=== PATIENT | female | born 1995 | race Caucasian/White ===

== ENCOUNTER 2023-02-17 10:21 | Outpatient (RCR) | payer BC, SELFPAY ==
[2023-02-17 11:01] LABS: HCG Quantitative <1 mIU/mL
[2023-02-19 10:08] LABS: HCG Quantitative <1 mIU/mL
== END 2023-02-22 17:52 | disposition home or self-care (01) ==
LOC: LAB 10:21
PROVIDERS: Visit Provider Obstetrics & Gynecology
DX: N92.6 Irregular menstruation, unspecified (principal)
CPT/HCPCS: 36415; 84702

== ENCOUNTER 2023-05-06 08:29 | Outpatient (OUT) | payer BC, SELFPAY ==
--- NOTE | 2023-05-06 08:31 | US_ITS ---
[address] [address] Patient Name: MAURICIO MENDES MRN: [id number] date: 1995 Sex: F Assigned Patient Location: [place] Current Patient Location: [place] Accession/Order Number: [id number] Exam Date: 05/06/2023 08:32 Report Date: 05/06/2023 09:55 At the request of: JANIE CARABALLO Procedure: US OB transvaginal EXAMINATION: US OB transvaginal HISTORY: Missed menses COMPARISON: No relevant comparison available. FINDINGS: Nino intrauterine gestation Gestational sac: 4.67 cm, 10 weeks 2 days CRL: 3 cm, 9 weeks 6 days Yolk sac: 2 mm Heart rate: 175 BPM Cervix: Closed, 4.7 cm The uterus is normal, anteverted The ovaries are normal. Right corpus luteal cyst Clinical age: 9 weeks 4 days Clinical CARIDAD: 12/05/2023 Ultrasound age: 9 weeks 6 days Ultrasound CARIDAD: 12/03/2023 US/US OB transvaginal IMPRESSION: Viable nino intrauterine gestation measuring 9 weeks 6 days Electronically authenticated by: COREY SAMUEL Date: 05/06/2023 09:55
--- OUTSIDE RECORDS SUMMARY | 2023-05-06 08:32 | XMS_ITS | CCD ---
Author Name Unknown Address [address] [place] [address] Organization [facility] Care Team Providers Care Arterial Embalmer Name Role Phone No, Physician Unavailable Unavailable WILFREDO CALLAHAN Unavailable Unavailab le NO, PHYSICIAN Unavailable Unavailable Ebonie Lovelace Unavailable [phone] EBONIE LOVELACE Unavailable Unavail able EBONIE LOVELACEINE Unavailable Unavail able EBONIE LOVELACEINE Unavailable Unavail able NO, PHYSICIAN Unavailable Unavailable LOVELACEEBONIEINE Unavailable Unavail able NO, PHYSICIAN Unavailable Unavailable LOVELACE, EBONIE HERNANDEZINE Unavailable Unavail able NO, PHYSICIAN Unavailable Unavailable LOVELACE, EBONIE HERNANDEZINE Unavailable Unavail able NO, PHYSICIAN Unavailable Unavailable COREY MARTIN Unavailable Unavailable LOVELACE, EBONIE ISLAS Unavailable Unavail able NO, PHYSICIAN Unavailable Unavailable ORVILLE GÓMZE Unavailable Unavailable NO, PHYSICIAN Unavailable Unavailable DENZEL HOANG Unavailable Unavaila ble EBONIE LOVELACEINE Unavailable Unavail able NO, PHYSICIAN Unavailable Unavailable LOVELACE, EBONIE HERNANDEZINE Unavailable Unavail able NO, PHYSICIAN Unavailable Unavailable NATALIE EMANUEL Unavailable Unavailable [facility] navailable Unavailable RASHMI Hollins, DR LIMA Admitting Unavailable RASHMI Hollins, DR LIMA Attending Unavailable REQUEST, NONE LISTED Primary Care Unavaila DR JANIE Gross Consulting Unavailable TAWANNA CHESTER Admitting Unavailable TAWANNA CHESTER Attending Unavailable REQUEST, NONE LISTED Primary Care Unavaila TAWANNA Stratton Consulting Unavailable Medications Current Medications Medication Drug Class(es) Dates Sig (Normalized) Sig (Original) Norgestimate-Ethi nyl Estradiol 0.18 Mg/0.215mg/0.25mg -35 McG(28)Tablet (4 sources) Progestin, Estrogen Start: 04-29-2017 take 1 tablet by mouth once daily norgestimate-ethinyl estradiol (ORTHO TRI-CYCLEN,TRINESSA) 0.18/0.215/0.25 mg-35 mcg (28) per tablet Take 1 tablet by mouth daily. 4 04/29/2017 Active ofloxacin 3 mg/ml ophthalmic solution (1 source) Quinolone Antimicrobial Start: 05-13-2017 End: 05-20-2017 take 1 drop(s) into the eye(s) four times daily ofloxacin (OCUFLOX) 0.3 % ophthalmic solution Indications: Acute bacterial conjunctivitis of both eyes Administer 1 (one) drop to both eyes 4 (four) times a day for 7 days. 10 mL 0 05/13/2017 05/20/2017 Active Completed/Discontinued Medications Medication Drug Class(es) Dates Sig (Normalized) Sig (Original) 0.5 ml bordetella pertussis filamentous hemagglutinin vaccine, inactivated 0.01 mg/ml / bordetella pertussis fimbriae 2/3 vaccine, inactivated 0.01 mg/ml / bordetella pertussis pertactin vaccine, inactivated 0.006 mg/ml / bordetella pertussis toxoid vaccine, inactivated 0.005 mg/ml / diphtheria toxoid vaccine, inactivated 4 unt/ml / tetanus toxoid vaccine, inactivated 10 unt/ml injection (1 source) Inactivated Corynebacterium Diphtheriae Vaccine, Inactivated Clostridium Tetani Vaccine Start: 01-11-2018 End: 01-13-2018 take 0.5 mL by intramuscular injection every twenty-four hours as needed acetaminophen 325 mg oral tablet (2 sources) Start: 01-10-2018 End: 01-13-2018 take 2 tablets by mouth every four hours as needed aluminum hydroxide 40 mg/ml / magnesium hydroxide 40 mg/ml / simethicone 4 mg/ml oral suspension (1 source) Start: 01-11-2018 End: 01-13-2018 take 30 mL by mouth every four hours as needed benzocaine 200 mg/ml topical spray (1 source) Standardized Chemical Allergen Start: 01-11-2018 End: 01-13-2018 calcium chloride 0.0014 meq/ml / potassium chloride 0.004 meq/ml / sodium chloride 0.103 meq/ml / sodium lactate 0.028 meq/ml injectable solution (2 sources) Start: 01-11-2018 End: 01-11-2018 lactated ringers bolus 1,000 mL Start: 01-11-2018 End: 01-11-2018 lactated Ringers infusion diphenhydrAMINE (BENADRYL) oral solid 25 mg (1 source) Start: 01-11-2018 End: 01-13-2018 take 25 mg by mouth every six hours as needed diphenhydrAMINE (BENADRYL) oral solid 25 mg docusate sodium 100 mg oral capsule (1 source) Start: 01-11-2018 End: 01-13-2018 Flu Vaccine Qs 2017-(6 Mos Up)(Pf)60 McG(15 McGx4)/0.5 Ml Im Syringe (1 source) Start: 01-12-2018 End: 01-12-2018 take 0.5 mL by intramuscular injection every twenty-four hours as needed flu vaccine qv 2017 (6mos up)(PF) (FLULAVAL QUAD/FLUARIX QUAD) syringe 0.5 mL ibuprofen 600 mg oral tablet (2 sources) Nonsteroidal Anti-inflammator y Drug Start: 01-12-2018 End: 01-13-2018 Start: 01-11-2018 End: 01-11-2018 ibuprofen (ADVIL,MOTRIN) tab let 800 mg Vitamin With Calciu m No.72-Iron 27 Mg-Folic Acid 1 Mg Tablet (3 sources) Start: 01-12-2018 End: 01-13-2018 take 1 tablet by mouth once mitchel y vitamin with Ca-Iron-FA 27-1 mg Tab Take 1 tablet by mouth daily. Active 0.5 ml measles virus vaccine live, serafin attenuated [place] strain 2000 unt/ml / mumps virus vaccine live, yogi evans strain 85665 unt/ml / rubella virus vaccine live (wistar 27-3 strain) 2000 unt/ml injection (1 source) Live Attenuated Measles Virus Vaccine, Live Attenuated Rubella Virus Vaccine, Live Attenuated Mumps Virus Vaccine Start: 01-11-2018 End: 01-12-2018 take 0.5 mL by subcutaneous injection every twenty-four hours as needed Nalbuphine 10 Mg/Ml Injection Solution (1 source) Opioid Agonist/Antagon ist Start: 01-10-2018 End: 01-11-2018 take 10 mg intravenous route every hour as needed nalbuphine (NUBAIN) injection 10 mg Naloxone 0.4 Mg/Ml Injection Solution (2 sources) Opioid Antagonist Start: 01-11-2018 End: 01-13-2018 2 ml ondansetron 2 mg/ml injection (1 source) Serotonin-3 Receptor Antagonist Start: 01-10-2018 End: 01-11-2018 take 4 mg intravenous route every six hours as needed ondansetron (ZOFRAN) injection 4 mg ondansetron (ZOFRAN-ODT) disintegrating tablet 4 mg (1 source) Start: 01-11-2018 End: 01-13-2018 take 1 tablet by mouth every six hours as needed ondansetron (ZOFRAN-ODT) disintegrating tablet 4 mg oxyCODONE hydrochloride 5 mg oral tablet (1 source) Opioid Agonist Start: 01-11-2018 End: 01-13-2018 take 5-10 mg by mouth every four hours as needed oxytocin (4 sources) Oxytocic Start: 01-11-2018 End: 01-12-2018 Start: 01-11-2018 End: 01-11-2018 oxytocin in lactated ringers (PITOCIN) 20 unit/1,000 mL infusion Start: 01-11-2018 End: 01-11-2018 oxytocin (PITOCIN) bolus fro m bag 10,000 abdulkadir-units Start: 01-11-2018 End: 01-11-2018 oxytocin in lactated ringers (PITOCIN) 20 unit/1,000 mL infusion rho(d) immune globulin (RHOPHYLAC) injection 300 mcg (1 source) Start: 01-11-2018 End: 01-13-2018 take 300 ug by intramuscular injection every twenty-four hours as needed rho(d) immune globulin (RHOPHYLAC) injection 300 mcg 200 ml ropivacaine hydrochloride 2 mg/ml injection (1 source) Amide Local Anesthetic Start: 01-11-2018 End: 01-13-2018 simethicone 80 mg chewable tablet (1 source) Start: 01-11-2018 End: 01-13-2018 sodium chloride (1 source) Start: 01-11-2018 End: 01-13-2018 sodium chloride (PF) (NS) flush 5 mL 0.5 ml varicella-zoster virus vaccine live (oka-merck) strain 2700 unt/ml injection (1 source) Start: 01-11-2018 End: 01-13-2018 take 0.5 mL by subcutaneous injection every twenty-four hours as needed Problems Active Problems Problem Classification Problem Date Documented Da te Episodic/Chronic Hemorrhage during ; abruptio placenta; placenta previa (1 source) Placental abruption; Translations: [Placental abruption] Onset: 01-10-2018 01-10-2018 Episodic Other female genital disorders (1 source) Vaginal bleeding Onset: 01-11-2018 Episodic Unclassified (6 sources) Encounter for screening for malignant neoplasm of cervix; Translations: [Encounter for screening for malignant neoplasm of cervix] Onset: 04-14-2017 Episodic Unclassified (2 sources) Low lying placenta NOS or without hemorrhage, second trimester; Translations: [Low lying placenta nos or without hemorrhage, second trimester] Onset: 09-23-2017 Unclassified (1 source) Unknown / UNK(Unknown) Onset: 01-11-2018 Unclassified (1 source) CONTACT W/AND (SUSP) EXPOS COVID-19; Translations: [CONTACT W/AND (SUSP) EXPOS COVID-19] Onset: 10-22-2021 Past or Other Problems Problem Classification Problem Date Documented Date Episodic/Chronic Immunizations and screening for infectious disease (2 sources) Encounter for screening for infections with a predominantly sexual mode of transmission; Translations: [Encounter for screening for infections with a predominantly sexual mode of transmission] Onset: 04-14-2017 Episodic Inflammation, infection of eye (2 sources) Unspecified acute conjunctivitis, bilateral; Translations: [Unspecified acute conjunctivitis, bilateral] Onset: 05-13-2017 Episodic Normal and/or delivery (6 sources) Encounter for supervision of normal first , second trimester; Translations: [Encounter for supervision of normal first , unspecified trimester] Onset: 06-30-2017 Episodic Other complications of ; puerperium affecting management of mother (2 sources) Maternal care for (suspected) abnormality and damage, unspecified, not applicable or unspecified; Translations: [Maternal care for (suspected) abnormality and damage, unspecified, not applicable or unspecified] Onset: 09-23-2017 Episodic Other complications of ; puerperium affecting management of mother (2 sources) Maternal care for (suspected) abnormality and damage, unspecified, fetus 1; Translations: [Maternal care for (suspected) abnormality and damage, unspecified, fetus 1] Onset: 11-11-2017 Episodic Unclassified (1 source) Suspected abnormality affecting management of mother, fetus 1 of multiple gestation Results Test Name Value Interpretation Reference Range Facility Covid-19 PCR ([facility])on 09-24 SARS-CoV-2 (COVID-19) RNA SANDRA+probe Ql (Unsp spec) Not detected Normal NOT DETECTED [facility] Comment on above: Result Comment: When diagnostic testing is negative, the possibility of a false negative should be considered in the context of a patient's recent exposures and the presence of clinical signs and symptoms consistent with SARS-CoV-2. This test is not yet approved or cleared by the [place] FDA. When there are no FDA-approved or cleared tests available, and other criteria are met, FDA can make tests available under an emergency access mechanism called an Emergency Use Authorization (EUA). The EUA for this test is supported by the [employer] of Health and Human Service's declaration that circumstances exist to justify the emergency use of in vitro diagnostics for the detection and/or diagnosis of the virus that causes COVID-19. This EUA will remain in effect for the duration of the COVID-19 declaration justifying emergency of IVDs, unless it is terminated or revoked by the FDA (after which the test may no longer be used). Performed By: #### [facility] #### [facility] [address] [place] [address] Dr. Kaveh Wilks Tissue Aerobic Cultureon Bacteria identified Aer cx Nom (Tiss) Few Growth (4-10 colonies per plate) Coagulase Negative Staphylococcus Abnormal [facility] Interpretation and review of laboratory results Abnormal Invalid Interpretation Code [facility] Microscopic observation Gram stain Nom (Tiss) Many WBC Invalid Interpretation Code [facility] Microscopic observation Gram stain Nom (Tiss) Many RBC Invalid Interpretation Code [facility] Microscopic observation Gram stain Nom (Tiss) No Organisms Seen Invalid Interpretation Code [facility] Antibody Identificationon Blood group antibodies identified Nom Anti-Rhogam Invalid Interpretation Code [facility] The anti-D detected in this patient is presumably caused by a recent Rh Immune Globulin injection.It is unlikely that this represents a clinically significant antibody. Invalid Interpretation Code [facility] RhIG Evaluationon 01-11-2018 Rh immune globulin candidate (yes/no) Ql RhIG Candidacy Invalid Interpretation Code [facility] Baby is Rho(D) negative. Patient is NOT a candidate for Rh Immune Globulin. Invalid Interpretation Code [facility] Syphilis Antibodyon 01-12-20 Interpretation and review of laboratory results Normal Invalid Interpretation Code [facility] T. pallidum Ab Ql (S) Negative Invalid Interpretation Code Negative [facility] Type and Screenon 01-11-2018 ABO and Rh group Nom (Bld) Negative Invalid Interpretation Code [facility] Blood group antibody screen Ql Positive Invalid Interpretation Code [facility] Specimen Expires 01/13/2018 23:59 EST Invalid Interpretation Code [facility] APTTon 01-10-2018 aPTT Coag time (Bld) Therapeutic range for APTT's is 68 - 104 seconds Invalid Interpretation Code [facility] aPTT Coag time (Bld) 25 s Invalid Interpretation Code [facility] CBCon 01-10-2018 Erythrocyte distribution width Auto Entitic volume (RBC) 14.0 % Invalid Interpretation Code 11.6 - 14.8 % [facility] Hematocrit Auto Volume Fraction (Bld) 33.9 % Low 36 - 46 % [facility] Hemoglobin mass conc (Bld) 11.8 g/dL Low 12 - 16 g/dL [facility] Interpretation and review of laboratory results Abnormal Invalid Interpretation Code [facility] MCH Auto Entitic mass (RBC) 31.7 pg Invalid Interpretation Code 26 - [address] [facility] MCHC Auto mass conc (RBC) 34.8 g/dL Invalid Interpretation Code 31 - 37 g/dL [facility] MCV Auto Entitic volume (RBC) 91.1 fL Invalid Interpretation Code 80 - [address] [facility] Nucleated RBC #/vol (Bld) 0.00 10*3/uL Invalid Interpretation Code [facility] Nucleated RBC/100 WBC Ratio (Bld) 0.0 % Invalid Interpretation Code [facility] Platelet mean volume Auto Entitic volume (Bld) 12.1 fL Invalid Interpretation Code 9 - 15.[address] [facility] Platelets Auto #/vol (Bld) 159 10*3/uL Invalid Interpretation Code [facility] RBC Auto #/vol (Bld) 3.72 10*6/uL Low RI [facility] WBC Auto #/vol (Bld) 16.00 10*3/uL High R [facility] Fibrinogenon 01-10-2018 Fibrinogen Coag mass conc (PPP) 547 mg/dL High 224 - 483 mg/dL [facility] Interpretation and review of laboratory results Abnormal Invalid Interpretation Code [facility] Otheron 01-10-2018 Interpretation and review of laboratory results Normal Invalid Interpretation Code [facility] PT/INRon 01-10-2018 INR Coag RelTime (Bld) During the induction phase of oral anticoagulation, the INR may not reflect the anticoagulation status of the patient. Therapeutic ranges for INR's are: Most clinical situations: INR 2.0-3.0 Mechanical Prosthetic Valve: INR 2.5-3.5 Critical: INR >5.0 Invalid Interpretation Code [facility] INR Coag RelTime (PPP) 0.9 {INR} Invalid Interpretation Code [facility] Prothrombin time (PT) Coag time (PPP) 12.2 s Invalid Interpretation Code [facility] US OB FOLLOW UP TRANSABDOMIN AL SINGLE FETUSon 11-11-2017 US OB FOLLOW UP TRANSABDOMINAL SINGLE FETUS OBSTETRICS REPORT (Signed Final 11/11/2017 04:43 pm) Patient Info ID #: [id number] : [birth year] (22 yrs) Name: MAURICIO CAMARILLO Visit Date: 11/11/2017 10:50 am Performed By Performed By: Bianca Reynoso Referred By: Ebonie Lovelace RDMS, MD Attending: Uziel Hanson, Location: Demi Knapp MD, [facility] Service(s) [place] [id number] [place] [address] Indications Zika virus exposure affecting O99.89 28 weeks gestation of Z3A.28 Evaluation Num Of Fetuses: 1 Heart 138 Rate(bpm): Cardiac Activity: Observed Presentation: Vertex Placenta: Posterior P. Cord Insertion: Limited views Amniotic Fluid SHON FV: Within normal limits SHON Sum(cm) %Tile Largest Pocket(cm) 15.87 57 4.91 RUQ(cm) RLQ(cm) LUQ(cm) LLQ(cm) 4.91 3.9 2.88 4.18 -------- Biometry -------- BPD: 70 mm G. Age: 28w 1d 29 % CI: 66.97 % 70 - 86 FL/HC: 18.6 % 18.8 - 20.6 HC: 274 mm G. Age: 29w 6d 64 % HC/AC: 1.11 1.05 - 1.21 AC: 246.9 mm G. Age: 28w 6d 58 % FL/BPD: 72.9 % 71 - 87 FL: 51 mm G. Age: 27w 2d 10 % FL/AC: 20.7 % 20 - 24 LV: 5.5 mm Est. FW: 1226 gm 2 lb 11 oz 51 % Gestational Age Clinical CARIDAD: 28w 3d CARIDAD: 01/31/18 U/S Today: 28w 4d CARIDAD: 01/30/18 Best: 28w 3d Det. By: Clinical CARIDAD CARIDAD: 01/31/18 ------- Anatomy ------- Cranium: Normal appearance Ductal Arch: Normal appearance Cavum: CSP Visualized Diaphragm: Normal appearance Ventricles: Normal appearance Stomach: Normal appearance Choroid Plexus: Normal appearance Abdomen: Normal appearance Cerebellum: Normal appearance Abdominal Wall: Visualized Posterior Fossa: Visualized Cord Vessels: 3 vessels Face: Bony face appears Kidneys: Normal appearance normal Lips: Normal appearance Bladder: Visualized Heart: 4-Chamber view Spine: Normal appearance appears normal RVOT: Normal appearance Upper Extremities: Limited views of hands LVOT: Normal appearance Lower Extremities: Normal appearance Aortic Arch: Normal appearance Other: A full anatomical scan was already performed. Known male. - Cervix Uterus Adnexa - Cervix Length: 3.9 cm. -------- Comments -------- Ultrasound procedure was explained to the patient. Patient was receptive to teaching and verbalizes understanding. Impression Estimated weight and amniotic fluid volume are appropriate for this gestational age. No gross anatomic abnormalities were detected on today's scan. Specifically, the intracranial anatomy and head size appear within normal limits. Limited anatomic survey due to position and gestational age. A transvaginal ultrasound was performed to evaluate placental location. The low-lying placenta has resolved, measuring 2.2 cm from the internal os. The cervical length measured 3.9 cm. No dynamic changes were observed with fundal pressure. Recommendations Thank you for sharing the care of your patient with us. We are very proud of the fact that our ultrasound office is accredited by The [employer] ([employer]). If you would like to discuss the results of your patient's tests or would like a Maternal- Medicine Consultation to assist you with her management, please do not hesitate to contact us at [phone]. Uziel Hanson MD, RDMS Electronically Signed Final Report 11/11/2017 04:43 pm Invalid Interpretation Code [facility] US OB FOLLOW UP TRANSABDOMINAL SINGLE FETUS Interface, Rad In Stan Speechq - 11/11/2017 4:44 PM EDT OBSTETRICS REPORT (Signed Final 11/11/2017 04:43 pm) Patient Info ID #: [id number] : [birth year] (22 yrs) Name: CHELAROMAINEEmanuel Perales Sandy CAMARILLO Visit Date: 11/11/2017 10:50 am Performed By Performed By: Bianca Reynoso Referred By: Ebonie Lovelace RDID Attending: Uziel Hanson, Location: [place] [facility], [facility] Service(s) [place] [address] [place] [address] Indications Zika virus exposure affecting O99.89 28 weeks gestation of Z3A.28 Evaluation Num Of Fetuses: 1 Heart 138 Rate(bpm): Cardiac Activity: Observed Presentation: Vertex Placenta: Posterior P. Cord Insertion: Limited views Amniotic Fluid SHON FV: Within normal limits SHON Sum(cm) %Tile Largest Pocket(cm) 15.87 57 4.91 RUQ(cm) RLQ(cm) LUQ(cm) LLQ(cm) 4.91 3.9 2.88 4.18 -------- Biometry -------- BPD: 70 mm G. Age: 28w 1d 29 % CI: 66.97 % 70 - 86 FL/HC: 18.6 % 18.8 - 20.6 HC: 274 mm G. Age: 29w 6d 64 % HC/AC: 1.11 1.05 - 1.21 AC: 246.9 mm G. Age: 28w 6d 58 % FL/BPD: 72.9 % 71 - 87 FL: 51 mm G. Age: 27w 2d 10 % FL/AC: 20.7 % 20 - 24 LV: 5.5 mm Est. FW: 1226 gm 2 lb 11 oz 51 % Gestational Age Clinical CARIDAD: 28w 3d CARIDAD: 01/31/18 U/S Today: 28w 4d CARIDAD: 01/30/18 Best: 28w 3d Det. By: Clinical CARIDAD CARIDAD: 01/31/18 ------- Anatomy ------- Cranium: Normal appearance Ductal Arch: Normal appearance Cavum: CSP Visualized Diaphragm: Normal appearance Ventricles: Normal appearance Stomach: Normal appearance Choroid Plexus: Normal appearance Abdomen: Normal appearance Cerebellum: Normal appearance Abdominal Wall: Visualized Posterior Fossa: Visualized Cord Vessels: 3 vessels Face: Bony face appears Kidneys: Normal appearance normal Lips: Normal appearance Bladder: Visualized Heart: 4-Chamber view Spine: Normal appearance appears normal RVOT: Normal appearance Upper Extremities: Limited views of hands LVOT: Normal appearance Lower Extremities: Normal appearance Aortic Arch: Normal appearance Other: A full anatomical scan was already performed. Known male. - Cervix Uterus Adnexa - Cervix Length: 3.9 cm. -------- Comments -------- Ultrasound procedure was explained to the patient. Patient was receptive to teaching and verbalizes understanding. Impression Estimated weight and amniotic fluid volume are appropriate for this gestational age. No gross anatomic abnormalities were detected on today's scan. Specifically, the intracranial anatomy and head size appear within normal limits. Limited anatomic survey due to position and gestational age. A transvaginal ultrasound was performed to evaluate placental location. The low-lying placenta has resolved, measuring 2.2 cm from the internal os. The cervical length measured 3.9 cm. No dynamic changes were observed with fundal pressure. Recommendations Thank you for sharing the care of your patient with us. We are very proud of the fact that our ultrasound office is accredited by [employer] [place] [employer] ([employer]UM). If you would like to discuss the results of your patient's tests or would like a Maternal- Medicine Consultation to assist you with her management, please do not hesitate to contact us at [phone]. Uziel Hanson MD, RDMS Electronically Signed Final Report 11/11/2017 04:43 pm Invalid Interpretation Code [facility] US Obstetric Detail An atomy Transabdominal Single Fetuson 09-23-2017 US Obstetric Detail Anatomy Transabdominal Single Fetus OBSTETRICS REPORT (Signed Final 09/23/2017 03:50 pm) Patient Info ID #: [id number] : [birth year] (22 yrs) Name: MAURICIO CAMARILLO Visit Date: 09/23/2017 01:47 pm Performed By Performed By: Geovani Mart Referred By: Ebonie Lovelace RDMS, MD Attending: Debbie Recio MD Location: [facility] Service(s) Provided Targeted OB + Transvaginal [id number] Indications 21 weeks gestation of Z3A.21 Zika virus exposure affecting O99.89 Suspected abnormality affecting O35.9XX0 management of mother, Low lying placenta nos or without O44.42 hemorrhage, second trimest Evaluation Num Of Fetuses: 1 Heart 146 Rate(bpm): Cardiac Activity: Observed Presentation: Breech Placenta: Posterior low-lying 1.5 cm from os Amniotic Fluid SHON FV: Within normal limits -------- Biometry -------- BPD: 49.7 mm G. Age: 21w 0d 33 % CI: 66.25 % 70 - 86 FL/HC: 17.8 % 15.9 - 20.3 HC: 195.8 mm G. Age: 21w 5d 55 % HC/AC: 1.15 1.06 - 1.25 AC: 170.5 mm G. Age: 22w 0d 62 % FL/BPD: 70.0 % FL: 34.8 mm G. Age: 21w 0d 25 % FL/AC: 20.4 % 20 - 24 CER: 22.2 mm G. Age: 21w 1d 38 % NB: 7.33 mm 51 % > 1 MoM LV: 6.6 mm CM: 4 mm IOD: 12.9 mm G. Age: 19w 2d 49 % OOD: 32.9 mm G. Age: 19w 6d 32 % ULN: 31.8 mm G. Age: 22w 0d 49 % TIB: 31.7 mm G. Age: 21w 5d 59 % RAD: 27.9 mm G. Age: 20w 3d 33 % FIB: 29.9 mm G. Age: 20w 4d 50 % Est. FW: 433 gm 0 lb 15 oz 48 % Gestational Age Clinical CARIDAD: 21w 3d CARIDAD: 01/31/18 U/S Today: 21w 3d CARIDAD: 01/31/18 Best: 21w 3d Det. By: Clinical CARIDAD CARIDAD: 01/31/18 Targeted Anatomy Central Nervous System Calvarium/Cranial V.: Normal appearance Choroid Plexus: Normal appearance Intracranial Gisel: Normal CSP Cereb./Vermis: Normal appearance Cavum: Normal appearance Cisterna Magna: Normal appearance Lateral Ventricles: Normal appearance Spine Cervical: Normal appearance Lumbar: Normal appearance Thoracic: Normal appearance Sacral: Normal appearance Head/Neck Face: Bony face appears Palate: Visualized normal Lips: Normal appearance Profile: Normal appearance Neck: Normal appearance Orbits/Eyes: Bony sockets appear normal Nuchal Fold: Normal appearance Mandible: Visualized Nasal Bone: Present Maxilla: Visualized Thorax Thoracic Contour: Normal appearance Ductal Arch: Normal appearance Lungs: Normal appearance SVC: Visualized 4 Chamber View: Normal appearance Cardiac Frazer: Normal Cardiac Motion: Visualized Diaphragm: Normal appearance Cardiac Rhythm: Normal sinus rhythm 3 Vessel View: Visualized Rt Outflow Tract: Normal appearance IVC: Visualized Lt Outflow Tract: Normal appearance Crossing: Visualized Aortic Arch: Normal appearance Abdomen Ventral Wall: Normal appearance Rt Kidney: Normal appearance Cord Insertion: Normal appearance Bladder: Normal appearance Stomach: Normal appearance Bowel: Normal appearance Liver: Normal appearance Spleen: Normal appearance Lt Kidney: Normal appearance Extremities Lt Humerus: Normal appearance Lt Femur: Normal appearance Rt Humerus: Limited views Rt Femur: Normal appearance Lt Forearm: Normal appearance Lt Lower Leg: Normal appearance Rt Forearm: Limited view Rt Lower Leg: Normal appearance Lt Hand: Limited fingers Lt Foot: Limited toes Rt Hand: Limited fingers Rt Foot: Limited toes Other Umbilical Cord: 3-vessel Genitalia: Known male -------- Comments -------- Ultrasound procedure was explained to the patient. Patient was receptive to teaching and verbalizes understanding. Impression Thank you for referring Mauricio Camarillo for anatomic survey in the setting of travel to a Zika endemic area in early . As you know she denies a history of mosquito bites or symptoms of infection. Biometric measurements corresponded to established dates. head measurements were in the normal range. No anatomic abnormalities were seen at this time. Limited survey due to position. The placenta was posterior and appeared low-lying on transabdominal imaging. Therefore transvaginal ultrasound was performed and confirmed the low-lying placenta. The above findings were discussed with the patient, and I reviewed the limitations of ultrasound. I counseled the patient regarding the CDC recommendation to abstain from intercourse or use condoms for the duration of the when a partner has traveled to a Zika endemic location. A follow-up ultrasound was scheduled at 28 weeks for reassessment of placental location, as well as evaluation of growth and neuroanatomy. Recommendations Thank you for sharing the care of your patient with us. We are very proud of the fact that our ultrasound office is accredited by The [place] [employer] ([employer]). If you would like to discuss the results of your patient's tests or would like a Maternal- Medicine Consultation to assist you with her management, please do not hesitate to contact us at [phone]. Debbie Recio MD Electronically Signed Final Report 09/23/2017 03:50 pm Invalid Interpretation Code GEOVANI MART RDMS US Obstetric Detail Anatomy Transabdominal Single Fetus Interface, Rad In Fuji Speechq - 09/23/2017 3:51 PM EDT OBSTETRICS REPORT (Signed Final 09/23/2017 03:50 pm) Patient Info ID #: [id number] : [birth year] (22 yrs) Name: MAURICIO CAMARILLO Visit Date: 09/23/2017 01:47 pm Performed By Performed By: Geovani Mart Referred By: Ebonie Lovelace RDMS, MD Attending: Debbie Recio MD Location: [facility]) Provided Targeted OB + Transvaginal [id number] Indications 21 weeks gestation of Z3A.21 Zika virus exposure affecting O99.89 Suspected abnormality affecting O35.9XX0 management of mother, Low lying placenta nos or without O44.42 hemorrhage, second trimest Evaluation Num Of Fetuses: 1 Heart 146 Rate(bpm): Cardiac Activity: Observed Presentation: Breech Placenta: Posterior low-lying 1.5 cm from os Amniotic Fluid SHON FV: Within normal limits -------- Biometry -------- BPD: 49.7 mm G. Age: 21w 0d 33 % CI: 66.25 % 70 - 86 FL/HC: 17.8 % 15.9 - 20.3 HC: 195.8 mm G. Age: 21w 5d 55 % HC/AC: 1.15 1.06 - 1.25 AC: 170.5 mm G. Age: 22w 0d 62 % FL/BPD: 70.0 % FL: 34.8 mm G. Age: 21w 0d 25 % FL/AC: 20.4 % 20 - 24 CER: 22.2 mm G. Age: 21w 1d 38 % NB: 7.33 mm 51 % > 1 MoM LV: 6.6 mm CM: 4 mm IOD: 12.9 mm G. Age: 19w 2d 49 % OOD: 32.9 mm G. Age: 19w 6d 32 % ULN: 31.8 mm G. Age: 22w 0d 49 % TIB: 31.7 mm G. Age: 21w 5d 59 % RAD: 27.9 mm G. Age: 20w 3d 33 % FIB: 29.9 mm G. Age: 20w 4d 50 % Est. FW: 433 gm 0 lb 15 oz 48 % Gestational Age Clinical CARIDAD: 21w 3d CARIDAD: 01/31/18 U/S Today: 21w 3d CARIDAD: 01/31/18 Best: 21w 3d Det. By: Clinical CARIDAD CARIDAD: 01/31/18 Targeted Anatomy Central Nervous System Calvarium/Cranial V.: Normal appearance Choroid Plexus: Normal appearance Intracranial Gisel: Normal CSP Cereb./Vermis: Normal appearance Cavum: Normal appearance Cisterna Magna: Normal appearance Lateral Ventricles: Normal appearance Spine Cervical: Normal appearance Lumbar: Normal appearance Thoracic: Normal appearance Sacral: Normal appearance Head/Neck Face: Bony face appears Palate: Visualized normal Lips: Normal appearance Profile: Normal appearance Neck: Normal appearance Orbits/Eyes: Bony sockets appear normal Nuchal Fold: Normal appearance Mandible: Visualized Nasal Bone: Present Maxilla: Visualized Thorax Thoracic Contour: Normal appearance Ductal Arch: Normal appearance Lungs: Normal appearance SVC: Visualized 4 Chamber View: Normal appearance Cardiac Frazer: Normal Cardiac Motion: Visualized Diaphragm: Normal appearance Cardiac Rhythm: Normal sinus rhythm 3 Vessel View: Visualized Rt Outflow Tract: Normal appearance IVC: Visualized Lt Outflow Tract: Normal appearance Crossing: Visualized Aortic Arch: Normal appearance Abdomen Ventral Wall: Normal appearance Rt Kidney: Normal appearance Cord Insertion: Normal appearance Bladder: Normal appearance Stomach: Normal appearance Bowel: Normal appearance Liver: Normal appearance Spleen: Normal appearance Lt Kidney: Normal appearance Extremities Lt Humerus: Normal appearance Lt Femur: Normal appearance Rt Humerus: Limited views Rt Femur: Normal appearance Lt Forearm: Normal appearance Lt Lower Leg: Normal appearance Rt Forearm: Limited view Rt Lower Leg: Normal appearance Lt Hand: Limited fingers Lt Foot: Limited toes Rt Hand: Limited fingers Rt Foot: Limited toes Other Umbilical Cord: 3-vessel Genitalia: Known male -------- Comments -------- Ultrasound procedure was explained to the patient. Patient was receptive to teaching and verbalizes understanding. Impression Thank you for referring Mauricio Camarillo for anatomic survey in the setting of travel to a Zika endemic area in early . As you know she denies a history of mosquito bites or symptoms of infection. Biometric measurements corresponded to established dates. head measurements were in the normal range. No anatomic abnormalities were seen at this time. Limited survey due to position. The placenta was posterior and appeared low-lying on transabdominal imaging. Therefore transvaginal ultrasound was performed and confirmed the low-lying placenta. The above findings were discussed with the patient, and I reviewed the limitations of ultrasound. I counseled the patient regarding the CDC recommendation to abstain from intercourse or use condoms for the duration of the when a partner has traveled to a Zika endemic location. A follow-up ultrasound was scheduled at 28 weeks for reassessment of placental location, as well as evaluation of growth and neuroanatomy. Recommendations Thank you for sharing the care of your patient with us. We are very proud of the fact that our ultrasound office is accredited by The [place] [employer] (AIUM). If you would like to discuss the results of your patient's tests or would like a Maternal- Medicine Consultation to assist you with her management, please do not hesitate to contact us at [phone]. Debbie Recio MD Electronically Signed Final Report 09/23/2017 03:50 pm Invalid Interpretation Code GEOVANI MART RDMS CBC Auto Differentialon 03-0 Basophils 0.03 K/mcL Invalid Interpretation Code 0.00 - 0.[address] [facility] Basophils/100 leukocytes 0.3 % Invalid Interpretation Code [facility] Eosinophils 0.07 K/mcL Invalid Interpretation Code 0.00 - 0.[address] [facility] Eosinophils/100 leukocytes 0.6 % Invalid Interpretation Code [facility] Erythrocytes (RBC) 4.12 M/mcL Invalid Interpretation Code 4.00 - 5.[address] [facility] Erythrocytes (RBC) 0.00 K/mcL Invalid Interpretation Code 0.00 - 0.[address] [facility] Hematocrit (HCT) 36.8 % Invalid Interpretation Code 36 - 46 % [facility] Hemoglobin (HGB) 12.5 g/dL Invalid Interpretation Code 12 - 16 g/dL [facility] IG Absolute 0.02 K/mcL Invalid Interpretation Code 0.00 - 0.[address] [facility] IG Percent 0.20 % Invalid Interpretation Code [facility] Interpretation and review of laboratory results Abnormal Invalid Interpretation Code [facility] Lymphocytes 2.42 K/mcL Invalid Interpretation Code 0.90 - 4.[address] [facility] Lymphocytes/100 leukocytes 22.2 % Invalid Interpretation Code [facility] MCH 30.3 pg Invalid Interpretation Code 26 - [address] [facility] MCHC 34.0 g/dL Invalid Interpretation Code 31 - 37 g/dL [facility] MCV 89.3 fL Invalid Interpretation Code 80 - [address] [facility] Monocytes 0.67 K/mcL Invalid Interpretation Code 0.30 - 0.[address] [facility] Monocytes/100 leukocytes 6.1 % Invalid Interpretation Code [facility] Neutrophils 7.69 K/mcL High 1.70 - 7.[address] [facility] Neutrophils/100 leukocytes 70.6 % Invalid Interpretation Code [facility] Nucleated erythrocytes/100 erythrocytes 0.0 % Invalid Interpretation Code [facility] Platelet mean volume (PMV) 11.2 fL Invalid Interpretation Code 9 - 15.[address] [facility] Platelets 285 K/mcL Invalid Interpretation Code 150 - [address] [facility] RDW-CA 12.8 % Invalid Interpretation Code 11.6 - 14.8 % [facility] WBC (Leukocytes) 10.90 K/mcL Invalid Interpretation Code 4.50 - 11.[address] [facility] CBC and Differentialon 06-30 Creatinine The following orders were created for panel order CBC and Differential. Procedure Abnormality Status --------- ------ CBC Auto Differential[[id number]] Abnormal Final result Please view results for these tests on the individual orders. Invalid Interpretation Code [facility] HIV 1/2 Screen (4th Generati on)on 06-30-2017 HIV 1+2 antibody presence Negative Invalid Interpretation Code Negative [facility] Interpretation and review of laboratory results Normal Invalid Interpretation Code [facility] HIV 1/2 Screen (4th Generation) This assay tests for the presence of HIV-1, HIV-2 antibodies and for the presence of HIV-1 antigen. Test performed using [employer] TR immunoassay system Invalid Interpretation Code [facility] Hepatitis B Surface Antigeno n 06-30-2017 Hepatitis B Surface Ag Negative Invalid Interpretation Code Negative [facility] Hepatitis B Surface Antigen Test performed using Ivana TR immunoassay system Invalid Interpretation Code [facility] RPRon 06-30-2017 Reagin antibody presence Non-Reactive Invalid Interpretation Code Non-Reactive [facility] Rubella Antibody, IgGon Rubella IgG Non-Immune Invalid Interpretation Code [facility] Rubella IgG Value 5.87 IU/mL Invalid Interpretation Code [facility] Type and Screenon 06-30-2017 ABO+Rh group Negative Invalid Interpretation Code [facility] Blood group antibody presence Negative Invalid Interpretation Code [facility] Specimen Expires 07/03/2017 23:59 EST Invalid Interpretation Code [facility] Urine Aerobic Cultureon Bacteria aerobode culture Three or more colony types; >10,000 CFU/mL mixture of normal urogenital microbiota. None predominant. Possible contamination. Suggest repeat if clinically indicated. Invalid Interpretation Code [facility] Vital Signs Date Time Vital Sign Value Performing Clinician Facility 01-13-2018 09:42-0400 Pulse (Heart Rate) 90 /min Ebonie [facility] 01-13-2018 09:42-0400 Pulse Oximetry 98 % Ebonie [facility] 01-13-2018 09:31-0400 Body Temperature 98.2 [degF] Ebonie [facility] 01-13-2018 09:31-0400 BP Diastolic 75 mm[Hg] Ebonie [facility] 01-13-2018 09:31-0400 BP Systolic 109 mm[Hg] Ebonie [facility] 01-13-2018 09:31-0400 Respiratory Rate 16 /min Ebonie Lovelace [facility] 05-13-2017 11:47-0500 BMI (Body Mass Index) 22.6 kg/m2 Wilfredo Callahan [facility] Work Phone: 05-13-2017 11:47-0500 Body Temperature 98.4 [degF] Wilfredo Callahan [facility] Work Phone: 05-13-2017 11:47-0500 BP Diastolic 78 mm[Hg] Wilfredo Callahan [facility] Work Phone: 05-13-2017 11:47-0500 BP Systolic 112 mm[Hg] Wilfredo Callahan [facility] Work Phone: 05-13-2017 11:47-0500 Height 167.6 cm iWlfredo Callahan [facility] Work Phone: 05-13-2017 11:47-0500 Pulse (Heart Rate) 81 /min Wilfredo Callahan [facility] Work Phone: 05-13-2017 11:47-0500 Pulse Oximetry 98 % Wilfredo Callahan [facility] Work Phone: 05-13-2017 11:47-0500 Weight 63.5 kg Wilfredo Callahan [facility] Work Phone: Encounters Encounter Date Encounter Type Care Provider Facility Start: 09-02-2022 End: 09-02-[address] JANIE CARABALLO . Facility:[facility] Start: 10-22-2021 Encounter for preprocedural laboratory examination TAWANNA CHESTER [facility] Start: 10-19-2021 End: 10-20-2021 ambulatory TAWANNA CHESTER Facility:[facility] Start: 10-19-2021 End: 10-20-2021 Encounter for preprocedural laboratory examination TAWANNA CHESTER Facility:[facility] Start: 01-11-2018 End: 01-13-2018 Evaluation and management of inpatient EBONIE LEVINEFORD [facility] Start: 01-10-2018 End: 01-13-2018 Evaluation and management of inpatient Ebonie Lovelace Work Phone: [facility] Start: 11-11-2017 End: 11-12-2017 Patient encounter Denzel Hoang Work Phone: [facility] Start: 11-10-2017 End: 11-10-2017 Patient encounter ORVILLE GÓMEZ [facility] Start: 09-23-2017 End: 09-24-2017 Patient encounter COREY MARTIN [facility] Start: 09-23-2017 End: 09-23-2017 Ambulatory Ebonie Faboi Lovelace Work Phone: [facility] Start: 09-01-2017 End: 09-01-2017 Patient encounter EBONIE ISLAS [facility] Start: 08-01-2017 End: 08-01-2017 Ambulatory Ebonie Lovelace Work Phone: [facility] Start: 07-04-2017 End: 07-04-2017 Patient encounter EBONIE ISLAS [facility] Start: 06-30-2017 End: 06-30-2017 Ambulatory Ebonie Lovelace Work Phone: [facility] Start: 05-13-2017 End: 05-13-2017 Ambulatory WILFREDO CALLAHAN [facility] Start: 05-13-2017 Office/outpatient jarrell garcia, level 2 Wilfredo Callahan Work Phone: [facility] [place] Start: 04-14-2017 End: 04-19-2017 Patient encounter EBONIE [facility] Procedures Date Procedure Procedure Detail Performing Clinician Start: 01-11-2018 End: 01-11-2018 Cul bact xcpt urine blood/stool aerobic isol Anahy Sarah Work Phone: Start: 01-11-2018 End: 01-11-2018 Culture bacterial any source anaerobic iso&id Anahy Sarah Work Phone: Start: 01-10-2018 End: 01-10-2018 Antibody id rbc antibodies ea panel ea serum tq Natalie Emanuel Work Phone: Start: 01-10-2018 End: 01-10-2018 Blood type and Indirect antibody screen panel - Blood Natalie Emanuel Work Phone: Start: 01-10-2018 End: 01-10-2018 RhoGam candidate (yes/no) Natalie vazquez Work Phone: Start: 01-10-2018 End: 01-10-2018 Treponema pallidum IgG Ab [Presence] in Serum Natalie Emanuel Work Phone: Start: 01-10-2018 End: 01-10-2018 aPTT in Blood by Coagulation assay Dinora Meyer Work Phone: Start: 01-10-2018 End: 01-10-2018 Complete blood count (hemogram) panel - Blood by Automated count Dinora Meyer Work Phone: Start: 01-10-2018 End: 01-10-2018 Fibrinogen [Mass/volume] in Platelet poor plasma by Coagulation assay Dinora Meyer Work Phone: Start: 01-10-2018 End: 01-10-2018 INR in Platelet poor plasma by Coagulation assay Dinora Meyer Work Phone: Start: 01-10-2018 End: 01-10-2018 Prothrombin time Dinora Meyer Work Phone: Plan of Treatment Date Care Activity Detail Author Start: 11-11-2027 Tetanus vaccination TETANUS EVERY 10 YR [facility] Start: 04-14-2020 Screening for malign ant neoplasm of cervix PAP SMEAR [facility] Start: 12-24-2017 Influenza vaccination [facility] Start: 11-24-2017 End: 11-24-2017 Ambulatory 11/24/2017 Routine Obstetrics and Gynecology Ebonie Lovelace MD [address] [place] [address] [phone] [facility] Start: 11-11-2017 End: 11-11-2017 Ambulatory 11/11/2017 Appointment Maternal and Medicine [facility] Start: 09-28-2017 End: 09-28-2017 Ambulatory 09/28/2017 Routine Obstetrics and Gynecology Ebonie Lovelace MD [address] [place] [address] [phone] [facility] Start: 12-24-2016 Influenza vaccination SEQUENTI AL INFLUENZA VACCINE (#1) [facility] Work Phone: Start: 2004 Vaccination for shira n papillomavirus [facility] Work Phone: Start: 1993 Screening for malign ant neoplasm of cervix PAP SMEAR [facility] Work Phone: Start: 1993 Tetanus vaccination TETANUS EVERY 10 YR [facility] Work Phone: Tissue Aerobic Culture Tissue Ae robic Culture Routine 01/11/2018 11:49 PM EDT [facility] Tissue Anaerobic Culture Tissue Anaerobic Culture Routine 01/11/2018 11:49 PM EDT [facility] End: 01-11-2018 Tissue Exam Tissue Exam Routine Once for 1 Occurrences starting 01/11/2018 until 01/11/2018, 1 completed [facility] Comment on above: Once for 1 Occurrenc es starting 01/11/2018 until 01/11/2018, 1 completed Tissue Exam Tissue Exam Rout ine 01/11/2018 9:39 PM EDT [facility] Immunizations Immunization Date Immunization Notes Care Provider Fa cility 01-12-2018 influenza, injectabl e, quadrivalent, preservative free; Translations: [INFLUENZA IIV4 3YO OR > FLUARIX/FLUZONE/AFLURIA 52678] Ebonie Lovelace [facility] 01-12-2018 measles, mumps and r ubella virus vaccine; Translations: [MMR] Ebonie Lovelace [facility] 11-10-2017 tetanus toxoid, redu luz diphtheria toxoid, and acellular pertussis vaccine, adsorbed; Translations: [TDAP] Denzel Hoang [facility] Payers Date Payer Category Payer Unknown [id number] 2013 Unknown [id number] [id number] 1993 Unknown [id number] 1993 Unknown [id number] 1959 Unknown [id number] Social History Date Type Detail Facility Start: 05-13-2017 End: 01-11-2018 Tobacco smoking status NHIS Never smoker [facility] Work Phone: Sex Assigned At Not on file [facility] Work Phone: Start: 05-10-2017 [facility] Assessments Diagnosis Suspected abnormality affecting management of mother, single or unspecified fetus Low lying placenta nos or wi thout hemorrhage, second trimester Diagnosis Supervision of normal first - Primary Diagnosis Acute bacterial conjunctivit is of both eyes - Primary Diagnosis Suspected abnormality affecting management of mother, fetus 1 of multiple gestation Diagnosis Placental abruption Premature separation of placenta, unspecified as to episode of care Instructions * Patient Instructions - Wilfredo Callahan PA-C - 05/13/2017 12:30 PM EST Use eye drops as directed. Change your contacts. Follow up with eye doctor in 3-4 days if symptoms do not improve. Try OTC antihistamine. Pinkeye: Care Instructions Your Care Instructions Pinkeye is redness and swelling of the eye surface and the conjunctiva (the lining of the eyelid and the covering of the white part of the eye). Pinkeye is also called conjunctivitis. Pinkeye is often caused by infection with bacteria or a virus. Dry air, allergies, smoke, and chemicals are other common causes. Pinkeye often clears on its own in 7 to 10 days. Antibiotics only help if the pinkeye is caused by bacteria. Pinkeye caused by infection spreads easily. If an allergy or chemical is causing pinkeye, it will not go away unless you can avoid whatever is causing it. Follow-up care is a ruiz part of your treatment and safety. Be sure to make and go to all appointments, and call your doctor if you are having problems. It s also a good idea to know your test resultsand keep a list of the medicines you take. How can you care for yourself at home? Wash your hands often. Always wash them before and after you treat pinkeye or touch your eyes or face. Use moist cotton or a clean, wet cloth to remove crust. Wipe from the inside corner of the eye to the outside. Use a clean part of the cloth for each wipe. Put cold or warm wet cloths on your eye a few times a day if the eye hurts. Do not wear contact lenses or eye makeup until the pinkeye is gone. Throw away any eye makeup you were using when you got pinkeye. Clean your contacts and storage case. If you wear disposable contacts, use a new pair when your eye has cleared and it is safe to wear contacts again. If the doctor gave you antibiotic ointment or eyedrops, use them as directed. Use the medicine for as long as instructed, even if your eye starts looking better soon. Keep the bottle tip clean, and do not let it touch the eye area. To put in eyedrops or ointment: Tilt your head back, and pull your lower eyelid down with one finger. Drop or squirt the medicine inside the lower lid. Close your eye for 30 to 60 seconds to let the drops or ointment move around. Do not touch the ointment or dropper tip to your eyelashes or any other surface. Do not share towels, pillows, or washcloths while you have pinkeye. When should you call for help? Call your doctor now or seek immediate medical care if: You have pain in your eye, not just irritation on the surface. You have a change in vision or loss of vision. You have an increase in discharge from the eye. Your eye has not started to improve or begins to get worse within 48 hours after you start using antibiotics. Pinkeye lasts longer than 7 days. Watch closely for changes in your health, and be sure to contact your doctor if you have any problems. Where can you learn more? Log into your personal health record on [email or web address]://[email or web address] and enter Y392 in the Education box to learn more about [facility]: Care Instructions. Current as of: September 19, 2015 Content Version: 11.2 0259-6918 [employer]. Care instructions adapted under license by your healthcare professional. If you have questions about a medical condition or this instruction, always ask your healthcare professional. [employer] disclaims any warranty or liability for your use of this information. in this encounter Summary Purpose Family History No Family History Records FoundNo Family History Records FoundNo Family History Records Found Advance Directives No Advanced Directives Records FoundNo Advanced Directives Records FoundNo Advanced Directives Records Found Additional Source Comments INFORMATION SOURCE (unrecogn ized section and content) DATE CREATED AUTHOR 10/18/2017 [facility] DATE CREATED AUTHOR AUTHOR'S ORGANIZ ATION 02/12/2018 [facility] DATE CREATED AUTHOR AUTHOR'S ORGANIZ ATION 09/06/2022 [facility] Natalie Hoover MD - 01/10/2018 11:12 PM EDT H&P Notes (unrecognized sect ion and content) Formatting of this note may be different from the original. HISTORY AND PHYSICAL Assessment/Plan: Active Problems: * No active hospital problems. * Risks, benefits, alternatives and possible complications have been discussed in detail with the patient. Pre-admission, admission, and post admission procedures and expectations were discussed in detail. All questions answered, all appropriate consents will be signed at the Hospital. Admission is for IOL for placental abruption. FHTS are stable. NEG hsv NEG gbbs She has come in with significant bleeding one clot 6cm diameter and continued BRB per vagina. . Subjective: Chief Complaint Patient presents with Vaginal Bleeding presents with c/o episode of passing tennis ball-sized blood clot about 30 mins ago. pt states it was dark brown. pt denies any ctx or lof. pt states +fm. monitors placed. Mauricio Donovan is a 22 y.o. female with Estimated Date of Delivery: 01/31/18 at 37w0d gestation who is being admitted for induction of labor. Her current obstetrical history is significant for placental abruption. Patient reports bleeding. Movement: normal. History: History reviewed. No pertinent past medical history. Past Surgical History: Procedure Laterality Date WISDOM TOOTH EXTRACTION Family History Problem Relation Age of Onset No Known Problems Father No Known Problems Mother Social History Social History Marital status: Single Spouse name: N/A Number of children: N/A Years of education: N/A Occupational History Not on file. Social History Main Topics Smoking status: Never Smoker Smokeless tobacco: Never Used Alcohol use No Comment: rarely Drug use: No Sexual activity: Yes Partners: Male Other Topics Concern Not on file Social History Narrative No narrative on file Allergy Information: I have reviewed the patient's allergies. Patient has no known allergies. Home Medications: Outpatient Prescriptions as of 01/10/2018 Medication Sig vitamin with Ca-Iron-FA 27-1 mg Tab Take 1 tablet by mouth daily. Objective: Vital signs in last 24 hours: Temp: [98.8 ?F (37.1 ?C)] 98.8 ?F (37.1 ?C) Heart Rate: [93] 93 Resp: [14] 14 BP: (134)/(85) 134/85 General: Alert, cooperative, no distress, appears stated age Head: Normocephalic, without obvious abnormality, atraumatic Neurologic: CNII-XII intact; normal strength, sensation and reflexes throughout Psych: Mood and affect appropriate Pelvis: Exam deferred. FHT: 160 BPM Uterine Size: size equals dates Consistency: soft Laboratory and Additional Data Reviewed: Laboratory 01/10/18 11:15 PMin this encounter Dionna Jacome RN - 01/12/2018 9:38 AM EDT Consult Notes (unrecognized section and content) Associated Order(s): IP CONSULT TO ASSEMBLY LINE INSPECTOR Request for consult received, will contact mother to schedule an appointment.in this encounter Utilization Review - Ramonita Herrera RN - 01/13/2018 2:16 PM EDTLactation Note - Dinora Montes RN - 01/13/2018 11:55 AM EDTLactation Note - Dinora Montes RN - 01/12/2018 9:27 PM EDT Miscellaneous Notes (unrecog nized section and content) Formatting of this note may be different from the original. [facility] Utilization Review Notes L and D Template Admit Date:01/10/2018 Delivery Type: Gender: male weight:6 lb 14.9 oz Gestational age:37w1d Delivery date/time: 01/11/18 2114 Apgars: 6 7 Discharge Date: 01/13/2018 This note was copied from a baby's chart. Baby recently circumcised, very sleepy. Assisted with positioning and attachment techniques. Baby asleep, no interest, not opening widely. Gave mom the plan of low ruiz attempts at the breast when baby cues. If baby does not latch, or active sucking with swallowing, resulting in infant satiety, does not occur, mom is to pump/hand express and feed EBM with formula as needed, at least 8-12x/24hrs. Encouraged skin to skin, diaper diary, and discussed tummy size and appropriate volume for feeds based on baby's age. Reviewed section in A Guide To Caring For Yourself and Your Baby and the Temporary Breastpumping handout. Encouraged pump rental at discharge, and reminded mom to remove all disposable pump parts from pump to use at home and/or with a rental pump. If baby is not making progress and more help is needed, encouraged [facility] her milk is abundant or PRN. Mother is aware of the helpline and outpatient resources. This note was copied from a baby's chart. Baby in nursery for physician exam and somewhat gaggy, spot check 100%. Brought baby back to mom. Assisted with positioning and attachment techniques. Baby attempting but unable to latch. Gave mom the plan of low ruiz attempts at the breast when baby cues. If baby does not latch, or active sucking with swallowing, resulting in satiety, does not occur, mom is to pump/hand express and feed EBM with formula as needed, at least 8-12x/24hrs. Encouraged skin to skin, diaper diary, and discussed tummy size and appropriate volume for feeds based on baby's age. Reviewed the Temporary Breastpumping handout. Will follow up tomorrow before discharge for further assistance. GIORGI rounded on mom. Mom states that baby is currently being transferred to [facility] from NICU, requests consult, informed her that she will be contacted later to schedule an appointment. Courtesy card given with list of outpatient resources and helpline number. Attempted to round on mother, mother not in her room at this time.. NICU MD at bedside at request of Franchesca. evaluated and would like to transfer baby to NICU for observation. Chuy LOZADA arrived shortly after to transport pt to NICU. Education and emotional support provided to family Formatting of this note may be different from the original. Vaginal Delivery Note of viable male infant. Tight nuchal cord x 1, nonreducible, clamped and cut on the perineum. Shoulders and body delivered without delay. Cord gases sent. Baby cried and had respiratory efforts immediately after delivery, but at 7 minutes post-delivery lacked good tone, NICU called to evaluate. CPAP administered. Baby will go to NICU for evaluation and support. Placenta delivered spontaneously and was intact with a 3 vessel cord. There was no gross evidence of abruption, but the cord insertion onto the placenta was eccentric and velamentous. The placenta was sent for pathologic evaluation and cultures. Cervix intact. Right labial abrasion was hemostatic without suture. EBL 300cc. Jesse Diagnosis: Active Problems: Placental abruption SNOMED CT(R): PLACENTAL ABRUPTION Leena Donovan [[id number]] Delivery Anesthesia Method: Epidural Operative Delivery Forceps attempted?: No Vacuum extractor attempted?: No Shoulder Dystocia Shoulder dystocia present: No [place] Presentation Presentation: Vertex Position: Middle _: Occiput _: Anterior [place] Information date/time: 01/11/182113 Gender: Male Delivery type: Vaginal, Spontaneous Delivery Delivery location: OB Unit ?: No Details: Delivery Providers Delivering clinician: Anahy Sarah MD Other personnel: Provider Role Covering Attending Resident Ornament Maker Hand Leyla Alves, computational theory scientist Nurse Stephanie Curran, RN Registered Nurse Karlie Shah, computational theory scientist Assist Nurse Practitioner Cord Vessels: 3 vessels Complications: Nuchal Nuchal intervention: clamped and cut Nuchal cord description: tight nuchal cord Number of loops: 1 Delayed cord clamping?: No Cord clamped date/time: 01/11/20182113 Cord blood obtained?: Lab Cord segment obtained?: Yes Gases sent?: Yes Stem cell collection (by Provider)?: No Placenta Date/time: 01/11/20182122 Removal: Spontaneous Appearance: Intact Disposition: Discarded [place] Apgars Living status: Living Scoring Ruiz: 0 1 2 Skin color Blue or pale Acrocyanotic Completely pink Heart rate Absent <100 bpm >100 bpm Reflex irritability No response Grimace Cry or active withdrawal Muscle tone Limp Some flexion Active motion Respiratory effort Absent Weak cry; hypoventilation Good, crying Skin color: Heart rate: Reflex irritability: Muscle tone: Respiratory effort: Total: 1 Minute: 5 Minute: 10 Minute: 15 Minute: 20 Minute: Measurements Weight: Lacerations Episiotomy: None Perineal lacerations: None Vaginal laceration: No Cervical laceration: No Vaginal delivery est. blood loss (mL): 300 Repair suture: None Sponge Initial Count: 10 Needle Initial Count: 1 Counted By: Raffi CURRAN RN Verified By: Caroline ALVES RN Sponge Final Count: 10 Needle Final Count: 1 Counted By: JUNO Other Procedures Procedures: None in this encounter FOR RECORDS PERTAINING TO PATIENTS WHO ARE OR HAVE BEEN ENROLLED IN A CHEMICAL DEPENDENCY/SUBSTANCEABUSE PROGRAM, SOME INFORMATION MAY BE OMITTED. This clinical summary was aggregated from multiple sources. Caution should be exercised in using it in the provision of clinical care. This summary normalizes information from multiple sources, and as a consequence, information in this document may materially change the coding, format and clinical context of patient data. In addition, data may be omitted in some cases. CLINICAL DECISIONS SHOULD BE BASED ON THE PRIMARY CLINICAL RECORDS. [facility] [employer] [facility]. provides no warranty or guarantee of the accuracy or completeness of information in this document.
== END 2023-05-06 08:30 | disposition home or self-care (01) ==
LOC: US 08:29
PROVIDERS: Visit Provider Obstetrics & Gynecology
DX: Z34.91 Encounter for supervision of normal pregnancy, unspecified, first trimester (principal); N92.6 Irregular menstruation, unspecified
CPT/HCPCS: 76817

== ENCOUNTER 2023-05-12 09:43 | Outpatient (OUT) | payer BC, SELFPAY ==
--- OUTSIDE RECORDS SUMMARY | 2023-05-12 09:50 | XMS_ITS | CCD ---
Author Name Unknown Address [address] [place] [address] Organization [facility] Care Team Providers Care Linux Support Engineer Name Role Phone No, Physician Unavailable Unavailable WILFREDO CALLAHAN Unavailable Unavailab le NO, PHYSICIAN Unavailable Unavailable Ebonie Lovelace Unavailable EBONIE LOVELACE Unavailable Unavail able EBONIE LOVELACEINE Unavailable Unavail able EBONIE LOVELACEINE Unavailable Unavail able NO, PHYSICIAN Unavailable Unavailable LOVELACEEBONIE ISLAS Unavailable Unavail able NO, PHYSICIAN Unavailable Unavailable LOVELACEEBONIEINE Unavailable Unavail able NO, PHYSICIAN Unavailable Unavailable LOVELACE, EBONIE ISLAS Unavailable Unavail able NO, PHYSICIAN Unavailable Unavailable COREY MARTIN Unavailable Unavailable LOVELACEEBONIEINE Unavailable Unavail able NO, PHYSICIAN Unavailable Unavailable ORVILLE GÓMEZ Unavailable Unavailable NO, PHYSICIAN Unavailable Unavailable DENZEL HOANG Unavailable Unavaila ble EBONIE LOVELACEINE Unavailable Unavail able NO, PHYSICIAN Unavailable Unavailable LOVELACEEBONIE DUMONT ISLAS Unavailable Unavail able NO, PHYSICIAN Unavailable Unavailable NATALIE EMANUEL Unavailable Unavailable [facility] navailable Unavailable DR JANIE BARBOUR Admitting Unavailable RASHMI Hollins, DR LIMA Attending [...] ml measles virus vaccine live, serafin attenuated [place] strain 2000 unt/ml / mumps virus vaccine live, yogi evans strain 60144 unt/ml / rubella virus vaccine live (wistar ra 27-3 strain) 2000 unt/ml injection (1 source) [...] Value Interpretation Reference Range Facility [facility]on 09-24 SARS-CoV-2 (COVID-19) RNA SANDRA+probe Ql (Unsp spec) Not detected Normal NOT DETECTED [facility] Comment on above: Result Comment: When diagnostic [...] for this test is supported by the Cabin Supervisor of Health and Human Service's declaration that [...] longer be used). Performed By: #### [facility] #### [facility] [address] [place] [address] Dr. Kaveh Wilks Tissue Aerobic Cultureon Bacteria identified Aer cx Nom (Tiss) Few Growth (4-10 colonies per plate) Coagulase Negative Staphylococcus Abnormal [facility] Interpretation and review of laboratory results Abnormal Invalid Interpretation Code [facility] Microscopic observation Gram stain Nom (Tiss) Many WBC Invalid Interpretation Code [facility] Microscopic observation Gram stain Nom (Tiss) Many RBC Invalid Interpretation Code [facility] Microscopic observation Gram stain Nom (Tiss) No Organisms Seen Invalid Interpretation Code [facility] Antibody Identificationon Blood group antibodies identified Nom Anti-Rhogam Invalid Interpretation Code [facility] The anti-D detected in this patient is presumably caused by a recent Rh Immune Globulin injection.It is unlikely that this represents a clinically significant antibody. Invalid Interpretation Code [facility] RhIG Evaluationon 01-11-2018 Rh immune globulin candidate (yes/no) Ql RhIG Candidacy Invalid Interpretation Code [facility] Baby is Rho(D) negative. Patient is NOT a candidate for Rh Immune Globulin. Invalid Interpretation Code [facility] Syphilis Antibodyon 01-12-20 Interpretation and review of laboratory results Normal Invalid Interpretation Code [facility] T. pallidum Ab Ql (S) Negative Invalid Interpretation Code Negative [facility] Type and Screenon 01-11-2018 ABO and Rh group Nom (Bld) Negative Invalid Interpretation Code [facility] Blood group antibody screen Ql Positive Invalid Interpretation Code [facility] Specimen Expires 01/13/2018 23:59 EST Invalid Interpretation Code [facility] APTTon 01-10-2018 aPTT Coag time (Bld) Therapeutic range for APTT's is 68 - 104 seconds Invalid Interpretation Code [facility] aPTT Coag time (Bld) 25 s Invalid Interpretation Code [facility] CBCon 01-10-2018 Erythrocyte distribution width Auto Entitic volume (RBC) 14.0 % Invalid Interpretation Code 11.6 - 14.8 % [facility] Hematocrit Auto Volume Fraction (Bld) 33.9 % Low 36 - 46 % [facility] Hemoglobin mass conc (Bld) 11.8 g/dL Low 12 - 16 g/dL [facility] Interpretation and review of laboratory results Abnormal Invalid Interpretation Code [facility] MCH Auto Entitic mass (RBC) 31.7 pg Invalid Interpretation Code 26 - 34 pg [facility] MCHC Auto mass conc (RBC) 34.8 g/dL Invalid Interpretation Code 31 - 37 g/dL [facility] MCV Auto Entitic volume (RBC) 91.1 fL Invalid Interpretation Code 80 - 100 fL [facility] Nucleated RBC #/vol (Bld) 0.00 10*3/uL Invalid Interpretation Code [facility] Nucleated RBC/100 WBC Ratio (Bld) 0.0 % Invalid Interpretation Code [facility] Platelet mean volume Auto Entitic volume (Bld) 12.1 fL Invalid Interpretation Code 9 - 15.5 fL [facility] Platelets Auto #/vol (Bld) 159 10*3/uL Invalid Interpretation Code [facility] RBC Auto #/vol (Bld) 3.72 10*6/uL Low RI [facility] WBC Auto #/vol (Bld) 16.00 10*3/uL High [facility] Fibrinogenon 01-10-2018 Fibrinogen Coag mass conc (PPP) 547 mg/dL High 224 - 483 mg/dL [facility] Interpretation and review of laboratory results Abnormal Invalid Interpretation Code [facility] Otheron 01-10-2018 Interpretation and review of laboratory results Normal Invalid Interpretation Code [facility] PT/INRon 01-10-2018 INR Coag RelTime (Bld) During the induction phase of oral anticoagulation, the INR may not reflect the anticoagulation status of the patient. Therapeutic ranges for INR's are: Most clinical situations: INR 2.0-3.0 Mechanical Prosthetic Valve: INR 2.5-3.5 Critical: INR >5.0 Invalid Interpretation Code [facility] INR Coag RelTime (PPP) 0.9 {INR} Invalid Interpretation Code [facility] Prothrombin time (PT) Coag time (PPP) 12.2 s Invalid Interpretation Code [facility] US OB FOLLOW UP TRANSABDOMIN AL SINGLE FETUSon 11-11-2017 US OB FOLLOW UP TRANSABDOMINAL SINGLE FETUS OBSTETRICS REPORT (Signed Final 11/11/2017 04:43 pm) Patient Info ID #: [id number] : [birth year] (22 yrs) Name: MAURICIO Delgado CAMARILLO Visit Date: 11/11/2017 10:50 am Performed By Performed By: Bianca Reynoso Referred By: Ebonie Lovelace RDNY Attending: Uziel Hanson, Location: Demi Knapp MD, [facility] Service(s) [place] [address] [place] [address] Indications Zika virus exposure affecting O99.89 28 [...] ultrasound office is accredited by [employer] [place] [employer] in [employer] (AIUM). If you would like to discuss the results of your patient's tests or would like a Maternal- Medicine Consultation to assist you with her management, please do not hesitate to contact us at [phone]. Uziel Hanson MD, RDMS Electronically Signed Final Report 11/11/2017 04:43 pm Invalid Interpretation Code [facility] US OB FOLLOW UP TRANSABDOMINAL SINGLE FETUS Interface, Rad In Stan Speechq - 11/11/2017 4:44 PM EDT OBSTETRICS REPORT (Signed Final 11/11/2017 04:43 pm) Patient Info ID #: [id number] : [birth year] (22 yrs) Name: MAURICIO CAMARILLO Visit Date: 11/11/2017 10:50 am Performed By Performed By: Bianca Reynoso Referred By: Ebonie Lovelace RDNY Attending: Uziel Hanson, Location: [place] [facility] [place], [facility] Service(s) [place] [address] [place] [address] Indications Zika virus exposure affecting O99.89 28 [...] ultrasound office is accredited by [employer] [place] [employer] in [employer] (AIUM). If you would like to discuss the results of your patient's tests or would like a Maternal- Medicine Consultation to assist you with her management, please do not hesitate to contact us at [phone]. Uziel Hanson MD, [facility] Electronically Signed Final Report 11/11/2017 04:43 pm Invalid Interpretation Code [facility] US Obstetric Detail An atomy Transabdominal Single Fetuson 09-23-2017 US Obstetric Detail Anatomy Transabdominal Single Fetus OBSTETRICS REPORT (Signed Final 09/23/2017 03:50 pm) Patient Info ID #: [id number] : [birth year] (22 yrs) Name: MAURICIO CAMARILLO Visit Date: 09/23/2017 01:47 pm Performed By Performed By: Geovani Mart Referred By: Ebonie Lovelace RDMS, MD Attending: Debbie Recio MD Location: [facility] Service(s) Provided Targeted OB + Transvaginal [id number] Indications 21 weeks gestation of Z3A.21 Zika [...] Visualized 4 Chamber View: Normal appearance Cardiac De Young: Normal Cardiac Motion: Visualized Diaphragm: Normal appearance [...] ultrasound office is accredited by [employer] [place] [employer] in [employer] (AIUM). If you would like to discuss the results of your patient's tests or would like a Maternal- Medicine Consultation to assist you with her management, please do not hesitate to contact us at [phone]. Debbie Recio MD Electronically Signed Final Report 09/23/2017 03:50 pm Invalid Interpretation Code [facility] M[facility] US Obstetric Detail Anatomy Transabdominal Single Fetus Interface, Rad In Fuji Speechq - 09/23/2017 3:51 PM EDT OBSTETRICS REPORT (Signed Final 09/23/2017 03:50 pm) Patient Info ID #: [id number] : [birth year] (22 yrs) Name: MAURICIO CAMARILLO Visit Date: 09/23/2017 01:47 pm Performed By Performed By: Geovani Mart Referred By: Ebonie Lovelace RDMS, MD Attending: Debbie Recio MD Location: [facility] Service(s) Provided Targeted OB + Transvaginal [id number] Indications 21 weeks gestation of Z3A.21 Zika [...] Best: 21w 3d Det. By: Clinical CARIDAD CAIRDAD: 01/31/18 Targeted Anatomy Central Nervous System Calvarium/Cranial [...] Visualized 4 Chamber View: Normal appearance Cardiac De Young: Normal Cardiac Motion: Visualized Diaphragm: Normal appearance [...] ultrasound office is accredited by [employer] [place] [employer] in Medicine (AIUM). If you would like to discuss the results of your patient's tests or would like a Maternal- Medicine Consultation to assist you with her management, please do not hesitate to contact us at [phone]. Debbie Recio MD Electronically Signed Final Report 09/23/2017 03:50 pm Invalid Interpretation Code GEOVANI MART RDMS CBC Auto Differentialon - Basophils 0.03 K/mcL Invalid Interpretation Code 0.00 - 0.30 [facility] Basophils/100 leukocytes 0.3 % Invalid Interpretation Code [facility] Eosinophils 0.07 K/mcL Invalid Interpretation Code 0.00 - 0.50 [facility] Eosinophils/100 leukocytes 0.6 % Invalid Interpretation Code [facility] Erythrocytes (RBC) 4.12 M/mcL Invalid Interpretation Code 4.00 - 5.20 [facility] Erythrocytes (RBC) 0.00 K/mcL Invalid Interpretation Code 0.00 - 0.00 [facility] Hematocrit (HCT) 36.8 % Invalid Interpretation Code 36 - 46 % [facility] Hemoglobin (HGB) 12.5 g/dL Invalid Interpretation Code 12 - 16 g/dL [facility] IG Absolute 0.02 K/mcL Invalid Interpretation Code 0.00 - 0.30 [facility] IG Percent 0.20 % Invalid Interpretation Code [facility] Interpretation and review of laboratory results Abnormal Invalid Interpretation Code [facility] Lymphocytes 2.42 K/mcL Invalid Interpretation Code 0.90 - 4.00 [facility] Lymphocytes/100 leukocytes 22.2 % Invalid Interpretation Code [facility] MCH 30.3 pg Invalid Interpretation Code 26 - 34 pg [facility] MCHC 34.0 g/dL Invalid Interpretation Code 31 - 37 g/dL [facility] MCV 89.3 fL Invalid Interpretation Code 80 - 100 fL [facility] Monocytes 0.67 K/mcL Invalid Interpretation Code 0.30 - 0.90 [facility] Monocytes/100 leukocytes 6.1 % Invalid Interpretation Code [facility] Neutrophils 7.69 K/mcL High 1.70 - 7.00 [facility] Neutrophils/100 leukocytes 70.6 % Invalid Interpretation Code [facility] Nucleated erythrocytes/100 erythrocytes 0.0 % Invalid Interpretation Code [facility] Platelet mean volume (PMV) 11.2 fL Invalid Interpretation Code 9 - 15.5 fL [facility] Platelets 285 K/mcL Invalid Interpretation Code 150 - 400 [facility] RDW-CA 12.8 % Invalid Interpretation Code 11.6 - 14.8 % [facility] WBC (Leukocytes) 10.90 K/mcL Invalid Interpretation Code 4.50 - 11.00 [facility] CBC and Differentialon 06-30 Creatinine The following orders were created for panel order CBC and Differential. Procedure Abnormality Status --------- ------ CBC Auto Differential[[id number]] Abnormal Final result Please view results for these tests on the individual orders. Invalid Interpretation Code [facility] HIV 1/2 Screen (4th Generati on)on 06-30-2017 HIV 1+2 antibody presence Negative Invalid Interpretation Code Negative [facility] Interpretation and review of laboratory results Normal Invalid Interpretation Code [facility] HIV 1/2 Screen (4th Generation) This assay tests for the presence of HIV-1, HIV-2 antibodies and for the presence of HIV-1 antigen. Test performed using [employer] Delicious TR immunoassay system Invalid Interpretation Code [facility] Hepatitis B Surface Antigeno n 06-30-2017 Hepatitis B Surface Ag Negative Invalid Interpretation Code Negative [facility] Hepatitis B Surface Antigen Test performed using [employer] Delicious TR immunoassay system Invalid Interpretation Code [facility] RPRon 06-30-2017 Reagin antibody presence Non-Reactive Invalid Interpretation Code Non-Reactive [facility] Rubella Antibody, IgGon Rubella IgG Non-Immune Invalid Interpretation Code [facility] Rubella IgG Value 5.87 IU/mL Invalid Interpretation Code [facility] Type and Screenon 06-30-2017 ABO+Rh group Negative Invalid Interpretation Code [facility] Blood group antibody presence Negative Invalid Interpretation Code [facility] Specimen Expires 07/03/2017 23:59 EST Invalid Interpretation Code [facility] Urine Aerobic Cultureon Bacteria aerobode culture Three or more colony types; >10,000 CFU/mL mixture of normal urogenital microbiota. None predominant. Possible contamination. Suggest repeat if clinically indicated. Invalid Interpretation Code [facility] Vital Signs Date Time Vital Sign Value Performing Clinician Facility 01-13-2018 09:42-0400 Pulse (Heart Rate) 90 /min Ebonie [facility] 01-13-2018 09:42-0400 Pulse Oximetry 98 % Ebonie [facility] 01-13-2018 09:31-0400 Body Temperature 98.2 [degF] Ebonie [facility] 01-13-2018 09:31-0400 BP Diastolic 75 mm[Hg] Ebonie [facility] 01-13-2018 09:31-0400 BP Systolic 109 mm[Hg] Ebonie Lovelace [facility] 01-13-2018 09:31-0400 Respiratory Rate 16 /min Ebonie Lovelace [facility] 05-13-2017 11:47-0500 BMI (Body Mass Index) 22.6 kg/m2 [facility] Work [facility]: 05-13-2017 11:47-0500 Body Temperature 98.4 [degF] [facility] Work [facility]: 05-13-2017 11:47-0500 BP Diastolic 78 mm[Hg] Wilfredo Callahan [facility] Work Phone: 05-13-2017 11:47-0500 BP Systolic 112 mm[Hg] Wilfredo Callahan [facility] Work Phone: 05-13-2017 11:47-0500 Height 167.6 cm Wilfredo Callahan [facility] Work Phone: 05-13-2017 11:47-0500 Pulse (Heart Rate) 81 /min [facility] Work Phone: 05-13-2017 11:47-0500 Pulse Oximetry 98 % [facility] Work Phone: 05-13-2017 11:47-0500 Weight 63.5 kg [facility] Work [facility]: Encounters Encounter Date Encounter Type Care Provider Facility Start: 05-06-2023 End: 05-06-2023 ambulatory Not Available Start: 09-02-2022 End: 09-02-[address] JANIE CARABALLO . Facility:[facility] Start: 10-22-2021 Encounter for preprocedural laboratory examination TAWANNA CHESTER [facility] Start: 10-19-2021 End: 10-20-2021 ambulatory TAWANNA CHESTER Facility:[facility] Start: 10-19-2021 End: 10-20-2021 Encounter for preprocedural laboratory examination TAWANNA CHESTER Facility:[facility] Start: 01-11-2018 End: 01-13-2018 Evaluation and management of inpatient EBONIE ISLAS [facility] Start: 01-10-2018 End: 01-13-2018 Evaluation and management of inpatient Ebonie Lovelace Work Phone: [facility]Infant Unit 5 Start: 11-11-2017 End: 11-12-2017 Patient encounter Denzel Hoang Work Phone: [facility]aternal [facility] Start: 11-10-2017 End: 11-10-2017 Patient encounter ORVILLE GÓMEZ [facility] Start: 09-23-2017 End: 09-24-2017 Patient encounter COREY MARTIN [facility] Start: 09-23-2017 End: 09-23-2017 Ambulatory Ebonie Lovelace Work Phone: [facility] Start: 09-01-2017 End: 09-01-2017 Patient encounter EBONIE ISLAS [facility] Start: 08-01-2017 End: 08-01-2017 Ambulatory Ebonie Lovelace Work Phone: [facility] [facility] [facility] Start: 07-04-2017 End: 07-04-2017 Patient encounter EBONIE ISLAS [facility] Start: 06-30-2017 End: 06-30-2017 Ambulatory Ebonie Lovelace Work Phone: [facility] Start: 05-13-2017 End: 05-13-2017 Ambulatory WILFREDO CALLAHAN [facility] Start: 05-13-2017 Office/outpatient [facility] 2 Wilfredo Callahan Work Phone: [facility] [place]t Start: 04-14-2017 End: 04-19-2017 Patient encounter EBONIE [facility] Procedures Date Procedure Procedure Detail Performing Clinician [...] 11-11-2027 Tetanus vaccination TETANUS EVERY 10 YR [facility] Start: 04-14-2020 Screening for malign ant neoplasm of cervix PAP SMEAR [facility] Start: 12-24-2017 Influenza vaccination [facility] Start: 11-24-2017 End: 11-24-2017 Ambulatory 11/24/2017 Routine Obstetrics and Gynecology Ebonie Lovelace MD [address] [place] [address] [phone] [facility] Start: 11-11-2017 End: 11-11-2017 Ambulatory 11/11/2017 Appointment Maternal and Medicine [facility] Start: 09-28-2017 End: 09-28-2017 Ambulatory 09/28/2017 Routine Obstetrics and Gynecology Ebonie Lovelace MD [address] [place] [address] [phone] [facility] Start: 12-24-2016 Influenza vaccination SEQUENTI AL INFLUENZA VACCINE (#1) [facility] Work Phone: Start: 2004 Vaccination for shira n papillomavirus [facility] Work Phone: Start: 1993 Screening for malign ant neoplasm of cervix PAP SMEAR [facility] Work Phone: Start: 1993 Tetanus vaccination TETANUS EVERY 10 YR [facility] Work Phone: Tissue Aerobic Culture Tissue Ae robic Culture Routine 01/11/2018 11:49 PM EDT [facility] Tissue Anaerobic Culture Tissue Anaerobic Culture Routine 01/11/2018 11:49 PM EDT [facility] End: 01-11-2018 Tissue Exam Tissue Exam Routine Once for 1 Occurrences starting 01/11/2018 until 01/11/2018, 1 completed [facility] Comment on above: Once for 1 Occurrenc es starting 01/11/2018 until 01/11/2018, 1 completed Tissue Exam Tissue Exam Rout ine 01/11/2018 9:39 PM EDT [facility] Immunizations Immunization Date Immunization Notes Care Provider Fa wendi 01-12-2018 influenza, injectabl e, quadrivalent, preservative free; Translations: [INFLUENZA IIV4 3YO OR > FLUARIX/FLUZONE/AFLURIA 27658] Ebonie Lovelace [facility] 01-12-2018 measles, mumps and r ubella virus vaccine; Translations: [MMR] Ebonie Lovelace [facility] 11-10-2017 tetanus toxoid, redu luz diphtheria toxoid, and acellular pertussis vaccine, adsorbed; Translations: [TDAP] Denzel Hoang [facility] Payers Date Payer Category Payer Unknown [id number] 2013 Unknown [id number] 1993 Unknown [id number] 1993 Unknown [id number] 1993 Unknown [id number] 1959 Unknown [id number] Social History Date Type Detail Facility Start: 05-13-2017 End: 01-11-2018 Tobacco smoking status RIIS Never smoker [facility] Work Phone: Sex Assigned At Not on file [facility] Work Phone: Start: 05-10-2017 [facility] Assessments Diagnosis Suspected abnormality affecting management of [...] Log into your personal health record on [email or web address] and enter Y392 in the Education box to learn more about [employer]: Care Instructions. Current as of: September 19, 2015 Content Version: 11.2 [id number] [employer]. Care instructions adapted under license by your healthcare professional. If you have questions about a medical condition or this instruction, always ask your healthcare professional. [employer] disclaims any warranty or liability for your [...] section and content) DATE CREATED AUTHOR 10/18/2017 [facility] DATE CREATED AUTHOR AUTHOR'S ORGANIZ ATION 02/12/2018 [facility] DATE CREATED AUTHOR AUTHOR'S ORGANIZ ATION 09/06/2022 [facility] DATE CREATED AUTHOR AUTHOR'S ORGANIZ ATION 05/07/2023 [facility] Natalie Rose MD - 01/10/2018 11:12 PM EDT H&P [...] and content) Associated Order(s): IP CONSULT TO J2EE ENGINEER Request for consult received, will contact mother [...] up tomorrow before discharge for further assistance. LC rounded on mom. Mom states that baby is currently being transferred to [facility] from NICU, requests consult, informed her that [...] abruption SNOMED CT(R): PLACENTAL ABRUPTION Leena Donovan Boy Mauricio [[id number]] Delivery Anesthesia Method: Epidural Operative Delivery Forceps attempted?: No Vacuum extractor attempted?: No Shoulder Dystocia Shoulder dystocia present: No Presentation Presentation: Vertex Position: Middle _: [place] _: Anterior [place] Information date/time: 01/11/182113 Gender: Male Delivery type: Vaginal, Spontaneous Delivery Delivery location: OB Unit ?: No Details: Delivery Providers Delivering clinician: Anahy Sarah MD Other personnel: Provider Role Covering Attending Resident Clay Washer Leyla Alves, webbing weaver Nurse Stephanie Curran RN Registered Nurse Karlie Shah RN Delivery Assist Nurse Practitioner Cord Vessels: 3 vessels Complications: Nuchal Nuchal intervention: clamped and cut Nuchal cord description: tight nuchal cord Number of loops: 1 Delayed cord clamping?: No Cord clamped date/time: 01/11/20182113 Cord blood obtained?: Lab Cord segment obtained?: Yes Gases sent?: Yes Stem cell collection (by Provider)?: No Placenta Date/time: 01/11/20182122 Removal: Spontaneous Appearance: Intact Disposition: Discarded [place] Apgars Living status: Living Scoring Ruiz: 0 [...] BE BASED ON THE PRIMARY CLINICAL RECORDS. [employer] [facility]. provides no warranty or guarantee of the accuracy or completeness of information in this document.
[2023-05-12 10:19] LABS: Basophils Percent Auto 0.2 % (0.2-2.0); Eosinophils Absolute Auto 0.1 10^3/uL (0.0-0.7); Eosinophils Percent Auto 0.6 % (0.9-7.0); Hematocrit 37.2 % (36.0-48.0); Hemoglobin 12.7 g/dL (12.0-16.0); Immature Granulocytes Abs Auto 0.02 10^3/uL (0.00-0.03); Immature Granulocytes Pct Auto 0.2 % (0.0-0.5); Lymphocytes Absolute Auto 1.5 10^3/uL (1.2-3.8); Lymphocytes Percent Auto 17.8 % (20.5-60.0); Mean Corpuscular HGB Conc 34.1 g/dL (29.9-35.2); Mean Corpuscular Hemoglobin 31.1 pg (26.7-34.0); Mean Corpuscular Volume 91.2 fL (81.0-99.0); Mean Platelet Volume 10.3 fL (9.5-13.5); Monocytes Absolute Auto 0.4 10^3/uL (0.3-0.8); Monocytes Percent Auto 4.8 % (1.7-12.0); Neutrophils Absolute Auto 6.3 10^3/uL (1.4-6.5); Neutrophils Percent Auto 76.4 % (43.0-75.0); Platelet Count 256 10^3/uL (150-450); Red Blood Count 4.08 10^6/uL (4.20-5.40); Red Cell Distribution Width 12.7 % (11.0-15.0); White Blood Count 8.3 10^3/uL (4.0-11.0)
[2023-05-12 10:40] LABS: BOX Test Sent Out Y
[2023-05-12 10:54] LABS: Thyroid Stimulating Hormone 1.462 uIU/mL (0.358-3.740)
[2023-05-12 10:56] LABS: Estimated Average Glucose 100 mg/dL; Glycohemoglobin A1C 5.1 % (4.5-6.2)
[2023-05-13 06:08] LABS: Rubella Antibodies, IgG 2.94 index (Immune >0.99)
[2023-05-13 07:09] LABS: HBsAg Screen Negative (Negative); HCV Ab Non Reactive (Non Reactive); HIV Ab/p24 Ag Screen Non Reactive (Non Reactive)
[2023-05-13 11:08] LABS: Rapid Plasma Reagin, Quant Non Reactive titer (NonRea<1:1)
== END 2023-05-12 09:44 | disposition home or self-care (01) ==
LOC: LAB 09:43
PROVIDERS: Visit Provider Obstetrics & Gynecology
DX: N92.6 Irregular menstruation, unspecified (principal); Z36.0 Encounter for antenatal screening for chromosomal anomalies
CPT/HCPCS: 36415; 83036; 84443; 85025; 86592; 86762; 86803; 86850; 86900; 86901; 87086; 87340; 87389

== ENCOUNTER 2023-07-08 10:26 | Outpatient (OUT) | payer BC, SELFPAY ==
--- OUTSIDE RECORDS SUMMARY | 2023-07-08 10:38 | XMS_ITS | CCD ---
Author Name Unknown Address [address] [place] [address] Organization [facility] Care Team Providers Care Learning Support Aide Name Role Phone No, Physician Unavailable Unavailable WILFREDO CALLAHAN Unavailable Unavailab le NO, PHYSICIAN Unavailable Unavailable Ebonie Lovelaceine Unavailable [phone] EBONIE LOVELACE Unavailable Unavail able EBONIE LOVELACEINE Unavailable Unavail able LOVELACEEBONIE DUMONT ISLAS Unavailable Unavail able NO, PHYSICIAN Unavailable Unavailable LOVELACELISAEBONIE ISLAS Unavailable Unavail able NO, PHYSICIAN Unavailable [...] PHYSICIAN Unavailable Unavailable NATALIE EMANUEL Unavailable Unavailable [facility] navailable Unavailable DR JANIE BARBOUR Admitting Unavailable LIVIER ., DR LIMA Attending Unavailable REQUEST, NONE LISTED Primary Care Unavaila DR JANIE Gross Consulting Unavailable TAWANNA CHESTER Admitting Unavailable TAWANNA CHESTER Unavailable REQUEST, NONE LISTED Primary Care Unavaila TAWANNA Stratton Consulting Unavailable Unavailable Primary Care Provider Unavailabl e JANIE MAIER Attending Unavailable JANIE MAIER Attending Unavailable Medications Current Medications Medication Drug Class(es) Dates Sig (Normalized) Sig (Original) Norgestimate-Ethinyl Estradiol 0.18 Mg/0.215mg/0.25mg-35 McG(28)Tablet (4 sources) Progestin, Estrogen Start: 04-29-2017 take 1 tablet by mouth once daily norgestimate-ethiny l estradiol (ORTHO TRI-CYCLEN,TRINESSA ) 0.18/0.215/0.25 mg-35 mcg (28) per tablet Take [...] days. 10 mL 0 05/13/2017 05/20/2017 Active ondansetron 4 mg disintegrating oral tablet (3 sources) Serotonin-3 Receptor Antagonist Start: 05-11-2023 End: 06-10-2023 take 1 tablet by mouth every six hours as needed for nausea and vomiting and nausea and nausea ondansetron ODT (Zofran-ODT) 4 MG disintegrating tablet Indications: Nausea Take 1 tablet (4 mg) by mouth every 6 (six) hours if needed for nausea or vomiting 30 tablet 3 05/11/2023 06/10/2023 Active Start: 01-10-2018 End: 01-11-2018 take 4 mg intravenous route every six hours as needed ondansetron (ZOFRAN) injection 4 mg Ioilikqx-Eae-Gv-FA ( 1 + IRON PO) (2 sources) Multivi t-Min-Fe-FA ( 1 + IRON PO) Take by mouth 0 Active Completed/Discontinued Medications Medication Drug Class(es) Dates [...] twenty-four hours as needed flu vaccine qv 2018 (6mos up)(PF) (FLULAVAL QUAD/FLUARIX QUAD) syringe 0.5 [...] ml measles virus vaccine live, serafin attenuated hardik strain 2000 unt/ml / mumps virus vaccine live, yogi evans strain 47764 unt/ml / rubella virus vaccine live (wistar [...] sources) Opioid Antagonist Start: 01-11-2018 End: 01-13-2018 ondansetron (ZOFRAN-ODT) disintegrating tablet 4 mg (1 [...] mL 0.5 ml varicella-zoster virus vaccine live (RiseSmart) strain 2700 unt/ml injection (1 source) Start: 01-11-2018 End: 01-13-2018 take 0.5 mL by subcutaneous injection every twenty-four hours as needed Problems Active Problems Problem Classification Problem Date Documented Date Episodic/Chronic Hemorrhage during ; abruptio placenta; placenta previa (1 source) Placental abruption; Translations: [Placental abruption] Onset: 01-10-2018 01-10-2018 Episodic Normal and/or delivery (8 sources) Encounter for supervision of normal first , second trimester; Translations: [Encounter for supervision of normal first , unspecified trimester] Onset: 06-30-2017 05-31-2023 Episodic Other female genital disorders (1 source) Vaginal bleeding Onset: 01-11-2018 Episodic Residual codes; unclassified (2 sources) History of placental abruption; Translations: [Personal history of other complications of , childbirth and the puerperium] 06-08-2023 Episodic Unclassified (6 sources) Encounter for screening [...] [Unspecified acute conjunctivitis, bilateral] Onset: 05-13-2017 Episodic Other complications of ; puerperium affecting [...] of mother, fetus 1 of multiple gestation NEGATED: Highlighted row has been ruled out!Unclassified (2 sources) No known active problems 10-29-2022 Results Test Name Value Interpretation Reference Range Facility Urinalysis macro (dipstick) panel (U)Ordered By: Olga Navarro on 06-08-2023 Bilirubin, UA Negative Negative - 4(70) +++ mg/dL [facility] Blood, UA Negative Negative - 50 Willam/mcL [facility] Clarity, UA Clear [facility] re Color, UA Yellow [facility] Glucose, UA Negative Negative - 1999(110) ++++ mg/dL [facility] Interpretation and review of laboratory results Abnormal [facility] Ketones, UA Negative Negative - 160(16) ++++ mg/dL [facility] Leukocytes, UA Negative Negative - 500+++ Sandy/mcL [facility] Nitrite, UA Negative Negative - Positive [facility] pH, UA 7.5 5 - 9 [facility] e Protein, UA Positive Negative - 1999(20) ++++ mg/dL [facility] Spec Grav, UA 1.025 1 - 1.03 [facility] Urobilinogen, UA 0.2 0.2 - 12 mg/dL [facility] SARS-CoV-2 (COVID-19) RNA SANDRA+probe Ql (Unsp spec) Not detected Normal NOT DETECTED [facility] Comment on above: Result Comment: When diagnostic [...] for this test is supported by the [place] of Health and Human Service's declaration that [...] longer be used). Performed By: #### [facility] #### [facility] Laboratory [address] [place] [address] Dr. Kaveh Wilks Tissue Aerobic Cultureon Bacteria identified Aer cx Nom (Tiss) Few Growth (4-10 colonies per plate) Coagulase Negative Staphylococcus Abnormal [facility] Interpretation and review of laboratory results Abnormal Invalid Interpretation Code [facility] Microscopic observation Gram stain Nom (Tiss) Many WBC Invalid Interpretation Code [facility] Microscopic observation Gram stain Nom (Tiss) Many RBC Invalid Interpretation Code [facility] Microscopic observation Gram stain Nom (Tiss) No Organisms Seen Invalid Interpretation Code [facility] Antibody Identificationon Blood group antibodies identified Nom Anti-Rhogam Invalid Interpretation Code [facility] The anti-D detected in this patient is presumably caused by a recent Rh Immune Globulin injection.It is unlikely that this represents a clinically significant antibody. Invalid Interpretation Code [facility] RhIG Evaluationon 01-11-2018 Rh immune globulin candidate (yes/no) Ql RhIG Candidacy Invalid Interpretation Code [facility] Baby is Rho(D) negative. Patient is NOT a candidate for Rh Immune Globulin. Invalid Interpretation Code [facility] Syphilis Antibodyon 01-12-20 Interpretation and review of laboratory results Normal Invalid Interpretation Code [facility] T. pallidum Ab Ql (S) Negative Invalid Interpretation Code Negative [facility] Type and Screenon 01-11-2018 ABO and Rh group Nom (Bld) Negative Invalid Interpretation Code [facility] Blood group antibody screen Ql Positive Invalid Interpretation Code [facility] Specimen Expires 01/13/2018 23:59 EST Invalid Interpretation Code [facility] APTTon 01-10-2018 aPTT Coag time (Bld) Therapeutic range for APTT's is 68 - 104 seconds Invalid Interpretation Code [facility] aPTT Coag time (Bld) 25 s Invalid Interpretation Code [facility] CBCon 01-10-2018 Erythrocyte distribution width Auto Entitic volume (RBC) 14.0 % Invalid Interpretation Code 11.6 - 14.8 % [facility] Hematocrit Auto Volume Fraction (Bld) 33.9 % Low 36 - 46 % [facility] Hemoglobin mass conc (Bld) 11.8 g/dL Low 12 - 16 g/dL [facility] Interpretation and review of laboratory results Abnormal Invalid Interpretation Code [facility] MCH Auto Entitic mass (RBC) 31.7 pg Invalid Interpretation Code 26 - 34 pg [facility] MCHC Auto mass conc (RBC) 34.8 g/dL Invalid Interpretation Code 31 - 37 g/dL [facility] MCV Auto Entitic volume (RBC) 91.1 fL Invalid Interpretation Code 80 - 100 fL [facility] Nucleated RBC #/vol (Bld) 0.00 10*3/uL Invalid Interpretation Code [facility] Nucleated RBC/100 WBC Ratio (Bld) 0.0 % Invalid Interpretation Code [facility] Platelet mean volume Auto Entitic volume (Bld) 12.1 fL Invalid Interpretation Code 9 - 15.5 fL [facility] Platelets Auto #/vol (Bld) 159 10*3/uL Invalid Interpretation Code [facility] RBC Auto #/vol (Bld) 3.72 10*6/uL Low RI [facility] WBC Auto #/vol (Bld) 16.00 10*3/uL [facility] Fibrinogenon 01-10-2018 Fibrinogen Coag mass conc (PPP) 547 mg/dL High 224 - 483 mg/dL [facility] Interpretation and review of laboratory results Abnormal Invalid Interpretation Code [facility] Otheron 01-10-2018 Interpretation and review of laboratory results Normal Invalid Interpretation Code [facility] PT/INRon 01-10-2018 INR Coag RelTime (Bld) During the induction phase of oral anticoagulation, the INR may not reflect the anticoagulation status of the patient. Therapeutic ranges for INR's are: Most clinical situations: INR 2.0-3.0 Mechanical Prosthetic Valve: INR 2.5-3.5 Critical: INR >5.0 Invalid Interpretation Code [facility] INR Coag RelTime (PPP) 0.9 {INR} Invalid Interpretation Code [facility] Prothrombin time (PT) Coag time (PPP) 12.2 s Invalid Interpretation Code [facility] US OB FOLLOW UP TRANSABDOMIN AL SINGLE FETUSon 11-11-2017 US OB FOLLOW UP TRANSABDOMINAL SINGLE FETUS OBSTETRICS REPORT (Signed Final 11/11/2017 04:43 pm) Patient Info ID #: [id number] : [birth year] (22 yrs) Name: MAURICIO CAMARILLO Visit Date: 11/11/2017 10:50 am Performed By Performed By: Bianca Reynoso Referred By: Ebonie Lovelace RDMS, MD Attending: Uziel Hanson, Location: Demi Knapp MD, [facility] Service(s) [place] [address] [place] [address] Indications Zika virus exposure affecting O99.89 28 [...] our ultrasound office is accredited by The [place] [employer] (AIUM). If you would like to discuss the results of your patient's tests or would like a Maternal- Medicine Consultation to assist you with her management, please do not hesitate to contact us at [phone]. Uziel Hanson MD, RDMS Electronically Signed Final Report 11/11/2017 04:43 pm Invalid Interpretation Code [facility] US OB FOLLOW UP TRANSABDOMINAL SINGLE FETUS Interface, Rad In [place] Speechq - 11/11/2017 4:44 PM EDT OBSTETRICS REPORT (Signed Final 11/11/2017 04:43 pm) Patient Info ID #: [id number] : [birth year] (22 yrs) Name: MAURICIO Delgado SERG Visit Date: 11/11/2017 10:50 am Performed By Performed By: Bianca Reynoso Referred By: Ebonie Lovelace RDSC Attending: Uziel Hanson, Location: [place] [facility] BRENNAN, [facility] Service(s) [place] [address] [place] [address] Indications Zika virus exposure affecting O99.89 28 [...] our ultrasound office is accredited by The [place] [employer] in [employer] (AIUM). If you would like to discuss the results of your patient's tests or would like a Maternal- Medicine Consultation to assist you with her management, please do not hesitate to contact us at [phone]. Uziel Hanson MD, RDMS Electronically Signed Final Report 11/11/2017 04:43 pm Invalid Interpretation Code [facility] US Obstetric Detail An atomy Transabdominal Single Fetuson 09-23-2017 US Obstetric Detail Anatomy Transabdominal Single Fetus OBSTETRICS REPORT (Signed Final 09/23/2017 03:50 pm) Patient Info ID #: [id number] : [birth year] (22 yrs) Name: MAURICIO CAMARILLO Visit Date: 09/23/2017 01:47 pm Performed By Performed By: Geovani Mart Referred By: Ebonie Lovelace RDMS, MD Attending: Debbie Recio MD Location: [facility] Service(s) Provided Targeted OB + Transvaginal [id number] Indications 21 weeks gestation of Z3A.21 Zika [...] Visualized 4 Chamber View: Normal appearance Cardiac [place]: Normal Cardiac Motion: Visualized Diaphragm: Normal appearance [...] our ultrasound office is accredited by The [place] [employer] (AIUM). If you would like to discuss the results of your patient's tests or would like a Maternal- Medicine Consultation to assist you with her management, please do not hesitate to contact us at [phone]. Debbie Recio MD Electronically Signed Final Report 09/23/2017 03:50 pm Invalid Interpretation Code GEOVANI MART RDMS US Obstetric Detail Anatomy Transabdominal Single Fetus Interface, Rad In Fuji Speechq - 09/23/2017 3:51 PM EDT OBSTETRICS REPORT (Signed Final 09/23/2017 03:50 pm) Patient Info ID #: [id number] : [birth year] (22 yrs) Name: MAURICIO CAMARILLO Visit Date: 09/23/2017 01:47 pm Performed By Performed By: Geovani Mart Referred By: Ebonie Lovelace RDMS, MD Attending: Debbie Recio MD Location: [facility] Service(s) Provided Targeted OB + Transvaginal [id number] Indications 21 weeks gestation of Z3A.21 Zika [...] Visualized 4 Chamber View: Normal appearance Cardiac [place]: Normal Cardiac Motion: Visualized Diaphragm: Normal appearance [...] our ultrasound office is accredited by [employer] [place] [employer] in [employer] (AIUM). If you would like to discuss the results of your patient's tests or would like a Maternal- Medicine Consultation to assist you with her management, please do not hesitate to contact us at [phone]. Debbie Recio MD Electronically Signed Final Report 09/23/2017 03:50 pm Invalid Interpretation Code GEOVANI MART RDMS CBC Auto Differentialon 03-0 Basophils 0.03 K/mcL Invalid Interpretation Code 0.00 - 0.30 [facility] Basophils/100 leukocytes 0.3 % Invalid Interpretation Code [facility] Eosinophils 0.07 K/mcL Invalid Interpretation Code 0.00 - 0.50 [facility] Eosinophils/100 leukocytes 0.6 % Invalid Interpretation Code [facility] Erythrocytes (RBC) 4.12 M/mcL Invalid Interpretation Code 4.00 - 5.20 [facility] Erythrocytes (RBC) 0.00 K/mcL Invalid Interpretation Code 0.00 - 0.00 [facility] Hematocrit (HCT) 36.8 % Invalid Interpretation Code 36 - 46 % [facility] Hemoglobin (HGB) 12.5 g/dL Invalid Interpretation Code 12 - 16 g/dL [facility] IG Absolute 0.02 K/mcL Invalid Interpretation Code 0.00 - 0.30 [facility] IG Percent 0.20 % Invalid Interpretation Code [facility] Interpretation and review of laboratory results Abnormal Invalid Interpretation Code [facility] Lymphocytes 2.42 K/mcL Invalid Interpretation Code 0.90 - 4.00 [facility] Lymphocytes/100 leukocytes 22.2 % Invalid Interpretation Code [facility] MCH 30.3 pg Invalid Interpretation Code 26 - 34 pg [facility] MCHC 34.0 g/dL Invalid Interpretation Code 31 - 37 g/dL [facility] MCV 89.3 fL Invalid Interpretation Code 80 - 100 fL [facility] Monocytes 0.67 K/mcL Invalid Interpretation Code 0.30 - 0.90 [facility] Monocytes/100 leukocytes 6.1 % Invalid Interpretation Code [facility] Neutrophils 7.69 K/mcL High 1.70 - 7.00 [facility] Neutrophils/100 leukocytes 70.6 % Invalid Interpretation Code [facility] Nucleated erythrocytes/100 erythrocytes 0.0 % Invalid Interpretation Code [facility] Platelet mean volume (PMV) 11.2 fL Invalid Interpretation Code 9 - 15.5 fL [facility] Platelets 285 K/mcL Invalid Interpretation Code 150 - 400 [facility] RDW-CA 12.8 % Invalid Interpretation Code 11.6 - 14.8 % [facility] WBC (Leukocytes) 10.90 K/mcL Invalid Interpretation Code 4.50 - 11.00 [facility] CBC and Differentialon 06-30 Creatinine The following orders were created for panel order CBC and Differential. Procedure Abnormality Status --------- ------ CBC Auto Differential[[id number]] Abnormal Final result Please view results for these tests on the individual orders. Invalid Interpretation Code [facility] HIV 1/2 Screen (4th Generati on)on 06-30-2017 HIV 1+2 antibody presence Negative Invalid Interpretation Code Negative [facility] Interpretation and review of laboratory results Normal Invalid Interpretation Code [facility] HIV 1/2 Screen (4th Generation) This assay tests for the presence of HIV-1, HIV-2 antibodies and for the presence of HIV-1 antigen. Test performed using [employer] TR immunoassay system Invalid Interpretation Code [facility] Hepatitis B Surface Antigeno n 06-30-2017 Hepatitis B Surface Ag Negative Invalid Interpretation Code Negative [facility] Hepatitis B Surface Antigen Test performed using [employer] TR immunoassay system Invalid Interpretation Code [facility] RPRon 06-30-2017 Reagin antibody presence Non-Reactive Invalid Interpretation Code Non-Reactive [facility] Rubella Antibody, IgGon Rubella IgG Non-Immune Invalid Interpretation Code [facility] Rubella IgG Value 5.87 IU/mL Invalid Interpretation Code [facility] Type and Screenon 06-30-2017 ABO+Rh group Negative Invalid Interpretation Code [facility] Blood group antibody presence Negative Invalid Interpretation Code [facility] Specimen Expires 07/03/2017 23:59 EST Invalid Interpretation Code [facility] Urine Aerobic Cultureon Bacteria aerobode culture Three or more colony types; >10,000 CFU/mL mixture of normal urogenital microbiota. None predominant. Possible contamination. Suggest repeat if clinically indicated. Invalid Interpretation Code [facility] Vital Signs Date Time Vital Sign Value Performing Clinician Facility 06-08-2023 13:47-0500 Body mass index (BMI) [Ratio] 20.24 kg/m2 [employer] Work Phone: [facility] 06-08-2023 13:47-0500 Body weight 56.88 kg [employer] Work Phone: [facility] 06-08-2023 13:47-0500 Diastolic blood pressure 60 mm[Hg] [employer] Work Phone: [facility] 06-08-2023 13:47-0500 Systolic blood pressure 104 mm[Hg] Janie Maier DO Work Phone: [facility] 01-13-2018 09:42-0400 Pulse (Heart Rate) 90 /min Ebon[facility] 01-13-2018 09:42-0400 Pulse Oximetry 98 % Ebonie [facility] 01-13-2018 09:31-0400 Body Temperature 98.2 [degF] [facility] 01-13-2018 09:31-0400 BP Diastolic 75 mm[Hg] [facility] 01-13-2018 09:31-0400 BP Systolic 109 mm[Hg] [facility] 01-13-2018 09:31-0400 Respiratory Rate 16 /min Ebonie [facility] 05-13-2017 11:47-0500 BMI (Body Mass Index) 22.6 kg/m2 Wilfredo Callahan [facility] Work Phone: 05-13-2017 11:47-0500 Body Temperature 98.4 [degF] Wilfredo Callahan [facility] Work Phone: 05-13-2017 11:47-0500 BP Diastolic 78 mm[Hg] Wilfredo Callahan [facility] Work Phone: 05-13-2017 11:47-0500 BP Systolic 112 mm[Hg] Wilfredo Callahan [facility] Work Phone: 05-13-2017 11:47-0500 Height 167.6 cm Wilfredo Callahan [facility] Work Phone: 05-13-2017 11:47-0500 Pulse (Heart Rate) 81 /min Wilfredo Callahan [facility] Work Phone: 05-13-2017 11:47-0500 Pulse Oximetry 98 % Wilfredo Callahan [facility] Work Phone: 05-13-2017 11:47-0500 Weight 63.5 kg Wilfredo Callahan [facility] Work Phone: Encounters Encounter Date Encounter Type Care Provider Facility Start: 07-06-2023 End: 07-06-2023 ambulatory JANIE MAIER Not Available Start: 06-08-2023 End: 06-08-2023 ambulatory JANIE MOROCHOO Not Available Start: 06-08-2023 End: 06-08-2023 flow sheet Janie Maier DO Work Phone: [facility] Comment on above: Second trimester pre gnancy; History of placental abruption Start: 05-06-2023 End: 05-06-2023 ambulatory JANIE LIVIER Not Available Start: 09-02-2022 End: 09-02-[address] JANIE MAIER . Facility:[facility] Start: 10-22-2021 Encounter for preprocedural laboratory examination TAWANNA CHESTER [facility] Start: 10-19-2021 End: 10-20-2021 ambulatory TAWANNA CHETSER Facility:[facility] Start: 10-19-2021 End: 10-20-2021 Encounter for preprocedural laboratory examination TAWANNA CHESTER Facility:[facility] Start: 01-11-2018 End: 01-13-2018 Evaluation and management of inpatient EBONIELOGAN ISLAS RADU [facility] Start: 01-10-2018 End: 01-13-2018 Evaluation and management of inpatient Ebonielogan Islas Radu Work Phone: [facility] Mother/ Unit 5 Start: 11-11-2017 End: 11-12-2017 Patient encounter Denzel Chace Hoang Work Phone: [facility] Maternal Medicine Start: 11-10-2017 End: 11-10-2017 Patient encounter ORVILLE GÓMEZ [facility] Start: 09-23-2017 End: 09-24-2017 Patient encounter COREY MARTIN [facility] Start: 09-23-2017 End: 09-23-2017 Ambulatory Ebonie Loevlace Work Phone: [facility] Start: 09-01-2017 End: 09-01-2017 Patient encounter EBONIE LOVELACE [facility] Start: 08-01-2017 End: 08-01-2017 Ambulatory Ebonie Lovelace Work Phone: [facility] [employer] [facility] Start: 07-04-2017 End: 07-04-2017 Patient encounter EBONIE ISLAS [facility] Start: 06-30-2017 End: 06-30-2017 Ambulatory Ebonie Lovelace Work Phone: [facility] [employer] [facility] Start: 05-13-2017 End: 05-13-2017 Ambulatory WILFREDO CALLAHAN [facility] Start: 05-13-2017 Office/outpatient [facility] level 2 Wilfredo Bianca Callahan Work Phone: [facility] [place] Start: 04-14-2017 End: 04-19-2017 Patient encounter [facility] Procedures Date Procedure Procedure Detail Performing Clinician Start: 06-08-2023 Urnls dip stick/tabl et rgnt non-auto w/o micrscp Janie Livier DO Work Phone: Start: 01-11-2018 End: 01-11-2018 Cul bact xcpt urine blood/stool aerobic isol Anahy Sarah Work Phone: Start: 01-11-2018 End: 01-11-2018 Culture bacterial any source anaerobic iso&id Anahy Sarah Work Phone: Start: 01-10-2018 End: 01-10-2018 Antibody id rbc antibodies ea panel ea serum tq Natalie Suzannenanda Emanuel Work Phone: Start: 01-10-2018 End: 01-10-2018 [...] 11-11-2027 Tetanus vaccination TETANUS EVERY 10 YR [facility] Start: 09-08-2023 End: 09-08-2023 Patient encounter procedure 09/08/2023 10:45 AM EDT Office Visit [facility] [address] [place] [phone] Sandra Conti MD [address] [place] [address] [facility] Start: 07-06-2023 End: 07-06-2023 Patient encounter procedure 07/06/2023 1:40 PM EDT Routine [facility] [address] [facility] [place] [phone] Janie Maier, [address] [place], [place] [phone] [facility] Start: 12-24-2022 Influenza vaccination Influenza Vacc ine (#1) [facility] Start: 04-14-2020 Screening for malign ant neoplasm of cervix PAP SMEAR [facility] Start: 12-24-2017 Influenza vaccination [facility] Start: 11-24-2017 End: 11-24-2017 Ambulatory 11/24/2017 Routine Obstetrics and Gynecology Ebonie Lovelace MD [address] [facility] [address] [place] [address] [phone] [facility] [place] Start: 11-11-2017 End: 11-11-2017 Ambulatory 11/11/2017 Appointment Maternal and Medicine [facility]aternal [facility] Start: 09-28-2017 End: 09-28-2017 Ambulatory 09/28/2017 Routine Obstetrics and Gynecology Ebonie Lovelace MD [address] [facility] [address] [place] [address] [phone] [facility] [place] Start: 12-24-2016 Influenza vaccination SEQUENTI AL INFLUENZA VACCINE (#1) [facility] Work Phone: Start: 2004 Vaccination for shira n papillomavirus [facility] Work Phone: Start: 1993 Screening for malign ant neoplasm of cervix PAP SMEAR [facility] Work Phone: Start: 1993 Tetanus vaccination TETANUS EVERY 10 YR [facility] Work Phone: Tissue Aerobic Culture Tissue Ae robic Culture Routine 01/11/2018 11:49 PM EDT [facility] Tissue Anaerobic Culture Tissue Anaerobic Culture Routine 01/11/2018 11:49 PM EDT [facility] End: 01-11-2018 Tissue Exam Tissue Exam Routine Once for 1 Occurrences starting 01/11/2018 until 01/11/2018, 1 completed [facility] Comment on above: Once for 1 Occurrenc es starting 01/11/2018 until 01/11/2018, 1 completed Tissue Exam Tissue Exam Rout ine 01/11/2018 9:39 PM EDT [facility] Immunizations Immunization Date Immunization Notes Care Provider Brittani adame 01-12-2018 influenza, injectabl e, quadrivalent, preservative free; Translations: [INFLUENZA IIV4 3YO OR > FLUARIX/FLUZONE/AFLURIA 19730] Ebonie Lovelace [facility] 01-12-2018 measles, mumps and rubella virus vaccine; Translations: [MMR] Ebonie Lovelace [facility] 01-12-2018 influenza virus vacc ine, unspecified formulation Janie Livier DO Work Phone: [facility] 11-10-2017 tetanus toxoid, redu luz diphtheria toxoid, and acellular pertussis vaccine, adsorbed; Translations: [TDAP] Denzel Hoang [facility] Payers Date Payer Category Payer Unknown BCBS BCBS [id number] [id number] 2022-Present [phone] [address] [place] [address] [id number] 2017 Unknown [id number] 2013 Unknown [id number] 1993 Unknown [id number] 1993 Unknown [id number] 1993 Unknown [id number] 1993 Unknown [id number] 1993 Unknown [id number] 1959 Unknown [id number] Social History Date Type Detail Facility Start: 05-13-2017 End: 10-26-2022 Tobacco smoking status [facility] Never smoker [facility] Start: 1993 Sex Assigned At Not on file [facility] Work Phone: Start: 05-10-2017 [facility] Start: 10-26-2022 Tobacco use and exposure Smokeless tobacco non-user [facility] Start: 06-08-2023 Alcohol intake Lifetime non-d kenia (finding) [facility] Start: 10-29-2022 History of Social function [facility] Start: 10-29-2022 Tobacco use panel [facility] Start: 10-26-2022 Alcohol Comment caffeine: 2-3 cups per day, soda/pop [facility] History of Present illness Narrative 06-08-2023 Monika Oh LPN - 06/08/2023 1:40 PM EST Note Date & Type Note Facility 06-08-2023 History of Presen t illness Narrative Reason for Appointment: Patient ID: Mauricio Donovan is a 27 y.o. female who presents for Routine Visit Patient presents today for Return OB appointment. Current Medications: has a current medication list which includes the following prescription(s): ondansetron odt and [id number]-fa. Medical History: Active Ambulatory Problems Diagnosis Date Noted No Active Ambulatory Problems Resolved Ambulatory Problems Diagnosis Date Noted No Resolved Ambulatory Problems Past Medical History: Diagnosis Date Herpes simplex Family History Problem Relation Name Age of Onset Uterine cancer Maternal Grandmother Social History Tobacco Use Smoking status: Never Smokeless tobacco: Never Vaping Use Vaping Use: Never used Substance Use Topics Alcohol use: Never Comment: caffeine: 2-3 cups per day, soda/pop Drug use: Never History reviewed. No pertinent surgical history. No Known Allergies Review of Systems: Review of Systems Constitutional: Negative. HENT: Negative. Eyes: Negative. Respiratory: Negative. Cardiovascular: Negative. Gastrointestinal: Negative. Genitourinary: Negative. Musculoskeletal: Negative. Skin: Negative. Neurological: Negative. All other systems reviewed and are negative. Hematological: Negative. Endocrine: Negative. Allergic/Immunologic: Negative. Objective Physical Exam Constitutional: Appearance: Normal appearance. She is well-developed. Cardiovascular: Rate and Rhythm: Normal rate and regular rhythm. Pulmonary: Effort: Pulmonary effort is normal. Breath sounds: Normal breath sounds. Abdominal: General: Bowel sounds are normal. There is no distension. Palpations: Abdomen is soft. Tenderness: There is no abdominal tenderness. There is no guarding or rebound. Musculoskeletal: General: No swelling. Normal range of motion. Right lower leg: No edema. Left lower leg: No edema. Neurological: Mental Status: She is alert and oriented to person, place, and time. Skin: General: Skin is warm and dry. Psychiatric: Mood and Affect: Mood normal. Behavior: Behavior normal. Vitals and nursing note reviewed. Exam conducted with a butcher scullion present. Vitals: Estimated body mass index is 20.24 kg/m as calculated from the following: Height as of 09/02/22: 5' 6 . Weight as of this encounter: 125 lb 6.4 oz. BP: 104/60 Patient's last menstrual period was 02/28/2023. Assessment/Plan Encounter Diagnoses Name Primary? Second trimester History of placental abruption Patient presents today for 1st time obstetrics appointment with provider. Patient is currently 14w2d . Patients history has been reviewed in great detail including any potential risks. Patient stated she currently has no complaints. Expectations throughout regarding labs, ultrasounds, and appointments have been discussed with the patient in detail. It was reiterated that the patient is to drink 6-8 glasses of water a day, eat 6 small meals a day, do not consume raw or undercooked meat, and stay away from [facility]. Patient has been consulted regarding any further do's and don'ts of . Patient voiced understanding and all questions and concerns were answered. Pt to be referred to [facility] for level II ultrasound. Discussed NST/BPP and growth ultrasound d/t h/o placenta abruption and IUGR. Pt to have repeat section. Follow Up: Patient is to return in 4 weeks for routine OB appointment. Documented by Monika Oh LPN on behalf of: Janie Maier DO documented in this encounter [facility] Evaluation note Note Date & Type Note Facility Evaluation note Diagnosis Second trimester state, incidental History of placental abruption documented in this encounter [facility] Assessments Diagnosis Suspected abnormality affecting management of [...] Log into your personal health record on [email or web address] and enter Y392 in the Education box to learn more about [facility]: Care Instructions. Current as of: September 19, 2015 Content Version: 11.2 2179-4845 [employer]. Care instructions adapted under license by your healthcare professional. If you have questions about a medical condition or this instruction, always ask your healthcare professional. [employer] disclaims any warranty or liability for your [...] section and content) DATE CREATED AUTHOR 10/18/2017 [facility] DATE CREATED AUTHOR AUTHOR'S ORGANIZ ATION 02/12/2018 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 Request for consult received, will contact mother [...] that baby is currently being transferred to [facility] from NICU, requests consult, informed her that [...] Problems: Placental abruption SNOMED CT(R): PLACENTAL ABRUPTION Venus, Baby Boy Mauricio [[id number]] Delivery Anesthesia Method: Epidural Operative Delivery Forceps attempted?: No Vacuum extractor attempted?: No Shoulder Dystocia Shoulder dystocia present: No Presentation Presentation: Vertex Position: Middle _: Occiput _: Anterior Information date/time: 01/11/182113 Gender: Male Delivery type: Vaginal, Spontaneous Delivery Delivery location: OB Unit ?: No Details: Delivery Providers Delivering clinician: Anahy Sarah MD Other personnel: Provider Role Covering Attending Resident Ink Blender Leyla Alves RN Delivery Nurse Stephanie Curran, RN Registered Nurse Karlie Shah, records management clerk Assist Nurse Practitioner Cord Vessels: 3 vessels Complications: Nuchal Nuchal intervention: clamped and cut Nuchal cord description: tight nuchal cord Number of loops: 1 Delayed cord clamping?: No Cord clamped date/time: 01/11/20182113 Cord blood obtained?: Lab Cord segment obtained?: Yes Gases sent?: Yes Stem cell collection (by Provider)?: No Placenta Date/time: 01/11/20182122 Removal: Spontaneous Appearance: Intact Disposition: Discarded Apgars Living status: Living Scoring Ruiz: 0 [...] Other Procedures Procedures: None in this encounter Reason for Visit (unrecogniz ed section and content) Reason Comments Routine Visit FOR RECORDS PERTAINING TO PATIENTS WHO ARE [...] BE BASED ON THE PRIMARY CLINICAL RECORDS. [employer] provides no warranty or guarantee of the accuracy or completeness of information in this document.
[2023-07-10 00:07] LABS: Gest. Age on Collection Date 18.6 weeks (.); Insulin Dep Diabetes No (.); Maternal Age At EDD 30.2 yr (.); OSBR Risk 1 IN 4399 (.); Results Report (.)
== END 2023-07-08 10:27 | disposition home or self-care (01) ==
LOC: LAB 10:26
PROVIDERS: Visit Provider Obstetrics & Gynecology
DX: Z34.92 Encounter for supervision of normal pregnancy, unspecified, second trimester (principal)
CPT/HCPCS: 36415; 82105

== ENCOUNTER 2023-08-17 07:46 | Outpatient (OUT) | payer BC, SELFPAY ==
--- OUTSIDE RECORDS SUMMARY | 2023-08-17 07:48 | XMS_ITS | CCD ---
Author Organization [facility] Care Team Providers Care Polysomnographic Technologist Name Role Phone No, Physician Unavailable Unavailable ANNA CALLAHAN Unavailable Unavailab le NO, PHYSICIAN Unavailable Unavailable Delphine Lovelace Unavailable [phone] DELPHINE LOVELACE Unavailable Unavail able DELPHINE LOVELACEINE Unavailable Unavail able DELPHINE LOVELACE ISLAS Unavailable Unavail able NO, PHYSICIAN Unavailable Unavailable LOVELACELISADELPHINE ISLAS Unavailable Unavail able NO, PHYSICIAN Unavailable Unavailable LOVELACEDELPHINE ISLAS Unavailable Unavail able NO, PHYSICIAN Unavailable Unavailable LOVELACE, DELPHINE ISLAS Unavailable Unavail able NO, PHYSICIAN Unavailable Unavailable COREY MARTIN Unavailable Unavailable LOVELACEDELPHINE ISLAS Unavailable Unavail able NO, PHYSICIAN Unavailable Unavailable ORVILLE GÓMEZ Unavailable Unavailable NO, PHYSICIAN Unavailable Unavailable DENZEL HOANG Unavailable Unavaila ble DELPHINE LOVELACEINE Unavailable Unavail able NO, PHYSICIAN Unavailable Unavailable LOVELACEDELPHINE DUMONT ISLAS Unavailable Unavail able NO, PHYSICIAN Unavailable Unavailable NATALIE EMANUEL Unavailable Unavailable [facility] navailable Unavailable DR LAMIN BARBOUR Admitting Unavailable LIVIER ., DR LIMA Attending Unavailable REQUEST, NONE LISTED Primary Care Unavaila sunita Hollins, DR LIMA Consulting Unavailable TAWANNA CHESTER Admitting Unavailable TAWANNA CHESTER Attending Unavailable REQUEST, NONE LISTED Primary Care Unavaila TAWANNA [place] Consulting Unavailable Unavailable Primary Care Provider Unavailabl e Unavailable Primary Care Provider Unavailabl e LAMIN MAIER Attending Unavailable LAMIN MAIER Attending Unavailable SHERRI TRAVIS Attending Unavailable Medications Current Medications Medication Drug [...] Active ondansetron 4 mg disintegrating oral tablet (4 sources) Serotonin-3 Receptor Antagonist Start: 05-11-2023 End: [...] as needed ondansetron (ZOFRAN) injection 4 mg take 1 tablet by sree th every eight hours as needed for nausea and vomiting ondansetron ODT (ZOFRAN ODT) 4 mg disintegrating tablet Dissolve 1 tablet (4 mg total) on tongue every 8 (eight) hours as needed for nausea or vomiting. 0 Active Ovusalap-Evr-Ms-FA ( 1 + IRON PO) (2 sources) Multivi t-Min-Fe-FA ( 1 + IRON PO) Take by mouth 0 Active vit 14-iron fum-fol ic 29 mg iron- 1 mg tablet,chewable (1 source) vit 14- iron fum-folic 29 mg iron- 1 mg tablet,chewable Chew 1 tablet and swallow in the morning. 0 Active Completed/Discontinued Medications Medication Drug Class(es) [...] Start: 01-11-2018 End: 01-13-2018 Flu Vaccine Qs (6 Mos Up)(Pf)60 McG(15 McGx4)/0.5 Ml Im Syringe [...] ml measles virus vaccine live, serafin attenuated [place] strain 2000 unt/ml / mumps virus vaccine live, yogi evans strain 90375 unt/ml / rubella virus vaccine live (wistar [...] bleeding Onset: 01-11-2018 Episodic Residual codes; unclassified (4 sources) History of placental abruption; Translations: [Personal history of other complications of , childbirth and the puerperium] Onset: 07-11-2023 06-08-2023 Episodic Residual codes; unclassified (1 source) Gestation period, 20 weeks; Translations: [20 weeks gestation of ] 07-22-2023 Episodic Residual codes; unclassified (2 sources) History of previous intrauterine growth restricted ; Translations: [Personal history of other complications of , childbirth and the puerperium] Onset: 07-11-2023 07-22-2023 Episodic Residual codes; unclassified (1 source) Family history of hereditary disease; Translations: [Family history of other specified conditions] 07-22-2023 Episodic Unclassified (6 sources) Encounter for screening [...] UA Negative Negative - 4(70) +++ mg/dL [facility] Blood, UA Negative Negative - 50 Willam/mcL [facility] Clarity, UA Clear [facility], UA Yellow [facility] Glucose, UA Negative Negative - 1999(110) ++++ mg/dL [facility] Interpretation and review of laboratory results Abnormal [facility] Ketones, UA Negative Negative - 160(16) ++++ mg/dL [facility] Leukocytes, UA Negative Negative - 500+++ Sandy/mcL [facility] Nitrite, UA Negative Negative - Positive [facility] pH, UA 7.5 5 - 9 [facility] e Protein, UA Positive Negative - 2000(20) ++++ mg/dL [facility] Spec Grav, UA 1.025 1 - 1.03 [facility] care Urobilinogen, UA 0.2 0.2 - 12 mg/dL [facility] e Covid-19 PCR ([facility])on 09-24 SARS-CoV-2 (COVID-19) RNA SANDRA+probe Ql (Unsp spec) Not detected Normal NOT DETECTED [facility] Comment on above: Result Comment: When diagnostic [...] for this test is supported by the [place] of Health and Human Service's declaration that [...] longer be used). Performed By: #### [facility] #### [facility] [address] [address] [address] Kaveh Wilks Tissue Aerobic Cultureon Bacteria identified Aer cx Nom (Tiss) Few Growth (4-10 colonies per plate) Coagulase Negative Staphylococcus Abnormal [facility] Interpretation and review of laboratory results Abnormal Invalid Interpretation Code [facility] Microscopic observation Gram stain Nom (Tiss) Many WBC Invalid Interpretation Code [facility] Microscopic observation Gram stain Nom (Tiss) Many RBC Invalid Interpretation Code [facility] Microscopic observation Gram stain Nom (Tiss) No Organisms Seen Invalid Interpretation Code [facility] Antibody Identificationon Blood group antibodies identified Nom Anti-Rhogam Invalid Interpretation Code [facility] The anti-D detected in this patient is presumably caused by a recent Rh Immune Globulin injection.It is unlikely that this represents a clinically significant antibody. Invalid Interpretation Code [facility] RhIG Evaluationon 01-11-2018 Rh immune globulin candidate (yes/no) Ql RhIG Candidacy Invalid Interpretation Code [facility] Baby is Rho(D) negative. Patient is NOT a candidate for Rh Immune Globulin. Invalid Interpretation Code [facility] Syphilis Antibodyon 01-12-20 18 Interpretation and review of laboratory results Normal Invalid Interpretation Code [facility] T. pallidum Ab Ql (S) Negative Invalid Interpretation Code Negative [facility] Type and Screenon 01-11-2018 ABO and Rh group Nom (Bld) Negative Invalid Interpretation Code [facility] Blood group antibody screen Ql Positive Invalid Interpretation Code [facility] Specimen Expires 01/13/2018 23:59 EST Invalid Interpretation Code [facility] APTTon 01-10-2018 aPTT Coag time (Bld) Therapeutic range for APTT's is 68 - 104 seconds Invalid Interpretation Code [facility] aPTT Coag time (Bld) 25 s Invalid Interpretation Code [facility] CBCon 01-10-2018 Erythrocyte distribution width Auto Entitic volume (RBC) 14.0 % Invalid Interpretation Code 11.6 - 14.8 % [facility] Hematocrit Auto Volume Fraction (Bld) 33.9 % Low 36 - 46 % [facility] Hemoglobin mass conc (Bld) 11.8 g/dL Low 12 - 16 g/dL [facility] Interpretation and review of laboratory results Abnormal Invalid Interpretation Code [facility] MCH Auto Entitic mass (RBC) 31.7 pg Invalid Interpretation Code 26 - 34 pg [facility] MCHC Auto mass conc (RBC) 34.8 g/dL Invalid Interpretation Code 31 - 37 g/dL [facility] MCV Auto Entitic volume (RBC) 91.1 fL Invalid Interpretation Code 80 - 100 fL [facility] Nucleated RBC #/vol (Bld) 0.00 10*3/uL Invalid Interpretation Code [facility] Nucleated RBC/100 WBC Ratio (Bld) 0.0 % Invalid Interpretation Code [facility] Platelet mean volume Auto Entitic volume (Bld) 12.1 fL Invalid Interpretation Code 9 - 15.5 fL [facility] Platelets Auto #/vol (Bld) 159 10*3/uL Invalid Interpretation Code [facility] RBC Auto #/vol (Bld) 3.72 10*6/uL Low [facility] WBC Auto #/vol (Bld) 16.00 10*3/uL High [facility] Fibrinogenon 01-10-2018 Fibrinogen Coag mass conc (PPP) 547 mg/dL High 224 - 483 mg/dL [facility] Interpretation and review of laboratory results Abnormal Invalid Interpretation Code [facility] Otheron 01-10-2018 Interpretation and review of laboratory results Normal Invalid Interpretation Code [facility] PT/INRon 01-10-2018 INR Coag RelTime (Bld) During the induction phase of oral anticoagulation, the INR may not reflect the anticoagulation status of the patient. Therapeutic ranges for INR's are: Most clinical situations: INR 2.0-3.0 Mechanical Prosthetic Valve: INR 2.5-3.5 Critical: INR >5.0 Invalid Interpretation Code [facility] INR Coag RelTime (PPP) 0.9 {INR} Invalid Interpretation Code [facility] Prothrombin time (PT) Coag time (PPP) 12.2 s Invalid Interpretation Code [facility] US OB FOLLOW UP TRANSABDOMIN AL SINGLE FETUSon 11-11-2017 US OB FOLLOW UP TRANSABDOMINAL SINGLE FETUS OBSTETRICS REPORT (Signed Final 11/11/2017 04:43 pm) Patient Info ID #: [id number] : [birth year] (22 yrs) Name: YOVANNY CAMARILLO Visit Date: 11/11/2017 10:50 am Performed By Performed By: Bianca Reynoso Referred By: Delphine Lovelace RDVA Attending: Uziel Hanson, Location: [place], [facility] Service(s) [place] [address] [place] [address] Indications Zika virus exposure affecting O99.89 28 [...] our ultrasound office is accredited by The [place] [employer] (AIUM). If you would like to discuss the results of your patient's tests or would like a Maternal- Medicine Consultation to assist you with her management, please do not hesitate to contact us at [phone]. Uziel Hanson MD, [facility] Electronically Signed Final Report 11/11/2017 04:43 pm Invalid Interpretation Code [facility] US OB FOLLOW UP TRANSABDOMINAL SINGLE FETUS Interface, Rad In Stan Speechq - 11/11/2017 4:44 PM EDT OBSTETRICS REPORT (Signed Final 11/11/2017 04:43 pm) Patient Info ID #: [id number] : [birth year] (22 yrs) Name: YOVANNY CAMARILLO Visit Date: 11/11/2017 10:50 am Performed By Performed By: Bianac Reynoso Referred By: Delphine Lovelace RDMS, MD Attending: Uziel Hanson, Location: [place], [facility] Service(s) [place] [address] [place] [address] Indications Zika virus exposure affecting O99.89 28 [...] our ultrasound office is accredited by The [place] [employer] (AIUM). If you would like to discuss the results of your patient's tests or would like a Maternal- Medicine Consultation to assist you with her management, please do not hesitate to contact us at [phone]. Uziel Hanson MD, RDMS Electronically Signed Final Report 11/11/2017 04:43 pm Invalid Interpretation Code [facility] US Obstetric Detail An atomy Transabdominal Single Fetuson 09-23-2017 US Obstetric Detail Anatomy Transabdominal Single Fetus OBSTETRICS REPORT (Signed Final 09/23/2017 03:50 pm) Patient Info ID #: [id number] : [birth year] (22 yrs) Name: YOVANNY CAMARILLO Visit Date: 09/23/2017 01:47 pm Performed By Performed By: Charan Mart Referred By: Delphine Lovelace RDMS, MD Attending: Debbie Recio MD Location: [facility] Service(s) Provided Targeted OB + Transvaginal [id number] Indications 21 weeks gestation of Z3A.21 Zika [...] Visualized 4 Chamber View: Normal appearance Cardiac [place]: Normal Cardiac Motion: Visualized Diaphragm: Normal appearance [...] verbalizes understanding. Impression Thank you for referring Yovanny Camarillo for anatomic survey in the setting [...] our ultrasound office is accredited by [employer] [place] [employer] (AIUM). If you would like to discuss the results of your patient's tests or would like a Maternal- Medicine Consultation to assist you with her management, please do not hesitate to contact us at [phone]. Debbie Recio MD Electronically Signed Final Report 09/23/2017 03:50 pm Invalid Interpretation Code CHARAN MART RDMS US Obstetric Detail Anatomy Transabdominal Single Fetus Interface, Rad In [place] Speechq - 09/23/2017 3:51 PM EDT OBSTETRICS REPORT (Signed Final 09/23/2017 03:50 pm) Patient Info ID #: [id number] : [birth year] (22 yrs) Name: YOVANNY CAMARILLO Visit Date: 09/23/2017 01:47 pm Performed By Performed By: Charan Mart Referred By: Delphine Lovelace RDMS, MD Attending: Debbie Recio MD Location: [facility] Service(s) Provided Targeted OB + Transvaginal [id number] Indications 21 weeks gestation of Z3A.21 Zika [...] Visualized 4 Chamber View: Normal appearance Cardiac [place]: Normal Cardiac Motion: Visualized Diaphragm: Normal appearance [...] verbalizes understanding. Impression Thank you for referring Yovanny Camarillo for anatomic survey in the setting [...] our ultrasound office is accredited by [employer] [place] [employer] (AIUM). If you would like to discuss the results of your patient's tests or would like a Maternal- Medicine Consultation to assist you with her management, please do not hesitate to contact us at [phone]. Debbie Recio MD Electronically Signed Final Report 09/23/2017 03:50 pm Invalid Interpretation Code CHARAN DINORA BARRON [facility] CBC Auto Differentialon 03-0 Basophils 0.03 K/mcL Invalid Interpretation Code 0.00 - 0.30 [facility] Basophils/100 leukocytes 0.3 % Invalid Interpretation Code [facility] Eosinophils 0.07 K/mcL Invalid Interpretation Code 0.00 - 0.50 [facility] Eosinophils/100 leukocytes 0.6 % Invalid Interpretation Code [facility] Erythrocytes (RBC) 4.12 M/mcL Invalid Interpretation Code 4.00 - 5.20 [facility] Erythrocytes (RBC) 0.00 K/mcL Invalid Interpretation Code 0.00 - 0.00 [facility] Hematocrit (HCT) 36.8 % Invalid Interpretation Code 36 - 46 % [facility] Hemoglobin (HGB) 12.5 g/dL Invalid Interpretation Code 12 - 16 g/dL [facility] IG Absolute 0.02 K/mcL Invalid Interpretation Code 0.00 - 0.30 [facility] IG Percent 0.20 % Invalid Interpretation Code [facility] Interpretation and review of laboratory results Abnormal Invalid Interpretation Code [facility] Lymphocytes 2.42 K/mcL Invalid Interpretation Code 0.90 - 4.00 [facility] Lymphocytes/100 leukocytes 22.2 % Invalid Interpretation Code [facility] MCH 30.3 pg Invalid Interpretation Code 26 - 34 pg [facility] MCHC 34.0 g/dL Invalid Interpretation Code 31 - 37 g/dL [facility] MCV 89.3 fL Invalid Interpretation Code 80 - 100 fL [facility] Monocytes 0.67 K/mcL Invalid Interpretation Code 0.30 - 0.90 [facility] Monocytes/100 leukocytes 6.1 % Invalid Interpretation Code [facility] Neutrophils 7.69 K/mcL High 1.70 - 7.00 [facility] Neutrophils/100 leukocytes 70.6 % Invalid Interpretation Code [facility] Nucleated erythrocytes/100 erythrocytes 0.0 % Invalid Interpretation Code [facility] Platelet mean volume (PMV) 11.2 fL Invalid Interpretation Code 9 - 15.5 fL [facility] Platelets 285 K/mcL Invalid Interpretation Code 150 - 400 [facility] RDW-CA 12.8 % Invalid Interpretation Code 11.6 - 14.8 % [facility] WBC (Leukocytes) 10.90 K/mcL Invalid Interpretation Code 4.50 - 11.00 [facility] CBC and Differentialon 06-30 Creatinine The following orders were created for panel order CBC and Differential. Procedure Abnormality Status --------- ------ CBC Auto Differential[[id number]] Abnormal Final result Please view results for these tests on the individual orders. Invalid Interpretation Code [facility] HIV 1/2 Screen (4th Generati on)on 06-30-2017 HIV 1+2 antibody presence Negative Invalid Interpretation Code Negative [facility] Interpretation and review of laboratory results Normal Invalid Interpretation Code [facility] HIV 1/2 Screen (4th Generation) This assay tests for the presence of HIV-1, HIV-2 antibodies and for the presence of HIV-1 antigen. Test performed using Ivana TR immunoassay system Invalid Interpretation Code [facility] Hepatitis B Surface Antigeno n 06-30-2017 Hepatitis B Surface Ag Negative Invalid Interpretation Code Negative [facility] Hepatitis B Surface Antigen Test performed using Ivana TR immunoassay system Invalid Interpretation Code [facility] RPRon 06-30-2017 Reagin antibody presence Non-Reactive Invalid Interpretation Code Non-Reactive [facility] Rubella Antibody, IgGon Rubella IgG Non-Immune Invalid Interpretation Code [facility] Rubella IgG Value 5.87 IU/mL Invalid Interpretation Code [facility] Type and Screenon 06-30-2017 ABO+Rh group Negative Invalid Interpretation Code [facility] Blood group antibody presence Negative Invalid Interpretation Code [facility] Specimen Expires 07/03/2017 23:59 EST Invalid Interpretation Code [facility] Urine Aerobic Cultureon Bacteria aerobode culture Three or more colony types; >10,000 CFU/mL mixture of normal urogenital microbiota. None predominant. Possible contamination. Suggest repeat if clinically indicated. Invalid Interpretation Code [facility] Vital Signs Date Time Vital Sign Value Performing Clinician Facility 07-22-2023 12:33-0400 Body height 167.6 cm Rene Wright MD Work Phone: [facility] 07-22-2023 12:33-0400 Body mass index (BMI) [Ratio] 21.08 kg/m2 Rene Wright MD Work Phone: [facility] 07-22-2023 12:33-0400 Body weight 59.24 kg Rene Wright MD Work Phone: [facility] 07-22-2023 12:33-0400 Diastolic blood pressure 61 mm[Hg] Rene Wright MD Work Phone: [facility] 07-22-2023 12:33-0400 Heart rate 78 /min Rene Wright MD Work Phone: [facility] 07-22-2023 12:33-0400 Systolic blood pressure 104 mm[Hg] Rene Wright MD Work Phone: [facility] 06-08-2023 13:47-0500 Body mass index (BMI) [Ratio] 20.24 kg/m2 Lamin Livier DO Work Phone: [facility] 06-08-2023 13:47-0500 Body weight 56.88 kg Lamin Livier DO Work Phone: [facility] 06-08-2023 13:47-0500 Diastolic blood pressure 60 mm[Hg] Lamin Livier DO Work Phone: [facility] 06-08-2023 13:47-0500 Systolic blood pressure 104 mm[Hg] Lamin Maier DO Work Phone: [facility] 01-13-2018 09:42-0400 Pulse (Heart Rate) 90 /min Delphine [facility] 01-13-2018 09:42-0400 Pulse Oximetry 98 % Delphine [facility] 01-13-2018 09:31-0400 Body Temperature 98.2 [degF] Delphine [facility] 01-13-2018 09:31-0400 BP Diastolic 75 mm[Hg] Delphine [facility] 01-13-2018 09:31-0400 BP Systolic 109 mm[Hg] Delphine [facility] 01-13-2018 09:31-0400 Respiratory Rate 16 /min Delphine [facility] 05-13-2017 11:47-0500 BMI (Body Mass Index) 22.6 kg/m2 Anna Callahan [facility] Work Phone: 05-13-2017 11:47-0500 Body Temperature 98.4 [degF] Anna Callahan [facility] Work Phone: 05-13-2017 11:47-0500 BP Diastolic 78 mm[Hg] Anna Callahan [facility] Work Phone: 05-13-2017 11:47-0500 BP Systolic 112 mm[Hg] Anna Callahan [facility] Work Phone: 05-13-2017 11:47-0500 Height 167.6 cm Anna Callahan [facility] Work Phone: 05-13-2017 11:47-0500 Pulse (Heart Rate) 81 /min Anna Callahan [facility] Work Phone: 05-13-2017 11:47-0500 Pulse Oximetry 98 % Anna Callahan [facility] Work Phone: 05-13-2017 11:47-0500 Weight 63.5 kg Anna Callahan [facility] Work Phone: Encounters Encounter Date Encounter Type Care Provider Facility Start: 08-03-2023 End: 08-03-2023 ambulatory SHERRI TRAVIS Not Available Start: 07-22-2023 End: 07-22-2023 Office consultation new/estab patient 60 min Rene Wright MD Work Phone: [facility] Comment on above: 20 weeks gestation o f (Primary Dx); History of placental abruption; History of prior with IUGR ; Hx of section; Family history of genetic disease Start: 07-06-2023 End: 07-06-2023 ambulatory LAMIN MAIER Not Available Start: 06-08-2023 End: 06-08-2023 ambulatory LAMIN MAIER Not Available Start: 06-08-2023 End: 06-08-2023 flow sheet Lamin Maier DO Work Phone: [facility] Comment on above: Second trimester pre gnancy; History of placental abruption Start: 05-06-2023 End: 05-06-2023 ambulatory LAMIN MAIER Not Available Start: 09-02-2022 End: 09-02-[address] LAMIN MAIER . Facility:[facility] Start: 10-22-2021 Encounter for preprocedural laboratory examination TAWANNA [facility] Start: 10-19-2021 End: 10-20-2021 ambulatory TAWANNA CHESTER Facility:[facility] Start: 10-19-2021 End: 10-20-2021 Encounter for preprocedural laboratory examination TAWANNA CHESTER Facility: Start: 01-11-2018 End: 01-13-2018 Evaluation and management of inpatient DELPHINE ISLAS BIRDIE [facility] Start: 01-10-2018 End: 01-13-2018 Evaluation and management of inpatient Delphine Islas Lovelace Work Phone: [facility] Mother/Infant Unit 5 Start: 11-11-2017 End: 11-12-2017 Patient encounter Denzel Hoang Work Phone: [facility] Maternal Medicine Start: 11-10-2017 End: 11-10-2017 Patient encounter ORVILLE GÓMEZ [facility] Start: 09-23-2017 End: 09-24-2017 Patient encounter COREY MARTIN [facility] Start: 09-23-2017 End: 09-23-2017 Ambulatory Delphine Lovelace Work Phone: [facility] Maternal Medicine Start: 09-01-2017 End: 09-01-2017 Patient encounter DELPHINE ISLAS LOVELACE [facility] Start: 08-01-2017 End: 08-01-2017 Ambulatory Delphine Lovelace Work Phone: [facility] [employer] [facility] Start: 07-04-2017 End: 07-04-2017 Patient encounter DELPHINELOGAN ISLAS [facility] Start: 06-30-2017 End: 06-30-2017 Ambulatory Delphine Lovelace Work Phone: [facility] [employer] [facility] Start: 05-13-2017 End: 05-13-2017 Ambulatory ANNA CALLAHAN [facility] Start: 05-13-2017 Office/outpatient [facility] level 2 Anna Callahan Work Phone: [facility] Start: 04-14-2017 End: 04-19-2017 Patient encounter [facility]PH[facility] Procedures Date Procedure Procedure Detail Performing Clinician Start: 07-11-2023 H/O: section Hx of section Rene Wright MD Work Phone: Start: 06-08-2023 Urnls dip stick/tabl et rgnt non-auto w/o micrscp Lamin Livier DO Work Phone: Start: 01-11-2018 End: [...] 01-10-2018 End: 01-10-2018 RhoGam candidate (yes/no) Natalie Emanuel Work Phone: Start: 01-10-2018 End: 01-10-2018 Treponema [...] 01-10-2018 Prothrombin time Dinora Meyer Work Phone: H/O: section Hx of sect ion Rene Wright MD Work Phone: Plan of Treatment Date Care Activity Detail Author Start: 11-11-2027 DTaP,Tdap and Td Vac cines (8 - Td or Tdap) DTaP,Tdap and Td Vaccines (8 - Td or Tdap) [facility] Start: 11-11-2027 Tetanus vaccination TETANUS EVERY 10 YR [facility] Start: 07-21-2024 Adult BMI Screening Adult BMI Screen ing [facility] Start: 07-21-2024 Tobacco Screening Tobacco Screening [facility] Start: 07-21-2024 End: 07-21-2024 US MFM with or without consult US MFM with or without consult Imaging Routine History of placental abruption History of prior with IUGR Expected: 07/21/2024 (Approximate), Expires: 07/21/2024 [facility] Work Phone: Comment on above: Expected: 07/21/2024 (Approximate), Expires: 07/21/2024 Start: 09-08-2023 End: 09-08-2023 Patient encounter procedure 09/08/2023 10:45 AM EDT Office Visit [facility] [address] [place] [id number] Sandra Conti MD [address] [place] [address] [facility] Start: 08-26-2023 End: 08-26-2023 Patient encounter procedure [facility] Start: 07-06-2023 End: 07-06-2023 Patient encounter procedure 07/06/2023 1:40 PM EDT Routine [facility] [address] [place] [id number] Lamin Maier DO [address] [place] [address] [facility] Start: 12-24-2022 COVID-19 Vaccine ( season) COVID-19 Vaccine ( season) [facility] Start: 12-24-2022 Influenza vaccination N [facility] Start: 04-14-2020 Screening for malign ant neoplasm of cervix PAP SMEAR [facility] Start: 12-24-2017 [facility] Start: 11-24-2017 End: 11-24-2017 Ambulatory 11/24/2017 Routine Obstetrics and Gynecology Delphine Lovelace MD [address] [place], [place] [id number] [facility] [place] Start: 11-11-2017 End: 11-11-2017 Ambulatory 11/11/2017 Appointment Maternal and Medicine [facility] Start: 09-28-2017 End: 09-28-2017 Ambulatory 09/28/2017 Routine Obstetrics and Gynecology Delphine Lovelace MD [address] [facility] [address] [place] [address] [phone] [facility] [place] Start: 12-24-2016 Influenza vaccination SEQUENTI AL INFLUENZA VACCINE (#1) [facility] Work Phone: Start: 2014 Screening for malign ant neoplasm of cervix Pap Smear [facility] Start: 2005 Depression Screening Depression Scre ening [facility] Start: 2004 Vaccination for shira n papillomavirus [facility] Work Phone: Start: 1993 Screening for malign ant neoplasm of cervix PAP SMEAR [facility] Work Phone: Start: 1993 Tetanus vaccination TETANUS EVERY 10 YR [facility] Work Phone: Tissue Aerobic Culture Tissue Ae robic Culture Routine 01/11/2018 11:49 PM EDT [facility] Tissue Anaerobic Culture Tissue Anaerobic Culture Routine 01/11/2018 11:49 PM EDT [facility] End: 01-11-2018 Tissue Exam Tissue Exam Routine Once for 1 Occurrences starting 01/11/2018 until 01/11/2018, 1 completed [facility] Comment on above: Once for 1 Occurrenc es starting 01/11/2018 until 01/11/2018, 1 completed Tissue Exam Tissue Exam Rout ine 01/11/2018 9:39 PM EDT [facility] Immunizations Immunization Date Immunization Notes Care Provider Fa cility 01-12-2018 influenza, injectabl e, quadrivalent, preservative free; Translations: [INFLUENZA IIV4 3YO OR > FLUARIX/FLUZONE/AFLURIA 80641] Delphine Lovelace [facility] 01-12-2018 measles, mumps and rubella virus vaccine; Translations: [MMR] Delphine Lovelace [facility] 01-12-2018 influenza virus vacc ine, unspecified formulation Lamin Maier DO Work Phone: [facility] 11-10-2017 tetanus toxoid, redu luz diphtheria toxoid, and acellular pertussis vaccine, adsorbed; Translations: [TDAP] Denzel Hoang [facility] Payers Date Payer Category Payer Unknown [id number] 2017 Unknown [id number] 2013 Unknown [id number]. [id number] 1993 Unknown [id number] 2.16.84 [id number] 1993 Unknown [id number] 2.16.84 [id number] 1993 Unknown [id number] 2.16.84 [id number] 1993 Unknown [id number] 2.16.84 [id number] 1993 Unknown [id number] 2.16.84 [id number] 1993 Unknown [id number] 2.16.84 [id number] 1959 Unknown [id number] Social History Date Type Detail Facility Start: 05-13-2017 End: 07-11-2023 Tobacco smoking status [facility] Never smoker [facility] Start: 1993 Sex Assigned At Not on file [facility] Work Phone: Start: 05-10-2017 [facility] Start: 10-26-2022 End: 07-11-2023 Tobacco use and exposure Smokeless tobacco non-user [facility] Start: 06-08-2023 Alcohol intake Lifetime non-d kenia (finding) [facility] Start: 10-29-2022 End: 07-22-2023 History of Social function [facility] Start: 10-29-2022 End: 07-22-2023 Tobacco use panel [facility] Start: 10-26-2022 Alcohol Comment caffeine: 2-3 cups per day, soda/pop [facility] Start: 07-22-2023 Alcohol intake Ex-drinker (finding) [facility] Within the past 12 months we worried whether our food would run out before we got money to buy more. Never True [facility] History of Present illness Narrative 07-22-2023 Peggy Weldon RN - 07/22/2023 1:00 PM EDTRene Wright MD - 07/22/2023 1:00 PM EDT Note Date & Type Note Facility 07-22-2023 History of Present illness Narrative Headache/epigastric pain/blurry vision/swelling? no Cramping/contractions? no Abnormal vaginal discharge? no Spotting/vaginal bleeding? no Loss of fluid like your water may have broken? no Cats in the home? no Do you change the litter box? no Flu vaccine? no Genetic testing done this here or other office? no Have you been seen here at [facility] in a previous ? yes Recent ER visits or hospitalizations? no Bring blood sugar log or meter with you today? (Please bring them with you for every visit at [facility]) n/a Traveled outside the country in the past 6 month no Any concerns that you would like me to mention to the provider today? no [facility] Maternal- Medicine Consult Note Reason For Consult: History of placental abruption, history of IUGR and history of a prior section HPI: Yovanny Donovan is a 27 y.o. at 20w4d with Estimated Date of Delivery: 12/05/23 who presented for consultation from Lamin Hamilton DO regarding Chief Complaint Patient presents with hx placental abruption hx IUGR hx c/s I have reviewed the pertinent available patient records including but not limited to notes, labs and images She presents today with her partner. She reports that she is doing well. She reports normal movements and she denies leakage of fluid, contractions or vaginal bleeding. She denies fever, chills, nausea, vomiting, shortness of breath, chest pain, headache, blurry vision, right upper quadrant pain or edema. Complications: History of placental abruption - passed blood clots at 37 wks, was admitted and induced. No abdominal trauma. She is on low dose aspirin History of a prior - the patient is scheduled for repeat potentially interested in History of FGR - in her 2nd there was a concern for growth restriction however the weight is 3062gm of that baby Child with Rasopathy ? 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 There has been a concern that her daughter may have a rasopathy. She has been followed by a manager fraud at [facility] in [facility]. However they has not been seen since 2020. I do not have the formal genetic diagnosis or which gene is being involved. I do not have the available testing of the child or the mother. Her daughter has increased thickness of the nails in 1st and 2nd toe bilaterally and index finger and thumb bilaterally; also dental problem is at increased dental crowding and bone overgrowth. She tells me echo was normal. There firstborn has not been screened Low risk cell free DNA, male fetus Denies family history of: Learning difficulties, congenital anomalies, DVT/VTE, early-onset cancer, early-onset cardiac disease or other inherited conditions Denies smoking, alcohol or other substance use in Recent hospitalization: no Review of systems: Review of systems was noncontributory OB Hx: OB History Para Term AB Living 3 2 2 2 SAB IAB Ectopic Multiple Live Births 2 # Outcome Date GA Lbr Jl/2nd Weight Sex Delivery Anes PTL Lv 3 Current 2 Term 02/21/20 3.062 kg F TOYA Complications: Breech presentation 1 Term 01/11/18 37w1d 3.118 kg M N TOYA PMH: Past Medical History: Diagnosis Date Herpes simplex PSHIST: History reviewed. No pertinent surgical history. Allergies: No Known Allergies Meds: Prior to Admission medications Medication Sig Start Date End Date Taking? Authorizing Provider ondansetron ODT (ZOFRAN ODT) 4 mg disintegrating tablet Dissolve 1 tablet (4 mg total) on tongue every 8 (eight) hours as needed for nausea or vomiting. Yes Not In System Ref Prov vit 14-iron fum-folic 29 mg iron- 1 mg tablet,chewable Chew 1 tablet and swallow in the morning. Yes Not In System Ref Prov SH: Social History Socioeconomic History Marital status: Spouse name: Not on file Number of children: Not on file Years of education: Not on file Highest education level: Not on file Occupational History Not on file Tobacco Use Smoking status: Never Smokeless tobacco: Never Substance and Sexual Activity Alcohol use: Not Currently Drug use: Never Sexual activity: Yes Partners: Male Other Topics Concern Not on file Social History Narrative Not on file Social Determinants of Health Financial Resource Strain: Not on file Food Insecurity: No Food Insecurity (07/22/2023) Hunger Screening Food Insecurity - Worry: Never True Food Insecurity - Inability: Never True Transportation Needs: Not on file Physical Activity: Not on file Stress: Not on file Social Connections: Not on file Interpersonal Safety: Not on file Housing Instability: Not on file Physical Exam: Vital Signs Vitals: 07/22/23 1233 BP: 104/61 BP Site: Left Arm BP Postition: Lying BP CUFF SIZE: Other Pulse: 78 Weight: 59.2 kg (130 lb 9.6 oz) Height: 167.6 cm (5' 6 ) Physical Exam: Gen: Not in acute distress, alert and oriented. Eyes: Pupils equal and reactive Chest: Nonlabored breathing Cardiac: Pulse was regular on vital signs assessment Abdomen: Gravid Skin/extremities: Appears intact. No visible lesions MS:no visible edema Neuro: No focal deficits Notes/Imaging/Labs reviewed Abstract on 07/11/2023 Component Date Value Ref Range Status Syphilis 05/12/2023 non reactive Final Rubella immune IgG 05/12/2023 2.94 Final HIV 1&2 AB/AG 05/12/2023 non reactive Final Hemoglobin 05/12/2023 12.7 Final Hematocrit 05/12/2023 37.2 Final Platelets 05/12/2023 256 Final Hepatitis C Antibody 05/12/2023 non reactive Final Hepatitis B Surface Antigen 05/12/2023 negative Final Ultrasound findings Pertinent Ultrasound findings are see report. Assessment/Plan 27 y.o. @ at 20w4d with Estimated Date of Delivery: 12/05/23 here for consultation regardin. 20 weeks gestation of 2. History of placental abruption - US MFM with or without consult; Future Discussed with the patient that she is at increased risk of having placental abruption again. Risk factors for placenta abruption reviewed. Educated her on the signs and symptoms of abruption. Candidate for growth ultrasounds and surveillance. She is on low-dose aspirin for preeclampsia prevention. 3. History of prior with IUGR - US MFM with or without consult; Future The weight wad 3062gm of that baby. She tells me that her OB was concerned about growth restriction during the . I reviewed with the patient that I would recommend serial growth ultrasounds. Causes for growth restriction reviewed 4. Hx of section I do not have the operative note. The patient is interested in TOLAC. Reviewed with the patient that if she had low transverse section she will be a candidate for TOLAC. We discussed risks of a versus repeat section. Risks of include risk of a uterine rupture 1 in 200, in case there is a uterine rupture there is risk for morbidity such as transient or permanent neurological injury and mortality. Also uterine rupture is associated with increased risk for maternal morbidity and mortality. Repeat section is associated with an increased risk for abnormal placentation such as accreta, scar tissue, injury to organs, infection, bleeding, risks of anesthesia, etc. she is potentially interested in the future . I reviewed with the patient that she should further address route of delivery with her OB. On ultrasound today no sonographic evidence of a placenta accreta. 5. 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 Her daughter her 2nd daughter is a carrier for the same gene. She has been followed by a manager fraud at [facility] in [facility]. However they has not been seen since 2020. I do not have the formal genetic diagnosis or which gene is being involved. I do not have the available testing of the child or the mother. Her daughter has increased thickness of the nails in 1st and 2nd toe bilaterally and index finger and thumb bilaterally; also dental problem is at increased dental crowding and bone overgrowth. She tells me echo was normal. I strongly recommended that she reaches out to her ballpoint pen cartridge tester and follows at [facility] for her daughter and have her other son screened. I also recommended that she sees our genetic counselor and bring her genetic information so appropriate recommendations can be made. The RASopathies are a group of medical genetics syndromes that are caused by germline pathogenic variants in genes that encode components of the DONAVON/MAPK signal transduction pathway. Collectively, the RASopathies represent one of the largest groups of multiple congenital anomaly syndromes known. Some of the conditions can be associated with congenital heart anomalies and therefore would recommend echocardiogram to be completed at a follow-up MFM visit. Reviewed aneuploidy testing that could be performed during . I explained that definitive testing can be obtained by an amniocentesis, which has a 1/800 risk of loss. The patient tells me she has not interested into an amniocentesis. On ultrasound today there is also macrosomic growth pattern of the fetus. Reviewed with the patient recommendation for early Glucola screen however she prefers to wait until 25-28 weeks. Recommendations: Genetic consultation Incomplete anatomy to return for a follow-up anatomy and echocardiogram and MFM visit Cont low dose aspirin 81 mg q.day Serial growth assessments every 4 weeks after the anatomy scan - the patient is not sure if she wants the growth ultrasound through OB office or through MFM testing to be initiated at 32 weeks with weekly NST and DVP through OB office Delivery recommended at or after 39 weeks, earlier as clinically indicated Route of delivery continue to address with the patient Further recommendations regarding the or maternal care to be made following her genetic evaluation. Plan reviewed with patient. She vocalized understanding all questions answered. The patient is to continue with routine care in your office Thank you for allowing me to participate in her care. Please contact me if you have any concerns. Rene Wright MD, FACOG (she/hers) Maternal- Medicine [facility] [address] [facility] [address] [place] [address] [facility], the CDC, and other organizations representing maternal and public health professionals recommend that , , and lactating people and those considering receive the COVID-19 vaccination. Vaccination is the best method to reduce maternal and complications of SARS-CoV-2 infection. This document was created with [employer] technology. Though I make every effort to review the dictation as it is transcribed, on occasion the spoken word can be misinterpreted by the technology leading to inappropriate words, phrases, or sentences. This note is addressed to the requesting provider as a consultation for clinical guidance. Specific medical abbreviations are occasionally used and those are generally approved by the [place]?Board of?Obstetrics and?Gynecology?as well as?Jenn william abbreviations. The above plan of care was based solely on the diagnoses for which a consultation was requested. ?More frequent testing may be indicated based on her other medical/obstetrical conditions. The management of other or medical conditions is beyond the scope of requested consultation and will continue to be followed by the primary nurse infection control or primary care provider. Note to patient: The Cures Act makes medical notes like these available to patients in the interest of transparency. However, be advised this is a medical document. It is intended as peer to peer communication. It is written in medical language and may contain abbreviations or verbiage that are unfamiliar. It may appear blunt or direct. Medical documents are intended to carry relevant information, facts as evident, and the clinical opinion of the practitioner. documented in this encounter [facility] History of Present illness Narrative 06-08-2023 Monika OhTOBIAS - 06/08/2023 1:40 PM EST Note Date & Type Note Facility 06-08-2023 History of Presen t illness Narrative Reason for Appointment: Patient ID: Yovanny Donovan is a 27 y.o. female who presents for Routine Visit Patient presents today for Return OB appointment. Current Medications: has a current medication list which includes the following prescription(s): ondansetron odt and [id number]-rs-fa. Medical History: Active Ambulatory Problems Diagnosis Date [...] nursing note reviewed. Exam conducted with a chief of vital statistics present. Vitals: Estimated body mass index is [...] or undercooked meat, and stay away from [facility]. Patient has been consulted regarding any further do's and don'ts of . Patient voiced understanding and all questions and concerns were answered. Pt to be referred to [facility] for level II ultrasound. Discussed NST/BPP and growth ultrasound d/t h/o placenta abruption and IUGR. Pt to have repeat section. Follow Up: Patient is to return in 4 weeks for routine OB appointment. Documented by Monika Oh LPN on behalf of: Lamin Maier DO documented in this encounter [facility] Evaluation note Note Date & Type Note Facility Evaluation note Diagnosis Second trimester state, incidental History of placental abruption documented in this encounter [facility] Evaluation note Note Date & Type Note Facility Evaluation note Diagnosis 20 weeks gestation of - Primary History of placental abruption History of prior with IUGR Hx of section Family history of genetic disease Family history of other condition documented in this encounter [facility] Instructions Attachments Note Date & Type Note Facility Instructions The following attachments cannot be sent through Care Everywhere.Preeclampsia ([place]ux[place]ish)documented in this encounter [facility] Assessments Diagnosis Suspected abnormality affecting management of [...] of care Instructions * Patient Instructions - Anna Callahan PA-C - 05/13/2017 12:30 PM EST [...] Log into your personal health record on [email or web address] and enter Y392 in the Education box to learn more about [place]: Care Instructions. Current as of: September 19, 2015 Content Version: 11.2 [id number] [employer]. Care instructions adapted under license by your healthcare professional. If you have questions about a medical condition or this instruction, always ask your healthcare professional. [employer] disclaims any warranty or liability for your use of this information. in this encounter Summary Purpose Family History No Family History Records FoundNo Family History Records FoundNo Family History Records FoundNo Family History Records Found Advance Directives No Advanced Directives Records FoundNo Advanced Directives Records FoundNo Advanced Directives Records FoundNo Advanced Directives Records Found Reason for Referral Specialty Diagnoses / Procedures Referred By Contac t Referred To Contact Maternal and Medicine Diagnoses History of placental abruption History of prior with IUGR Procedures US MFM with or without consult Rene Wright MD [address] [place] [address] [facility] [address] [place] [address] Referral ID Status Reason Start Date Expiration Date V isits Requested Visits Authorized [id number] Pending Review 07/22/2023 07/21/2024 1 1 Additional Source Comments INFORMATION SOURCE (unrecogn ized section and content) DATE CREATED AUTHOR 10/18/2017 [facility] DATE CREATED AUTHOR AUTHOR'S ORGANIZ ATION 02/12/2018 [facility] DATE CREATED AUTHOR AUTHOR'S ORGANIZ ATION 09/06/2022 [facility] DATE CREATED AUTHOR AUTHOR'S ORGANIZ ATION 08/04/2023 [facility] dical Specialists Natalie Rose MD - [...] or lof. pt states +fm. monitors placed. Yovanny Donovan is a 22 y.o. female with [...] and content) Associated Order(s): IP CONSULT TO FLAT EXAMINER Request for consult received, will contact mother [...] that baby is currently being transferred to [facility] from NICU, requests consult, informed [...] original. Vaginal Delivery Note of viable male . Tight nuchal cord x 1, nonreducible, clamped [...] abruption SNOMED CT(R): PLACENTAL ABRUPTION Leena Donovan [[id number]] Delivery Anesthesia Method: Epidural Operative Delivery Forceps attempted?: No Vacuum extractor attempted?: No Shoulder Dystocia Shoulder dystocia present: No [place] Presentation Presentation: Vertex Position: Middle _: Occiput _: Anterior Information date/time: 01/11/182113 Gender: Male Delivery type: Vaginal, Spontaneous Delivery Delivery location: OB Unit ?: No Details: Delivery Providers Delivering clinician: Anahy Sarah MD Other personnel: Provider Role Covering Attending Resident Certified Orthotist Practice Manager Leyla Alves, die repair Nurse Stephanie Curran RN Registered Nurse Karlie Shah, die repair Assist Nurse Practitioner Cord Vessels: 3 vessels [...] Minute: 10 Minute: 15 Minute: 20 Minute: [place] Measurements Weight: Lacerations Episiotomy: None Perineal lacerations: [...] section and content) Reason Comments Routine Visit Reason Comments hx placental abruption hx IUGR hx c/s FOR RECORDS PERTAINING TO PATIENTS WHO ARE [...] BE BASED ON THE PRIMARY CLINICAL RECORDS. [employer] [facility]. provides no warranty or guarantee of the accuracy or completeness of information in this document.
[2023-08-17 09:25] LABS: Basophils Percent Auto 0.2 % (0.2-2.0); Eosinophils Absolute Auto 0.1 10^3/uL (0.0-0.7); Eosinophils Percent Auto 0.9 % (0.9-7.0); Hemoglobin 11.2 g/dL (12.0-16.0); Immature Granulocytes Abs Auto 0.03 10^3/uL (0.00-0.03); Immature Granulocytes Pct Auto 0.3 % (0.0-0.5); Lymphocytes Absolute Auto 1.6 10^3/uL (1.2-3.8); Lymphocytes Percent Auto 16.4 % (20.5-60.0); Mean Corpuscular HGB Conc 32.9 g/dL (29.9-35.2); Mean Corpuscular Hemoglobin 31.4 pg (26.7-34.0); Mean Corpuscular Volume 95.2 fL (81.0-99.0); Mean Platelet Volume 11.4 fL (9.5-13.5); Monocytes Absolute Auto 0.4 10^3/uL (0.3-0.8); Monocytes Percent Auto 3.7 % (1.7-12.0); Neutrophils Absolute Auto 7.8 10^3/uL (1.4-6.5); Neutrophils Percent Auto 78.5 % (43.0-75.0); Platelet Count 182 10^3/uL (150-450); Red Blood Count 3.57 10^6/uL (4.20-5.40); Red Cell Distribution Width 13.2 % (11.0-15.0); White Blood Count 9.9 10^3/uL (4.0-11.0)
[2023-08-17 09:37] LABS: Glucose 1 Hour 100 mg/dL (<130)
== END 2023-08-17 07:47 | disposition home or self-care (01) ==
LOC: LAB 07:46
PROVIDERS: Visit Provider Physician Assistant
DX: Z13.1 Encounter for screening for diabetes mellitus (principal)
CPT/HCPCS: 36415; 82950; 85025

== ENCOUNTER 2023-09-16 07:35 | Outpatient (RCR) | payer BC, SELFPAY ==
[2023-09-16] MEDS: RHO(D) IMMUNE GLOBULIN 1,500 UNIT SYRINGE 1500 UNIT IM (14:19)
--- NOTE | 2023-09-16 14:19 | PC.NURSE ---
Jono spoke with Dr.Fazio korey torres to give Rhogam.
--- NOTE | 2023-09-16 14:41 | PC.NURSE ---
Pt in for Rhogam shot, RH negative verified, spoke with ETTA Duarte and gave verbal to give rhogam. Pt tolerated this well and denies any complaints. Vitals obtained and stable.
[2023-09-16 14:47] VITALS: BP 95/66; PULSE 81; TEMP 36.2; O2SAT 99
== END 2023-09-23 08:46 | disposition home or self-care (01) ==
LOC: LAB 07:35
PROVIDERS: Visit Provider Obstetrics & Gynecology
DX: O26.893 Other specified pregnancy related conditions, third trimester (principal); Z67.91 Unspecified blood type, Rh negative; Z3A.00 Weeks of gestation of pregnancy not specified
CPT/HCPCS: 86850; 86900; 86901; 96372; J2790

== ENCOUNTER 2023-09-28 13:30 | Outpatient (OUT) | payer BC, SELFPAY ==
--- NOTE | 2023-09-28 13:32 | US_ITS ---
[address] [address] Patient Name: MAURICIO MENDES MRN: [id number] date: 1995 Sex: F Assigned Patient Location: [facility] Current Patient Location: [facility] Accession/Order Number: [id number] Exam Date: 09/28/2023 13:32 Report Date: 09/28/2023 14:15 At the request of: SHERRI TRAVIS Procedure: US OB growth EXAMINATION: US OB growth HISTORY: LARGE FOR GESTATIONAL AGE COMPARISON: Ultrasound OB growth 02/14/2020 FINDINGS: Heart Rate: 142.0 bpm Number: 1.0 Position: CEPHALIC Amniotic Fluid Volume: 18.4 cm Maximum Vertical Pocket: 5.5 cm BIOMETRY: BPD: 7.9 cm cm; 31 weeks 6 days; 82% HC: 30.3 cmcm; 33 weeks 5 days; 95% AC: 26.6 cm cm; 30 weeks 5 days; 59% FL: 5.8 cm cm; 30 weeks 2 days; 34% EFW: 1669.4 grams; 61% FL/AC: 21.7 FL/BPD: 73.0 HC/AC: 1.1 GESTATIONAL AGE: Age by EDC: 30 weeks 2 days CARIDAD by EDC: 12/05/2023 Age by US: 31 weeks 5 days CARIDAD by US: 11/25/2023 US/US OB growth IMPRESSION: 1. Single live intrauterine with growth detailed above. Electronically authenticated by: CHIP ANDERSON Date: 09/28/2023 14:15
== END 2023-09-28 13:31 | disposition home or self-care (01) ==
LOC: NOMS 13:30
PROVIDERS: Visit Provider Physician Assistant
DX: O36.63X0 Maternal care for excessive fetal growth, third trimester, not applicable or unspecified (principal); Z3A.31 31 weeks gestation of pregnancy
CPT/HCPCS: 76816

== ENCOUNTER 2023-10-13 13:52 | Outpatient (OUT) | payer BC, SELFPAY ==
--- NOTE | 2023-10-13 | ECG_ITS ---
[facility] Test Date: 2023-10-13 Pat Name: MAURICIO MENDES Department: Room: - Gender: Female Supervisor Calibration: : 1995 Requested By: JANIE CARABALLO Order Number: [id number] Reading MD: JESUS BOATENG Measurements Intervals [place] Rate: 83 P: 67 WI: 123 QRS: 84 QRSD: 82 T: 77 QT: 340 QTc: 400 Interpretive Statements SINUS RHYTHM No previous ECG available for comparison Electronically Signed On 10-13-2023 22:24:39 EDT by JESUS BOATENG
== END 2023-10-13 13:53 | disposition home or self-care (01) ==
LOC: CARD 13:53
PROVIDERS: PCP Nurse Practitioner Family; Visit Provider Obstetrics & Gynecology
DX: R06.02 Shortness of breath (principal); R00.0 Tachycardia, unspecified; R55 Syncope and collapse
CPT/HCPCS: 93005

== ENCOUNTER 2023-10-28 07:13 | Outpatient (OUT) | payer BC, SELFPAY ==
--- OUTSIDE RECORDS SUMMARY | 2023-10-28 07:16 | XMS_ITS ---
Patient Summarization (C-CDA 2.1 CCD) Created on: October 28, 2023 VAUGHN YOVANNY Diaz : 1995 Sex: Female Author Organization Sample organization Care Team Providers Care Tile Edger Name Role Phone No, Physician Unavailable Unavailable ANNA CALLAHAN Unavailable Unavailab le NO, PHYSICIAN Unavailable Unavailable Delphine Lovelace Unavailable [phone] DELPHINE LOVELACE Unavailable Unavail able DELPHINE LOVELACEINE Unavailable Unavail able DELPHINE LOVELACE ISLAS Unavailable Unavail able NO, PHYSICIAN Unavailable Unavailable LOVELACEDELPHINE ISLAS Unavailable Unavail able NO, PHYSICIAN Unavailable Unavailable LOVELACE, DELPHINE ISLAS Unavailable Unavail able NO, PHYSICIAN Unavailable Unavailable LOVELACE, DELPHINE ISLAS Unavailable Unavail able NO, PHYSICIAN Unavailable Unavailable COREY MARTIN Unavailable Unavailable LOVELACEDELPHINEINE Unavailable Unavail able NO, PHYSICIAN Unavailable Unavailable ORVILLE GÓMEZ Unavailable Unavailable NO, PHYSICIAN Unavailable Unavailable DENZEL HOANG Unavailable Unavaila ble LOVELACEDELPHINE DUOMNT ISLAS Unavailable Unavail able NO, PHYSICIAN Unavailable Unavailable LOVELACE, DELPHINE ISLAS Unavailable Unavail able NO, PHYSICIAN Unavailable Unavailable NATALIE EMANUEL Unavailable Unavailable [facility] navailable Unavailable LIVIER ., DR LIMA Admitting Unavailable LIVIER ., DR LIMA Attending Unavailable REQUEST, NONE LISTED Primary Care Unavaila ble LIVIER ., DR LIMA Consulting Unavailable TAWANNA CHESTER Admitting Unavailable TAWANNA CHESTER Attending Unavailable REQUEST, NONE LISTED Primary Care Unavaila TAWANNA [place] Consult[facility] Unavailable Unavailable Primary Care Provider Unavailabl e Unavailable Primary Care Provider Unavailabl e LAMIN MAIER Attending Unavailable LAMIN MAIER Attending Unavailable SHERRI TRAVIS Attending Unavailable LAMIN MAIER Attending Unavailable SHERRI TRAVIS Attending Unavailable LAMIN MAIER Attending Unavailable RADHA MAIERY Attending Unavailable LIVIER, LAMIN Attending Unavailable Encounters Encounter Date Encounter Type Care Provider Facility Start: 10-25-2023 End: 10-25-2023 ambulatory LAMIN LIVIER Not Available Start: 10-12-2023 End: 10-12-2023 ambulatory LAMIN LIVIER Not Available Start: 09-28-2023 End: 09-28-2023 ambulatory LAMIN LIVIER Not Available Start: 09-14-2023 End: 09-14-2023 ambulatory SHERRI ANGY Not Available Start: 08-31-2023 End: 08-31-2023 ambulatory LAMIN LIVIER Not Available Start: 08-03-2023 End: 08-03-2023 ambulatory SHERRI TRAVIS Not Available Start: 07-22-2023 End: 07-22-2023 Office consultation new/estab patient 60 min Rene Wright MD Work Phone: [facility]- [facility] at [facility] Comment on above: 20 weeks gestation o f (Primary Dx); History of placental abruption; History of prior with IUGR ; Hx of section; Family history of genetic disease Start: 07-06-2023 End: 07-06-2023 ambulatory LAMIN LIVIER Not Available Start: 06-08-2023 End: 06-08-2023 ambulatory LAMIN LIVIER Not Available Start: 06-08-2023 End: 06-08-2023 flow sheet Lamin Livier DO Work Phone: [facility] Comment on above: Second trimester pre gnancy; History of placental abruption Start: 05-06-2023 End: 05-06-2023 ambulatory LAMIN LIVIER Not Available Start: 09-02-2022 End: 09-02-[address] LAMIN MAIER . Facility:[facility] Start: 10-22-2021 Encounter for preprocedural laboratory examination TAWANNA CHESTER [facility] Start: 10-19-2021 End: 10-20-2021 ambulatory TAWANNA CHESTER Facility:[facility] Start: 10-19-2021 End: 10-20-2021 Encounter for preprocedural laboratory examination TAWNANA CHESTER Facility:[facility] Start: 01-11-2018 End: 01-13-2018 Evaluation and management of inpatient DELPHINE LOVELACE [facility] Start: 01-10-2018 End: 01-13-2018 Evaluation and management of inpatient Delphine Lovelace Work Phone: [facility] Mother/ Unit 5 Start: 11-11-2017 End: 11-12-2017 Patient encounter Denzel Hoang Work Phone: [facility] Maternal Medicine Start: 11-10-2017 End: 11-10-2017 Patient encounter ORVILLE GÓMEZ [facility] Start: 09-23-2017 End: 09-24-2017 Patient encounter COREY MARTIN [facility] Start: 09-23-2017 End: 09-23-2017 Ambulatory Delphine Lovelace Work Phone: [facility] Maternal Medicine Start: 09-01-2017 End: 09-01-2017 Patient encounter DELPHINE ISLAS [facility] Start: 08-01-2017 End: 08-01-2017 Ambulatory Delphine Lovelace Work Phone: [facility] [employer] [employer] Start: 07-04-2017 End: 07-04-2017 Patient encounter DELPHINE ISLAS [facility] Start: 06-30-2017 End: 06-30-2017 Ambulatory Delphine Lovelace Work Phone: [facility] Start: 05-13-2017 End: 05-13-2017 Ambulatory ANNA CALLAHAN [facility] Start: 05-13-2017 Office/outpatient jose, jarrell, level 2 Anna Callahan Work Phone: [facility] Nila/Jarrell Butt Start: 04-14-2017 End: 04-19-2017 Patient encounter DELPHINE [facility] Immunizations Immunization Date Immunization Notes Care Provider Brittani adame 01-12-2018 influenza, injectabl e, quadrivalent, preservative free; Translations: [INFLUENZA IIV4 3YO OR > FLUARIX/FLUZONE/AFLURIA 93316] Delphine [facility] 01-12-2018 measles, mumps and rubella virus vaccine; Translations: [MMR] [facility] 01-12-2018 influenza virus vacc ine, unspecified formulation Laminjustino Maier DO Work Phone: [facility] 11-10-2017 tetanus toxoid, redu luz diphtheria toxoid, and acellular pertussis vaccine, adsorbed; Translations: [TDAP] Denzel Hoang [facility] Medications Current Medications Medication Drug Class(es) Dates [...] needed for nausea or vomiting. 0 Active Vwnpghls-Flb-Zp-FA ( 1 + IRON PO) (2 sources) [...] mumps virus vaccine live, yogi evans strain 93780 unt/ml / rubella virus vaccine live (wistar [...] subcutaneous injection every twenty-four hours as needed Payers Date Payer Category Payer Unknown [id number] 2017 Unknown [id number] 2013 Unknown [id number] 2. [id number] 1993 Unknown [id number] 2.16.84 [id number] 1993 Unknown [id number] 2.16.84 [id number] 1993 Unknown [id number] 2.16.84 [id number] 1993 Unknown [id number] 2.16.84 [id number] 1993 Unknown [id number] 2.16.84 [id number] 1993 Unknown [id number] 2.16.84 [id number] 1993 Unknown [id number] 2.16.84 [id number] 1993 Unknown [id number] 2.16.84 0.1.878595.3.579.2.9 1993 Unknown [id number] 2.16.84 0.1.881189.3.579.2.1258 1993 Unknown [id number] 2.16.84 [id number] 1993 Unknown [id number] 2.16.84 [id number] 1959 Unknown [id number] Plan of Treatment Date Care Activity Detail Author Start: 11-11-2027 DTaP,Tdap and Td Vac cines (8 - Td or Tdap) DTaP,Tdap and Td Vaccines (8 - Td or Tdap) [facility] Start: 11-11-2027 Tetanus vaccination TETANUS EVERY 10 YR [facility] Start: 07-21-2024 Adult BMI Screening Adult BMI Screen ing [facility] Start: 07-21-2024 Tobacco Screening Tobacco Screening [facility] Start: 07-21-2024 End: 07-21-2024 US MFM with [...] DERM [address] [place] [address] Sandra Conti MD [address] [place] [address] [facility] Start: 08-26-2023 End: 08-26-2023 Patient encounter procedure [facility] [place] Start: 07-06-2023 End: 07-06-2023 Patient encounter procedure 07/06/2023 1:40 PM EDT Routine [facility] [address] [place] [address] Lamin Maier, [address] [place] [address] [facility] Start: 12-24-2022 COVID-19 Vaccine ( season) COVID-19 Vaccine ( season) [facility] Start: 12-24-2022 Influenza vaccination N [facility] Start: 04-14-2020 Screening for malign ant neoplasm of cervix PAP SMEAR [facility] Start: 12-24-2017 Influenza vaccination [facility] Start: 11-24-2017 End: 11-24-2017 Ambulatory 11/24/2017 Routine Obstetrics and Gynecology Delphine Lovelace MD [address] [place] [address] [facility] Start: 11-11-2017 End: 11-11-2017 Ambulatory 11/11/2017 Appointment Maternal and Medicine [facility] Maternal Medicine Start: 09-28-2017 End: 09-28-2017 Ambulatory 09/28/2017 Routine Obstetrics and Gynecology Delphine Lovelace MD [address] [place] [address] [phone] [facility] Start: 12-24-2016 Influenza vaccination SEQUENTI AL INFLUENZA VACCINE (#1) [facility] Work Phone: Start: 2014 Screening for malign ant neoplasm of cervix Pap Smear [facility] Start: 2005 Depression Screening Depression Scre ening [facility] Start: 2004 Vaccination for shira n papillomavirus [facility] Work Phone: Start: 1993 Screening for malign ant neoplasm of cervix PAP SMEAR [facility] Work Phone: Start: 1993 Tetanus vaccination TETANUS EVERY 10 YR [facility] Work Phone: Tissue Aerobic Culture Tissue Ae robic Culture Routine 01/11/2018 11:49 PM EDT [facility] Tissue Anaerobic Culture Tissue Anaerobic Culture Routine 01/11/2018 11:49 PM EDT [facility] End: 01-11-2018 Tissue Exam Tissue Exam Routine Once for 1 Occurrences starting 01/11/2018 until 01/11/2018, 1 completed [facility] Comment on above: Once for 1 Occurrenc es starting 01/11/2018 until 01/11/2018, 1 completed Tissue Exam Tissue Exam Rout ine 01/11/2018 9:39 PM EDT [facility] Problems Active Problems Problem Classification Problem Date [...] (2 sources) No known active problems 10-29-2022 Procedures Date Procedure Procedure Detail Performing Clinician [...] Platelet poor plasma by Coagulation assay Dinora T Mitch Work Phone: Start: 01-10-2018 End: 01-10-2018 INR in Platelet poor plasma by Coagulation assay Dinora Trevino Mitch Work Phone: Start: 01-10-2018 End: 01-10-2018 Prothrombin time Dinora Trevino Mitch Work Phone: H/O: section Hx of sect ion Rene Wright MD Work Phone: Results Test Name Value Interpretation Reference Range Facility Urinalysis macro (dipstick) panel (U)Ordered By: Olga Navarro on 06-08-2023 Bilirubin, UA Negative Negative - 4(70) +++ mg/dL [facility] Blood, UA Negative Negative - 50 Willam/mcL [facility] Clarity, UA Clear [facility] Health[facility] re Color, UA Yellow [facility] Health[facility] e Glucose, UA Negative Negative - 2000(110) ++++ mg/dL [facility] Interpretation and review of laboratory results Abnormal [facility] Ketones, UA Negative Negative - 160(16) ++++ mg/dL [facility] Leukocytes, UA Negative Negative - 500+++ Sandy/mcL [facility] Nitrite, UA Negative Negative - Positive [facility] pH, UA 7.5 5 - 9 [facility], [facility]A Positive Negative - 2000(20) ++++ mg/dL [facility] Spec Grav, UA 1.025 1 - 1.03 [facility] Urobilinogen, UA 0.2 0.2 - 12 mg/dL [facility] Covid-19 PCR (CVDTB)on 09-24 SARS-CoV-2 (COVID-19) RNA SANDRA+probe Ql (Unsp spec) Not detected Normal NOT DETECTED [facility] Comment on above: Result Comment: When [...] for this test is supported by the [place] of Health and Human Service's declaration that [...] longer be used). Performed By: #### C [facility] #### [facility] [address] [place] [address] Dr. Kaveh Wilks Tissue Aerobic Cultureon Bacteria identified Aer cx Nom (Tiss) Few Growth (4-10 colonies per plate) Coagulase Negative Staphylococcus Abnormal [facility] Interpretation and review of laboratory results Abnormal Invalid Interpretation Code [facility] Microscopic observation Gram stain Nom (Tiss) Many WBC Invalid Interpretation Code [facility] Microscopic observation Gram stain Nom (Tiss) Many RBC Invalid Interpretation Code [facility] Microscopic observation Gram stain Nom (Tiss) No Organisms Seen Invalid Interpretation Code [facility] Antibody Identificationon Blood group antibodies identified Nom Anti-Rhogam Invalid Interpretation Code [facility] The anti-D detected in this patient is presumably caused by a recent Rh Immune Globulin injection.It is unlikely that this represents a clinically significant antibody. Invalid Interpretation Code [facility] RhIG Evaluationon 01-11-2018 Rh immune globulin candidate (yes/no) Ql RhIG Candidacy Invalid Interpretation Code [facility] Baby is Rho(D) negative. Patient is NOT a candidate for Rh Immune Globulin. Invalid Interpretation Code [facility] Syphilis Antibodyon 01-12-20 18 Interpretation and review of laboratory results Normal Invalid Interpretation Code [facility] T. pallidum Ab Ql (S) Negative Invalid Interpretation Code Negative [facility] Type and Screenon 01-11-2018 ABO and Rh group Nom (Bld) Negative Invalid Interpretation Code [facility] Blood group antibody screen Ql Positive Invalid Interpretation Code [facility] Specimen Expires 01/13/2018 23:59 EST Invalid Interpretation Code [facility] APTTon 01-10-2018 aPTT Coag time (Bld) Therapeutic range for APTT's is 68 - 104 seconds Invalid Interpretation Code [facility] aPTT Coag time (Bld) 25 s Invalid Interpretation Code [facility] CBCon 01-10-2018 Erythrocyte distribution width Auto Entitic volume (RBC) 14.0 % Invalid Interpretation Code 11.6 - 14.8 % [facility] Hematocrit Auto Volume Fraction (Bld) 33.9 % Low 36 - 46 % [facility] Hemoglobin mass conc (Bld) 11.8 g/dL Low 12 - 16 g/dL [facility] MCH Auto Entitic mass (RBC) 31.7 pg Invalid Interpretation Code 26 - 34 pg [facility] MCHC Auto mass conc (RBC) 34.8 g/dL Invalid Interpretation Code 31 - 37 g/dL [facility] MCV Auto Entitic volume (RBC) 91.1 fL Invalid Interpretation Code 80 - 100 fL [facility] Nucleated RBC #/vol (Bld) 0.00 10*3/uL Invalid Interpretation Code [facility] Nucleated RBC/100 WBC Ratio (Bld) 0.0 % Invalid Interpretation Code [facility] Platelet mean volume Auto Entitic volume (Bld) 12.1 fL Invalid Interpretation Code 9 - 15.5 fL [facility] Platelets Auto #/vol (Bld) 159 10*3/uL Invalid Interpretation Code [facility] RBC Auto #/vol (Bld) 3.72 10*6/uL Low RI [facility] WBC Auto #/vol (Bld) 16.00 10*3/uL High R [facility] Fibrinogenon 01-10-2018 Fibrinogen Coag mass conc (PPP) 547 mg/dL High 224 - 483 mg/dL [facility] Otheron 01-10-2018 Interpretation and review of laboratory results Normal Invalid Interpretation Code [facility] Interpretation and review of laboratory results Abnormal Invalid Interpretation Code [facility] PT/INRon 01-10-2018 INR Coag RelTime (Bld) During the induction phase of oral anticoagulation, the INR may not reflect the anticoagulation status of the patient. Therapeutic ranges for INR's are: Most clinical situations: INR 2.0-3.0 Mechanical Prosthetic Valve: INR 2.5-3.5 Critical: INR >5.0 Invalid Interpretation Code [facility] INR Coag RelTime (PPP) 0.9 {INR} Invalid Interpretation Code [facility] Prothrombin time (PT) Coag time (PPP) 12.2 s Invalid Interpretation Code [facility] US OB FOLLOW UP TRANSABDOMIN AL SINGLE FETUSon 11-11-2017 US OB FOLLOW UP TRANSABDOMINAL SINGLE FETUS OBSTETRICS REPORT (Signed Final 11/11/2017 04:43 pm) Patient Info ID #: [id number] : [birth year] (22 yrs) Name: YOVANNY CAMARILLO Visit Date: 11/11/2017 10:50 am Performed By Performed By: Bianca Reynoso Referred By: Delphine Lovelace RDPR Attending: Uziel Hansno, Location: Demi Knapp MD, [facility] Service(s) [place] [address] [place] [address] Indications Zika virus exposure affecting O99.89 28 [...] our ultrasound office is accredited by The [employer] [place] of [employer]trasound in Medicine (AIUM). If you would like to discuss the results of your patient's tests or would like a Maternal- Medicine Consultation to assist you with her management, please do not hesitate to contact us at [phone]. Uziel Hanson MD, [facility] Electronically Signed Final Report 11/11/2017 04:43 pm Invalid Interpretation Code [facility] US OB FOLLOW UP TRANSABDOMINAL SINGLE FETUS Interface, Rad In Stan Speechq - 11/11/2017 4:44 PM EDT OBSTETRICS REPORT (Signed Final 11/11/2017 04:43 pm) Patient Info ID #: [id number] : [birth year] (22 yrs) Name: YOVANNY CAMARILLO Visit Date: 11/11/2017 10:50 am Performed By Performed By: Bianca Reynoso Referred By: Delphine Lovelace RDMS, MD Attending: Uziel Hanson, Location: Demi Knapp MD, [facility] Service(s) [place] [address] [place] [address] Indications Zika virus exposure affecting O99.89 28 [...] our ultrasound office is accredited by The [place] [employer] [place] [employer]tras[employer] in Medicine (AIUM). If you would like to discuss the results of your patient's tests or would like a Maternal- Medicine Consultation to assist you with her management, please do not hesitate to contact us at [phone]. Uziel Hanson MD, RDMS Electronically Signed Final Report 11/11/2017 04:43 pm Invalid Interpretation Code [facility] US Obstetric Detail An atomy Transabdominal Single Fetuson 09-23-2017 US Obstetric Detail Anatomy Transabdominal Single Fetus OBSTETRICS REPORT (Signed Final 09/23/2017 03:50 pm) Patient Info ID #: [id number] : [birth year] (22 yrs) Name: YOVANNY CAMARILLO Visit Date: 09/23/2017 01:47 pm Performed By Performed By: hCaran Mart Referred By: Delphine Lovelace RDMS, MD Attending: Debbie Recio MD Location: [facility] Service(s) Provided Targeted OB + Transvaginal [id number] Indications 21 weeks gestation of Z3A.21 Zika [...] Visualized 4 Chamber View: Normal appearance Cardiac [place]: Normal Cardiac Motion: Visualized Diaphragm: Normal appearance [...] our ultrasound office is accredited by The [employer] [place] [employer]trasound in Medicine (AIUM). If you would like to discuss the results of your patient's tests or would like a Maternal- Medicine Consultation to assist you with her management, please do not hesitate to contact us at [phone]. Debbie Recio MD Electronically Signed Final Report 09/23/2017 03:50 pm Invalid Interpretation Code CHARAN MART RDMS US Obstetric Detail Anatomy Transabdominal Single Fetus Interface, Rad In Fuji Speechq - 09/23/2017 3:51 PM EDT OBSTETRICS REPORT (Signed Final 09/23/2017 03:50 pm) Patient Info ID #: [id number] : [birth year] (22 yrs) Name: YOVANNY CAMARILLO Visit Date: 09/23/2017 01:47 pm Performed By Performed By: Charan Mart Referred By: Delphine Lovelace RDMS, MD Attending: Debbie Recio MD Location: [facility] Service(s) Provided Targeted OB + Transvaginal [id number] Indications 21 weeks gestation of Z3A.21 Zika [...] Visualized 4 Chamber View: Normal appearance Cardiac [place]: Normal Cardiac Motion: Visualized Diaphragm: Normal appearance [...] our ultrasound office is accredited by The [employer] [place] of [employer]trasound in Medicine (AIUM). If you would like to discuss the results of your patient's tests or would like a Maternal- Medicine Consultation to assist you with her management, please do not hesitate to contact us at [phone]. Debbie Recio MD Electronically Signed Final Report 09/23/2017 03:50 pm Invalid Interpretation Code CHARAN MART [facility] CBC Auto Differentialon 03- Basophils 0.03 K/mcL Invalid Interpretation Code 0.00 - 0.30 [facility] Basophils/100 leukocytes 0.3 % Invalid Interpretation Code [facility] Eosinophils 0.07 K/mcL Invalid Interpretation Code 0.00 - 0.50 [facility] Eosinophils/100 leukocytes 0.6 % Invalid Interpretation Code [facility] Erythrocytes (RBC) 4.12 M/mcL Invalid Interpretation Code 4.00 - 5.20 [facility] Erythrocytes (RBC) 0.00 K/mcL Invalid Interpretation Code 0.00 - 0.00 [facility] Hematocrit (HCT) 36.8 % Invalid Interpretation Code 36 - 46 % [facility] Hemoglobin (HGB) 12.5 g/dL Invalid Interpretation Code 12 - 16 g/dL [facility] IG Absolute 0.02 K/mcL Invalid Interpretation Code 0.00 - 0.30 [facility] IG Percent 0.20 % Invalid Interpretation Code [facility] Interpretation and review of laboratory results Abnormal Invalid Interpretation Code [facility] Lymphocytes 2.42 K/mcL Invalid Interpretation Code 0.90 - 4.00 [facility] Lymphocytes/100 leukocytes 22.2 % Invalid Interpretation Code [facility] MCH 30.3 pg Invalid Interpretation Code 26 - 34 pg [facility] MCHC 34.0 g/dL Invalid Interpretation Code 31 - 37 g/dL [facility] MCV 89.3 fL Invalid Interpretation Code 80 - 100 fL [facility] Monocytes 0.67 K/mcL Invalid Interpretation Code 0.30 - 0.90 [facility] Monocytes/100 leukocytes 6.1 % Invalid Interpretation Code [facility] Neutrophils 7.69 K/mcL High 1.70 - 7.00 [facility] Neutrophils/100 leukocytes 70.6 % Invalid Interpretation Code [facility] Nucleated erythrocytes/100 erythrocytes 0.0 % Invalid Interpretation Code [facility] Platelet mean volume (PMV) 11.2 fL Invalid Interpretation Code 9 - 15.5 fL [facility] Platelets 285 K/mcL Invalid Interpretation Code 150 - 400 [facility] RDW-CA 12.8 % Invalid Interpretation Code 11.6 - 14.8 % [facility] WBC (Leukocytes) 10.90 K/mcL Invalid Interpretation Code 4.50 - 11.00 [facility] CBC and Differentialon 06-30 Creatinine The following orders were created for panel order CBC and Differential. Procedure Abnormality Status --------- ------ CBC Auto Differential[[id number]] Abnormal Final result Please view results for these tests on the individual orders. Invalid Interpretation Code [facility] HIV 1/2 Screen (4th Generati on)on 06-30-2017 HIV 1+2 antibody presence Negative Invalid Interpretation Code Negative [facility] Interpretation and review of laboratory results Normal Invalid Interpretation Code [facility] HIV 1/2 Screen (4th Generation) This assay tests for the presence of HIV-1, HIV-2 antibodies and for the presence of HIV-1 antigen. Test performed using Ivana TR immunoassay system Invalid Interpretation Code [facility] Hepatitis B Surface Antigeno n 06-30-2017 Hepatitis B Surface Ag Negative Invalid Interpretation Code Negative [facility] Hepatitis B Surface Antigen Test performed using Ivana TR immunoassay system Invalid Interpretation Code [facility] RPRon 06-30-2017 Reagin antibody presence Non-Reactive Invalid Interpretation Code Non-Reactive [facility] Rubella Antibody, IgGon Rubella IgG Non-Immune Invalid Interpretation Code [facility] Rubella IgG Value 5.87 IU/mL Invalid Interpretation Code [facility] Type and Screenon 06-30-2017 ABO+Rh group Negative Invalid Interpretation Code [facility] Blood group antibody presence Negative Invalid Interpretation Code [facility] Specimen Expires 07/03/2017 23:59 EST Invalid Interpretation Code [facility] Urine Aerobic Cultureon Bacteria aerobode culture Three or more colony types; >10,000 CFU/mL mixture of normal urogenital microbiota. None predominant. Possible contamination. Suggest repeat if clinically indicated. Invalid Interpretation Code [facility] Social History Date Type Detail Facility Start: 07-22-2023 Alcohol intake Ex-drinker (finding) [facility] Start: 06-08-2023 Alcohol intake Lifetime non-d kenia (finding) [facility] Start: 10-29-2022 End: 07-22-2023 History of Social function [facility] Start: 10-29-2022 End: 07-22-[address] [facility] Start: 10-26-2022 End: 07-11-2023 Tobacco use and exposure Smokeless tobacco non-user [facility] Start: 10-26-2022 Alcohol Comment caffeine: 2-3 cups per day, soda/pop [facility] Start: 05-13-2017 End: 07-11-2023 Tobacco smoking status NHIS Never smoker [facility] Start: 05-10-2017 [facility] Start: 1995 Sex Assigned At Not on file [employer] Work Phone: Within the past 12 months we worried whether our food would run out before we got money to buy more. Never True [facility] Vital Signs Date Time Vital Sign Value Performing Clinician Facility 07-22-2023 12:33-0400 Body height 167.6 cm Rene Wright MD Work Phone: [facility] [employer] [facility] 07-22-2023 12:33-0400 Body mass index (BMI) [Ratio] 21.08 kg/m2 Rene Wright MD Work Phone: [facility] [employer] [facility] 07-22-2023 12:33-0400 Body weight 59.24 kg Rene Wright MD Work Phone: [facility] 07-22-2023 12:33-0400 Diastolic blood pressure 61 mm[Hg] Rene Wright MD Work Phone: [facility] 07-22-2023 12:33-0400 Heart rate 78 /min Rene Wright MD Work Phone: [facility] 07-22-2023 12:33-0400 Systolic blood pressure 104 mm[Hg] Rene Wright MD Work Phone: [facility] 06-08-2023 13:47-0500 Body mass index (BMI) [Ratio] 20.24 kg/m2 Lamin Livier DO Work Phone: [facility] 06-08-2023 13:47-0500 Body weight 56.88 kg Lamin Livier DO Work Phone: [facility] 06-08-2023 13:47-0500 Diastolic blood pressure 60 mm[Hg] Lamin Livier DO Work Phone: [facility] 06-08-2023 13:47-0500 Systolic blood pressure 104 mm[Hg] Lamin Livier DO Work Phone: [facility] 01-13-2018 09:42-0400 Pulse (Heart Rate) 90 /min Delphine Lovelace [facility] 01-13-2018 09:42-0400 Pulse Oximetry 98 % Delphine Lovelace [facility] 01-13-2018 09:31-0400 Body Temperature 98.2 [degF] Delphine Lovelace [facility] 01-13-2018 09:31-0400 BP Diastolic 75 mm[Hg] Delphine Lovelace [facility] 01-13-2018 09:31-0400 BP Systolic 109 mm[Hg] Delphine Lovelace [facility] 01-13-2018 09:31-0400 Respiratory Rate 16 /min Delphine Lovelace [facility] 05-13-2017 11:47-0500 BMI (Body Mass Index) 22.6 kg/m2 Anna Callahan [facility] Work Phone: 05-13-2017 11:47-0500 Body Temperature 98.4 [degF] Anna Callahan [facility] Work Phone: 05-13-2017 11:47-0500 BP Diastolic 78 mm[Hg] Anna Callahan [facility] Work Phone: 05-13-2017 11:47-0500 BP Systolic 112 mm[Hg] Annagamal Callahan [facility] Work Phone: 05-13-2017 11:47-0500 Height 167.6 cm Anna Callahan [facility] Work Phone: 05-13-2017 11:47-0500 Pulse (Heart Rate) 81 /min Anna Callahan [facility] Work Phone: 05-13-2017 11:47-0500 Pulse Oximetry 98 % Anna Callahan [facility] Work Phone: 05-13-2017 11:47-0500 Weight 63.5 kg Anna Callahan [facility] Work Phone: History of Present illness Narrative 07-22-2023 Peggy [...] no Have you been seen here at [facility] in a previous ? yes Recent ER visits or hospitalizations? no Bring blood sugar log or meter with you today? (Please bring them with you for every visit at [facility]) n/a Traveled outside the country in the past 6 month no Any concerns that you would like me to mention to the provider today? no [facility] Consult Note Reason For Consult: [...] rasopathy. She has been followed by a paleontology teacher at [facility] in [facility]. However they has not been seen since [...] gene. She has been followed by a paleontology teacher at [facility] in [facility]. However they has not been seen since [...] recommended that she reaches out to her pantograph engraver and follows at [facility] for her daughter and have her other [...] Rene Wright MD, FACOG (she/hers) Maternal- Medicine [facility] [address] [facility] [address] [place] [address] [facility], the CDC, and other organizations representing maternal and public health professionals recommend that , , and lactating people and those considering receive the COVID-19 vaccination. Vaccination is the best method to reduce maternal and complications of SARS-CoV-2 infection. This document was created with [employer] technology. Though I make every effort to review the dictation as it is transcribed, on occasion the spoken word can be misinterpreted by the technology leading to inappropriate words, phrases, or sentences. This note is addressed to the requesting provider as a consultation for clinical guidance. Specific medical abbreviations are occasionally used and those are generally approved by the [place] [employer]?Board of?Obstetrics and?Gynecology?as well as?Jenn s abbreviations. The above plan of care was based solely on the diagnoses for which a consultation was requested. ?More frequent testing may be indicated based on her other medical/obstetrical conditions. The management of other or medical conditions is beyond the scope of requested consultation and will continue to be followed by the primary news commentator or primary care provider. Note to patient: The Century Cures Act makes medical notes like these [...] of the practitioner. documented in this encounter [facility] History of Present illness Narrative 06-08-2023 Monika [...] includes the following prescription(s): ondansetron odt and [id number]. Medical History: Active Ambulatory Problems Diagnosis Date [...] nursing note reviewed. Exam conducted with a director occupational present. Vitals: Estimated body mass index is [...] or undercooked meat, and stay away from [facility]. Patient has been consulted regarding any further do's and don'ts of . Patient voiced understanding and all questions and concerns were answered. Pt to be referred to [facility] for level II ultrasound. Discussed NST/BPP and growth ultrasound d/t h/o placenta abruption and IUGR. Pt to have repeat section. Follow Up: Patient is to return in 4 weeks for routine OB appointment. Documented by Monika Oh LPN on behalf of: Lamin Maier DO documented in this encounter [facility] Evaluation note Note Date & Type Note Facility Evaluation note Diagnosis Second trimester state, incidental History of placental abruption documented in this encounter [facility] Evaluation note Note Date & Type Note Facility Evaluation note Diagnosis 20 weeks gestation of - Primary History of placental abruption History of prior with IUGR Hx of section Family history of genetic disease Family history of other condition documented in this encounter [facility] Instructions Attachments Note Date & Type Note Facility Instructions The following attachments cannot be sent through Care Everywhere.Preeclampsia (Irish)documented in this encounter [facility] Assessments [...] Log into your personal health record on [email or web address]://[email or web address] and enter Y392 in the Education box to learn more about [place]: Care Instructions. Current as of: September 19, 2015 Content Version: 11.2 4690-5206 [employer]. Care instructions adapted under license by your healthcare professional. If you have questions about a medical condition or this instruction, always ask your healthcare professional. [employer] disclaims any warranty or liability for your use of this information. in this encounter Summary Purpose Family History No Family History Records FoundNo Family History Records FoundNo Family History Records FoundNo Family History Records Found Advance Directives No Advanced Directives Records FoundNo Advanced Directives Records FoundNo Advanced Directives Records FoundNo Advanced Directives Records Found Reason for Referral Specialty Diagnoses / Procedures Referred By Contprimo t Referred To Contact Maternal and Medicine Diagnoses History of placental abruption History of prior with IUGR Procedures US MFM with or without consult Rene Wright MD [address], [address] [place] [id number] [facility]aternal [facility] [address] [place] [address] Referral ID Status Reason Start Date Expiration Date V isits Requested Visits Authorized [id number] Pending Review 07/22/2023 07/21/2024 1 1 Additional Source Comments INFORMATION SOURCE (unrecogn ized section and content) DATE CREATED AUTHOR 10/18/2017 [facility] DATE CREATED AUTHOR AUTHOR'S ORGANIZ ATION 02/12/2018 [facility] DATE CREATED AUTHOR AUTHOR'S ORGANMICHAEL ATION 09/06/2022 [facility] DATE CREATED AUTHOR AUTHOR'S ORGANIZ ATION 10/26/2023 [facility] Special[facility] Natalie Rose MD - [...] and content) Associated Order(s): IP CONSULT TO WAREHOUSE DISTRIBUTION ASSOCIATE Request for consult received, will contact mother [...] that baby is currently being transferred to [facility] from NICU, requests consult, informed [...] Problems: Placental abruption SNOMED CT(R): PLACENTAL ABRUPTION Vaughn Baby Calos Hairston [[id number]] Delivery Anesthesia Method: Epidural Operative Delivery Forceps attempted?: No Vacuum extractor attempted?: No Shoulder Dystocia Shoulder dystocia present: No Presentation Presentation: Vertex Position: Middle _: Occiput _: Anterior Information date/time: 01/11/182113 Gender: Male Delivery type: Vaginal, Spontaneous Delivery Delivery location: OB Unit ?: No Details: Delivery Providers Delivering clinician: Anahy Sarah MD Other personnel: Provider Role Covering Attending Resident Learning Disabled Teacher Leyla Alves, excelsior cutter Nurse Stephanie Curran, RN Registered Nurse Karlie Shah, excelsior cutter Assist Nurse Practitioner Cord Vessels: 3 vessels Complications: Nuchal Nuchal intervention: clamped and cut Nuchal cord description: tight nuchal cord Number of loops: 1 Delayed cord clamping?: No Cord clamped date/time: 01/11/20182113 Cord blood obtained?: Lab Cord segment obtained?: Yes Gases sent?: Yes Stem cell collection (by Provider)?: No Placenta Date/time: 01/11/20182122 Removal: Spontaneous Appearance: Intact Disposition: Discarded [place] [facility] Living status: Living Scoring Ruiz: 0 [...] BE BASED ON THE PRIMARY CLINICAL RECORDS. [facility] [employer] [facility]. provides no warranty or guarantee of the accuracy or completeness of information in this document.
--- NOTE | 2023-10-28 16:10 | US_ITS ---
[address] [address] Patient Name: MAURICIO MENDES MRN: [id number] date: 1995 Sex: F Assigned Patient Location: [facility] Current Patient Location: Accession/Order Number: [id number] Exam Date: 10/28/2023 16:15 Report Date: 10/31/2023 06:40 At the request of: JANIE CARABALLO Procedure: US OB BPP w non-stress EXAMINATION: US OB BPP w non-stress HISTORY: HISTORY OF PLACENTAL ABRUPTION Z87.59 COMPARISON: No relevant comparison available. TECHNIQUE: Ultrasound biophysical profile was performed in the radiology department. non-reactive stress testing was performed by nursing staff in the birthing center. FINDINGS: BREATHING MOVEMENTS: 2 GROSS BODY MOVEMENTS: 2 TONE: 2 QUALITATIVE AMNIOTIC FLUID VOLUME: 2 PRESENTATION: CEPHALIC HEART RATE: 129.81 bpm AMNIOTIC FLUID VOLUME: 14.4 cm GESTATIONAL AGE: 34 weeks 4 days US/US OB BPP w non-stress IMPRESSION: Total biophysical profile score: 8 Electronically authenticated by: COREY SAMUEL Date: 10/31/2023 06:40
[2023-10-28 16:56] VITALS: BP 109/67; PULSE 72
== END 2023-10-28 17:30 | disposition home or self-care (01) ==
LOC: US 07:13 → FBC 16:09
PROVIDERS: PCP Nurse Practitioner Family; Visit Provider Obstetrics & Gynecology
DX: O09.293 Supervision of pregnancy with other poor reproductive or obstetric history, third trimester (principal); Z87.59 Personal history of other complications of pregnancy, childbirth and the puerperium; Z3A.34 34 weeks gestation of pregnancy
CPT/HCPCS: 59025; 76818

== ENCOUNTER 2023-10-31 10:55 | Outpatient (OUT) | payer BC, SELFPAY ==
--- NOTE | 2023-10-31 10:58 | US_ITS ---
[address] [address] Patient Name: MAURICIO MENDES MRN: [id number] date: 1995 Sex: F Assigned Patient Location: [facility] Current Patient Location: [facility] Accession/Order Number: [id number] Exam Date: 10/31/2023 10:58 Report Date: 10/31/2023 11:29 At the request of: JANIE CARABALLO Procedure: US OB growth EXAMINATION: US OB growth HISTORY: HISTORY OF IUGR AND PLACENTA ABRUPTION IN PRIOR COMPARISON: No relevant comparison available. FINDINGS: Heart Rate: 149 bpm Amniotic Fluid Volume: 16.3 cm Largest fluid pocket: 7.0 cm Number: 1 Position: Cephalic presentation, longitudinal lie BIOMETRY: BPD: 9.04 cm cm; 36 weeks 4 days; 90 %% HC: 33.78 cm cm; 38 weeks 5 days; 94.40 %% AC: 32.23 cm cm; 36 weeks 1 day; 85.30 %% FL: 7.04 cm cm; 36 weeks 1 day; 71.50 %% EFW: 2904.58 g; 6 lbs. 8 oz. 85.60 % FL/AC: 21.84 FL/BPD: 77.88 HC/AC: 1.05 GESTATIONAL AGE: Age by EDC: 35 weeks 0 days CARIDAD by EDC: 2023-12-05 Age by US: 36 weeks 4 days CARIDAD by US: 2023-11-24 US/US OB growth IMPRESSION: Normal interval growth, head circumference at the 94th percentile Electronically authenticated by: COREY SAMUEL Date: 10/31/2023 11:29
--- OUTSIDE RECORDS SUMMARY | 2023-10-31 11:14 | XMS_ITS | CCD ---
Author Organization [facility] Care Team Providers Care Right Of Way Clearer Name Role Phone No, Physician Unavailable Unavailable ANNA CALLAHAN Unavailable Unavailab le NO, PHYSICIAN Unavailable Unavailable Delphine Lovelace Unavailable [phone] DELPHINE LOVELACE Unavailable Unavail able DELPHINE LOVELACEINE [...] Unavailable DENZEL HOANG Unavailable Unavaila ble DELPHINE LOVELACE ISLAS Unavailable Unavail able NO, PHYSICIAN Unavailable Unavailable LOVELACEDELPHINE DUMONT ISLAS Unavailable Unavail able NO, PHYSICIAN Unavailable Unavailable NATALIE EMANUEL Unavailable Unavailable [facility] U navailable Unavailable DR LAMIN BARBOUR Admitting Unavailable LIVIER ., DR LIMA Attending Unavailable REQUEST, NONE LISTED Primary Care Unavaila ble DR LAMIN BARBOUR Consulting Unavailable TAWANNA CHESTER Admitting Unavailable TAWANNA CHESTER Attending Unavailable REQUEST, NONE LISTED Primary Care Unavaila TAWANNA [place] Consulting Unavailable Unavailable Primary Care Provider Unavailabl e Unavailable Primary Care Provider Unavailabl e LAMIN MAIER Attending Unavailable LAMIN MAIER Attending Unavailable SHERRI TRAVIS Attending Unavailable LAMIN MAIER Attending Unavailable SHERRI TRAVIS Attending Unavailable LAMIN MAIER Attending Unavailable LAMIN MAIER Attending Unavailable LAMIN MAIER Attending Unavailable Medications Current Medications Medication [...] needed for nausea or vomiting. 0 Active Mnygybub-Tfl-Hl-FA ( 1 + IRON PO) (2 sources) [...] Start: 01-11-2018 End: 01-13-2018 Flu Vaccine Qs 2018-19(6 Mos Up)(Pf)60 McG(15 McGx4)/0.5 Ml Im Syringe [...] mumps virus vaccine live, yogi evans strain [id number] unt/ml / rubella virus vaccine live (wistar [...] mL 0.5 ml varicella-zoster virus vaccine live ([employer]) strain 2700 unt/ml injection (1 source) Start: [...] UA Negative Negative - 4(70) +++ mg/dL [facility] Blood, UA Negative Negative - 50 Willam/mcL [facility] Clarity, UA Clear [facility] Color, UA Yellow [facility] Glucose, UA Negative Negative - 1999(110) ++++ mg/dL [facility] Interpretation and review of laboratory results Abnormal [facility] Ketones, UA Negative Negative - 160(16) ++++ mg/dL [facility] Leukocytes, UA Negative Negative - 500+++ Sandy/mcL [facility] Nitrite, UA Negative Negative - Positive [facility] pH, UA 7.5 5 - 9 [facility] e Protein, UA Positive Negative - 1999(20) ++++ mg/dL [facility] Spec Grav, UA 1.025 1 - 1.03 [facility] Urobilinogen, UA 0.2 0.2 - 12 mg/dL [facility] ([facility])on 09-24 SARS-CoV-2 (COVID-19) RNA SANDRA+probe Ql (Unsp spec) Not detected Normal NOT DETECTED [facility] Comment on above: Result Comment: When diagnostic [...] for this test is supported by the Validation Leader of Health and Human Service's declaration that [...] longer be used). Performed By: #### [facility] #### [facility] [address] [place] [address] Dr. Kaveh Wilks Tissue Aerobic Cultureon Bacteria identified Aer cx Nom (Tiss) Few Growth (4-10 colonies per plate) Coagulase Negative Staphylococcus Abnormal [facility] Interpretation and review of laboratory results Abnormal Invalid Interpretation Code [facility] Microscopic observation Gram stain Nom (Tiss) Many WBC Invalid Interpretation Code [facility] Microscopic observation Gram stain Nom (Tiss) Many RBC Invalid Interpretation Code [facility] Microscopic observation Gram stain Nom (Tiss) No Organisms Seen Invalid Interpretation Code [facility] Antibody Identificationon Blood group antibodies identified Nom Anti-Rhogam Invalid Interpretation Code [facility] The anti-D detected in this patient is presumably caused by a recent Rh Immune Globulin injection.It is unlikely that this represents a clinically significant antibody. Invalid Interpretation Code [facility] RhIG Evaluationon 01-11-2018 Rh immune globulin candidate (yes/no) Ql RhIG Candidacy Invalid Interpretation Code [facility] Baby is Rho(D) negative. Patient is NOT a candidate for Rh Immune Globulin. Invalid Interpretation Code [facility] Syphilis Antibodyon 01-12-20 18 Interpretation and review of laboratory results Normal Invalid Interpretation Code [facility] T. pallidum Ab Ql (S) Negative Invalid Interpretation Code Negative [facility] Type and Screenon 01-11-2018 ABO and Rh group Nom (Bld) Negative Invalid Interpretation Code [facility] Blood group antibody screen Ql Positive Invalid Interpretation Code [facility] Specimen Expires 01/13/2018 23:59 EST Invalid Interpretation Code [facility] APTTon 01-10-2018 aPTT Coag time (Bld) Therapeutic range for APTT's is 68 - 104 seconds Invalid Interpretation Code [facility] aPTT Coag time (Bld) 25 s Invalid Interpretation Code [facility] CBCon 01-10-2018 Erythrocyte distribution width Auto Entitic volume (RBC) 14.0 % Invalid Interpretation Code 11.6 - 14.8 % [facility] Hematocrit Auto Volume Fraction (Bld) 33.9 % Low 36 - 46 % [facility] Hemoglobin mass conc (Bld) 11.8 g/dL Low 12 - 16 g/dL [facility] Interpretation and review of laboratory results Abnormal Invalid Interpretation Code [facility] MCH Auto Entitic mass (RBC) 31.7 pg Invalid Interpretation Code 26 - 34 pg [facility] MCHC Auto mass conc (RBC) 34.8 g/dL Invalid Interpretation Code 31 - 37 g/dL [facility] MCV Auto Entitic volume (RBC) 91.1 fL Invalid Interpretation Code 80 - 100 fL [facility] Nucleated RBC #/vol (Bld) 0.00 10*3/uL Invalid Interpretation Code [facility] Nucleated RBC/100 WBC Ratio (Bld) 0.0 % Invalid Interpretation Code [facility] Platelet mean volume Auto Entitic volume (Bld) 12.1 fL Invalid Interpretation Code 9 - 15.5 fL [facility] Platelets Auto #/vol (Bld) 159 10*3/uL Invalid Interpretation Code [facility] RBC Auto #/vol (Bld) 3.72 10*6/uL Low [place] [facility] WBC Auto #/vol (Bld) 16.00 10*3/uL High [facility] Fibrinogenon 01-10-2018 Fibrinogen Coag mass conc (PPP) 547 mg/dL High 224 - 483 mg/dL [facility] Interpretation and review of laboratory results Abnormal Invalid Interpretation Code [facility] Otheron 01-10-2018 Interpretation and review of laboratory results Normal Invalid Interpretation Code [facility] PT/INRon 01-10-2018 INR Coag RelTime (Bld) During the induction phase of oral anticoagulation, the INR may not reflect the anticoagulation status of the patient. Therapeutic ranges for INR's are: Most clinical situations: INR 2.0-3.0 Mechanical Prosthetic Valve: INR 2.5-3.5 Critical: INR >5.0 Invalid Interpretation Code [facility] INR Coag RelTime (PPP) 0.9 {INR} Invalid Interpretation Code [facility] Prothrombin time (PT) Coag time (PPP) 12.2 s Invalid Interpretation Code [facility] US OB FOLLOW UP TRANSABDOMIN AL SINGLE FETUSon 11-11-2017 US OB FOLLOW UP TRANSABDOMINAL SINGLE FETUS OBSTETRICS REPORT (Signed Final 11/11/2017 04:43 pm) Patient Info ID #: [id number] : [birth year] (22 yrs) Name: YOVANNY CAMARILLO Visit Date: 11/11/2017 10:50 am Performed By Performed By: Bianca Reynoso Referred By: Delphine Lovelace RDMI Attending: Uziel Hanson, Location: [place] [facility], [facility] Service(s) [place] [address] [place] [address] Indications Zika virus exposure affecting O99.89 28 [...] our ultrasound office is accredited by The [place] [employer] (AIUM). If you would like to discuss the results of your patient's tests or would like a Maternal- Medicine Consultation to assist you with her management, please do not hesitate to contact us at [phone]. Uziel Hanson MD, RUST Electronically Signed Final Report 11/11/2017 04:43 pm Invalid Interpretation Code [facility] US OB FOLLOW UP TRANSABDOMINAL SINGLE FETUS Interface, Rad In Stan Speechq - 11/11/2017 4:44 PM EDT OBSTETRICS REPORT (Signed Final 11/11/2017 04:43 pm) Patient Info ID #: [id number] : [birth year] (22 yrs) Name: YOVANNY CAMARILLO Visit Date: 11/11/2017 10:50 am Performed By Performed By: Bianca Reynoso Referred By: Delphine Lovelace RDMS, MD Attending: Uziel Hanson, Location: Demi Knapp MD, [facility] Service(s) [place] [address] [place] [address] Indications Zika virus exposure affecting O99.89 28 [...] our ultrasound office is accredited by The [place] [employer] (AIUM). If you would like to discuss the results of your patient's tests or would like a Maternal- Medicine Consultation to assist you with her management, please do not hesitate to contact us at [phone]. Uziel Hanson MD, LYDIAMS Electronically Signed Final Report 11/11/2017 04:43 pm Invalid Interpretation Code [facility] US Obstetric Detail An atomy Transabdominal Single Fetuson 09-23-2017 US Obstetric Detail Anatomy Transabdominal Single Fetus OBSTETRICS REPORT (Signed Final 09/23/2017 03:50 pm) Patient Info ID #: [id number] : [birth year] (22 yrs) Name: YOVANNY Delgado SERG Visit Date: 09/23/2017 01:47 pm Performed By Performed By: Charan Mart Referred By: Delphine Lovelace RDMS, MD Attending: Debbie Recio MD Location: [facility] Service(s) Provided Targeted OB + Transvaginal [id number] Indications 21 weeks gestation of Z3A.21 Zika [...] Visualized 4 Chamber View: Normal appearance Cardiac [place]: Normal Cardiac Motion: Visualized Diaphragm: Normal appearance [...] our ultrasound office is accredited by The [place] [employer] (AIUM). If you would like to discuss the results of your patient's tests or would like a Maternal- Medicine Consultation to assist you with her management, please do not hesitate to contact us at [phone]. Debbie Recio MD Electronically Signed Final Report 09/23/2017 03:50 pm Invalid Interpretation Code CHARAN MART RDMS US Obstetric Detail Anatomy Transabdominal Single Fetus Interface, Rad In Fuji Speechq - 09/23/2017 3:51 PM EDT OBSTETRICS REPORT (Signed Final 09/23/2017 03:50 pm) Patient Info ID #: [id number] : [birth year] (22 yrs) Name: YOVANNY CAMARILLO Visit Date: 09/23/2017 01:47 pm Performed By Performed By: Charan Mart Referred By: Delphine Lovelace RDMS, MD Attending: Debbie Recio MD Location: [facility] Service(s) Provided Targeted OB + Transvaginal [id number] Indications 21 weeks gestation of Z3A.21 Zika [...] Visualized 4 Chamber View: Normal appearance Cardiac [place]: Normal Cardiac Motion: Visualized Diaphragm: Normal appearance [...] our ultrasound office is accredited by The [place] [employer] in [employer] (AIUM). If you would like to discuss the results of your patient's tests or would like a Maternal- Medicine Consultation to assist you with her management, please do not hesitate to contact us at [phone]. Debbie Recio MD Electronically Signed Final Report 09/23/2017 03:50 pm Invalid Interpretation Code CHARAN DINORA BARRON [facility] CBC Auto Differentialon 03-0 Basophils 0.03 K/mcL Invalid Interpretation Code 0.00 - 0.30 [facility] Basophils/100 leukocytes 0.3 % Invalid Interpretation Code [facility] Eosinophils 0.07 K/mcL Invalid Interpretation Code 0.00 - 0.50 [facility] Eosinophils/100 leukocytes 0.6 % Invalid Interpretation Code [facility] Erythrocytes (RBC) 4.12 M/mcL Invalid Interpretation Code 4.00 - 5.20 [facility] Erythrocytes (RBC) 0.00 K/mcL Invalid Interpretation Code 0.00 - 0.00 [facility] Hematocrit (HCT) 36.8 % Invalid Interpretation Code 36 - 46 % [facility] Hemoglobin (HGB) 12.5 g/dL Invalid Interpretation Code 12 - 16 g/dL [facility] IG Absolute 0.02 K/mcL Invalid Interpretation Code 0.00 - 0.30 [facility] IG Percent 0.20 % Invalid Interpretation Code [facility] Interpretation and review of laboratory results Abnormal Invalid Interpretation Code [facility] Lymphocytes 2.42 K/mcL Invalid Interpretation Code 0.90 - 4.00 [facility] Lymphocytes/100 leukocytes 22.2 % Invalid Interpretation Code [facility] MCH 30.3 pg Invalid Interpretation Code 26 - 34 pg [facility] MCHC 34.0 g/dL Invalid Interpretation Code 31 - 37 g/dL [facility] MCV 89.3 fL Invalid Interpretation Code 80 - 100 fL [facility] Monocytes 0.67 K/mcL Invalid Interpretation Code 0.30 - 0.90 [facility] Monocytes/100 leukocytes 6.1 % Invalid Interpretation Code [facility] Neutrophils 7.69 K/mcL High 1.70 - 7.00 [facility] Neutrophils/100 leukocytes 70.6 % Invalid Interpretation Code [facility] Nucleated erythrocytes/100 erythrocytes 0.0 % Invalid Interpretation Code [facility] Platelet mean volume (PMV) 11.2 fL Invalid Interpretation Code 9 - 15.5 fL [facility] Platelets 285 K/mcL Invalid Interpretation Code 150 - 400 [facility] RDW-CA 12.8 % Invalid Interpretation Code 11.6 - 14.8 % [facility] WBC (Leukocytes) 10.90 K/mcL Invalid Interpretation Code 4.50 - 11.00 [facility] CBC and Differentialon 06-30 Creatinine The following orders were created for panel order CBC and Differential. Procedure Abnormality Status --------- ------ CBC Auto Differential[[id number]] Abnormal Final result Please view results for these tests on the individual orders. Invalid Interpretation Code [facility] HIV 1/2 Screen (4th Generati on)on 06-30-2017 HIV 1+2 antibody presence Negative Invalid Interpretation Code Negative [facility] Interpretation and review of laboratory results Normal Invalid Interpretation Code [facility] HIV 1/2 Screen (4th Generation) This assay tests for the presence of HIV-1, HIV-2 antibodies and for the presence of HIV-1 antigen. Test performed using Ivana TR immunoassay system Invalid Interpretation Code [facility] Hepatitis B Surface Antigeno n 06-30-2017 Hepatitis B Surface Ag Negative Invalid Interpretation Code Negative [facility] Hepatitis B Surface Antigen Test performed using Ivana TR immunoassay system Invalid Interpretation Code [facility] RPRon 06-30-2017 Reagin antibody presence Non-Reactive Invalid Interpretation Code Non-Reactive [facility] Rubella Antibody, IgGon Rubella IgG Non-Immune Invalid Interpretation Code [facility] Rubella IgG Value 5.87 IU/mL Invalid Interpretation Code [facility] Type and Screenon 06-30-2017 ABO+Rh group Negative Invalid Interpretation Code [facility] Blood group antibody presence Negative Invalid Interpretation Code [facility] Specimen Expires 07/03/2017 23:59 EST Invalid Interpretation Code [facility] Urine Aerobic Cultureon Bacteria aerobode culture Three or more colony types; >10,000 CFU/mL mixture of normal urogenital microbiota. None predominant. Possible contamination. Suggest repeat if clinically indicated. Invalid Interpretation Code [facility] Vital Signs Date Time Vital Sign Value Performing Clinician Facility 07-22-2023 12:33-0400 Body height 167.6 cm Rene Wright MD Work Phone: [facility] 07-22-2023 12:33-0400 Body mass index (BMI) [Ratio] 21.08 kg/m2 Rene Wright MD Work Phone: [facility] 07-22-2023 12:33-0400 Body weight 59.24 kg Rene Wright MD Work Phone: [facility] 07-22-2023 12:33-0400 Diastolic blood pressure 61 mm[Hg] Rene Wright MD Work Phone: [facility] 07-22-2023 12:33-0400 Heart rate 78 /min Rene Wright MD Work Phone: [facility] 07-22-2023 12:33-0400 Systolic blood pressure 104 mm[Hg] Rene Wright MD Work Phone: [facility] 06-08-2023 13:47-0500 Body mass index (BMI) [Ratio] 20.24 kg/m2 Lamin Livier DO Work Phone: [facility] 06-08-2023 13:47-0500 Body weight 56.88 kg Lamin Livier DO Work Phone: [facility] 06-08-2023 13:47-0500 Diastolic blood pressure 60 mm[Hg] Lamin Livier DO Work Phone: [facility] 06-08-2023 13:47-0500 Systolic blood pressure 104 mm[Hg] Lamin Braswello DO Work Phone: [facility] 01-13-2018 09:42-0400 Pulse (Heart Rate) 90 /min Delphine Lovelace [facility] 01-13-2018 09:42-0400 Pulse Oximetry 98 % Delphine Lovelace [facility] 01-13-2018 09:31-0400 Body Temperature 98.2 [degF] Delphine [facility] 01-13-2018 09:31-0400 BP Diastolic 75 mm[Hg] Delphine [facility] 01-13-2018 09:31-0400 BP Systolic 109 mm[Hg] Delphine [facility] 01-13-2018 09:31-0400 Respiratory Rate 16 /min Delphine [facility] 05-13-2017 11:47-0500 BMI (Body Mass Index) 22.6 kg/m2 Anna Callahan [facility] Work Phone: 05-13-2017 11:47-0500 Body Temperature 98.4 [degF] Anna Callahan [facility] Work Phone: 05-13-2017 11:47-0500 BP Diastolic 78 mm[Hg] Anna Callahan [facility] Work Phone: 05-13-2017 11:47-0500 BP Systolic 112 mm[Hg] Anna Callahan [facility] Work Phone: 05-13-2017 11:47-0500 Height 167.6 cm Anna Callahan [facility] Work Phone: 05-13-2017 11:47-0500 Pulse (Heart Rate) 81 /min Anna Callahan [facility] Work Phone: 05-13-2017 11:47-0500 Pulse Oximetry 98 % Anna Callahan [facility] Work Phone: 05-13-2017 11:47-0500 Weight 63.5 kg Anna Callahan [facility] Work Phone: Encounters Encounter Date Encounter Type Care Provider Facility Start: 10-25-2023 End: 10-25-2023 ambulatory LAMIN LIVIER Not Available Start: 10-12-2023 End: 10-12-2023 ambulatory LAMIN LIVIER Not Available Start: 09-28-2023 End: 09-28-2023 ambulatory LAMIN LIVIER Not Available Start: 09-14-2023 End: 09-14-2023 ambulatory SHERRI TRAVIS Not Available Start: 08-31-2023 End: 08-31-2023 ambulatory LAMIN LIVIER Not Available Start: 08-03-2023 End: 08-03-2023 ambulatory SHERRI TRAVIS Not Available Start: 07-22-2023 End: 07-22-2023 Office consultation new/estab patient 60 min Rene Wright MD Work Phone: [facility] Comment on above: 20 weeks [...] Encounter for preprocedural laboratory examination TAWANNA CHESTER [facility] Start: 10-19-2021 End: 10-20-2021 ambulatory TAWANNA CHESTER Facility:[facility] Start: 10-19-2021 End: 10-20-2021 Encounter for preprocedural laboratory examination TAWANNA CHESTER Facility:[facility] Start: 01-11-2018 End: 01-13-2018 Evaluation and management of inpatient DELPHINE LOVELACE [facility] Start: 01-10-2018 End: 01-13-2018 Evaluation and management of inpatient Delphine Lovelace Work Phone: [facility]/ Unit 5 Start: 11-11-2017 End: 11-12-2017 Patient encounter Denzel Hoang Work Phone: [facility] Start: 11-10-2017 End: 11-10-2017 Patient encounter ORVILLE GÓMEZ [facility] Start: 09-23-2017 End: 09-24-2017 Patient encounter COERY MARTIN [facility] Start: 09-23-2017 End: 09-23-2017 Ambulatory Delphine Islas Lovelace Work Phone: [facility] Start: 09-01-2017 End: 09-01-2017 Patient encounter [facility] Start: 08-01-2017 End: 08-01-2017 Ambulatory Delphine Lovelace Work Phone: [facility] [employer] [facility] Start: 07-04-2017 End: 07-04-2017 Patient encounter DELPHINE ISLAS [facility] Start: 06-30-2017 End: 06-30-2017 Ambulatory Delphine Lovelace Work Phone: [facility] [employer] [facility] Start: 05-13-2017 End: 05-13-2017 Ambulatory ANNA CALLAHAN [facility] Start: 05-13-2017 Office/outpatient jarrell garcia, level 2 Anna Callahan Work Phone: [facility] Nila/Jarrell Butt Start: 04-14-2017 End: 04-19-2017 Patient encounter DELPHINE [facility] Procedures Date Procedure Procedure Detail Performing Clinician Start: 07-11-2023 H/O: section Hx of section Rene Wright MD Work Phone: Start: 06-08-2023 Urnls dip stick/tabl et rgnt non-auto w/o micrscp Lamin Maier DO Work Phone: Start: 01-11-2018 End: 01-11-2018 [...] Td Vaccines (8 - Td or Tdap) [facility] Start: 11-11-2027 Tetanus vaccination TETANUS EVERY 10 YR [facility] Start: 07-21-2024 Adult BMI Screening Adult BMI Screen ing [facility] Start: 07-21-2024 Tobacco Screening Tobacco Screening [facility] Start: 07-21-2024 End: 07-21-2024 US MFM with or without consult US MFM with or without consult Imaging Routine History of placental abruption History of prior with IUGR Expected: 07/21/2024 (Approximate), Expires: [facility]: Comment on above: Expected: 07/21/2024 (Approximate), Expires: 07/21/2024 Start: 09-08-2023 End: 09-08-2023 Patient encounter procedure 09/08/2023 10:45 AM EDT Office Visit [facility] [address] [place] [address] Sandra Conti MD [address] [place] [address] [facility] Start: 08-26-2023 End: 08-26-2023 Patient encounter procedure [facility] [place] Start: 07-06-2023 End: 07-06-2023 Patient encounter procedure 07/06/2023 1:40 PM EDT Routine [facility] [address] [place] [address] Lamin Maier DO [address] [place] [address] [facility] Start: 12-24-2022 COVID-19 Vaccine (3 - 2023-24 season) COVID-19 Vaccine ( season) [facility] Start: 12-24-2022 Influenza vaccination [facility] Start: 04-14-2020 Screening for malign ant neoplasm of cervix PAP SMEAR [facility] Start: 12-24-2017 Influenza vaccination [facility] Start: 11-24-2017 End: 11-24-2017 Ambulatory 11/24/2017 Routine Obstetrics and Gynecology Delphine Lovelace MD [address] [facility] [address] [place] [address] [phone] [facility] Start: 11-11-2017 End: 11-11-2017 Ambulatory 11/11/2017 Appointment Maternal and Medicine [facility] Start: 09-28-2017 End: 09-28-2017 Ambulatory 09/28/2017 Routine Obstetrics and Gynecology Delphine Lovelace MD [address] [facility] [address] [place] [address] [phone] [facility] [facility]: [facility]2016 Influenza vaccination SEQUENTI AL INFLUENZA VACCINE (#1) [facility] Work Phone: Start: 2014 Screening for malign ant neoplasm of cervix Pap Smear [facility] Start: 2005 Depression Screening Depression [facility] Start: 2004 Vaccination for shira n papillomavirus [facility] Work Phone: Start: 1993 Screening for malign ant neoplasm of cervix PAP SMEAR [facility] Work Phone: Start: 1993 Tetanus vaccination TETANUS EVERY 10 YR [facility] Work Phone: Tissue Aerobic Culture Tissue Ae robic Culture Routine 01/11/2018 11:49 PM EDT [facility] Tissue Anaerobic Culture Tissue Anaerobic Culture Routine 01/11/2018 11:49 PM EDT [facility] End: 01-11-2018 Tissue Exam Tissue Exam Routine Once for 1 Occurrences starting 01/11/2018 until 01/11/2018, 1 completed [facility] Comment on above: Once for 1 Occurrenc es starting 01/11/2018 until 01/11/2018, 1 completed Tissue Exam Tissue Exam Rout ine 01/11/2018 9:39 PM EDT [facility] Immunizations Immunization Date Immunization Notes Care Provider Brittani adame 01-12-2018 influenza, injectabl e, quadrivalent, preservative free; Translations: [INFLUENZA IIV4 3YO OR > FLUARIX/FLUZONE/AFLURIA 17191] Delphine [facility] 01-12-2018 measles, mumps and rubella virus vaccine; Translations: [MMR] Delphine [facility] 01-12-2018 influenza virus vacc ine, unspecified formulation Lamin Maier DO Work Phone: [facility] 11-10-2017 tetanus toxoid, redu luz diphtheria toxoid, and acellular pertussis vaccine, adsorbed; Translations: [TDAP] Denzel Hoang [facility] Payers Date Payer Category Payer Unknown [id number] 2017 Unknown [id number] 2013 Unknown [id number] 2. [id number] 1993 Unknown [id number] 2.16.84 [id number] 1993 Unknown [id number] 2.16.84 0.1.444070.3.579.2.593 1993 Unknown [id number] 2.16.84 0.1.492500.3.579.2.1259 1993 Unknown [id number] 2.16.84 0.1.742440.3.579.2.1259 1993 Unknown [id number] 2.16.84 0.1.947956.3.579.2.1259 1993 Unknown [id number] 2.16.84 0.1.786520.3.579.2.1259 1993 Unknown [id number] 2.16.84 0.1.701859.3.579.2.1259 1993 Unknown [id number] 2.16.84 0.1.302780.3.579.2.1259 1993 Unknown [id number] 2.16.84 0.1.304028.3.579.2.9 1993 Unknown [id number] 2.16.84 0.1.440429.3.579.2.9 1993 Unknown [id number] 2.16.84 [id number] 1959 Unknown [id number] Social History Date Type Detail Facility Start: 05-13-2017 End: 07-11-2023 Tobacco smoking status [facility] Never smoker [facility] Start: 1995 Sex Assigned At Not on file [facility] Work Phone: Start: 05-10-2017 [facility] Start: 10-26-2022 End: 07-11-2023 Tobacco use and exposure Smokeless tobacco non-user [facility] Start: 06-08-2023 Alcohol intake Lifetime non-d kenia (finding) [facility] Start: 10-29-2022 End: 07-22-2023 History of Social function [facility] Start: 10-29-2022 End: 07-22-2023 Tobacco use panel [facility] Start: 10-26-2022 Alcohol Comment caffeine: 2-3 cups per day, soda/pop [facility] Start: 07-22-2023 Alcohol intake Ex-drinker (finding) [facility] Within the past 12 months we worried whether our food would run out before we got money to buy more. Never True [facility] History of Present illness Narrative 07-22-2023 Peggy [...] no Have you been seen here at [facility] in a previous ? yes Recent ER visits or hospitalizations? no Bring blood sugar log or meter with you today? (Please bring them with you for every visit at [facility]) n/a Traveled outside the country in [...] rasopathy. She has been followed by a die maker stamping at [facility] in [place] [facility] [place]. However they has not been seen since [...] on file Physical Exam: Vital Signs Vitals: 03/29/24 1233 BP: 104/61 BP Site: Left Arm [...] gene. She has been followed by a die maker stamping at [facility] in [place]. However they has not been seen since [...] recommended that she reaches out to her content developer and follows at [facility] for her daughter and have her [...] echocardiogram to be completed at a follow-up [facility] visit. Reviewed aneuploidy testing that could be [...] growth ultrasound through OB office or through M testing to be initiated at 32 weeks [...] Rene Wright MD, FACOG (she/hers) Maternal- Medicine [facility] [address] 1[address] [place] [address] [facility], the CDC, and other organizations representing maternal and public health professionals recommend that , , and lactating people and those considering receive the COVID-19 vaccination. Vaccination is the best method to reduce maternal and complications of SARS-CoV-2 infection. This document was created with [employer] technology. Though I make every effort to review the dictation as it is transcribed, on occasion the spoken word can be misinterpreted by the technology leading to inappropriate words, phrases, or sentences. This note is addressed to the requesting provider as a consultation for clinical guidance. Specific medical abbreviations are occasionally used and those are generally approved by the [place]?Board of?Obstetrics and?Gynecology?as well as?Jenn william abbreviations. The above plan of care was based solely on the diagnoses for which a consultation was requested. ?More frequent testing may be indicated based on her other medical/obstetrical conditions. The management of other or medical conditions is beyond the scope of requested consultation and will continue to be followed by the primary analyst food and beverage or primary care provider. Note to patient: The 21st Century Cures Act makes medical notes like [...] of the practitioner. documented in this encounter [facility] History of Present illness Narrative 06-08-2023 Monika Oh, WATCH DIAL STONER - 06/08/2023 1:40 PM EST Note Date & Type Note Facility 06-08-2023 History of Presen t illness Narrative Reason for Appointment: Patient ID: Yovanny Donovan is a 27 y.o. female who presents for Routine Visit Patient presents today for Return OB appointment. Current Medications: has a current medication list which includes the following prescription(s): ondansetron odt and [id number]. Medical History: Active Ambulatory Problems Diagnosis Date [...] nursing note reviewed. Exam conducted with a wafer polishing lead worker present. Vitals: Estimated body mass index is [...] or undercooked meat, and stay away from [facility]. Patient has been consulted regarding any further do's and don'ts of . Patient voiced understanding and all questions and concerns were answered. Pt to be referred to [facility] for level II ultrasound. Discussed NST/BPP and growth ultrasound d/t h/o placenta abruption and IUGR. Pt to have repeat section. Follow Up: Patient is to return in 4 weeks for routine OB appointment. Documented by Monika Oh LPN on behalf of: Lamin Maier DO documented in this encounter [facility] Evaluation note Note Date & Type Note Facility Evaluation note Diagnosis Second trimester state, incidental History of placental abruption documented in this encounter [facility] Evaluation note Note Date & Type Note Facility Evaluation note Diagnosis 20 weeks gestation of - Primary History of placental abruption History of prior with IUGR Hx of section Family history of genetic disease Family history of other condition documented in this encounter [facility] Instructions Attachments Note Date & Type Note Facility Instructions The following attachments cannot be sent through Care Everywhere.Preeclampsia (French)documented in this encounter [facility] Assessments [...] Log into your personal health record on https://[employer]Telerivet and enter Y392 in the Education box to learn more about [employer]: Care Instructions. Current as of: September 19, 2015 Content Version: 11.2 8287-7630 [employer]. Care instructions adapted under license by your healthcare professional. If you have questions about a medical condition or this instruction, always ask your healthcare professional. [employer] disclaims any warranty or liability for your [...] Rene Wright MD [address], [address] [place] [id number] [facility]aternal [facility] [address] [place] [address] Referral ID Status Reason Start Date Expiration Date V isits Requested Visits Authorized [id number] Pending Review 07/22/2023 07/21/2024 1 1 Additional Source Comments INFORMATION SOURCE (unrecogn ized section and content) DATE CREATED AUTHOR 10/18/2017 [facility] DATE CREATED AUTHOR AUTHOR'S ORGANIZ ATION 02/12/2018 [facility] DATE CREATED AUTHOR AUTHOR'S ORGANIZ ATION 09/06/2022 [facility] DATE CREATED AUTHOR AUTHOR'S ORGANIZ ATION 10/26/[address] [facility] dical Specialists Natalie Rose MD - [...] and content) Associated Order(s): IP CONSULT TO [employer] DISTRICT LAW CLERK Request for consult received, will contact mother [...] lb 14.9 oz Gestational age:37w1d Delivery date/time: 01/11/184 Apgars: 6 7 Discharge Date: 01/13/2018 This [...] that baby is currently being transferred to [facility] from NICU, requests consult, informed her [...] Problems: Placental abruption SNOMED CT(R): PLACENTAL ABRUPTION Venus Baby Calos Hairston [[id number]] Delivery Anesthesia Method: Epidural Operative Delivery Forceps attempted?: No Vacuum extractor attempted?: No Shoulder Dystocia Shoulder dystocia present: No [place] Presentation Presentation: Vertex Position: Middle _: Occiput _: Anterior [place] Information date/time: 01/11/182113 Gender: Male Delivery type: Vaginal, Spontaneous Delivery Delivery location: OB Unit ?: No Details: Delivery Providers Delivering clinician: Anahy Sarah MD Other personnel: Provider Role Covering Attending [employer] Sales Executive Leyla Alves, operators teacher Nurse Stephanie Curran, RN Registered Nurse Karlie Shah, operators teacher Assist Nurse Practitioner Cord Vessels: 3 vessels [...] BE BASED ON THE PRIMARY CLINICAL RECORDS. [facility] [employer] [facility]. provides no warranty or guarantee of the accuracy or completeness of information in this document.
== END 2023-10-31 10:56 | disposition home or self-care (01) ==
LOC: NOMS 10:55
PROVIDERS: PCP Nurse Practitioner Family; Visit Provider Obstetrics & Gynecology
DX: Z87.59 Personal history of other complications of pregnancy, childbirth and the puerperium (principal); O09.293 Supervision of pregnancy with other poor reproductive or obstetric history, third trimester; Z3A.36 36 weeks gestation of pregnancy
CPT/HCPCS: 76816

== ENCOUNTER 2023-11-02 07:15 | Outpatient (OUT) | payer BC, SELFPAY ==
--- NOTE | 2023-11-02 | US_ITS ---
[address] [address] Patient Name: MAURICIO MENDES MRN: [id number] date: 1995 Sex: F Assigned Patient Location: [facility] Current Patient Location: [facility] Accession/Order Number: [id number] Exam Date: 11/02/2023 09:50 Report Date: 11/02/2023 10:32 At the request of: JANIE CARABALLO Procedure: US OB BPP w non-stress EXAMINATION: US OB BPP w non-stress HISTORY: History of placental abruption O09.293 COMPARISON: No relevant comparison available. TECHNIQUE: Ultrasound biophysical profile was performed in the radiology department. non-reactive stress testing was performed by nursing staff in the birthing center. FINDINGS: BREATHING MOVEMENTS: 2 GROSS BODY MOVEMENTS: 2 TONE: 2 QUALITATIVE AMNIOTIC FLUID VOLUME: 2 PRESENTATION: CEPHALIC HEART RATE: 137.06 bpm AMNIOTIC FLUID VOLUME: 15.9 cm GESTATIONAL AGE: 35 weeks 2 days US/US OB BPP w non-stress IMPRESSION: Total biophysical profile score: 8 Electronically authenticated by: COREY SAMUEL Date: 11/02/2023 10:32
[2023-11-02 10:37] VITALS: BP 115/59; PULSE 88
== END 2023-11-02 10:45 | disposition home or self-care (01) ==
LOC: US 07:15 → FBC 09:48
PROVIDERS: PCP Nurse Practitioner Family; Visit Provider Obstetrics & Gynecology
DX: O09.293 Supervision of pregnancy with other poor reproductive or obstetric history, third trimester (principal); Z3A.35 35 weeks gestation of pregnancy
CPT/HCPCS: 76818

== ENCOUNTER 2023-11-02 09:07 | Outpatient (OUT) | payer BC, SELFPAY ==
--- NOTE | 2023-11-02 09:06 | CA_ITS ---
Patient Name: MAURICIO MENDES MR#: [id number] : 1995 Exam Date: 11/02/2023 Ordering Doctor: DR Lamin Maier . ECHOCARDIOGRAM REPORT PROCEDURE: CA ECHO DOPPLER COMPLETE INDICATIONS: SOB, Racing heartbeat, Near syncope COMPARISON: None. DESCRIPTION: COMPLETE ECHOCARDIOGRAM Real-time transthoracic echocardiography with 2D, M-mode, spectral and color flow Doppler performed. QUALITY: Technical quality was good. LEFT VENTRICLE: Normal chamber size. Normal left ventricular wall thickness. LV EF: Global left ventricular systolic function is normal; visually estimated ejection fraction 60-65%. No wall motion abnormalities. DIASTOLIC: Normal diastolic function. ATRIAL SEPTUM: Inadequately seen. LEFT ATRIUM: Normal chamber size. RIGHT ATRIUM: Normal chamber size. RIGHT VENTRICLE: Normal chamber size. Normal right ventricular systolic function. TRICUSPID VALVE: Normal mobility and thickness. No stenosis with trivial regurgitation. No evidence of pulmonary hypertension. RVSP 18mmHg MITRAL VALVE: Normal mobility and thickness. No evidence of mitral valve stenosis. There is no mitral annular calcification. Trivial mitral regurgitation. AORTIC VALVE: Normal trileaflet appearance. No visible sclerosis. Normal leaflet mobility. No evidence of aortic valve stenosis. No aortic regurgitation. AORTIC ROOT: Normal diameter and appearance. PULMONIC VALVE: Normal thickness and mobility. No stenosis. Mild regurgitation. PERICARDIUM: No evidence of pericardial effusion. IVC: Collapses with inspirations. Normal size. CONCLUSION: 1. Global left ventricular systolic function is normal; visually estimated ejection fraction is 60 to 65% 2. Normal diastolic function 3. Right ventricle is normal in size and systolic function 4. Mild pulmonic regurgitation Adult Echocardiography Procedure Report Left Ventricle LVEDD (3.7 - 5.6 cm): 3.97 cm LVESD (2.2 - 4.0 cm): 2.83 cm LVIVS thickness (0.6 - 1.2 cm): 1.09 cm LVPW thickness (0.5 - 1.0 cm): 0.94 cm e': 0.16 m/s E - e': 3.35 LVOT Max Gradient: 3.40 mm[Hg] LVOT Area (cm2): 0.92 m/s Peak Velocity (LVOT): 0.92 m/s Mean Velocity (LVOT): 0.69 m/s LVOT Diameter 1.84 cm Left Ventricular Ejection Fraction: 71.78 % Left Atrium LA Volume Index (2D A2C): 26.47 ml/m2 Left Atrium Systolic Dimension: 3.01 cm Mitral Valve MV E to A Ratio: 1.26 Mitral Valve A-Wave Peak Velocity: 0.42 m/s Mitral Valve E-Wave Peak Velocity: 0.54 m/s Right Ventricle RV Internal Diastolic Dimension: 2.78 cm Aorta AO Root Diam: 2.66 cm Ascending Ao Diam: 2.55 cm Aortic Valve AoV Area (Peak Lior): 2.06 cm2, 2.06 cm2 AoV Area (VTI): 1.99 cm2, 2.03 cm2 Peak Velocity(Antegrade Flow): 1.19 m/s, 1.19 m/s, 1.19 m/s Peak Gradient(Antegrade Flow): 5.64 mm[Hg], 5.64 mm[Hg], 5.64 mm[Hg] Mean Velocity(Antegrade Flow): 0.79 m/s, 0.85 m/s, 0.84 m/s Mean Gradient(Antegrade Flow): 2.89 mm[Hg], 3.24 mm[Hg], 3.17 mm[Hg] Velocity Time Integral: 18.45 cm, 18.51 cm, 19.67 cm Tricuspid Valve Peak Velocity (Regurgitant Flow): 1.55 m/s, 1.39 m/s, 1.92 m/s Pulmonic Valve Mean Gradient: 2.60 mm[Hg], 2.10 mm[Hg] Mean Velocity: 0.76 m/s, 0.69 m/s Peak Velocity: 0.95 m/s, 1.06 m/s Peak Gradient: 3.97 mm[Hg], 3.26 mm[Hg], 4.50 mm[Hg] Right Atrium Right Atrium Systolic Pressure: 27.75 ml, 27.75 ml Dictated by: Howard Meier M.D. on 11/02/2023 at 10:55 Approved by: Howard Meier M.D. on 11/02/2023 at 10:58
== END 2023-11-02 09:08 | disposition home or self-care (01) ==
LOC: CARD 09:08
PROVIDERS: PCP Nurse Practitioner Family; Visit Provider Obstetrics & Gynecology
DX: O09.293 Supervision of pregnancy with other poor reproductive or obstetric history, third trimester (principal); Z3A.35 35 weeks gestation of pregnancy; O26.893 Other specified pregnancy related conditions, third trimester; R06.02 Shortness of breath; R00.0 Tachycardia, unspecified; R55 Syncope and collapse
CPT/HCPCS: 76818; 93306

== ENCOUNTER 2023-11-05 08:10 | Outpatient (OUT) | payer BC, SELFPAY ==
[2023-11-05 10:07] VITALS: BP 117/69; PULSE 100
== END 2023-11-05 10:50 | disposition home or self-care (01) ==
LOC: FBCO 08:18 → FBC 10:04
PROVIDERS: PCP Nurse Practitioner Family; Visit Provider Obstetrics & Gynecology
DX: O36.5930 Maternal care for other known or suspected poor fetal growth, third trimester, not applicable or unspecified (principal); Z3A.35 35 weeks gestation of pregnancy
CPT/HCPCS: 59025

== ENCOUNTER 2023-11-08 07:12 | Outpatient (OUT) | payer BC, SELFPAY ==
--- OUTSIDE RECORDS SUMMARY | 2023-11-08 07:14 | XMS_ITS | CCD ---
Author Organization [facility] Care Team Providers Care Campus Receptionist Name Role Phone No, Physician Unavailable Unavailable ANNA CALLAHAN Unavailable Unavailab le NO, PHYSICIAN Unavailable Unavailable Delphine Lovelace Unavailable [phone] DELPHINE LOVELACE Unavailable Unavail able DELPHINE LOVELACEINE [...] Unavailable Unavail able NO, PHYSICIAN Unavailable Unavailable DELPHINE LOVELACE ISLAS Unavailable Unavail able NO, PHYSICIAN Unavailable Unavailable NATALIE EMANUEL Unavailable Unavailable [place] [facility], GENERIC U navailable Unavailable [...] needed for nausea or vomiting. 0 Active Ymndfrrz-Chx-Ya-FA ( 1 + IRON PO) (2 sources) [...] mumps virus vaccine live, yogi evans strain 36101 unt/ml / rubella virus vaccine live (wistar [...] mL 0.5 ml varicella-zoster virus vaccine live (Dexetraa-OY LX Therapies) strain 2700 unt/ml injection (1 source) Start: [...] UA Negative Negative - 4(70) +++ mg/dL [facility] Blood, UA Negative Negative - 50 Willam/mcL [facility] Clarity, UA Clear [facility], UA Yellow [facility] Healthcar e Glucose, UA Negative Negative - 1999(110) ++++ mg/dL [facility] Interpretation and review of laboratory results Abnormal [facility] Ketones, UA Negative Negative - 160(16) ++++ mg/dL [facility] Leukocytes, UA Negative Negative - 500+++ Sandy/mcL [facility] Nitrite, UA Negative Negative - Positive [facility] pH, UA 7.5 5 - 9 [facility] e Protein, UA Positive Negative - 1999(20) ++++ mg/dL [facility] Spec Grav, UA 1.025 1 - 1.03 [facility] Urobilinogen, UA 0.2 0.2 - 12 mg/dL [facility] ([facility])on 09-24 SARS-CoV-2 (COVID-19) RNA SANDRA+probe Ql (Unsp spec) Not detected Normal NOT DETECTED [facility] Comment on above: Result Comment: When [...] for this test is supported by the Founder And President of Health and Human Service's declaration that [...] longer be used). Performed By: #### C [facility] #### [facility] [address] [place] [address] Dr. Kaveh Wilks Tissue Aerobic Cultureon Bacteria identified Aer cx Nom (Tiss) Few Growth (4-10 colonies per plate) Coagulase Negative Staphylococcus Abnormal [facility] Interpretation and review of laboratory results Abnormal Invalid Interpretation Code [facility] Microscopic observation Gram stain Nom (Tiss) Many WBC Invalid Interpretation Code [facility] Microscopic observation Gram stain Nom (Tiss) Many RBC Invalid Interpretation Code [facility] Microscopic observation Gram stain Nom (Tiss) No Organisms Seen Invalid Interpretation Code [facility] Antibody Identificationon Blood group antibodies identified Nom Anti-Rhogam Invalid Interpretation Code [facility] The anti-D detected in this patient is presumably caused by a recent Rh Immune Globulin injection.It is unlikely that this represents a clinically significant antibody. Invalid Interpretation Code [facility] RhIG Evaluationon 01-11-2018 Rh immune globulin candidate (yes/no) Ql RhIG Candidacy Invalid Interpretation Code [facility] Baby is Rho(D) negative. Patient is NOT a candidate for Rh Immune Globulin. Invalid Interpretation Code [facility] Syphilis Antibodyon 01-12-20 18 Interpretation and review of laboratory results Normal Invalid Interpretation Code [facility] T. pallidum Ab Ql (S) Negative Invalid Interpretation Code Negative [facility] Type and Screenon 01-11-2018 ABO and Rh group Nom (Bld) Negative Invalid Interpretation Code [facility] Blood group antibody screen Ql Positive Invalid Interpretation Code [facility] Specimen Expires 01/13/2018 23:59 EST Invalid Interpretation Code [facility] APTTon 01-10-2018 aPTT Coag time (Bld) Therapeutic range for APTT's is 68 - 104 seconds Invalid Interpretation Code [facility] aPTT Coag time (Bld) 25 s Invalid Interpretation Code [facility] CBCon 01-10-2018 Erythrocyte distribution width Auto Entitic volume (RBC) 14.0 % Invalid Interpretation Code 11.6 - 14.8 % [facility] Hematocrit Auto Volume Fraction (Bld) 33.9 % Low 36 - 46 % [facility] Hemoglobin mass conc (Bld) 11.8 g/dL Low 12 - 16 g/dL [facility] Interpretation and review of laboratory results Abnormal Invalid Interpretation Code [facility] MCH Auto Entitic mass (RBC) 31.7 pg Invalid Interpretation Code 26 - 34 pg [facility] MCHC Auto mass conc (RBC) 34.8 g/dL Invalid Interpretation Code 31 - 37 g/dL [facility] MCV Auto Entitic volume (RBC) 91.1 fL Invalid Interpretation Code 80 - 100 fL [facility] Nucleated RBC #/vol (Bld) 0.00 10*3/uL Invalid Interpretation Code [facility] Nucleated RBC/100 WBC Ratio (Bld) 0.0 % Invalid Interpretation Code [facility] Platelet mean volume Auto Entitic volume (Bld) 12.1 fL Invalid Interpretation Code 9 - 15.5 fL [facility] Platelets Auto #/vol (Bld) 159 10*3/uL Invalid Interpretation Code [facility] RBC Auto #/vol (Bld) 3.72 10*6/uL Low [place] [facility] WBC Auto #/vol (Bld) 16.00 10*3/uL High R [facility] Fibrinogenon 01-10-2018 Fibrinogen Coag mass conc (PPP) 547 mg/dL High 224 - 483 mg/dL [facility] Interpretation and review of laboratory results Abnormal Invalid Interpretation Code [facility] Otheron 01-10-2018 Interpretation and review of laboratory results Normal Invalid Interpretation Code [facility] PT/INRon 01-10-2018 INR Coag RelTime (Bld) During the induction phase of oral anticoagulation, the INR may not reflect the anticoagulation status of the patient. Therapeutic ranges for INR's are: Most clinical situations: INR 2.0-3.0 Mechanical Prosthetic Valve: INR 2.5-3.5 Critical: INR >5.0 Invalid Interpretation Code [facility] INR Coag RelTime (PPP) 0.9 {INR} Invalid Interpretation Code [facility] Prothrombin time (PT) Coag time (PPP) 12.2 s Invalid Interpretation Code [facility] US OB FOLLOW UP TRANSABDOMIN AL SINGLE FETUSon 11-11-2017 US OB FOLLOW UP TRANSABDOMINAL SINGLE FETUS OBSTETRICS REPORT (Signed Final 11/11/2017 04:43 pm) Patient Info ID #: [id number] : [birth year] (22 yrs) Name: YOVANNY CAMARILLO Visit Date: 11/11/2017 10:50 am Performed By Performed By: Bianca Reynoso Referred By: Delphine Lovelace RDHI Attending: Uziel Hanson, Location: [place] Service(s) [place] [address] [place] [address] Indications Zika virus exposure affecting O99.89 28 [...] our ultrasound office is accredited by [employer] ([employer]). If you would like to discuss the results of your patient's tests or would like a Maternal- Medicine Consultation to assist you with her management, please do not hesitate to contact us at [phone]. Uziel Hanson MD, [facility] Electronically Signed Final Report 11/11/2017 04:43 pm Invalid Interpretation Code [facility] US OB FOLLOW UP TRANSABDOMINAL SINGLE FETUS Interface, Rad In Stan Speechq - 11/11/2017 4:44 PM EDT OBSTETRICS REPORT (Signed Final 11/11/2017 04:43 pm) Patient Info ID #: [id number] : [birth year] (22 yrs) Name: YOVANNY CAMARILLO Visit Date: 11/11/2017 10:50 am Performed By Performed By: Bianca Reynoso Referred By: Delphine Lovelace RDMS, MD Attending: Uziel Hanson, Location: [facility] Kn[facility] Service(s) [place] [address] [place] [address] Indications Zika virus exposure affecting O99.89 28 [...] our ultrasound office is accredited by [employer] ([employer]). If you would like to discuss the results of your patient's tests or would like a Maternal- Medicine Consultation to assist you with her management, please do not hesitate to contact us at [phone]. Uziel Hanson MD, [facility] Electronically Signed Final Report 11/11/2017 04:43 pm Invalid Interpretation Code [facility] US Obstetric Detail An atomy Transabdominal Single Fetuson 09-23-2017 US Obstetric Detail Anatomy Transabdominal Single Fetus OBSTETRICS REPORT (Signed Final 09/23/2017 03:50 pm) Patient Info ID #: [id number] : [birth year] (22 yrs) Name: YOVANNY Delgado SERG Visit Date: 09/23/2017 01:47 pm Performed By Performed By: Charan Mart Referred By: Delphine Lovelace RDMS, MD Attending: Debbie Recio MD Location: [facility] Service(s) Provided Targeted OB + Transvaginal [id number] Indications 21 weeks gestation of Z3A.21 Zika [...] Visualized 4 Chamber View: Normal appearance Cardiac Ratcliff: Normal Cardiac Motion: Visualized Diaphragm: Normal appearance [...] understanding. Impression Thank you for referring Yovanny aCmarillo for anatomic survey in the setting of [...] our ultrasound office is accredited by [employer] (AIUM). If you would like to discuss the results of your patient's tests or would like a Maternal- Medicine Consultation to assist you with her management, please do not hesitate to contact us at [phone]. Debbie Recio MD Electronically Signed Final Report 09/23/2017 03:50 pm Invalid Interpretation Code CHARAN MART RDMS US Obstetric Detail Anatomy Transabdominal Single Fetus Interface, Rad In Fuji Speechq - 09/23/2017 3:51 PM EDT OBSTETRICS REPORT (Signed Final 09/23/2017 03:50 pm) Patient Info ID #: [id number] : [birth year] (22 yrs) Name: YOVANNY CAMARILLO Visit Date: 09/23/2017 01:47 pm Performed By Performed By: Charan Mart Referred By: Delphine Lovelace RDMS, MD Attending: Debbie Recio MD Location: [facility] Service(s) Provided Targeted OB + Transvaginal [id number] Indications 21 weeks gestation of Z3A.21 Zika [...] Visualized 4 Chamber View: Normal appearance Cardiac Ratcliff: Normal Cardiac Motion: Visualized Diaphragm: Normal appearance [...] our ultrasound office is accredited by [employer] (AIUM). If you would like to discuss the results of your patient's tests or would like a Maternal- Medicine Consultation to assist you with her management, please do not hesitate to contact us at [phone]. Debbie Recio MD Electronically Signed Final Report 09/23/2017 03:50 pm Invalid Interpretation Code CHARAN DINORA BARRON [facility] CBC Auto Differentialon 03-0 Basophils 0.03 K/mcL Invalid Interpretation Code 0.00 - 0.30 [facility] Basophils/100 leukocytes 0.3 % Invalid Interpretation Code [facility] Eosinophils 0.07 K/mcL Invalid Interpretation Code 0.00 - 0.50 [facility] Eosinophils/100 leukocytes 0.6 % Invalid Interpretation Code [facility] Erythrocytes (RBC) 4.12 M/mcL Invalid Interpretation Code 4.00 - 5.20 [facility] Erythrocytes (RBC) 0.00 K/mcL Invalid Interpretation Code 0.00 - 0.00 [facility] Hematocrit (HCT) 36.8 % Invalid Interpretation Code 36 - 46 % [facility] Hemoglobin (HGB) 12.5 g/dL Invalid Interpretation Code 12 - 16 g/dL [facility] IG Absolute 0.02 K/mcL Invalid Interpretation Code 0.00 - 0.30 [facility] IG Percent 0.20 % Invalid Interpretation Code [facility] Interpretation and review of laboratory results Abnormal Invalid Interpretation Code [facility] Lymphocytes 2.42 K/mcL Invalid Interpretation Code 0.90 - 4.00 [facility] Lymphocytes/100 leukocytes 22.2 % Invalid Interpretation Code [facility] MCH 30.3 pg Invalid Interpretation Code 26 - 34 pg [facility] MCHC 34.0 g/dL Invalid Interpretation Code 31 - 37 g/dL [facility] MCV 89.3 fL Invalid Interpretation Code 80 - 100 fL [facility] Monocytes 0.67 K/mcL Invalid Interpretation Code 0.30 - 0.90 [facility] Monocytes/100 leukocytes 6.1 % Invalid Interpretation Code [facility] Neutrophils 7.69 K/mcL High 1.70 - 7.00 [facility] Neutrophils/100 leukocytes 70.6 % Invalid Interpretation Code [facility] Nucleated erythrocytes/100 erythrocytes 0.0 % Invalid Interpretation Code [facility] Platelet mean volume (PMV) 11.2 fL Invalid Interpretation Code 9 - 15.5 fL [facility] Platelets 285 K/mcL Invalid Interpretation Code 150 - 400 [facility] RDW-CA 12.8 % Invalid Interpretation Code 11.6 - 14.8 % [facility] WBC (Leukocytes) 10.90 K/mcL Invalid Interpretation Code 4.50 - 11.00 [facility] CBC and Differentialon 06-30 Creatinine The following orders were created for panel order CBC and Differential. Procedure Abnormality Status --------- ------ CBC Auto Differential[[id number]] Abnormal Final result Please view results for these tests on the individual orders. Invalid Interpretation Code [facility] HIV 1/2 Screen (4th Generati on)on 06-30-2017 HIV 1+2 antibody presence Negative Invalid Interpretation Code Negative [facility] Interpretation and review of laboratory results Normal Invalid Interpretation Code [facility] HIV 1/2 Screen (4th Generation) This assay tests for the presence of HIV-1, HIV-2 antibodies and for the presence of HIV-1 antigen. Test performed using Ivana TR immunoassay system Invalid Interpretation Code [facility] Hepatitis B Surface Antigeno n 06-30-2017 Hepatitis B Surface Ag Negative Invalid Interpretation Code Negative [facility] Hepatitis B Surface Antigen Test performed using Ivana TR immunoassay system Invalid Interpretation Code [facility] RPRon 06-30-2017 Reagin antibody presence Non-Reactive Invalid Interpretation Code Non-Reactive [facility] Rubella Antibody, IgGon Rubella IgG Non-Immune Invalid Interpretation Code [facility] Rubella IgG Value 5.87 IU/mL Invalid Interpretation Code [facility] Type and Screenon 06-30-2017 ABO+Rh group Negative Invalid Interpretation Code [facility] Blood group antibody presence Negative Invalid Interpretation Code [facility] Specimen Expires 07/03/2017 23:59 EST Invalid Interpretation Code [facility] Urine Aerobic Cultureon Bacteria aerobode culture Three or more colony types; >10,000 CFU/mL mixture of normal urogenital microbiota. None predominant. Possible contamination. Suggest repeat if clinically indicated. Invalid Interpretation Code [facility] Vital Signs Date Time Vital Sign Value Performing Clinician Facility 07-22-2023 12:33-0400 Body height 167.6 cm Rene Wright MD Work Phone: [facility] 07-22-2023 12:33-0400 Body mass index (BMI) [Ratio] 21.08 kg/m2 Rene Wright MD Work Phone: [facility] 07-22-2023 12:33-0400 Body weight 59.24 kg Rene Wright MD Work Phone: [facility] 07-22-2023 12:33-0400 Diastolic blood pressure 61 mm[Hg] Rene Wright MD Work Phone: [facility] 07-22-2023 12:33-0400 Heart rate 78 /min Rene Wright MD Work Phone: [facility] 07-22-2023 12:33-0400 Systolic blood pressure 104 mm[Hg] Rene Wright MD Work Phone: [facility] 06-08-2023 13:47-0500 Body mass index (BMI) [Ratio] 20.24 kg/m2 Lamin Livier DO Work Phone: [facility] 06-08-2023 13:47-0500 Body weight 56.88 kg Lamin Livier DO Work Phone: [facility] 06-08-2023 13:47-0500 Diastolic blood pressure 60 mm[Hg] Lamin Livier DO Work Phone: [facility] 06-08-2023 13:47-0500 Systolic blood pressure 104 mm[Hg] Lamin Braswello DO Work Phone: [facility] 01-13-2018 09:42-0400 Pulse (Heart Rate) 90 /min Delphine Lovelace [facility] 01-13-2018 09:42-0400 Pulse Oximetry 98 % Delphine Lovelace [facility] 01-13-2018 09:31-0400 Body Temperature 98.2 [degF] Delphine [facility] 01-13-2018 09:31-0400 BP Diastolic 75 mm[Hg] Delphine [facility] 01-13-2018 09:31-0400 BP Systolic 109 mm[Hg] Delphine [facility] 01-13-2018 09:31-0400 Respiratory Rate 16 /min Delphine [facility] 05-13-2017 11:47-0500 BMI (Body Mass Index) 22.6 kg/m2 Anna Callahan [facility] Work Phone: 05-13-2017 11:47-0500 Body Temperature 98.4 [degF] Anna Callahan [facility] Work Phone: 05-13-2017 11:47-0500 BP Diastolic 78 mm[Hg] Anna Callahan [facility] Work Phone: 05-13-2017 11:47-0500 BP Systolic 112 mm[Hg] Anna Callahan [facility] Work Phone: 05-13-2017 11:47-0500 Height 167.6 cm Anna Callahan [facility] Work Phone: 05-13-2017 11:47-0500 Pulse (Heart Rate) 81 /min Anna Callahan [facility] Work Phone: 05-13-2017 11:47-0500 Pulse Oximetry 98 % Anna Callahan [facility] Work Phone: 05-13-2017 11:47-0500 Weight 63.5 kg Anna Callahan [facility] Work Phone: Encounters Encounter Date Encounter [...] Wright MD Work Phone: [facility]- [facility] at [facility] Comment on above: 20 weeks gestation o [...] Encounter for preprocedural laboratory examination TAWANNA CHESTER [facility] Start: 10-19-2021 End: 10-20-2021 ambulatory TAWANNA CHESTER Facility:[facility] Start: 10-19-2021 End: 10-20-2021 Encounter for preprocedural laboratory examination TAWANNA CHESTER Facility:[facility] Start: 01-11-2018 End: 01-13-2018 Evaluation and management of inpatient DELPHINE LOVELACE [facility] Start: 01-10-2018 End: 01-13-2018 Evaluation and management of inpatient Delphine Lovelace Work Phone: [facility] Mother/ Unit 5 Start: 11-11-2017 End: 11-12-2017 Patient encounter Denzel Hoang Work Phone: [facility] Maternal Medicine Start: 11-10-2017 End: 11-10-2017 Patient encounter ORVILLE GÓMEZ [facility] Start: 09-23-2017 End: 09-24-2017 Patient encounter COREY MARTIN [facility] Start: 09-23-2017 End: 09-23-2017 Ambulatory Delphine Islas Lovelace Work Phone: [facility] Maternal Medicine Start: 09-01-2017 End: 09-01-2017 Patient encounter [facility] Start: 08-01-2017 End: 08-01-2017 Ambulatory Delphine Lovelace Work Phone: [facility] [employer] Start: 07-04-2017 End: 07-04-2017 Patient encounter DELPHINE ISLAS [facility] Start: 06-30-2017 End: 06-30-2017 Ambulatory Delphine Lovelace Work Phone: [facility] [employer] Start: 05-13-2017 End: 05-13-2017 Ambulatory ANNA CALLAHAN [facility] Start: 05-13-2017 Office/outpatient jarrell garcia, level 2 Anna Callahan Work Phone: [facility] Nila/Jarrell Butt Start: 04-14-2017 End: 04-19-2017 Patient encounter DELPHINE [facility] Procedures Date Procedure Procedure Detail Performing [...] Phone: H/O: section Hx of sect ion Rnee Wright MD Work Phone: Plan of Treatment Date Care Activity Detail Author Start: 11-11-2027 DTaP,Tdap and Td Vac cines (8 - Td or Tdap) DTaP,Tdap and Td Vaccines (8 - Td or Tdap) [facility] Start: 11-11-2027 Tetanus vaccination TETANUS EVERY 10 YR [facility] Start: 07-21-2024 Adult BMI Screening Adult BMI Screen ing [facility] Start: 07-21-2024 Tobacco Screening Tobacco Screening [facility] Start: 07-21-2024 End: 07-21-2024 US MFM with or without consult US MFM with or without consult Imaging Routine History of placental abruption History of prior with IUGR Expected: 07/21/2024 (Approximate), [facility] Comment on above: Expected: 07/21/2024 (Approximate), Expires: 07/21/2024 Start: 09-08-2023 End: 09-08-2023 Patient encounter procedure 09/08/2023 10:45 AM EDT Office Visit [facility] [address] [place] [address] Sandra Conti MD [address] [place] [address] [facility] Start: 08-26-2023 End: 08-26-2023 Patient encounter procedure [facility] [place] Start: 07-06-2023 End: 07-06-2023 Patient encounter procedure 07/06/2023 1:40 PM EDT Routine [facility] [address] [place] [address] Lamin Maier DO [address] [place] [address] [facility] Start: 12-24-2022 COVID-19 Vaccine (3 - 2023-24 season) COVID-19 Vaccine ( season) [facility] Start: 12-24-2022 Influenza vaccination N [facility] Start: 04-14-2020 Screening for malign ant neoplasm of cervix PAP SMEAR [facility] Start: 12-24-2017 Influenza vaccination [facility] Start: 11-24-2017 End: 11-24-2017 Ambulatory 11/24/2017 Routine Obstetrics and Gynecology Delphine Lovelace MD [address] [facility] [address] [place] [address] [phone] [facility] Start: 11-11-2017 End: 11-11-2017 Ambulatory 11/11/2017 Appointment Maternal and Medicine [facility] Maternal Medicine Start: 09-28-2017 End: 09-28-2017 Ambulatory 09/28/2017 Routine Obstetrics and Gynecology [facility]ace [facility] [address] [place] [address] [phone] [facility] Start: 12-24-2016 Influenza vaccination SEQUENTI AL INFLUENZA VACCINE (#1) [facility] Work Phone: Start: 2014 Screening for malign ant neoplasm of cervix Pap Smear [facility] Start: 2005 Depression Screening Depression [facility] Start: 2004 Vaccination for shira n papillomavirus [facility] Work Phone: Start: 1993 Screening for malign ant neoplasm of cervix PAP SMEAR [facility] Work Phone: Start: 1993 Tetanus vaccination TETANUS EVERY 10 YR [facility] Work Phone: Tissue Aerobic Culture Tissue Ae robic Culture Routine 01/11/2018 11:49 PM EDT [facility] Tissue Anaerobic Culture Tissue Anaerobic Culture Routine 01/11/2018 11:49 PM EDT [facility] End: 01-11-2018 Tissue Exam Tissue Exam Routine Once for 1 Occurrences starting 01/11/2018 until 01/11/2018, 1 completed [facility] Comment on above: Once for 1 Occurrenc es starting 01/11/2018 until 01/11/2018, 1 completed Tissue Exam Tissue Exam Rout ine 01/11/2018 9:39 PM EDT [facility] Immunizations Immunization Date Immunization Notes Care Provider Brittani adame 01-12-2018 influenza, injectabl e, quadrivalent, preservative free; Translations: [INFLUENZA IIV4 3YO OR > FLUARIX/FLUZONE/AFLURIA 69539] Delphine [facility] 01-12-2018 measles, mumps and rubella virus vaccine; Translations: [MMR] Delphine [facility] 01-12-2018 influenza virus vacc ine, unspecified formulation Lamin Maier DO Work Phone: [facility] 11-10-2017 tetanus toxoid, redu luz diphtheria toxoid, and acellular pertussis vaccine, adsorbed; Translations: [TDAP] Denzel Hoang [facility] Payers Date Payer Category Payer Unknown [id number] 2017 Unknown [id number] 2013 Unknown [id number] 2. [id number] 1993 Unknown [id number] 2.16.84 0.1.972165.3.579.2.593 1993 Unknown [id number] 2.16.84 0.1.755357.3.579.2.593 1993 Unknown [id number] 2.16.84 0.1.116976.3.579.2.1259 1993 Unknown [id number] 2.16.84 0.1.203525.3.579.2.1259 1993 Unknown [id number] 2.16.84 0.1.897705.3.579.2.1259 1993 Unknown [id number] 2.16.84 0.1.680950.3.579.2.1259 1993 Unknown [id number] 2.16.84 0.1.016153.3.579.2.1259 1993 Unknown [id number] 2.16.84 0.1.440702.3.579.2.1259 1993 Unknown [id number] 2.16.84 0.1.442571.3.579.2.9 1993 Unknown [id number] 2.16.84 0.1.449842.3.579.2.9 1993 Unknown [id number] 2.16.84 0.1.529520.3.579.2.1259 1959 Unknown [id number] Social History Date Type Detail Facility Start: 05-13-2017 End: 07-11-2023 Tobacco smoking status [facility] Never smoker [facility] Start: 1995 Sex Assigned At Not on file [employer] Work Phone: Start: 05-10-2017 [facility] Start: 10-26-2022 End: 07-11-2023 Tobacco use and exposure Smokeless tobacco non-user [facility] Start: 06-08-2023 Alcohol intake Lifetime non-d kenia (finding) [facility] Start: 10-29-2022 End: 07-22-2023 History of Social function [facility] Start: 10-29-2022 End: 07-22-2023 Tobacco use panel [facility] Start: 10-26-2022 Alcohol Comment caffeine: [...] no Have you been seen here at [facility] in a previous ? yes Recent ER visits or hospitalizations? no Bring blood sugar log or meter with you today? (Please bring them with you for every visit at [facility]) n/a Traveled outside the country in [...] rasopathy. She has been followed by a bearing machine operator at [facility] in [facility]. However they has not been seen since [...] gene. She has been followed by a bearing machine operator at [facility] in [facility]. However they has not been seen since [...] recommended that she reaches out to her nanny/household manager and follows at [facility] for her daughter and have her other [...] echocardiogram to be completed at a follow-up [facility] visit. Reviewed aneuploidy testing that could [...] Rene Wright MD, FACOG (she/hers) Maternal- Medicine [facility] [address] [facility] [address] [place] [address] [facility], the CDC, and other organizations representing maternal and public health professionals recommend that , , and lactating people and those considering receive the COVID-19 vaccination. Vaccination is the best method to reduce maternal and complications of SARS-CoV-2 infection. This document was created with [employer] technology. Though I make every effort to review the dictation as it is transcribed, on occasion the spoken word can be misinterpreted by the technology leading to inappropriate words, phrases, or sentences. This note is addressed to the requesting provider as a consultation for clinical guidance. Specific medical abbreviations are occasionally used and those are generally approved by the [place]?Board of?Obstetrics and?Gynecology?as well as?eJnn william abbreviations. The above plan of care was based solely on the diagnoses for which a consultation was requested. ?More frequent testing may be indicated based on her other medical/obstetrical conditions. The management of other or medical conditions is beyond the scope of requested consultation and will continue to be followed by the primary strip cutting machine operator or primary care provider. Note to patient: [...] of the practitioner. documented in this encounter [facility] History of Present illness Narrative 06-08-2023 Monika Oh, TRAILER CHIEF - 06/08/2023 1:40 PM EST Note Date & Type Note Facility 06-08-2023 History of Presen t illness Narrative Reason for Appointment: Patient ID: Yovanny Donovan is a 27 y.o. female who presents for Routine Visit Patient presents today for Return OB appointment. Current Medications: has a current medication list which includes the following prescription(s): ondansetron odt and ecncqcwq-kaq-mg-fa. Medical History: Active Ambulatory Problems Diagnosis Date [...] nursing note reviewed. Exam conducted with a route relief driver present. Vitals: Estimated body mass index is [...] or undercooked meat, and stay away from [facility]. Patient has been consulted regarding any further do's and don'ts of . Patient voiced understanding and all questions and concerns were answered. Pt to be referred to [facility] for level II ultrasound. Discussed NST/BPP and growth ultrasound d/t h/o placenta abruption and IUGR. Pt to have repeat section. Follow Up: Patient is to return in 4 weeks for routine OB appointment. Documented by Monika Oh LPN on behalf of: Lamin Maier DO documented in this encounter [facility] Evaluation note Note Date & Type Note Facility Evaluation note Diagnosis Second trimester state, incidental History of placental abruption documented in this encounter [facility] Healthcare Evaluation note Note Date & Type Note Facility Evaluation note Diagnosis 20 weeks gestation of - Primary History of placental abruption History of prior with IUGR Hx of section Family history of genetic disease Family history of other condition documented in this encounter [facility] Instructions Attachments Note Date & Type Note Facility Instructions The following attachments cannot be sent through Care Everywhere.Preeclampsia (Guamanian)documented in this encounter [facility] Assessments [...] Log into your personal health record on [email or web address] and enter Y392 in the Education box to learn more about [place]: Care Instructions. Current as of: September 19, 2015 Content Version: 11.2 9516-5013 [employer]. Care instructions adapted under license by your healthcare professional. If you have questions about a medical condition or this instruction, always ask your healthcare professional. [employer] disclaims any warranty or liability for your [...] Rene Wright MD [address], [address] [place] [id number] [facility]aternal [facility] [address] [place] [address] Referral ID Status Reason Start Date Expiration Date V isits Requested Visits Authorized [id number] Pending Review 07/22/2023 07/21/2024 1 1 Additional Source Comments INFORMATION SOURCE (unrecogn ized section and content) DATE CREATED AUTHOR 10/18/2017 [facility] DATE CREATED AUTHOR AUTHOR'S ORGANIZ ATION 02/12/2018 [facility] DATE CREATED AUTHOR AUTHOR'S ORGANIZ ATION 09/06/2022 [facility] DATE CREATED AUTHOR AUTHOR'S ORGANIZ ATION 10/26/2023 [facility] Natalie Rose MD - 01/10/2018 [...] and content) Associated Order(s): IP CONSULT TO SEWAGE TREATMENT PLANT OPERATOR Request for consult received, will contact [...] that baby is currently being transferred to [facility] from NICU, requests consult, informed her that [...] CT(R): PLACENTAL ABRUPTION Venus Baby Calos Hairston [[id number]] Delivery Anesthesia Method: Epidural Operative Delivery Forceps attempted?: No Vacuum extractor attempted?: No Shoulder Dystocia Shoulder dystocia present: No [place] Presentation Presentation: Vertex Position: Middle _: Occiput _: Anterior Information date/time: 01/11/182113 Gender: Male Delivery type: Vaginal, Spontaneous Delivery Delivery location: OB Unit ?: No Details: Delivery Providers Delivering clinician: Anahy Sarah MD Other personnel: Provider Role Covering Attending Resident Lacing Presser Leyla Alves, pattern setter Nurse Stephanie Curran, RN Registered Nurse Karlie Shah, pattern setter Assist Nurse Practitioner Cord Vessels: 3 vessels Complications: Nuchal Nuchal intervention: clamped and cut Nuchal cord description: tight nuchal cord Number of loops: 1 Delayed cord clamping?: No Cord clamped date/time: 01/11/20182113 Cord blood obtained?: Lab Cord segment obtained?: Yes Gases sent?: Yes Stem cell collection (by Provider)?: No Placenta Date/time: 01/11/20182122 Removal: Spontaneous Appearance: Intact Disposition: Discarded [place] Apgars Living status: Living Scoring Ruiz: 0 [...] Minute: 10 Minute: 15 Minute: 20 Minute: [place] Measurements Weight: Lacerations Episiotomy: None Perineal lacerations: [...] BE BASED ON THE PRIMARY CLINICAL RECORDS. [facility]. provides no warranty or guarantee of the accuracy or completeness of information in this document.
[2023-11-08 16:06] VITALS: BP 101/67; PULSE 86
== END 2023-11-08 16:45 | disposition home or self-care (01) ==
LOC: FBCO 07:12 → FBC 15:59
PROVIDERS: PCP Nurse Practitioner Family; Visit Provider Obstetrics & Gynecology
DX: O36.5990 Maternal care for other known or suspected poor fetal growth, unspecified trimester, not applicable or unspecified (principal); Z3A.36 36 weeks gestation of pregnancy
CPT/HCPCS: 36415; 59025; 87081; 87150

== ENCOUNTER 2023-11-08 19:03 | Outpatient (REF) | payer BC, SELFPAY | END 2023-11-08 19:04 | disposition home or self-care (01) | LOC: LAB 19:03 | PROVIDERS: PCP Nurse Practitioner Family; Visit Provider Physician Assistant | DX: Z34.93 Encounter for supervision of normal pregnancy, unspecified, third trimester (principal); Z3A.36 36 weeks gestation of pregnancy | CPT/HCPCS: 36415; 87081 ==

== ENCOUNTER 2023-11-11 07:10 | Outpatient (OUT) | payer BC, SELFPAY ==
--- OUTSIDE RECORDS SUMMARY | 2023-11-11 07:14 | XMS_ITS | CCD ---
Author Organization [facility] Care Team Providers Care Extended Day Teacher Name Role Phone No, Physician Unavailable Unavailable ANNA CALLAHAN Unavailable Unavailab le NO, PHYSICIAN Unavailable Unavailable Delphine Lovelace Unavailable DELPHINE LOVELACE Unavailable Unavail able DELPHINE LOVELACEINE [...] PHYSICIAN Unavailable Unavailable NATALIE EMANUEL Unavailable Unavailable [facility], GENERIC U navailable Unavailable [...] needed for nausea or vomiting. 0 Active Afybmptn-Clq-Xx-FA ( 1 + IRON PO) (2 sources) [...] mumps virus vaccine live, yogi evans strain 32311 unt/ml / rubella virus vaccine live (wistar [...] mL 0.5 ml varicella-zoster virus vaccine live ([employer]) strain 2700 unt/ml injection (1 source) Start: [...] UA Negative Negative - 4(70) +++ mg/dL [facility] Blood, UA Negative Negative - 50 Willam/mcL [facility] Clarity, UA Clear [facility] Color, UA Yellow [facility] Glucose, UA Negative Negative - 1999(110) ++++ mg/dL [facility] Interpretation and review of laboratory results Abnormal [facility] Ketones, UA Negative Negative - 160(16) ++++ mg/dL [facility] Leukocytes, UA Negative Negative - 500+++ Sandy/mcL [facility] Nitrite, UA Negative Negative - Positive [facility] pH, UA 7.5 5 - 9 [facility] e Protein, UA Positive Negative - 1999(20) ++++ mg/dL [facility] Spec Grav, UA 1.025 1 - 1.03 [facility] Urobilinogen, UA 0.2 0.2 - 12 mg/dL [facility] ([facility])on 09-24 SARS-CoV-2 (COVID-19) RNA SANDRA+probe Ql (Unsp spec) Not detected Normal NOT DETECTED [facility] Comment on above: Result Comment: When [...] for this test is supported by the Litigation Services Manager of Health and Human Service's declaration that [...] By: #### [facility] #### [facility] [address] [place] [address] Dr. Kaveh Wilks Tissue Aerobic Cultureon Bacteria identified Aer cx Nom (Tiss) Few Growth (4-10 colonies per plate) Coagulase Negative Staphylococcus Abnormal [facility] Interpretation and review of laboratory results Abnormal Invalid Interpretation Code [facility] Microscopic observation Gram stain Nom (Tiss) Many WBC Invalid Interpretation Code [facility] Microscopic observation Gram stain Nom (Tiss) Many RBC Invalid Interpretation Code [facility] Microscopic observation Gram stain Nom (Tiss) No Organisms Seen Invalid Interpretation Code [facility] Antibody Identificationon Blood group antibodies identified Nom Anti-Rhogam Invalid Interpretation Code [facility] The anti-D detected in this patient is presumably caused by a recent Rh Immune Globulin injection.It is unlikely that this represents a clinically significant antibody. Invalid Interpretation Code [facility] RhIG Evaluationon 01-11-2018 Rh immune globulin candidate (yes/no) Ql RhIG Candidacy Invalid Interpretation Code [facility] Baby is Rho(D) negative. Patient is NOT a candidate for Rh Immune Globulin. Invalid Interpretation Code [facility] Syphilis Antibodyon 01-12-20 18 Interpretation and review of laboratory results Normal Invalid Interpretation Code [facility] T. pallidum Ab Ql (S) Negative Invalid Interpretation Code Negative [facility] Type and Screenon 01-11-2018 ABO and Rh group Nom (Bld) Negative Invalid Interpretation Code [facility] Blood group antibody screen Ql Positive Invalid Interpretation Code [facility] Specimen Expires 01/13/2018 23:59 EST Invalid Interpretation Code [facility] APTTon 01-10-2018 aPTT Coag time (Bld) Therapeutic range for APTT's is 68 - 104 seconds Invalid Interpretation Code [facility] aPTT Coag time (Bld) 25 s Invalid Interpretation Code [facility] CBCon 01-10-2018 Erythrocyte distribution width Auto Entitic volume (RBC) 14.0 % Invalid Interpretation Code 11.6 - 14.8 % [facility] Hematocrit Auto Volume Fraction (Bld) 33.9 % Low 36 - 46 % [facility] Hemoglobin mass conc (Bld) 11.8 g/dL Low 12 - 16 g/dL [facility] Interpretation and review of laboratory results Abnormal Invalid Interpretation Code [facility] MCH Auto Entitic mass (RBC) 31.7 pg Invalid Interpretation Code 26 - 34 pg [facility] MCHC Auto mass conc (RBC) 34.8 g/dL Invalid Interpretation Code 31 - 37 g/dL [facility] MCV Auto Entitic volume (RBC) 91.1 fL Invalid Interpretation Code 80 - 100 fL [facility] Nucleated RBC #/vol (Bld) 0.00 10*3/uL Invalid Interpretation Code [facility] Nucleated RBC/100 WBC Ratio (Bld) 0.0 % Invalid Interpretation Code [facility] Platelet mean volume Auto Entitic volume (Bld) 12.1 fL Invalid Interpretation Code 9 - 15.5 fL [facility] Platelets Auto #/vol (Bld) 159 10*3/uL Invalid Interpretation Code [facility] RBC Auto #/vol (Bld) 3.72 10*6/uL Low RI [facility] WBC Auto #/vol (Bld) 16.00 10*3/uL [facility] Fibrinogenon 01-10-2018 Fibrinogen Coag mass conc (PPP) 547 mg/dL High 224 - 483 mg/dL [facility] Interpretation and review of laboratory results Abnormal Invalid Interpretation Code [facility] Otheron 01-10-2018 Interpretation and review of laboratory results Normal Invalid Interpretation Code [facility] PT/INRon 01-10-2018 INR Coag RelTime (Bld) During the induction phase of oral anticoagulation, the INR may not reflect the anticoagulation status of the patient. Therapeutic ranges for INR's are: Most clinical situations: INR 2.0-3.0 Mechanical Prosthetic Valve: INR 2.5-3.5 Critical: INR >5.0 Invalid Interpretation Code [facility] INR Coag RelTime (PPP) 0.9 {INR} Invalid Interpretation Code [facility] Prothrombin time (PT) Coag time (PPP) 12.2 s Invalid Interpretation Code [facility] US OB FOLLOW UP TRANSABDOMIN AL SINGLE FETUSon 11-11-2017 US OB FOLLOW UP TRANSABDOMINAL SINGLE FETUS OBSTETRICS REPORT (Signed Final 11/11/2017 04:43 pm) Patient Info ID #: [id number] : [birth year] (22 yrs) Name: YOVANNY CAMARILLO Visit Date: 11/11/2017 10:50 am Performed By Performed By: Bianca Reynoso Referred By: Delphine Lovelace RDMT Attending: Uziel Hanson, Location: [place], [facility] Service(s) [place] [address] [place] [address] Indications Zika virus exposure affecting O99.89 28 [...] our ultrasound office is accredited by [employer] ([employer]). If you would like to discuss the results of your patient's tests or would like a Maternal- Medicine Consultation to assist you with her management, please do not hesitate to contact us at [phone]. Uziel Hanson MD, [facility] Electronically Signed Final Report 11/11/2017 04:43 pm Invalid Interpretation Code [facility] US OB FOLLOW UP TRANSABDOMINAL SINGLE FETUS Interface, Rad In Stan Speechq - 11/11/2017 4:44 PM EDT OBSTETRICS REPORT (Signed Final 11/11/2017 04:43 pm) Patient Info ID #: [id number] : [birth year] (22 yrs) Name: YOVANNY CAMARILLO Visit Date: 11/11/2017 10:50 am Performed By Performed By: Bianca Reynoso Referred By: Delphine Lovelace RDMS, MD Attending: Uziel Hanson, Location: Demi Knapp MD, [facility] Service(s) [place] [address] [place] [address] Indications Zika virus exposure affecting O99.89 28 [...] our ultrasound office is accredited by [employer] [place] (AIUM). If you would like to discuss the results of your patient's tests or would like a Maternal- Medicine Consultation to assist you with her management, please do not hesitate to contact us at [phone]. Uziel Hanson MD, [facility] Electronically Signed Final Report 11/11/2017 04:43 pm Invalid Interpretation Code [facility] US Obstetric Detail An atomy Transabdominal Single Fetuson 09-23-2017 US Obstetric Detail Anatomy Transabdominal Single Fetus OBSTETRICS REPORT (Signed Final 09/23/2017 03:50 pm) Patient Info ID #: [id number] : [birth year] (22 yrs) Name: YOVANNY Delgado SERG Visit Date: 09/23/2017 01:47 pm Performed By Performed By: Charan Mart Referred By: Delphine Lovelace RDMS, MD Attending: Debbie Recio MD Location: [facility] Service(s) Provided Targeted OB + Transvaginal [id number] Indications 21 weeks gestation of Z3A.21 Zika [...] Visualized 4 Chamber View: Normal appearance Cardiac [place]: Normal Cardiac Motion: Visualized Diaphragm: Normal appearance [...] our ultrasound office is accredited by [employer] [place] in [employer] (AIUM). If you would like to discuss the results of your patient's tests or would like a Maternal- Medicine Consultation to assist you with her management, please do not hesitate to contact us at [phone]. Debbie Recio MD Electronically Signed Final Report 09/23/2017 03:50 pm Invalid Interpretation Code CHARAN MART RDMS US Obstetric Detail Anatomy Transabdominal Single Fetus Interface, Rad In Fuji Speechq - 09/23/2017 3:51 PM EDT OBSTETRICS REPORT (Signed Final 09/23/2017 03:50 pm) Patient Info ID #: [id number] : [birth year] (22 yrs) Name: YOVANNY CAMARILLO Visit Date: 09/23/2017 01:47 pm Performed By Performed By: Charan Mart Referred By: Delphine Lovelace RDMS, MD Attending: Debbie Recio MD Location: [facility] Service(s) Provided Targeted OB + Transvaginal [id number] Indications 21 weeks gestation of Z3A.21 Zika [...] Visualized 4 Chamber View: Normal appearance Cardiac [place]: Normal Cardiac Motion: Visualized Diaphragm: Normal appearance [...] our ultrasound office is accredited by [employer] [place] in [employer] (AIUM). If you would like to discuss the results of your patient's tests or would like a Maternal- Medicine Consultation to assist you with her management, please do not hesitate to contact us at [phone]. Debbie Recio MD Electronically Signed Final Report 09/23/2017 03:50 pm Invalid Interpretation Code CHARAN DINORA BARRON [facility] CBC Auto Differentialon 03-0 Basophils 0.03 K/mcL Invalid Interpretation Code 0.00 - 0.30 [facility] Basophils/100 leukocytes 0.3 % Invalid Interpretation Code [facility] Eosinophils 0.07 K/mcL Invalid Interpretation Code 0.00 - 0.50 [facility] Eosinophils/100 leukocytes 0.6 % Invalid Interpretation Code [facility] Erythrocytes (RBC) 4.12 M/mcL Invalid Interpretation Code 4.00 - 5.20 [facility] Erythrocytes (RBC) 0.00 K/mcL Invalid Interpretation Code 0.00 - 0.00 [facility] Hematocrit (HCT) 36.8 % Invalid Interpretation Code 36 - 46 % [facility] Hemoglobin (HGB) 12.5 g/dL Invalid Interpretation Code 12 - 16 g/dL [facility] IG Absolute 0.02 K/mcL Invalid Interpretation Code 0.00 - 0.30 [facility] IG Percent 0.20 % Invalid Interpretation Code [facility] Interpretation and review of laboratory results Abnormal Invalid Interpretation Code [facility] Lymphocytes 2.42 K/mcL Invalid Interpretation Code 0.90 - 4.00 [facility] Lymphocytes/100 leukocytes 22.2 % Invalid Interpretation Code [facility] MCH 30.3 pg Invalid Interpretation Code 26 - 34 pg [facility] MCHC 34.0 g/dL Invalid Interpretation Code 31 - 37 g/dL [facility] MCV 89.3 fL Invalid Interpretation Code 80 - 100 fL [facility] Monocytes 0.67 K/mcL Invalid Interpretation Code 0.30 - 0.90 [facility] Monocytes/100 leukocytes 6.1 % Invalid Interpretation Code [facility] Neutrophils 7.69 K/mcL High 1.70 - 7.00 [facility] Neutrophils/100 leukocytes 70.6 % Invalid Interpretation Code [facility] Nucleated erythrocytes/100 erythrocytes 0.0 % Invalid Interpretation Code [facility] Platelet mean volume (PMV) 11.2 fL Invalid Interpretation Code 9 - 15.5 fL [facility] Platelets 285 K/mcL Invalid Interpretation Code 150 - 400 [facility] RDW-CA 12.8 % Invalid Interpretation Code 11.6 - 14.8 % [facility] WBC (Leukocytes) 10.90 K/mcL Invalid Interpretation Code 4.50 - 11.00 [facility] CBC and Differentialon 06-30 Creatinine The following orders were created for panel order CBC and Differential. Procedure Abnormality Status --------- ------ CBC Auto Differential[[id number]] Abnormal Final result Please view results for these tests on the individual orders. Invalid Interpretation Code [facility] HIV 1/2 Screen (4th Generati on)on 06-30-2017 HIV 1+2 antibody presence Negative Invalid Interpretation Code Negative [facility] Interpretation and review of laboratory results Normal Invalid Interpretation Code [facility] HIV 1/2 Screen (4th Generation) This assay tests for the presence of HIV-1, HIV-2 antibodies and for the presence of HIV-1 antigen. Test performed using Ivana TR immunoassay system Invalid Interpretation Code [facility] Hepatitis B Surface Antigeno n 06-30-2017 Hepatitis B Surface Ag Negative Invalid Interpretation Code Negative [facility] Hepatitis B Surface Antigen Test performed using Ivana TR immunoassay system Invalid Interpretation Code [facility] RPRon 06-30-2017 Reagin antibody presence Non-Reactive Invalid Interpretation Code Non-Reactive [facility] Rubella Antibody, IgGon Rubella IgG Non-Immune Invalid Interpretation Code [facility] Rubella IgG Value 5.87 IU/mL Invalid Interpretation Code [facility] Type and Screenon 06-30-2017 ABO+Rh group Negative Invalid Interpretation Code [facility] Blood group antibody presence Negative Invalid Interpretation Code [facility] Specimen Expires 07/03/2017 23:59 EST Invalid Interpretation Code [facility] Urine Aerobic Cultureon Bacteria aerobode culture Three or more colony types; >10,000 CFU/mL mixture of normal urogenital microbiota. None predominant. Possible contamination. Suggest repeat if clinically indicated. Invalid Interpretation Code [facility] Vital Signs Date Time Vital Sign Value Performing Clinician Facility 07-22-2023 12:33-0400 Body height 167.6 cm Rene Wright MD Work Phone: [facility] 07-22-2023 12:33-0400 Body mass index (BMI) [Ratio] 21.08 kg/m2 Rene Wright MD Work Phone: [facility] 07-22-2023 12:33-0400 Body weight 59.24 kg Rene Wright MD Work Phone: [facility] 07-22-2023 12:33-0400 Diastolic blood pressure 61 mm[Hg] Rene Wright MD Work Phone: [facility] 07-22-2023 12:33-0400 Heart rate 78 /min Rene Wright MD Work Phone: [facility] 07-22-2023 12:33-0400 Systolic blood pressure 104 mm[Hg] Rene Wright MD Work Phone: [facility] 06-08-2023 13:47-0500 Body mass index (BMI) [Ratio] 20.24 kg/m2 Lamin Livier DO Work Phone: [facility] 06-08-2023 13:47-0500 Body weight 56.88 kg Lamin Livier DO Work Phone: [facility] 06-08-2023 13:47-0500 Diastolic blood pressure 60 mm[Hg] Lamin Livier DO Work Phone: [facility] 06-08-2023 13:47-0500 Systolic blood pressure 104 mm[Hg] Lamin Braswello DO Work Phone: [facility] 01-13-2018 09:42-0400 Pulse (Heart Rate) 90 /min Delphine Lovelace [facility] 01-13-2018 09:42-0400 Pulse Oximetry 98 % Delphine Lovelace [facility] 01-13-2018 09:31-0400 Body Temperature 98.2 [degF] Delphine [facility] 01-13-2018 09:31-0400 BP Diastolic 75 mm[Hg] Delphine [facility] 01-13-2018 09:31-0400 BP Systolic 109 mm[Hg] Delphine [facility] 01-13-2018 09:31-0400 Respiratory Rate 16 /min Delphine [facility] 05-13-2017 11:47-0500 BMI (Body Mass Index) 22.6 kg/m2 Anna Callahan [facility] Work Phone: 05-13-2017 11:47-0500 Body Temperature 98.4 [degF] Anna Callahan [facility] Work Phone: 05-13-2017 11:47-0500 BP Diastolic 78 mm[Hg] Anna Callahan [facility] Work Phone: 05-13-2017 11:47-0500 BP Systolic 112 mm[Hg] Anna Callahan [facility] Work Phone: 05-13-2017 11:47-0500 Height 167.6 cm Anna Callahan [facility] Work Phone: 05-13-2017 11:47-0500 Pulse (Heart Rate) 81 /min Anna Callahan [facility] Work Phone: 05-13-2017 11:47-0500 Pulse Oximetry 98 % Anna Callahan [facility] Work Phone: 05-13-2017 11:47-0500 Weight 63.5 kg Anna Callahan [facility] Work Phone: Encounters Encounter Date Encounter [...] Wright MD Work Phone: [facility]- Medicine at [facility] Comment on above: 20 weeks gestation [...] Encounter for preprocedural laboratory examination [facility] Start: 10-19-2021 End: 10-20-2021 ambulatory [facility]WANNA [facility] Facility:[facility] Start: 10-19-2021 End: 10-20-2021 Encounter for preprocedural laboratory examination [facility] Facility:[facility] Start: 01-11-2018 End: 01-13-2018 Evaluation and management of inpatient DELPHINE LOVELACE [facility] Start: 01-10-2018 End: 01-13-2018 Evaluation and management of inpatient Delphine Lovelace Work Phone: [facility] Mother/ Unit 5 Start: 11-11-2017 End: 11-12-2017 Patient encounter Denzel Hoang Work Phone: [facility]aternal [facility] Start: 11-10-2017 End: 11-10-2017 Patient encounter ORVILLE GÓMEZ [facility] Start: 09-23-2017 End: 09-24-2017 Patient encounter COREY MARTIN [facility] Start: 09-23-2017 End: 09-23-2017 Ambulatory Delphine Islas Lovelace Work Phone: [facility]aternal [facility] Start: 09-01-2017 End: 09-01-2017 Patient encounter [facility] Start: 08-01-2017 End: 08-01-2017 Ambulatory Delphine Lovelace Work Phone: [facility] [employer] [facility] Start: 07-04-2017 End: 07-04-2017 Patient encounter DELPHINE ISLAS [facility] Start: 06-30-2017 End: 06-30-2017 Ambulatory Delphine Lovelace Work Phone: [facility] [employer] [facility] Start: 05-13-2017 End: 05-13-2017 Ambulatory ANNA CALLAHAN [facility] Start: 05-13-2017 Office/outpatient jarrell garcia, level 2 Anna Callahan Work Phone: [facility] Nila/Jarrell Butt Start: 04-14-2017 End: 04-19-2017 Patient encounter DELPHINE [facility] Procedures Date Procedure Procedure Detail Performing Clinician [...] Td Vaccines (8 - Td or Tdap) [facility] Start: 11-11-2027 Tetanus vaccination TETANUS EVERY 10 YR [facility] Start: 07-21-2024 Adult BMI Screening Adult BMI Screen ing [facility] Start: 07-21-2024 Tobacco Screening Tobacco Screening [facility] Start: 07-21-2024 End: 07-21-2024 US MFM with or without consult US MFM with or without consult Imaging Routine History of placental abruption History of prior with IUGR Expected: 07/21/2024 (Approximate), [facility] Work [facility]: Comment on above: Expected: 07/21/2024 (Approximate), Expires: 07/21/2024 Start: 09-08-2023 End: 09-08-2023 Patient encounter procedure 09/08/2023 10:45 AM EDT Office Visit [facility] [address] [place] [address] Sandra Conti MD [address] [place] [address] [facility] Start: 08-26-2023 End: 08-26-2023 Patient encounter procedure [facility] [place] Start: 07-06-2023 End: 07-06-2023 Patient encounter procedure 07/06/2023 1:40 PM EDT Routine [facility] [address] [place] [address] Lamin Maier DO [address] [place] [address] [facility] Start: 12-24-2022 COVID-19 Vaccine (3 - 2023-24 season) COVID-19 Vaccine ( season) [facility] Start: 12-24-2022 Influenza vaccination N [facility] Start: 04-14-2020 Screening for malign ant neoplasm of cervix PAP SMEAR [facility] Start: 12-24-2017 Influenza vaccination [facility] Start: 11-24-2017 End: 11-24-2017 Ambulatory 11/24/2017 Routine Obstetrics and Gynecology Delphine Lovelace MD [address] [facility] [facility] [address] [place] [address] [phone] [facility] Start: 11-11-2017 End: 11-11-2017 Ambulatory 11/11/2017 Appointment Maternal and Medicine [facility] Start: 09-28-2017 End: 09-28-2017 Ambulatory 09/28/2017 Routine Obstetrics and Gynecology [facility]ine Lovelace [facility] [facility] [address] [place] [address] [phone] [facility] Start: 12-24-2016 Influenza vaccination SEQUENTI AL INFLUENZA VACCINE (#1) [facility] Work Phone: Start: 2014 Screening for malign ant neoplasm of cervix Pap Smear [facility] Start: 2005 Depression Screening Depression [facility] Start: 2004 Vaccination for shira n papillomavirus [facility] Work Phone: Start: 1993 Screening for malign ant neoplasm of cervix PAP SMEAR [facility] Work Phone: Start: 1993 Tetanus vaccination TETANUS EVERY 10 YR [facility] Work Phone: Tissue Aerobic Culture Tissue Ae robic Culture Routine 01/11/2018 11:49 PM EDT [facility] Tissue Anaerobic Culture Tissue Anaerobic Culture Routine 01/11/2018 11:49 PM EDT [facility] End: 01-11-2018 Tissue Exam Tissue Exam Routine Once for 1 Occurrences starting 01/11/2018 until 01/11/2018, 1 completed [facility] Comment on above: Once for 1 Occurrenc es starting 01/11/2018 until 01/11/2018, 1 completed Tissue Exam Tissue Exam Rout ine 01/11/2018 9:39 PM EDT [facility] Immunizations Immunization Date Immunization Notes Care Provider Brittani adame 01-12-2018 influenza, injectabl e, quadrivalent, preservative free; Translations: [INFLUENZA IIV4 3YO OR > FLUARIX/FLUZONE/AFLURIA 44334] Delphine [facility] 01-12-2018 measles, mumps and rubella virus vaccine; Translations: [MMR] Delphine [facility] 01-12-2018 influenza virus vacc ine, unspecified formulation Lamin Maier DO Work Phone: [facility] 11-10-2017 tetanus toxoid, redu luz diphtheria toxoid, and acellular pertussis vaccine, adsorbed; Translations: [TDAP] Denzel Hoang [facility] Payers Date Payer Category Payer Unknown [id number] 2017 Unknown [id number] 2013 Unknown [id number]. [id number] 1993 Unknown [id number] 2.16.84 [id number] 1993 Unknown [id number] 2.16.84 [id number] 1993 Unknown [id number] 2.16.84 0.1.945659.3.579.2.1259 1993 Unknown [id number] 2.16.84 0.1.827626.3.579.2.1259 1993 Unknown [id number] 2.16.84 0.1.818193.3.579.2.1259 1993 Unknown [id number] 2.16.84 0.1.101630.3.579.2.1259 1993 Unknown [id number] 2.16.84 0.1.942861.3.579.2.1259 1993 Unknown [id number] 2.16.84 0.1.064819.3.579.2.1259 1993 Unknown [id number] 2.16.84 0.1.747053.3.579.2.9 1993 Unknown [id number] 2.16.84 0.1.260356.3.579.2.9 1993 Unknown [id number] 2.16.84 0.1.858072.3.579.2.1259 1959 Unknown [id number] Social History Date Type Detail Facility Start: 05-13-2017 End: 07-11-2023 Tobacco [facility] status [facility] [facility] Never smoker [facility] Start: 1995 Sex Assigned At Not on file O Dragon[employer] Work Phone: Start: 05-10-2017 [facility] Start: 10-26-2022 End: 07-11-2023 Tobacco use and exposure Smokeless tobacco non-user [facility] Start: 06-08-2023 Alcohol intake Lifetime non-d kenia (finding) [facility] Start: 10-29-2022 End: 07-22-2023 History of Social function [facility] Start: 10-29-2022 End: 07-22-2023 Tobacco use panel [facility] Start: 10-26-2022 Alcohol Comment caffeine: [...] no Have you been seen here at [facility] in a previous ? yes Recent ER visits or hospitalizations? no Bring blood sugar log or meter with you today? (Please bring them with you for every visit at [facility]) n/a Traveled outside the country in the [...] rasopathy. She has been followed by a dispensary technician at [facility] in [facility]. However they has not been seen since [...] gene. She has been followed by a dispensary technician at [facility] in [facility]. However they has not been seen since [...] recommended that she reaches out to her diagnostic technologist and follows at [facility] [...] echocardiogram to be completed at a follow-up [facility] visit. Reviewed aneuploidy testing that could be [...] Rene Wright MD, FACOG (she/hers) Maternal- Medicine [facility] [address] [place] [address] [facility], the CDC, and other organizations representing maternal and public health professionals recommend that , , and lactating people and those considering receive the COVID-19 vaccination. Vaccination is the best method to reduce maternal and complications of SARS-CoV-2 infection. This document was created with [employer] technology. Though I make every effort to review the dictation as it is transcribed, on occasion the spoken word can be misinterpreted by the technology leading to inappropriate words, phrases, or sentences. This note is addressed to the requesting provider as a consultation for clinical guidance. Specific medical abbreviations are occasionally used and those are generally approved by the [place]?Board of?Obstetrics and?Gynecology?as well as?Jenn william abbreviations. The above plan of care was based solely on the diagnoses for which a consultation was requested. ?More frequent testing may be indicated based on her other medical/obstetrical conditions. The management of other or medical conditions is beyond the scope of requested consultation and will continue to be followed by the primary finish remover or primary care provider. Note to patient: [...] of the practitioner. documented in this encounter [facility] History of Present illness Narrative 06-08-2023 Monika Oh, TESTING CONSULTANT - 06/08/2023 1:40 PM EST Note Date & Type Note Facility 06-08-2023 History of Presen t illness Narrative Reason for Appointment: Patient ID: Yovanny Donovan is a 27 y.o. female who presents for Routine Visit Patient presents today for Return OB appointment. Current Medications: has a current medication list which includes the following prescription(s): ondansetron odt and hbehqgms-gzo-fm-fa. Medical History: Active Ambulatory Problems Diagnosis Date [...] nursing note reviewed. Exam conducted with a combination welder apprentice present. Vitals: Estimated body mass index is [...] or undercooked meat, and stay away from [facility]. Patient has been consulted regarding any further do's and don'ts of . Patient voiced understanding and all questions and concerns were answered. Pt to be referred to [facility] for level II ultrasound. Discussed NST/BPP and growth ultrasound d/t h/o placenta abruption and IUGR. Pt to have repeat section. Follow Up: Patient is to return in 4 weeks for routine OB appointment. Documented by Monika Oh LPN on behalf of: Lamin Maier DO documented in this encounter [facility] Evaluation note Note Date & Type Note Facility Evaluation note Diagnosis Second trimester state, incidental History of placental abruption documented in this encounter [facility] Evaluation note Note Date & Type Note Facility Evaluation note Diagnosis 20 weeks gestation of - Primary History of placental abruption History of prior with IUGR Hx of section Family history of genetic disease Family history of other condition documented in this encounter [facility] Instructions Attachments Note Date & Type Note Facility Instructions The following attachments cannot be sent through Care Everywhere.Preeclampsia ([place])documented in this encounter [facility] Assessments [...] Log into your personal health record on [email or web address] and enter [email or web address] in the Education box to learn more about [place]: Care Instructions. Current as of: September 19, 2015 Content Version: 11.2 9337-2937 [employer]. Care instructions adapted under license by your healthcare professional. If you have questions about a medical condition or this instruction, always ask your healthcare professional. [employer] disclaims any warranty or liability for your [...] Rene Wright MD [address], [address] [place] [id number] [facility] [address] [place] [address] Referral ID Status Reason Start Date Expiration Date V isits Requested Visits Authorized [id number] Pending Review 07/22/2023 07/21/2024 1 1 Additional Source Comments INFORMATION SOURCE (unrecogn ized section and content) DATE CREATED AUTHOR 10/18/2017 [facility] DATE CREATED AUTHOR AUTHOR'S ORGANIZ ATION 02/12/[address] [facility] DATE CREATED AUTHOR AUTHOR'S ORGANIZ ATION 09/06/2022 [facility] DATE CREATED AUTHOR AUTHOR'S ORGANIZ ATION 10/26/2023 [facility] Natalie Rose MD [...] and content) Associated Order(s): IP CONSULT TO SHIPWRIGHT APPRENTICE Request for consult received, will contact mother [...] that baby is currently being transferred to [facility] from NICU, requests consult, informed her [...] CT(R): PLACENTAL ABRUPTION Venus Baby Calos Hairston [[id number]] Delivery Anesthesia Method: Epidural Operative Delivery Forceps attempted?: No Vacuum extractor attempted?: No Shoulder Dystocia Shoulder dystocia present: No [place] Presentation Presentation: Vertex Position: Middle _: Occiput _: Anterior Information date/time: 01/11/182113 Gender: Male Delivery type: Vaginal, Spontaneous Delivery Delivery location: OB Unit ?: No Details: Delivery Providers Delivering clinician: Anahy Sarah MD Other personnel: Provider Role Covering Attending Resident Dye Machine Tender Leyla Alves, insulation board coater operator Nurse Stephanie Curran, RN Registered Nurse Karlie Shah, insulation board coater operator Assist Nurse Practitioner Cord Vessels: 3 vessels Complications: Nuchal Nuchal intervention: clamped and cut Nuchal cord description: tight nuchal cord Number of loops: 1 Delayed cord clamping?: No Cord clamped date/time: 01/11/20182113 Cord blood obtained?: Lab Cord segment obtained?: Yes Gases sent?: Yes Stem cell collection (by Provider)?: No Placenta Date/time: 01/11/20182122 Removal: Spontaneous Appearance: Intact Disposition: Discarded [place] Apgars Living status: Living Scoring Ruiz: 0 [...] Minute: 10 Minute: 15 Minute: 20 Minute: [place] Measurements Weight: Lacerations Episiotomy: None Perineal lacerations: [...] BE BASED ON THE PRIMARY CLINICAL RECORDS. [facility]. provides no warranty or guarantee of the accuracy or completeness of information in this document.
--- NOTE | 2023-11-11 13:01 | US_ITS ---
[address] [address] Patient Name: MAURICIO MENDES MRN: [id number] date: 1995 Sex: F Assigned Patient Location: [facility] Current Patient Location: [facility] Accession/Order Number: [id number] Exam Date: 11/11/2023 13:04 Report Date: 11/11/2023 13:56 At the request of: JANIE CARABALLO Procedure: US OB BPP w non-stress EXAMINATION: US OB BPP w non-stress HISTORY:History of placental abruption Z87.59 COMPARISON: Ultrasound OB biophysical 11/02/2023 TECHNIQUE: Ultrasound biophysical profile was performed in the radiology department. BREATHING MOVEMENTS: 2 GROSS BODY MOVEMENTS: 2 TONE: 2 QUALITATIVE AMNIOTIC FLUID VOLUME: 2 PRESENTATION: CEPHALIC HEART RATE: 135.68 bpm AMNIOTIC FLUID VOLUME: 23.00 cm GESTATIONAL AGE: 36 weeks 4 days US/US OB BPP w non-stress IMPRESSION: 1. Total biophysical profile score: 8 2. Moderate amount of echogenic debris within the amniotic fluid. Electronically authenticated by: CHIP ANDERSON Date: 11/11/2023 13:56
[2023-11-11 13:49] VITALS: BP 111/64; PULSE 93
[2023-11-11 13:50] VITALS: TEMP 36.4
== END 2023-11-11 14:15 | disposition home or self-care (01) ==
LOC: US 08:42 → FBC 13:01
PROVIDERS: PCP Nurse Practitioner Family; Visit Provider Obstetrics & Gynecology
DX: O09.293 Supervision of pregnancy with other poor reproductive or obstetric history, third trimester (principal); Z87.59 Personal history of other complications of pregnancy, childbirth and the puerperium
CPT/HCPCS: 76818

== ENCOUNTER 2023-11-15 07:06 | Outpatient (OUT) | payer BC, SELFPAY ==
--- OUTSIDE RECORDS SUMMARY | 2023-11-15 07:09 | XMS_ITS | CCD ---
Author Organization [facility] Care Team Providers Care Balance Wheel Facer Name Role Phone No, Physician Unavailable Unavailable ANNA CALLAHAN Unavailable Unavailab le NO, PHYSICIAN Unavailable Unavailable Delphine Lovelace Unavailable [phone] DELPHINE LOVELACE Unavailable Unavail able DELPHINE LOVELACEINE [...] PHYSICIAN Unavailable Unavailable NATALIE EMANUEL Unavailable Unavailable [facility] GENERIC U navailable Unavailable [...] needed for nausea or vomiting. 0 Active Iipjffro-Rtg-Vf-FA ( 1 + IRON PO) (2 sources) [...] mumps virus vaccine live, yogi evans strain 52034 unt/ml / rubella virus vaccine live (wistar [...] mL 0.5 ml varicella-zoster virus vaccine live ([facility]) strain 2700 unt/ml injection (1 source) Start: [...] UA Negative Negative - 4(70) +++ mg/dL [facility] Blood, UA Negative Negative - 50 Willam/mcL [facility] Clarity, UA Clear [facility] Color, UA Yellow [facility] Glucose, UA Negative Negative - 1999(110) ++++ mg/dL [facility] Interpretation and review of laboratory results Abnormal [facility] Ketones, UA Negative Negative - 160(16) ++++ mg/dL [facility] Leukocytes, UA Negative Negative - 500+++ Sandy/mcL [facility] Nitrite, UA Negative Negative - Positive [facility] pH, UA 7.5 5 - 9 [facility] e Protein, UA Positive Negative - 1999(20) ++++ mg/dL [facility] Spec Grav, UA 1.025 1 - 1.03 [facility] Urobilinogen, UA 0.2 0.2 - 12 mg/dL [facility] Cov[facility] ([facility])on 09-24 SARS-CoV-2 (COVID-19) RNA SANDRA+probe Ql (Unsp spec) Not detected Normal NOT DETECTED [facility] Comment on above: Result Comment: When [...] for this test is supported by the Calender Supervisor of Health and Human Service's declaration [...] longer be used). Performed By: #### [facility] #### [facility] [address] [address] [address] Kaveh Wilks Tissue Aerobic Cultureon Bacteria identified Aer cx Nom (Tiss) Few Growth (4-10 colonies per plate) Coagulase Negative Staphylococcus Abnormal [facility] Interpretation and review of laboratory results Abnormal Invalid Interpretation Code [facility] Microscopic observation Gram stain Nom (Tiss) Many WBC Invalid Interpretation Code [facility] Microscopic observation Gram stain Nom (Tiss) Many RBC Invalid Interpretation Code [facility] Microscopic observation Gram stain Nom (Tiss) No Organisms Seen Invalid Interpretation Code [facility] Antibody Identificationon Blood group antibodies identified Nom Anti-Rhogam Invalid Interpretation Code [facility] The anti-D detected in this patient is presumably caused by a recent Rh Immune Globulin injection.It is unlikely that this represents a clinically significant antibody. Invalid Interpretation Code [facility] RhIG Evaluationon 01-11-2018 Rh immune globulin candidate (yes/no) Ql RhIG Candidacy Invalid Interpretation Code [facility] Baby is Rho(D) negative. Patient is NOT a candidate for Rh Immune Globulin. Invalid Interpretation Code [facility] Syphilis Antibodyon 01-12-20 18 Interpretation and review of laboratory results Normal Invalid Interpretation Code [facility] T. pallidum Ab Ql (S) Negative Invalid Interpretation Code Negative [facility] Type and Screenon 01-11-2018 ABO and Rh group Nom (Bld) Negative Invalid Interpretation Code [facility] Blood group antibody screen Ql Positive Invalid Interpretation Code [facility] Specimen Expires 01/13/2018 23:59 EST Invalid Interpretation Code [facility] APTTon 01-10-2018 aPTT Coag time (Bld) Therapeutic range for APTT's is 68 - 104 seconds Invalid Interpretation Code [facility] aPTT Coag time (Bld) 25 s Invalid Interpretation Code [facility] CBCon 01-10-2018 Erythrocyte distribution width Auto Entitic volume (RBC) 14.0 % Invalid Interpretation Code 11.6 - 14.8 % [facility] Hematocrit Auto Volume Fraction (Bld) 33.9 % Low 36 - 46 % [facility] Hemoglobin mass conc (Bld) 11.8 g/dL Low 12 - 16 g/dL [facility] Interpretation and review of laboratory results Abnormal Invalid Interpretation Code [facility] MCH Auto Entitic mass (RBC) 31.7 pg Invalid Interpretation Code 26 - 34 pg [facility] MCHC Auto mass conc (RBC) 34.8 g/dL Invalid Interpretation Code 31 - 37 g/dL [facility] MCV Auto Entitic volume (RBC) 91.1 fL Invalid Interpretation Code 80 - 100 fL [facility] Nucleated RBC #/vol (Bld) 0.00 10*3/uL Invalid Interpretation Code [facility] Nucleated RBC/100 WBC Ratio (Bld) 0.0 % Invalid Interpretation Code [facility] Platelet mean volume Auto Entitic volume (Bld) 12.1 fL Invalid Interpretation Code 9 - 15.5 fL [facility] Platelets Auto #/vol (Bld) 159 10*3/uL Invalid Interpretation Code [facility] RBC Auto #/vol (Bld) 3.72 10*6/uL Low RI [facility] WBC Auto #/vol (Bld) 16.00 10*3/uL [facility] Fibrinogenon 01-10-2018 Fibrinogen Coag mass conc (PPP) 547 mg/dL High 224 - 483 mg/dL [facility] Interpretation and review of laboratory results Abnormal Invalid Interpretation Code [facility] Otheron 01-10-2018 Interpretation and review of laboratory results Normal Invalid Interpretation Code [facility] PT/INRon 01-10-2018 INR Coag RelTime (Bld) During the induction phase of oral anticoagulation, the INR may not reflect the anticoagulation status of the patient. Therapeutic ranges for INR's are: Most clinical situations: INR 2.0-3.0 Mechanical Prosthetic Valve: INR 2.5-3.5 Critical: INR >5.0 Invalid Interpretation Code [facility] INR Coag RelTime (PPP) 0.9 {INR} Invalid Interpretation Code [facility] Prothrombin time (PT) Coag time (PPP) 12.2 s Invalid Interpretation Code [facility] US OB FOLLOW UP TRANSABDOMIN AL SINGLE FETUSon 11-11-2017 US OB FOLLOW UP TRANSABDOMINAL SINGLE FETUS OBSTETRICS REPORT (Signed Final 11/11/2017 04:43 pm) Patient Info ID #: [id number] : [birth year] (22 yrs) Name: YOVANNY CAMARILLO Visit Date: 11/11/2017 10:50 am Performed By Performed By: Bianca Reynoso Referred By: Delphine Lovelace RDNM Attending: Uziel Hanson, Location: [place] [facility] [place], [facility] Service(s) [place] [address] [place] [address] Indications Zika virus exposure affecting O99.89 28 [...] our ultrasound office is accredited by [employer] [place] [employer] (AIUM). If you would like to discuss the results of your patient's tests or would like a Maternal- Medicine Consultation to assist you with her management, please do not hesitate to contact us at [phone]. Uziel Hanson MD, [facility] Electronically Signed Final Report 11/11/2017 04:43 pm Invalid Interpretation Code [facility] US OB FOLLOW UP TRANSABDOMINAL SINGLE FETUS Interface, Rad In Stan Speechq - 11/11/2017 4:44 PM EDT OBSTETRICS REPORT (Signed Final 11/11/2017 04:43 pm) Patient Info ID #: [id number] : [birth year] (22 yrs) Name: YOVANNY Delgado CAMARILLO Visit Date: 11/11/2017 10:50 am Performed By Performed By: Bianca Reynoso Referred By: Delphine Lovelace RDNM Attending: Uziel Hanson, Location: Demi Knapp MD, [facility] Service(s) [place] [address] [place] [address] Indications Zika virus exposure affecting O99.89 28 [...] our ultrasound office is accredited by [employer] [place] [employer] (AIUM). If you would like to discuss the results of your patient's tests or would like a Maternal- Medicine Consultation to assist you with her management, please do not hesitate to contact us at [phone]. Uzile Hanson MD, [facility] Electronically Signed Final Report 11/11/2017 04:43 pm Invalid Interpretation Code [facility] US Obstetric Detail An atomy Transabdominal Single Fetuson 09-23-2017 US Obstetric Detail Anatomy Transabdominal Single Fetus OBSTETRICS REPORT (Signed Final 09/23/2017 03:50 pm) Patient Info ID #: [id number] : [birth year] (22 yrs) Name: YOVANNY CAMARILLO Visit Date: 09/23/2017 01:47 pm Performed By Performed By: Charan Mart Referred By: Delphine Lovelace RDMS, MD Attending: Debbie Recio MD Location: [facility] Service(s) Provided Targeted OB + Transvaginal [id number] Indications 21 weeks gestation of Z3A.21 Zika [...] Visualized 4 Chamber View: Normal appearance Cardiac [place]: Normal Cardiac Motion: Visualized Diaphragm: Normal appearance [...] our ultrasound office is accredited by [employer] [place] [employer] (AIUM). If you would like to discuss the results of your patient's tests or would like a Maternal- Medicine Consultation to assist you with her management, please do not hesitate to contact us at [phone]. Debbie Recio MD Electronically Signed Final Report 09/23/2017 03:50 pm Invalid Interpretation Code CHARAN MART RDMS US Obstetric Detail Anatomy Transabdominal Single Fetus Interface, Rad In Fuji Speechq - 09/23/2017 3:51 PM EDT OBSTETRICS REPORT (Signed Final 09/23/2017 03:50 pm) Patient Info ID #: [id number] : [birth year] (22 yrs) Name: YOVANNY CAMARILLO Visit Date: 09/23/2017 01:47 pm Performed By Performed By: Charan Mart Referred By: Delphine Lovelace RDMS, MD Attending: Debbie Recio MD Location: [facility] Service(s) Provided Targeted OB + Transvaginal [id number] Indications 21 weeks gestation of Z3A.21 Zika [...] Visualized 4 Chamber View: Normal appearance Cardiac [place]: Normal Cardiac Motion: Visualized Diaphragm: Normal appearance [...] our ultrasound office is accredited by [employer] [place] [employer] in [employer] (AIUM). If you would like to discuss the results of your patient's tests or would like a Maternal- Medicine Consultation to assist you with her management, please do not hesitate to contact us at [phone]. Debbie Recio MD Electronically Signed Final Report 09/23/2017 03:50 pm Invalid Interpretation Code CHARAN DINORA BARRON [facility] CBC Auto Differentialon 03-0 Basophils 0.03 K/mcL Invalid Interpretation Code 0.00 - 0.30 [facility] Basophils/100 leukocytes 0.3 % Invalid Interpretation Code [facility] Eosinophils 0.07 K/mcL Invalid Interpretation Code 0.00 - 0.50 [facility] Eosinophils/100 leukocytes 0.6 % Invalid Interpretation Code [facility] Erythrocytes (RBC) 4.12 M/mcL Invalid Interpretation Code 4.00 - 5.20 [facility] Erythrocytes (RBC) 0.00 K/mcL Invalid Interpretation Code 0.00 - 0.00 [facility] Hematocrit (HCT) 36.8 % Invalid Interpretation Code 36 - 46 % [facility] Hemoglobin (HGB) 12.5 g/dL Invalid Interpretation Code 12 - 16 g/dL [facility] IG Absolute 0.02 K/mcL Invalid Interpretation Code 0.00 - 0.30 [facility] IG Percent 0.20 % Invalid Interpretation Code [facility] Interpretation and review of laboratory results Abnormal Invalid Interpretation Code [facility] Lymphocytes 2.42 K/mcL Invalid Interpretation Code 0.90 - 4.00 [facility] Lymphocytes/100 leukocytes 22.2 % Invalid Interpretation Code [facility] MCH 30.3 pg Invalid Interpretation Code 26 - 34 pg [facility] MCHC 34.0 g/dL Invalid Interpretation Code 31 - 37 g/dL [facility] MCV 89.3 fL Invalid Interpretation Code 80 - 100 fL [facility] Monocytes 0.67 K/mcL Invalid Interpretation Code 0.30 - 0.90 [facility] Monocytes/100 leukocytes 6.1 % Invalid Interpretation Code [facility] Neutrophils 7.69 K/mcL High 1.70 - 7.00 [facility] Neutrophils/100 leukocytes 70.6 % Invalid Interpretation Code [facility] Nucleated erythrocytes/100 erythrocytes 0.0 % Invalid Interpretation Code [facility] Platelet mean volume (PMV) 11.2 fL Invalid Interpretation Code 9 - 15.5 fL [facility] Platelets 285 K/mcL Invalid Interpretation Code 150 - 400 [facility] RDW-CA 12.8 % Invalid Interpretation Code 11.6 - 14.8 % [facility] WBC (Leukocytes) 10.90 K/mcL Invalid Interpretation Code 4.50 - 11.00 [facility] CBC and Differentialon 06-30 Creatinine The following orders were created for panel order CBC and Differential. Procedure Abnormality Status --------- ------ CBC Auto Differential[[id number]] Abnormal Final result Please view results for these tests on the individual orders. Invalid Interpretation Code [facility] HIV 1/2 Screen (4th Generati on)on 06-30-2017 HIV 1+2 antibody presence Negative Invalid Interpretation Code Negative [facility] Interpretation and review of laboratory results Normal Invalid Interpretation Code [facility] HIV 1/2 Screen (4th Generation) This assay tests for the presence of HIV-1, HIV-2 antibodies and for the presence of HIV-1 antigen. Test performed using Ivana TR immunoassay system Invalid Interpretation Code [facility] Hepatitis B Surface Antigeno n 06-30-2017 Hepatitis B Surface Ag Negative Invalid Interpretation Code Negative [facility] Hepatitis B Surface Antigen Test performed using Ivana TR immunoassay system Invalid Interpretation Code [facility] RPRon 06-30-2017 Reagin antibody presence Non-Reactive Invalid Interpretation Code Non-Reactive [facility] Rubella Antibody, IgGon Rubella IgG Non-Immune Invalid Interpretation Code [facility] Rubella IgG Value 5.87 IU/mL Invalid Interpretation Code [facility] Type and Screenon 06-30-2017 ABO+Rh group Negative Invalid Interpretation Code [facility] Blood group antibody presence Negative Invalid Interpretation Code [facility] Specimen Expires 07/03/2017 23:59 EST Invalid Interpretation Code [facility] Urine Aerobic Cultureon Bacteria aerobode culture Three or more colony types; >10,000 CFU/mL mixture of normal urogenital microbiota. None predominant. Possible contamination. Suggest repeat if clinically indicated. Invalid Interpretation Code [facility] Vital Signs Date Time Vital Sign Value Performing Clinician Facility 07-22-2023 12:33-0400 Body height 167.6 cm Rene Wright MD Work Phone: [facility] 07-22-2023 12:33-0400 Body mass index (BMI) [Ratio] 21.08 kg/m2 Rene Wright MD Work Phone: [facility] 07-22-2023 12:33-0400 Body weight 59.24 kg Rene Wright MD Work Phone: [facility] 07-22-2023 12:33-0400 Diastolic blood pressure 61 mm[Hg] Rene Wright MD Work Phone: [facility] 07-22-2023 12:33-0400 Heart rate 78 /min Rene Wright MD Work Phone: [facility] 07-22-2023 12:33-0400 Systolic blood pressure 104 mm[Hg] Rene Wright MD Work Phone: [facility] 06-08-2023 13:47-0500 Body mass index (BMI) [Ratio] 20.24 kg/m2 Lamin Livier DO Work Phone: [facility] 06-08-2023 13:47-0500 Body weight 56.88 kg Lamin Livier DO Work Phone: [facility] 06-08-2023 13:47-0500 Diastolic blood pressure 60 mm[Hg] Lamin Livier DO Work Phone: [facility] 06-08-2023 13:47-0500 Systolic blood pressure 104 mm[Hg] Lamin Livier DO Work Phone: [facility] 01-13-2018 09:42-0400 Pulse (Heart Rate) 90 /min [facility] 01-13-2018 09:42-0400 Pulse Oximetry 98 % Delphine [facility] 01-13-2018 09:31-0400 Body Temperature 98.2 [degF] Delphine [facility] 01-13-2018 09:31-0400 BP Diastolic 75 mm[Hg] Delphine [facility] 01-13-2018 09:31-0400 BP Systolic 109 mm[Hg] Delphine [facility] 01-13-2018 09:31-0400 Respiratory Rate 16 /min Delphine [facility] 05-13-2017 11:47-0500 BMI (Body Mass Index) 22.6 kg/m2 Anna Callahan [facility] Work Phone: 05-13-2017 11:47-0500 Body Temperature 98.4 [degF] Anna Callahan [facility] Work Phone: 05-13-2017 11:47-0500 BP Diastolic 78 mm[Hg] Anna Callahan [facility] Work Phone: 05-13-2017 11:47-0500 BP Systolic 112 mm[Hg] Anna Callahan [facility] Work Phone: 05-13-2017 11:47-0500 Height 167.6 cm Anna Callahan [facility] Work Phone: 05-13-2017 11:47-0500 Pulse (Heart Rate) 81 /min Anna Callahan [facility] Work Phone: 05-13-2017 11:47-0500 Pulse Oximetry 98 % Anna Callahan [facility] Work Phone: 05-13-2017 11:47-0500 Weight 63.5 kg Anna Callahan [facility] Work Phone: Encounters Encounter Date Encounter Type Care Provider Facility Start: 11-08-2023 End: 11-08-2023 ambulatory SHERRI TRAVIS Not Available Start: 10-25-2023 End: 10-25-2023 ambulatory LAMIN LIVIER [...] Wright MD Work Phone: [facility] Comment on above: 20 weeks gestation [...] Encounter for preprocedural laboratory examination TAWANNA CHESTER [facility] Start: 10-19-2021 End: 10-20-2021 ambulatory TAWANNA CHESTER Facility:[facility] Start: 10-19-2021 End: 06-28-2022 Encounter for preprocedural laboratory examination TAWANNA LOVEMER Facility: Start: 01-11-2018 End: 01-13-2018 Evaluation and management of inpatient DELPHINE LOVELACE [facility] Start: 01-10-2018 End: 01-13-2018 Evaluation and management of inpatient Delphine Lovelace Work Phone: [facility]/ Unit 5 Start: 11-11-2017 End: 11-12-2017 Patient encounter Denzel Hoang Work Phone: [facility] Start: 11-10-2017 End: 11-10-2017 Patient encounter ORVILLEMADELYN GÓMEZ [facility] Start: 09-23-2017 End: 09-24-2017 Patient encounter COREY MARTIN [facility] Start: 09-23-2017 End: 09-23-2017 Ambulatory Delphine Lovelace Work Phone: [facility] Start: 09-01-2017 End: 09-01-2017 Patient encounter DELPHINE ISLAS [facility] Start: 08-01-2017 End: 08-01-2017 Ambulatory Delphine Lovelace Work Phone: [facility] [employer] [facility] Start: 07-04-2017 End: 07-04-2017 Patient encounter DELPHINE ISLAS [facility] Start: 06-30-2017 End: 06-30-2017 Ambulatory Delphine Lovelace Work Phone: [facility] [employer] [facility] Start: 05-13-2017 End: 05-13-2017 Ambulatory ANNA CALLAHAN [facility] Start: 05-13-2017 Office/outpatient [place] level 2 Anna Callahan Work Phone: [facility] Nila/Jarrell Butt Start: 04-14-2017 End: 04-19-[address] [facility] Procedures Date Procedure Procedure Detail Performing Clinician Start: 07-11-2023 H/O: section Hx of section Rene Wright MD Work Phone: Start: 06-08-2023 Urnls dip stick/tabl et rgnt non-auto w/o micrscp Lamin Maier Work Phone: Start: 01-11-2018 End: 01-11-2018 Cul [...] Work Phone: H/O: section Hx of sect kevin Wright MD Work Phone: Plan of Treatment Date Care Activity Detail Author Start: 11-11-2027 DTaP,Tdap and Td Vac cines (8 - Td or Tdap) DTaP,Tdap and Td Vaccines (8 - Td or Tdap) [facility] Start: 11-11-2027 Tetanus vaccination TETANUS EVERY 10 YR [facility] Start: 07-21-2024 Adult BMI Screening Adult [facility] Screen ing [facility] Start: 07-21-2024 Tobacco Screening Tobacco Screening [facility] Start: 07-21-2024 End: 07-21-2024 US MFM with or without consult US MFM with or without consult Imaging Routine History of placental abruption History of prior with IUGR Expected: 07/21/2024 (Approximate), Expires: 07/21/2024 [facility] Work Phone: Comment on above: Expected: 07/21/2024 (Approximate), Expires: 07/21/2024 Start: 09-08-2023 End: 09-08-2023 Patient encounter procedure 09/08/2023 10:45 AM EDT Office Visit [facility] [address] [place] [id number] Sandra Conti MD [address] [place] [address] [facility] Start: 08-26-2023 End: 08-26-2023 Patient encounter procedure [facility] [place] Start: 07-06-2023 End: 07-06-2023 Patient encounter procedure 07/06/2023 1:40 PM EDT Routine [facility] [address] [place] [id number] Lamin Maier, [address] [place] [address] [facility] Start: 12-24-2022 COVID-19 Vaccine ( season) COVID-19 Vaccine ( season) [facility] Start: 12-24-2022 Influenza vaccination [facility] Start: 04-14-2020 Screening for malign ant neoplasm of cervix PAP SMEAR [facility] Start: 12-24-2017 Influenza vaccination [facility] Start: 11-24-2017 End: 11-24-2017 Ambulatory 11/24/2017 Routine Obstetrics and Gynecology Delphine Lovelace MD [address] [facility] [address] [place] [address] [phone] [facility] [facility] [facility] Start: 11-11-2017 End: 11-11-2017 Ambulatory 11/11/2017 Appointment Maternal and Medicine [facility] Start: 09-28-2017 End: 09-28-2017 Ambulatory 09/28/2017 Routine Obstetrics and Gynecology Delphine Lovelace MD [address] [facility] [address] [place] [address] [phone] [facility] [facility] Start: 12-24-2016 Influenza vaccination SEQUENTI AL INFLUENZA VACCINE (#1) [facility] Work Phone: Start: 2014 Screening for malign ant neoplasm of cervix Pap Smear [facility] Start: 2005 Depression Screening Depression [facility] Start: 2004 Vaccination for shira n papillomavirus [facility] Work Phone: Start: 1993 Screening for malign ant neoplasm of cervix PAP SMEAR [facility] Work Phone: Start: 1993 Tetanus vaccination TETANUS EVERY 10 YR [facility] Work Phone: Tissue Aerobic Culture Tissue Ae robic Culture Routine 01/11/2018 11:49 PM EDT [facility] Tissue Anaerobic Culture Tissue Anaerobic Culture Routine 01/11/2018 11:49 PM EDT [facility] End: 01-11-2018 Tissue Exam Tissue Exam Routine Once for 1 Occurrences starting 01/11/2018 until 01/11/2018, 1 completed [facility] Comment on above: Once for 1 Occurrenc es starting 01/11/2018 until 01/11/2018, 1 completed Tissue Exam Tissue Exam Rout ine 01/11/2018 9:39 PM EDT [facility] Immunizations Immunization Date Immunization Notes Care Provider Brittani admae 01-12-2018 influenza, injectabl e, quadrivalent, preservative free; Translations: [INFLUENZA IIV4 3YO OR > FLUARIX/FLUZONE/AFLURIA 06516] Delphine [facility] 01-12-2018 measles, mumps and rubella virus vaccine; Translations: [MMR] Delphine [facility] 01-12-2018 influenza virus vacc ine, unspecified formulation Laminjustino Maier DO Work Phone: [facility] 11-10-2017 tetanus toxoid, redu luz diphtheria toxoid, and acellular pertussis vaccine, adsorbed; Translations: [TDAP] Denzel Rodrigeslydiaaaliyah [facility] Payers Date Payer Category Payer Unknown [id number] 2017 Unknown [id number] 2013 Unknown [id number] 2. [id number] 1993 Unknown [id number] 2.16.84 0.1.903978.3.579.2.593 1993 Unknown [id number] 2.16.84 0.1.752152.3.579.2.593 1993 Unknown [id number] 2.16.84 0.1.271131.3.579.2.1259 1993 Unknown [id number] 2.16.84 0.1.165974.3.579.2.1259 1993 Unknown [id number] 2.16.84 0.1.985983.3.579.2.1259 1993 Unknown [id number] 2.16.84 0.1.358695.3.579.2.1259 1993 Unknown [id number] 2.16.84 0.1.277986.3.579.2.1258 1993 Unknown [id number] 2.16.84 0.1.077512.3.579.2.1258 1993 Unknown [id number] 2.16.84 0.1.019502.3.579.2.1258 1993 Unknown [id number] 2.16.84 0.1.143964.3.579.2.1258 1993 Unknown [id number] 2.16.84 0.1.660645.3.579.2.1258 1993 Unknown [id number] 2.16.84 0.1.749887.3.579.2.1259 1959 Unknown [id number] Social History Date Type Detail Facility Start: 05-13-2017 End: 07-11-2023 Tobacco smoking status [facility] Never smoker [facility] Start: 1995 Sex Assigned At Not on file [employer] Work Phone: Start: 05-10-2017 [facility] Start: 10-26-2022 End: 07-11-2023 Tobacco use and exposure Smokeless tobacco non-user [facility] Start: 06-08-2023 Alcohol intake Lifetime non-d kenia (finding) [facility] Start: 10-29-2022 End: 07-22-2023 History of Social function [facility] Start: 10-29-2022 End: 07-22-2023 Tobacco use [...] no Have you been seen here at [facility] in a previous ? yes Recent ER visits or hospitalizations? no Bring blood sugar log or meter with you today? (Please bring them with you for every visit at [facility]) n/a Traveled outside the country in [...] rasopathy. She has been followed by a colors custodian at [facility] in [facility]. However they has not been seen [...] gene. She has been followed by a colors custodian at [facility] in [facility]. However they has not been seen [...] recommended that she reaches out to her outpatient program coordinator and follows at [facility] for her daughter and have her [...] echocardiogram to be completed at a follow-up [facility] visit. Reviewed aneuploidy testing that could [...] Rene Wright MD, FACOG (she/hers) Maternal- Medicine [facility] [address] [place] [address] [facility], the CDC, and other organizations representing maternal and public health professionals recommend that , , and lactating people and those considering receive the COVID-19 vaccination. Vaccination is the best method to reduce maternal and complications of SARS-CoV-2 infection. This document was created with [employer] technology. Though I make every effort to review the dictation as it is transcribed, on occasion the spoken word can be misinterpreted by the technology leading to inappropriate words, phrases, or sentences. This note is addressed to the requesting provider as a consultation for clinical guidance. Specific medical abbreviations are occasionally used and those are generally approved by the [place]?Board of?Obstetrics and?Gynecology?as well as?Jenn s abbreviations. The above plan of care was based solely on the diagnoses for which a consultation was requested. ?More frequent testing may be indicated based on her other medical/obstetrical conditions. The management of other or medical conditions is beyond the scope of requested consultation and will continue to be followed by the primary wardrobe specialist or primary care provider. Note to patient: [...] of the practitioner. documented in this encounter [facility] History of Present illness Narrative 06-08-2023 Monika Oh, TOBIAS - 06/08/2023 1:40 PM EST Note Date & Type Note Facility 06-08-2023 History of Presen t illness Narrative Reason for Appointment: Patient ID: Yovanny Donovan is a 27 y.o. female who presents for Routine Visit Patient presents today for Return OB appointment. Current Medications: has a current medication list which includes the following prescription(s): ondansetron odt and wbfxuima-suy-mg-fa. Medical History: Active Ambulatory Problems Diagnosis Date [...] nursing note reviewed. Exam conducted with a irrigation equipment mechanic present. Vitals: Estimated body mass index is [...] or undercooked meat, and stay away from [facility]. Patient has been consulted regarding any further do's and don'ts of . Patient voiced understanding and all questions and concerns were answered. Pt to be referred to [facility] for level II ultrasound. Discussed NST/BPP and growth ultrasound d/t h/o placenta abruption and IUGR. Pt to have repeat section. Follow Up: Patient is to return in 4 weeks for routine OB appointment. Documented by Monika Oh LPN on behalf of: Lamin Maier DO documented in this encounter [facility] Evaluation note Note Date & Type Note Facility Evaluation note Diagnosis Second trimester state, incidental History of placental abruption documented in this encounter [facility] Evaluation note Note Date & Type Note Facility Evaluation note Diagnosis 20 weeks gestation of - Primary History of placental abruption History of prior with IUGR Hx of section Family history of genetic disease Family history of other condition documented in this encounter [facility] [facility] System Instructions Attachments Note Date & Type Note Facility Instructions The following attachments cannot be sent through Care Everywhere.Preeclampsia ([place])documented in this encounter [facility] [employer] [facility] Assessments Diagnosis Suspected abnormality affecting management [...] Log into your personal health record on [email or web address] and enter Y392 in the Education box to learn more about [employer]: Care Instructions. Current as of: September 19, 2015 Content Version: 11.2 5090-0575 [employer]. Care instructions adapted under license by your healthcare professional. If you have questions about a medical condition or this instruction, always ask your healthcare professional. [employer] disclaims any warranty or liability for your [...] Rene Wright MD [address], [address] [place] [id number] [facility] [address] [place] [address] Referral ID Status Reason Start Date Expiration Date V isits Requested Visits Authorized [id number] Pending Review 07/22/2023 07/21/2024 1 1 Additional Source Comments INFORMATION SOURCE (unrecogn ized section and content) DATE CREATED AUTHOR 10/18/2017 [facility] DATE CREATED AUTHOR AUTHOR'S ORGANIZ ATION 02/12/2018 [facility] DATE CREATED AUTHOR AUTHOR'S ORGANIZ ATION 09/06/2022 [facility] DATE CREATED AUTHOR AUTHOR'S ORGANIZ ATION 11/12/2023 [facility] Natalie Rose MD - 01/10/2018 [...] and content) Associated Order(s): IP CONSULT TO COMMUNICATION INSTRUCTOR Request for consult received, will contact mother [...] that baby is currently being transferred to [facility] from NICU, requests consult, informed [...] abruption SNOMED CT(R): PLACENTAL ABRUPTION [place] Baby Boy Yovanny [[id number]] Delivery Anesthesia Method: Epidural Operative Delivery Forceps attempted?: No Vacuum extractor attempted?: No Shoulder Dystocia Shoulder dystocia present: No Presentation Presentation: Vertex Position: Middle _: Occiput _: Anterior [place] Information date/time: 01/11/182113 Gender: Male Delivery type: Vaginal, Spontaneous Delivery Delivery location: OB Unit ?: No Details: Delivery Providers Delivering clinician: Anahy Sarah MD Other personnel: Provider Role Covering Attending Resident Welder [employer] Leyla Alves, corporate ethics officer Nurse Stephanie Curran, RN Registered Nurse Karlie Shah, corporate ethics officer Assist Nurse Practitioner Cord Vessels: 3 vessels Complications: Nuchal Nuchal intervention: clamped and cut Nuchal cord description: tight nuchal cord Number of loops: 1 Delayed cord clamping?: No Cord clamped date/time: 01/11/20182113 Cord blood obtained?: Lab Cord segment obtained?: Yes Gases sent?: Yes Stem cell collection (by Provider)?: No Placenta Date/time: 01/11/20182122 Removal: Spontaneous Appearance: Intact Disposition: Discarded [place] Apgars Living status: Living Scoring Ruiz: 0 [...] Minute: 10 Minute: 15 Minute: 20 Minute: [place] Measurements Weight: Lacerations Episiotomy: None Perineal lacerations: [...] BE BASED ON THE PRIMARY CLINICAL RECORDS. [facility] [employer] [facility]. provides no warranty or guarantee of the accuracy or completeness of information in this document.
[2023-11-15 16:11] VITALS: BP 109/57; PULSE 87
== END 2023-11-15 16:38 | disposition home or self-care (01) ==
LOC: FBCO 07:06 → FBC 16:01
PROVIDERS: PCP Nurse Practitioner Family; Visit Provider Obstetrics & Gynecology
DX: O36.5930 Maternal care for other known or suspected poor fetal growth, third trimester, not applicable or unspecified (principal); Z3A.37 37 weeks gestation of pregnancy
CPT/HCPCS: 59025

== ENCOUNTER 2023-11-22 07:34 | Outpatient (OUT) | payer BC, SELFPAY ==
[2023-11-22 16:06] VITALS: BP 116/69; PULSE 85
== END 2023-11-22 16:30 | disposition home or self-care (01) ==
LOC: FBCO 07:34 → FBC 16:03
PROVIDERS: PCP Nurse Practitioner Family; Visit Provider Obstetrics & Gynecology
DX: O26.893 Other specified pregnancy related conditions, third trimester (principal)
CPT/HCPCS: 59025

== ENCOUNTER 2023-11-25 06:57 | Outpatient (OUT) | payer BC, SELFPAY ==
--- OUTSIDE RECORDS SUMMARY | 2023-11-25 06:59 | XMS_ITS | CCD ---
Author Organization [facility] Care Team Providers [employer] Name Role Phone No, Physician Unavailable Unavailable ANNA CALLAHAN Unavailable Unavailab le NO, PHYSICIAN Unavailable Unavailable Delphine Lovelace Unavailable [phone] DELPHINE LOVELACE Unavailable Unavail able DELPHINE LOVELACEINE [...] PHYSICIAN Unavailable Unavailable NATALIE EMANUEL Unavailable Unavailable [facility] GENER[facility] U navailable Unavailable [...] MAIER Attending Unavailable SHERRI TRAVIS Attending Unavailable SHERRI TRAVIS Attending Unavailable SHERRI TRAVIS Attending Unavailable Medications [...] needed for nausea or vomiting. 0 Active Miwecmpw-Xlu-Hx-FA ( 1 + IRON PO) (2 sources) [...] mumps virus vaccine live, yogi evans strain 72636 unt/ml / rubella virus vaccine live (wistar [...] UA Negative Negative - 4(70) +++ mg/dL [facility] Blood, UA Negative Negative - 50 Willam/mcL [facility] Clarity, UA Clear [facility] Healthca re Color, UA Yellow [facility] Healthcar e Glucose, UA Negative Negative - 2000(110) ++++ mg/dL [facility] Interpretation and review of laboratory results Abnormal [facility] Ketones, UA Negative Negative - 160(16) ++++ mg/dL [facility] Leukocytes, UA Negative Negative - 500+++ Sandy/mcL [facility] Nitrite, UA Negative Negative - Positive [facility] pH, UA 7.5 5 - 9 [facility] Healthcar e Protein, UA Positive Negative - 2000(20) ++++ mg/dL [facility] Spec Grav, UA 1.025 1 - 1.03 [facility] care Urobilinogen, UA 0.2 0.2 - 12 mg/dL [facility] Covid-19 [facility] ([facility])on 09-24 SARS-CoV-2 (COVID-19) RNA SANDRA+probe Ql (Unsp spec) Not detected Normal NOT DETECTED [facility] Comment on above: Result Comment: When [...] for this test is supported by the [place] of Health and Human Service's declaration that [...] longer be used). Performed By: #### [facility] #### [facility] [address] [address] [address] Kaveh Wilks Tissue Aerobic Cultureon Bacteria identified Aer cx Nom (Tiss) Few Growth (4-10 colonies per plate) Coagulase Negative Staphylococcus Abnormal [facility] Interpretation and review of laboratory results Abnormal Invalid Interpretation Code [facility] Microscopic observation Gram stain Nom (Tiss) Many WBC Invalid Interpretation Code [facility] Microscopic observation Gram stain Nom (Tiss) Many RBC Invalid Interpretation Code [facility] Microscopic observation Gram stain Nom (Tiss) No Organisms Seen Invalid Interpretation Code [facility] Antibody Identificationon Blood group antibodies [...] of laboratory results Normal Invalid Interpretation Code [facility] T. pallidum Ab Ql (S) Negative Invalid Interpretation Code Negative [facility] Type and Screenon 01-11-2018 ABO [...] 68 - 104 seconds Invalid Interpretation Code [facility] aPTT Coag time (Bld) 25 s Invalid Interpretation Code [facility] CBCon 01-10-2018 Erythrocyte distribution width Auto Entitic volume (RBC) 14.0 % Invalid Interpretation Code 11.6 - 14.8 % [facility] Hematocrit Auto Volume Fraction (Bld) 33.9 % Low 36 - 46 % [facility] Hemoglobin mass conc (Bld) 11.8 g/dL Low 12 - 16 g/dL [facility] Interpretation and review of laboratory results Abnormal Invalid Interpretation Code [facility] MCH Auto Entitic mass (RBC) 31.7 pg Invalid Interpretation Code 26 - 34 pg [facility] MCHC Auto mass conc (RBC) 34.8 g/dL Invalid Interpretation Code 31 - 37 g/dL [facility] MCV Auto Entitic volume (RBC) 91.1 fL Invalid Interpretation Code 80 - 100 fL [facility] Nucleated RBC #/vol (Bld) 0.00 10*3/uL Invalid Interpretation Code [facility] Nucleated RBC/100 WBC Ratio (Bld) 0.0 % Invalid Interpretation Code [facility] Platelet mean volume Auto Entitic volume (Bld) 12.1 fL Invalid Interpretation Code 9 - 15.5 fL [facility] Platelets Auto #/vol (Bld) 159 10*3/uL Invalid Interpretation Code [facility] RBC Auto #/vol (Bld) 3.72 10*6/uL Low RI [facility] WBC Auto #/vol (Bld) 16.00 10*3/uL [facility] Fibrinogenon 01-10-2018 Fibrinogen Coag mass conc (PPP) 547 mg/dL High 224 - 483 mg/dL [facility] Interpretation and review of laboratory results Abnormal Invalid Interpretation Code [facility] Otheron 01-10-2018 Interpretation and review of laboratory results Normal Invalid Interpretation Code [facility] PT/INRon 01-10-2018 INR Coag RelTime (Bld) During the induction phase of oral anticoagulation, the INR may not reflect the anticoagulation status of the patient. Therapeutic ranges for INR's are: Most clinical situations: INR 2.0-3.0 Mechanical Prosthetic Valve: INR 2.5-3.5 Critical: INR >5.0 Invalid Interpretation Code [facility] INR Coag RelTime (PPP) 0.9 {INR} Invalid Interpretation Code [facility] Prothrombin time (PT) Coag time (PPP) 12.2 s Invalid Interpretation Code [facility] US OB FOLLOW UP TRANSABDOMIN AL SINGLE FETUSon 11-11-2017 US OB FOLLOW UP TRANSABDOMINAL SINGLE FETUS OBSTETRICS REPORT (Signed Final 11/11/2017 04:43 pm) Patient Info ID #: [id number] : [birth year] (22 yrs) Name: YOVANNY CAMARILLO Visit Date: 11/11/2017 10:50 am Performed By Performed By: Bianca Reynoso Referred By: Delphine Lovelace RDME Attending: Uziel Hanson, Location: [place] [facility], [facility] Service(s[place] [address] [place] [address] Indications Zika virus exposure affecting O99.89 28 [...] Best: 28w 3d Det. By: Clinical CARIDAD CARIDDA: 01/31/18 ------- Anatomy ------- Cranium: Normal appearance [...] our ultrasound office is accredited by The [place] of Ultras[employer] in Medicine (AIUM). If you would like to discuss the results of your patient's tests or would like a Maternal- Medicine Consultation to assist you with her management, please do not hesitate to contact us at [phone]. Uziel Hanson MD, RUST Electronically Signed Final Report 11/11/2017 04:43 pm Invalid Interpretation Code [facility] US OB FOLLOW UP TRANSABDOMINAL SINGLE FETUS Interface, Rad In Stan Speechq - 11/11/2017 4:44 PM EDT OBSTETRICS REPORT (Signed Final 11/11/2017 04:43 pm) Patient Info ID #: [id number] : [birth year] (22 yrs) Name: YOVANNY CAMARILLO Visit Date: 11/11/2017 10:50 am Performed By Performed By: Bianca Reynoso Referred By: Delphine Lovelace RDMS, MD Attending: Uziel Hanson, Location: Demi Knapp MD, [facility] Service(s) [place] [address] [place] [address] Indications Zika virus exposure affecting O99.89 28 [...] our ultrasound office is accredited by The [place] [employer]trasound in Medicine (AIUM). If you would like to discuss the results of your patient's tests or would like a Maternal- Medicine Consultation to assist you with her management, please do not hesitate to contact us at [phone]. Uziel Hanson MD, RDMS Electronically Signed Final Report 11/11/2017 04:43 pm Invalid Interpretation Code [facility] US Obstetric Detail An atomy Transabdominal Single Fetuson 09-23-2017 US Obstetric Detail Anatomy Transabdominal Single Fetus OBSTETRICS REPORT (Signed Final 09/23/2017 03:50 pm) Patient Info ID #: [id number] : [birth year] (22 yrs) Name: YOVANNY CAMARILLO Visit Date: 09/23/2017 01:47 pm Performed By Performed By: Charan Mart Referred By: Delphine Lovelace RDMS, MD Attending: Debbie Recio MD Location: [facility] Service(s) Provided Targeted OB + Transvaginal [id number] Indications 21 weeks gestation of Z3A.21 Zika [...] Visualized 4 Chamber View: Normal appearance Cardiac [place]: Normal Cardiac Motion: Visualized Diaphragm: Normal appearance [...] our ultrasound office is accredited by The [place] [employer]trasound in Medicine (AIUM). If you would like to discuss the results of your patient's tests or would like a Maternal- Medicine Consultation to assist you with her management, please do not hesitate to contact us at [phone]. Debbie Recio MD Electronically Signed Final Report 09/23/2017 03:50 pm Invalid Interpretation Code CHARAN MART RDMS US Obstetric Detail Anatomy Transabdominal Single Fetus Interface, Rad In Fuji Speechq - 09/23/2017 3:51 PM EDT OBSTETRICS REPORT (Signed Final 09/23/2017 03:50 pm) Patient Info ID #: [id number] : [birth year] (22 yrs) Name: YOVANNY CAMARILLO Visit Date: 09/23/2017 01:47 pm Performed By Performed By: Charan Mart Referred By: Delphine Lovelace RDMS, MD Attending: Debbie Recio MD Location: [facility] Service(s) Provided Targeted OB + Transvaginal [id number] Indications 21 weeks gestation of Z3A.21 Zika [...] Visualized 4 Chamber View: Normal appearance Cardiac [place]: Normal Cardiac Motion: Visualized Diaphragm: Normal appearance [...] our ultrasound office is accredited by The [place] [employer]trasound in Medicine (AIUM). If you would like to discuss the results of your patient's tests or would like a Maternal- Medicine Consultation to assist you with her management, please do not hesitate to contact us at [phone]. Debbie Recio MD Electronically Signed Final Report 09/23/2017 03:50 pm Invalid Interpretation Code CHARAN DINORA BARRON RDMS CBC Auto Differentialon 03-0 Basophils 0.03 K/mcL Invalid Interpretation Code 0.00 - 0.30 [facility] Basophils/100 leukocytes 0.3 % Invalid Interpretation Code [facility] Eosinophils 0.07 K/mcL Invalid Interpretation Code 0.00 - 0.50 [facility] Eosinophils/100 leukocytes 0.6 % Invalid Interpretation Code [facility] Erythrocytes (RBC) 4.12 M/mcL Invalid Interpretation Code 4.00 - 5.20 [facility] Erythrocytes (RBC) 0.00 K/mcL Invalid Interpretation Code 0.00 - 0.00 [facility] Hematocrit (HCT) 36.8 % Invalid Interpretation Code 36 - 46 % [facility] Hemoglobin (HGB) 12.5 g/dL Invalid Interpretation Code 12 - 16 g/dL [facility] IG Absolute 0.02 K/mcL Invalid Interpretation Code 0.00 - 0.30 [facility] IG Percent 0.20 % Invalid Interpretation Code [facility] Interpretation and review of laboratory results Abnormal Invalid Interpretation Code [facility] Lymphocytes 2.42 K/mcL Invalid Interpretation Code 0.90 - 4.00 [facility] Lymphocytes/100 leukocytes 22.2 % Invalid Interpretation Code [facility] MCH 30.3 pg Invalid Interpretation Code 26 - 34 pg [facility] MCHC 34.0 g/dL Invalid Interpretation Code 31 - 37 g/dL [facility] MCV 89.3 fL Invalid Interpretation Code 80 - 100 fL [facility] Monocytes 0.67 K/mcL Invalid Interpretation Code 0.30 - 0.90 [facility] Monocytes/100 leukocytes 6.1 % Invalid Interpretation Code [facility] Neutrophils 7.69 K/mcL High 1.70 - 7.00 [facility] Neutrophils/100 leukocytes 70.6 % Invalid Interpretation Code [facility] Nucleated erythrocytes/100 erythrocytes 0.0 % Invalid Interpretation Code [facility] Platelet mean volume (PMV) 11.2 fL Invalid Interpretation Code 9 - 15.5 fL [facility] Platelets 285 K/mcL Invalid Interpretation Code 150 - 400 [facility] RDW-CA 12.8 % Invalid Interpretation Code 11.6 - 14.8 % [facility] WBC (Leukocytes) 10.90 K/mcL Invalid Interpretation Code 4.50 - 11.00 [facility] CBC and Differentialon 06-30 Creatinine The following orders were created for panel order CBC and Differential. Procedure Abnormality Status --------- ------ CBC Auto Differential[[id number]] Abnormal Final result Please view results for these tests on the individual orders. Invalid Interpretation Code [facility] HIV 1/2 Screen (4th Generati on)on 06-30-2017 HIV 1+2 antibody presence Negative Invalid Interpretation Code Negative [facility] Interpretation and review of laboratory results Normal Invalid Interpretation Code [facility] HIV 1/2 Screen (4th Generation) This assay tests for the presence of HIV-1, HIV-2 antibodies and for the presence of HIV-1 antigen. Test performed using Ivana TR immunoassay system Invalid Interpretation Code [facility] Hepatitis B Surface Antigeno n 06-30-2017 Hepatitis B Surface Ag Negative Invalid Interpretation Code Negative [facility] Hepatitis B Surface Antigen Test performed using Ivana TR immunoassay system Invalid Interpretation Code [facility] RPRon 06-30-2017 Reagin antibody presence Non-Reactive Invalid Interpretation Code Non-Reactive [facility] Rubella Antibody, IgGon Rubella IgG Non-Immune Invalid Interpretation Code [facility] Rubella IgG Value 5.87 IU/mL Invalid Interpretation Code [facility] Type and Screenon 06-30-2017 ABO+Rh [...] repeat if clinically indicated. Invalid Interpretation Code [facility] Vital Signs Date Time Vital Sign Value Performing Clinician Facility 07-22-2023 12:33-0400 Body height 167.6 cm Rene Wright MD Work Phone: [facility] 07-22-2023 12:33-0400 Body mass index (BMI) [Ratio] 21.08 kg/m2 Rene Wright MD Work Phone: [facility] 07-22-2023 12:33-0400 Body weight 59.24 kg Rene Wright MD Work Phone: [facility] 07-22-2023 12:33-0400 Diastolic blood pressure 61 mm[Hg] Rene Wright MD Work Phone: [facility] 07-22-2023 12:33-0400 Heart rate 78 /min Rene Wright MD Work Phone: [facility] 07-22-2023 12:33-0400 Systolic blood pressure 104 mm[Hg] Rene Wright MD Work Phone: [facility] 06-08-2023 13:47-0500 Body mass index (BMI) [Ratio] 20.24 kg/m2 Lamin Livier DO Work Phone: [facility] 06-08-2023 13:47-0500 Body weight 56.88 kg Lamin Livier DO Work Phone: [facility] 06-08-2023 13:47-0500 Diastolic blood pressure 60 mm[Hg] Lamin Maier DO Work Phone: [facility] 06-08-2023 13:47-0500 Systolic blood pressure 104 mm[Hg] Lamin Braswello DO Work Phone: [facility] 01-13-2018 09:42-0400 Pulse (Heart Rate) 90 /min [facility] 01-13-2018 09:42-0400 Pulse Oximetry 98 % Delphine [facility] 01-13-2018 09:31-0400 Body Temperature 98.2 [degF] Delphine [facility] 01-13-2018 09:31-0400 BP Diastolic 75 mm[Hg] Delphine [facility] 01-13-2018 09:31-0400 BP Systolic 109 mm[Hg] Delphine [facility] 01-13-2018 09:31-0400 Respiratory Rate 16 /min Delphine [facility] 05-13-2017 11:47-0500 BMI (Body Mass Index) 22.6 kg/m2 Anna Callahan [facility] Work Phone: 05-13-2017 11:47-0500 Body Temperature 98.4 [degF] Anna Callahan [facility] Work Phone: 05-13-2017 11:47-0500 BP Diastolic 78 mm[Hg] Anna Callahan [facility] Work Phone: 05-13-2017 11:47-0500 BP Systolic 112 mm[Hg] Anna Callahan [facility] Work Phone: 05-13-2017 11:47-0500 Height 167.6 cm Anna Callahan [facility] Work Phone: 05-13-2017 11:47-0500 Pulse (Heart Rate) 81 /min Anna Callahan [facility] Work Phone: 05-13-2017 11:47-0500 Pulse Oximetry 98 % Anna Callahan [facility] Work Phone: 05-13-2017 11:47-0500 Weight 63.5 kg Anna Callahan [facility] Work Phone: Encounters Encounter Date Encounter Type Care Provider Facility Start: 11-22-2023 End: 11-22-2023 ambulatory SHERRI TRAVIS Not Available Start: 11-15-2023 End: 11-15-2023 ambulatory SHERRI ANGY Not Available Start: 11-08-2023 End: 11-08-2023 ambulatory SHERRI ANGY Not Available Start: 10-25-2023 End: 10-25-2023 ambulatory LAMIN LIVIER Not Available Start: 10-12-2023 End: 10-12-2023 ambulatory LAMIN LIVIER Not Available Start: 09-28-2023 End: 09-28-2023 ambulatory LAMIN LIVIER Not Available Start: 09-14-2023 End: 09-14-2023 ambulatory SHERRI ANGY Not Available Start: 08-31-2023 End: 08-31-2023 ambulatory LAMIN LIVIRE Not Available Start: 08-03-2023 End: 08-03-2023 ambulatory SHERRI ANGY Not Available Start: 07-22-2023 End: 07-22-2023 Office consultation new/estab patient 60 min Rene Wright MD Work Phone: [facility] Comment on above: 20 weeks gestation o [...] End: 09-02-[address] LAMIN MAIER . Facility: Start: 10-22-2021 Encounter for preprocedural laboratory examination TAWANNA CHESTER [facility] Start: 10-19-2021 End: 10-20-2021 ambulatory TAWANNA CHESTER Facility:[facility] Start: 10-19-2021 End: 10-20-2021 Encounter for preprocedural laboratory examination TAWANNA CHESTER Facility:[facility] Start: 01-11-2018 End: 01-13-2018 Evaluation and management of inpatient DELPHINE LOVELACE [facility] Start: 01-10-2018 End: 01-13-2018 Evaluation and management of inpatient Delphine Lovelace Work Phone: [facility] Mother/ Unit 5 Start: 11-11-2017 End: 11-12-2017 Patient encounter Denzel Hoang Work Phone: [facility] Maternal Medicine Start: 11-10-2017 End: 11-10-2017 Patient encounter ORVILLE GÓMEZ [facility] Start: 09-23-2017 End: 09-24-2017 Patient encounter COREY MARTIN [facility] Start: 09-23-2017 End: 09-23-2017 Ambulatory Delphine Islas Lovelace Work Phone: [facility] Maternal Medicine Start: 09-01-2017 End: 09-01-2017 Patient encounter DELPHINE ISLAS [facility] Start: 08-01-2017 End: 08-01-2017 Ambulatory Delphine Lovelace Work Phone: [facility] [employer] Draw [facility] Start: 07-04-2017 End: 07-04-2017 Patient encounter DELPHINE ISLAS [facility] Start: 06-30-2017 End: 06-30-2017 Ambulatory Delphine Lovelace Work Phone: [facility] [employer] [facility] Start: 05-13-2017 End: 05-13-2017 Ambulatory ANNA CALLAHAN [facility] Start: 05-13-2017 Office/outpatient [facility] level 2 Anna Callahan Work Phone: [facility] Start: 04-14-2017 End: 04-19-2017 Patient encounter DELPHINE ISLAS [facility] Procedures Date Procedure Procedure Detail Performing Clinician [...] pallidum IgG Ab [Presence] in Serum Natalie Palacios Jenae Work Phone: Start: 01-10-2018 End: 01-10-2018 aPTT in Blood by Coagulation assay Dinora Meyer Work Phone: Start: 01-10-2018 End: 01-10-2018 Complete blood count (hemogram) panel - Blood by Automated count Dinora Meyer Work Phone: Start: 01-10-2018 End: 01-10-2018 Fibrinogen [Mass/volume] in Platelet poor plasma by Coagulation assay Dinora eMyer Work Phone: Start: 01-10-2018 End: 01-10-2018 INR in Platelet poor plasma by Coagulation assay Dinora T Mitch Work Phone: Start: 01-10-2018 End: 01-10-2018 Prothrombin time Dinora T Mitch Work Phone: H/O: section Hx of sect ion Rene Wright MD Work Phone: Plan of Treatment Date Care Activity Detail Author Start: 11-11-2027 DTaP,Tdap and Td Vac cines (8 - Td or Tdap) DTaP,Tdap and Td Vaccines (8 - Td or Tdap) [facility] Start: 11-11-2027 Tetanus vaccination TETANUS EVERY 10 YR [facility] Start: 07-21-2024 Adult BMI Screening Adult BMI Screen ing [facility] Start: 07-21-2024 Tobacco Screening Tobacco Screening [facility] Start: 07-21-2024 End: 07-21-2024 US MFM with or without consult US MFM with or without consult Imaging Routine History of placental abruption History of prior with IUGR Expected: 07/21/2024 (Approximate), Expires: 07/21/2024 [employer] Work Phone: Comment on above: Expected: 07/21/2024 (Approximate), Expires: 07/21/2024 Start: 09-08-2023 End: 09-08-2023 Patient encounter procedure 09/08/2023 10:45 AM EDT Office Visit [facility] [address] [place] [address] Sandra Conti MD [address] [facility] [address] [place] [address] [facility] Start: 08-26-2023 End: 08-26-2023 Patient encounter procedure [facility] [place] Start: 07-06-2023 End: 07-06-2023 Patient encounter procedure 07/06/2023 1:40 PM EDT Routine [facility] [address] [place] [address] Lamin Maier, DO [address] [place] [address] [facility] Start: 12-24-2022 COVID-19 Vaccine ( season) COVID-19 Vaccine () [facility] Start: 12-24-2022 Influenza vaccination [facility] Start: 04-14-2020 Screening for malign ant neoplasm of cervix PAP SMEAR [facility] Start: 12-24-2017 Influenza vaccination [facility] Start: 11-24-2017 End: 11-24-2017 Ambulatory 11/24/2017 Routine Obstetrics and Gynecology Delphine Lovelace MD [address] [address] [phone] [facility] [facility] [place] Start: 11-11-2017 End: 11-11-2017 Ambulatory 11/11/2017 Appointment Maternal and Medicine [facility] Maternal Medicine Start: 09-28-2017 End: 09-28-2017 Ambulatory 09/28/2017 Routine Obstetrics [place] [address] [place] [address] [phone] [facility] Start: 12-24-2016 Influenza vaccination SEQUENTI AL INFLUENZA VACCINE (#1) [facility] Work Phone: Start: 2014 Screening for malign ant neoplasm of cervix Pap Smear [facility] Start: 2005 Depression Screening Depression Scre ening [facility] Start: 2004 Vaccination for shira n papillomavirus [facility] Work Phone: Start: 1993 Screening for malign ant neoplasm of cervix PAP SMEAR [facility] Work Phone: Start: 1993 Tetanus vaccination TETANUS EVERY 10 YR [facility] Work Phone: Tissue Aerobic Culture Tissue Ae robic Culture Routine 01/11/2018 11:49 PM EDT [facility] Tissue Anaerobic Culture Tissue Anaerobic Culture Routine 01/11/2018 11:49 PM EDT [facility] End: 01-11-2018 Tissue Exam Tissue Exam Routine Once for 1 Occurrences starting 01/11/2018 until 01/11/2018, 1 completed [facility] Comment on above: Once for 1 Occurrenc es starting 01/11/2018 until 01/11/2018, 1 completed Tissue Exam Tissue Exam Rout ine 01/11/2018 9:39 PM EDT [facility] Immunizations Immunization Date Immunization Notes Care Provider Fa wendi 01-12-2018 influenza, injectabl e, quadrivalent, preservative free; Translations: [INFLUENZA IIV4 3YO OR > FLUARIX/FLUZONE/AFLURIA 05184] Delphine [facility] 01-12-2018 measles, mumps and rubella virus vaccine; Translations: [MMR] Delphine [facility] 01-12-2018 influenza virus vacc ine, unspecified formulation Lamin Livier DO Work Phone: [facility] 11-10-2017 tetanus toxoid, redu luz diphtheria toxoid, and acellular pertussis vaccine, adsorbed; Translations: [TDAP] Denzel Natalya [facility] Payers Date Payer Category Payer Unknown [id number] 2017 Unknown [id number] 2013 Unknown [id number] . [id number] 1993 Unknown [id number] 2.16.84 0.1.339591.3.579.2.593 1993 Unknown [id number] 2.16.84 0.1.755739.3.579.2.593 1993 Unknown [id number] 2.16.84 0.1.379637.3.579.2.1259 1993 Unknown [id number] 2.16.84 0.1.320432.3.579.2.1259 1993 Unknown [id number] 2.16.84 0.1.061378.3.579.2.1258 1993 Unknown [id number] 2.16.84 0.1.542766.3.579.2.1258 1993 Unknown [id number] 2.16.84 0.1.863459.3.579.2.1258 1993 Unknown [id number] 2.16.84 0.1.587215.3.579.2.1258 1993 Unknown [id number] 2.16.84 0.1.573720.3.579.2.1258 1993 Unknown [id number] 2.16.84 0.1.390151.3.579.2.1258 1993 Unknown [id number] 2.16.84 0.1.336255.3.579.2.1258 1993 Unknown [id number] 2.16.84 0.1.939459.3.579.2.1258 1993 Unknown [id number] 2.16.84 0.1.183700.3.579.2.1258 1993 Unknown [id number] 2.16.84 0.1.962040.3.579.2.9 1959 Unknown [id number] Social History Date Type Detail Facility Start: 05-13-2017 End: 07-11-2023 Tobacco smoking status [facility] Never smoker [facility] Start: 1995 Sex Assigned At Not on file [employer] Work Phone: Start: 05-10-2017 [facility] Start: 10-26-2022 End: 07-11-2023 Tobacco use and exposure Smokeless tobacco non-user [facility] Start: 06-08-2023 Alcohol intake Lifetime non-d kenia (finding) [facility] Start: 10-29-2022 End: 07-22-2023 History of Social function [facility] Start: 10-29-2022 End: 07-22-2023 Tobacco use panel [facility] Start: 07-04-2023 Alcohol Comment caffeine: 2-3 cups per day, soda/pop [facility] Start: 07-22-2023 Alcohol intake Ex-drinker (finding) [facility] Within the past 12 months we worried whether our food would run out before we got money to buy more. Never True [facility] History of Present illness Narrative 07-22-2023 [...] no Have you been seen here at [facility] in a previous ? yes Recent ER visits or hospitalizations? no Bring blood sugar log or meter with you today? (Please bring them with you for every visit at [facility]) n/a Traveled outside the country in [...] who presented for consultation from Lamin Hamilton RDO regarding Chief Complaint Patient presents with hx [...] rasopathy. She has been followed by a indigo mixer at [facility] in [facility]. However they has not been seen [...] gene. She has been followed by a indigo mixer at [facility] in [facility]. However they has not been seen [...] recommended that she reaches out to her classified advertising manager and follows at [facility] for her daughter and have her other [...] Rene Wright MD, FACOG (she/hers) Maternal- Medicine [facility] [address] [place] [address] [facility], the CDC, and other organizations representing maternal and public health professionals recommend that , , and lactating people and those considering receive the COVID-19 vaccination. Vaccination is the best method to reduce maternal and complications of SARS-CoV-2 infection. This document was created with [employer] technology. Though I make every effort to review the dictation as it is transcribed, on occasion the spoken word can be misinterpreted by the technology leading to inappropriate words, phrases, or sentences. This note is addressed to the requesting provider as a consultation for clinical guidance. Specific medical abbreviations are occasionally used and those are generally approved by the [place]?Board of?Obstetrics and?Gynecology?as well as?Jenn william abbreviations. The above plan of care was based solely on the diagnoses for which a consultation was requested. ?More frequent testing may be indicated based on her other medical/obstetrical conditions. The management of other or medical conditions is beyond the scope of requested consultation and will continue to be followed by the primary test fixture assembler or primary care provider. Note to patient: [...] of the practitioner. [facility] History of Present illness Narrative 06-08-2023 [...] includes the following prescription(s): ondansetron odt and [id number]. Medical History: Active Ambulatory Problems Diagnosis Date [...] nursing note reviewed. Exam conducted with a senior tax manager present. Vitals: Estimated body mass index is [...] or undercooked meat, and stay away from [facility]. Patient has been consulted regarding any further do's and don'ts of . Patient voiced understanding and all questions and concerns were answered. Pt to be referred to [facility] for level II ultrasound. Discussed NST/BPP [...] abruption documented in this encounter [facility] Evaluation note Note Date & Type Note Facility Evaluation note Diagnosis 20 weeks gestation of - Primary History of placental abruption History of prior with IUGR Hx of section Family history of genetic disease Family history of other condition [facility] Instructions Attachments Note Date & Type Note Facility Instructions The following attachments cannot be sent through Care Everywhere.Preeclampsia ([place])documented in this [facility] Assessments Diagnosis Suspected abnormality affecting [...] Log into your personal health record on [email or web address] and enter Y392 in the Education box to learn more about [facility]: Care Instructions. Current as of: September 19, 2015 Content Version: 11.2 0479-0115 [employer]. Care instructions adapted under license by your healthcare professional. If you have questions about a medical condition or this instruction, always ask your healthcare professional. [employer] disclaims any warranty or liability for your use of this information. in this encounter Summary Purpose Family History No Family History Records FoundNo Family History Records FoundNo Family History Records FoundNo Family History Records Found Advance Directives No Advanced Directives Records FoundNo Advanced Directives Records FoundNo Advanced Directives Records FoundNo Advanced Directives Records Found Reason for Referral Specialty Diagnoses / Procedures Referred By Eduarda gomez Referred To Contact Maternal and Medicine Diagnoses History of placental abruption History of prior with IUGR Procedures US MFM with or without consult Rene Wright MD [address] [place] [address] [facility] [address] [place] [address] Referral ID Status Reason Start Date Expiration Date V isits Requested Visits Authorized [id number] Pending Review 07/22/2023 07/21/2024 1 1 Additional Source Comments INFORMATION SOURCE (unrecogn ized section and content) DATE CREATED AUTHOR 10/18/2017 [facility] DATE CREATED AUTHOR AUTHOR'S ORGANIZ ATION 02/12/2018 [facility] DATE CREATED AUTHOR AUTHOR'S ORGANIZ ATION 09/06/2022 [facility] DATE CREATED AUTHOR AUTHOR'S ORGANIZ ATION 11/24/2023 [facility] Natalie Rose MD [...] and content) Associated Order(s): IP CONSULT TO FITNESS SALES ASSOCIATE Request for consult received, will contact [...] that baby is currently being transferred to [facility] from NICU, requests consult, informed her that she will be contacted later to schedule an appointment. Courtesy card given with list of outpatient resources and helpline number. Attempted to round on mother, mother not in her room at this time.. NICU MD at bedside at request of Franchesca. MD evaluated and would like to transfer baby [...] abruption SNOMED CT(R): PLACENTAL ABRUPTION Leena Donovan [[id number]] Delivery Anesthesia Method: Epidural Operative Delivery Forceps attempted?: No Vacuum extractor attempted?: No Shoulder Dystocia Shoulder dystocia present: No Presentation Presentation: Vertex Position: Middle _: Occiput _: Anterior Information date/time: 01/11/182113 Gender: Male Delivery type: Vaginal, Spontaneous Delivery Delivery location: OB Unit ?: No Details: Delivery Providers Delivering clinician: Anahy Sarah MD Other personnel: Provider Role Covering Attending Resident Assistant Associate Full Professor Leyla Alves RN Delivery Nurse Stephanie Curran RN Registered Nurse Karlie [...] 01/11/20182122 Removal: Spontaneous Appearance: Intact Disposition: Discarded [place] [facility] Living status: Living Scoring Ruiz: 0 [...] BE BASED ON THE PRIMARY CLINICAL RECORDS. [facility]. provides no warranty or guarantee of the accuracy or completeness of information in this document.
--- NOTE | 2023-11-25 13:03 | US_ITS ---
[address] [address] Patient Name: MAURICIO MENDES MRN: [id number] date: 1995 Sex: F Assigned Patient Location: [facility] Current Patient Location: [facility] Accession/Order Number: [id number] Exam Date: 11/25/2023 13:09 Report Date: 11/25/2023 14:04 At the request of: JANIE CARABALLO Procedure: US OB BPP w non-stress EXAMINATION: US OB BPP w non-stress HISTORY:HISTORY OF PLACENTAL ABRUPTION Z87.59 COMPARISON: Ultrasound OB biophysical 11/11/2023 TECHNIQUE: Ultrasound biophysical profile was performed in the radiology department. BREATHING MOVEMENTS: 2 GROSS BODY MOVEMENTS: 2 TONE: 2 QUALITATIVE AMNIOTIC FLUID VOLUME: 2 PRESENTATION: CEPHALIC HEART RATE: 127.96 bpm AMNIOTIC FLUID VOLUME: 16.83 cm GESTATIONAL AGE: 38 weeks 4 days US/US OB BPP w non-stress IMPRESSION: Total biophysical profile score: 8 Electronically authenticated by: CHIP ANDERSON Date: 11/25/2023 14:04
[2023-11-25 13:52] VITALS: BP 102/67; PULSE 85
== END 2023-11-25 14:18 | disposition home or self-care (01) ==
LOC: US 06:57 → FBC 13:00
PROVIDERS: PCP Nurse Practitioner Family; Visit Provider Obstetrics & Gynecology
DX: O09.293 Supervision of pregnancy with other poor reproductive or obstetric history, third trimester (principal); Z87.59 Personal history of other complications of pregnancy, childbirth and the puerperium; Z3A.38 38 weeks gestation of pregnancy
CPT/HCPCS: 76818

== ENCOUNTER 2023-11-28 05:36 | Inpatient (IN) | payer BC, SELFPAY ==
[2023-11-28] VITALS (33 sets, daily range): BP systolic 85–117; BP diastolic 46–73; PULSE 63–91; TEMP 36.7–36.8; O2SAT 95–98
--- OUTSIDE RECORDS SUMMARY | 2023-11-28 05:42 | XMS_ITS | CCD ---
Author Organization [facility] Care Team Providers Care Vice President Of Software Development Name Role Phone No, Physician Unavailable Unavailable ANNA CALLAHAN Unavailable Unavailab le NO, PHYSICIAN Unavailable Unavailable Delphine Lovelace Unavailable [phone] DELPHINE LOVELACE Unavailable Unavail able DELPHINE LOVELACEINE [...] DENZEL HOANG Unavailable Unavaila ble DELPHINE LOVELACE SILAS Unavailable Unavail able NO, PHYSICIAN Unavailable Unavailable DELPHINE LOVELACE SILAS Unavailable Unavail able NO, PHYSICIAN Unavailable Unavailable NATALIE EMANUEL Unavailable Unavailable [facility] navailable Unavailable [...] needed for nausea or vomiting. 0 Active Kcikbxfe-Bjn-Ab-FA ( 1 + IRON PO) (2 sources) [...] mumps virus vaccine live, yogi evans strain 23070 unt/ml / rubella virus vaccine live (wistar [...] UA Negative Negative - 4(70) +++ mg/dL [facility] Blood, UA Negative Negative - 50 Willam/mcL [facility] Clarity, UA Clear [facility] Color, UA Yellow [facility] Glucose, UA Negative Negative - 2000(110) ++++ mg/dL [facility] Interpretation and review of laboratory results Abnormal [facility] Ketones, UA Negative Negative - 160(16) ++++ mg/dL [facility] Leukocytes, UA Negative Negative - 500+++ Sandy/mcL [facility] Nitrite, UA Negative Negative - Positive [facility] pH, UA 7.5 5 - 9 [facility] Protein, UA Positive Negative - 2000(20) ++++ mg/dL [facility] Spec Grav, UA 1.025 1 - 1.03 [facility] care Urobilinogen, UA 0.2 0.2 - 12 mg/dL [facility] ([facility])on 09-24 SARS-CoV-2 (COVID-19) RNA SANDRA+probe Ql (Unsp spec) Not detected Normal NOT DETECTED [facility] Comment on above: Result Comment: When diagnostic [...] for this test is supported by the [place] of Health and Human Service's declaration that [...] longer be used). Performed By: #### C [facility] #### [facility] [address] [address] [address] Kaveh Wilks Tissue Aerobic Cultureon Bacteria identified Aer cx Nom (Tiss) Few Growth (4-10 colonies per plate) Coagulase Negative Staphylococcus Abnormal [facility] Interpretation and review of laboratory results Abnormal Invalid Interpretation Code [facility] Microscopic observation Gram stain Nom (Tiss) Many WBC Invalid Interpretation Code [facility] Microscopic observation Gram stain Nom (Tiss) Many RBC Invalid Interpretation Code [facility] Microscopic observation Gram stain Nom (Tiss) No Organisms Seen Invalid Interpretation Code [facility] Antibody Identificationon Blood group antibodies identified Nom Anti-Rhogam Invalid Interpretation Code [facility] The anti-D detected in this patient is presumably caused by a recent Rh Immune Globulin injection.It is unlikely that this represents a clinically significant antibody. Invalid Interpretation Code [facility] RhIG Evaluationon 01-11-2018 Rh immune globulin candidate (yes/no) Ql RhIG Candidacy Invalid Interpretation Code [facility] Baby is Rho(D) negative. Patient is NOT a candidate for Rh Immune Globulin. Invalid Interpretation Code [facility] Syphilis Antibodyon 01-12-20 18 Interpretation and review of laboratory results Normal Invalid Interpretation Code [facility] T. pallidum Ab Ql (S) Negative Invalid Interpretation Code Negative [facility] Type and Screenon 01-11-2018 ABO and Rh group Nom (Bld) Negative Invalid Interpretation Code [facility] Blood group antibody screen Ql Positive Invalid Interpretation Code [facility] Specimen Expires 01/13/2018 23:59 EST Invalid Interpretation Code [facility] APTTon 01-10-2018 aPTT Coag time (Bld) Therapeutic range for APTT's is 68 - 104 seconds Invalid Interpretation Code [facility] aPTT Coag time (Bld) 25 s Invalid Interpretation Code [facility] CBCon 01-10-2018 Erythrocyte distribution width Auto Entitic volume (RBC) 14.0 % Invalid Interpretation Code 11.6 - 14.8 % [facility] Hematocrit Auto Volume Fraction (Bld) 33.9 % Low 36 - 46 % [facility] Hemoglobin mass conc (Bld) 11.8 g/dL Low 12 - 16 g/dL [facility] Interpretation and review of laboratory results Abnormal Invalid Interpretation Code [facility] MCH Auto Entitic mass (RBC) 31.7 pg Invalid Interpretation Code 26 - 34 pg [facility] MCHC Auto mass conc (RBC) 34.8 g/dL Invalid Interpretation Code 31 - 37 g/dL [facility] MCV Auto Entitic volume (RBC) 91.1 fL Invalid Interpretation Code 80 - 100 fL [facility] Nucleated RBC #/vol (Bld) 0.00 10*3/uL Invalid Interpretation Code [facility] Nucleated RBC/100 WBC Ratio (Bld) 0.0 % Invalid Interpretation Code [facility] Platelet mean volume Auto Entitic volume (Bld) 12.1 fL Invalid Interpretation Code 9 - 15.5 fL [facility] Platelets Auto #/vol (Bld) 159 10*3/uL Invalid Interpretation Code [facility] RBC Auto #/vol (Bld) 3.72 10*6/uL Low [facility] WBC Auto #/vol (Bld) 16.00 10*3/uL High [facility] Fibrinogenon 01-10-2018 Fibrinogen Coag mass conc (PPP) 547 mg/dL High 224 - 483 mg/dL [facility] Interpretation and review of laboratory results Abnormal Invalid Interpretation Code [facility] Otheron 01-10-2018 Interpretation and review of laboratory results Normal Invalid Interpretation Code [facility] PT/INRon 01-10-2018 INR Coag RelTime (Bld) During the induction phase of oral anticoagulation, the INR may not reflect the anticoagulation status of the patient. Therapeutic ranges for INR's are: Most clinical situations: INR 2.0-3.0 Mechanical Prosthetic Valve: INR 2.5-3.5 Critical: INR >5.0 Invalid Interpretation Code [facility] INR Coag RelTime (PPP) 0.9 {INR} Invalid Interpretation Code [facility] Prothrombin time (PT) Coag time (PPP) 12.2 s Invalid Interpretation Code [facility] US OB FOLLOW UP TRANSABDOMIN AL SINGLE FETUSon 11-11-2017 US OB FOLLOW UP TRANSABDOMINAL SINGLE FETUS OBSTETRICS REPORT (Signed Final 11/11/2017 04:43 pm) Patient Info ID #: [id number] : [birth year] (22 yrs) Name: YOVANNY CAMARILLO Visit Date: 11/11/2017 10:50 am Performed By Performed By: Bianca Reynoso Referred By: Delphine Lovelace RDDE Attending: Uziel Hanson, Location: [place], [facility] Service(s) [place] [address] [place] [address] Indications Zika virus exposure affecting O99.89 28 [...] our ultrasound office is accredited by The [place] of Ultrasound in Medicine (AIUM). If you would like to discuss the results of your patient's tests or would like a Maternal- Medicine Consultation to assist you with her management, please do not hesitate to contact us at [phone]. Uziel Hanson MD, [facility] Electronically Signed Final Report 11/11/2017 04:43 pm Invalid Interpretation Code [facility] US OB FOLLOW UP TRANSABDOMINAL SINGLE FETUS Interface, Rad In Stan Speechq - 11/11/2017 4:44 PM EDT OBSTETRICS REPORT (Signed Final 11/11/2017 04:43 pm) Patient Info ID #: [id number] : [birth year] (22 yrs) Name: YOVANNY CAMARILLO Visit Date: 11/11/2017 10:50 am Performed By Performed By: Bianca Reynoso Referred By: Delphine Lovelace RDMS, MD Attending: Uziel Hanson, Location: Demi Knapp MD, [facility] Service(s) [place] [address] [place] [address] Indications Zika virus exposure affecting O99.89 28 [...] our ultrasound office is accredited by The [place] of Ultrasound in Medicine (AIUM). If you would like to discuss the results of your patient's tests or would like a Maternal- Medicine Consultation to assist you with her management, please do not hesitate to contact us at [phone]. Uziel Hanson MD, RDMS Electronically Signed Final Report 11/11/2017 04:43 pm Invalid Interpretation Code [facility] US Obstetric Detail An atomy Transabdominal Single Fetuson 09-23-2017 US Obstetric Detail Anatomy Transabdominal Single Fetus OBSTETRICS REPORT (Signed Final 09/23/2017 03:50 pm) Patient Info ID #: [id number] : [birth year] (22 yrs) Name: YOVANNY CAMARILLO Visit Date: 09/23/2017 01:47 pm Performed By Performed By: Charan Mart Referred By: Delphine Lovelace RDMS, MD Attending: Debbie Recio MD Location: [facility] Service(s) Provided Targeted OB + Transvaginal [id number] Indications 21 weeks gestation of Z3A.21 Zika [...] Visualized 4 Chamber View: Normal appearance Cardiac [place]: Normal Cardiac Motion: Visualized Diaphragm: Normal appearance [...] our ultrasound office is accredited by The [place] of Ultrasound in Medicine (AIUM). If you would like to discuss the results of your patient's tests or would like a Maternal- Medicine Consultation to assist you with her management, please do not hesitate to contact us at [phone]. Debbie Recio MD Electronically Signed Final Report 09/23/2017 03:50 pm Invalid Interpretation Code CHARAN MART RDMS US Obstetric Detail Anatomy Transabdominal Single Fetus Interface, Rad In Fuji Speechq - 09/23/2017 3:51 PM EDT OBSTETRICS REPORT (Signed Final 09/23/2017 03:50 pm) Patient Info ID #: [id number] : [birth year] (22 yrs) Name: YOVANNY CAMARILLO Visit Date: 09/23/2017 01:47 pm Performed By Performed By: Charan Mart Referred By: Delphine Lovelace RDMS, MD Attending: Debbie Recio MD Location: [facility] Service(s) Provided Targeted OB + Transvaginal [id number] Indications 21 weeks gestation of Z3A.21 Zika [...] Visualized 4 Chamber View: Normal appearance Cardiac [place]: Normal Cardiac Motion: Visualized Diaphragm: Normal appearance [...] our ultrasound office is accredited by The [place] of Ultrasound in Medicine (AIUM). If you would like to discuss the results of your patient's tests or would like a Maternal- Medicine Consultation to assist you with her management, please do not hesitate to contact us at [phone]. Debbie Recio MD Electronically Signed Final Report 09/23/2017 03:50 pm Invalid Interpretation Code CHARAN DINORA BARRON RDMS CBC Auto Differentialon 03-0 Basophils 0.03 K/mcL Invalid Interpretation Code 0.00 - 0.30 [facility] Basophils/100 leukocytes 0.3 % Invalid Interpretation Code [facility] Eosinophils 0.07 K/mcL Invalid Interpretation Code 0.00 - 0.50 [facility] Eosinophils/100 leukocytes 0.6 % Invalid Interpretation Code [facility] Erythrocytes (RBC) 4.12 M/mcL Invalid Interpretation Code 4.00 - 5.20 [facility] Erythrocytes (RBC) 0.00 K/mcL Invalid Interpretation Code 0.00 - 0.00 [facility] Hematocrit (HCT) 36.8 % Invalid Interpretation Code 36 - 46 % [facility] Hemoglobin (HGB) 12.5 g/dL Invalid Interpretation Code 12 - 16 g/dL [facility] IG Absolute 0.02 K/mcL Invalid Interpretation Code 0.00 - 0.30 [facility] IG Percent 0.20 % Invalid Interpretation Code [facility] Interpretation and review of laboratory results Abnormal Invalid Interpretation Code [facility] Lymphocytes 2.42 K/mcL Invalid Interpretation Code 0.90 - 4.00 [facility] Lymphocytes/100 leukocytes 22.2 % Invalid Interpretation Code [facility] MCH 30.3 pg Invalid Interpretation Code 26 - 34 pg [facility] MCHC 34.0 g/dL Invalid Interpretation Code 31 - 37 g/dL [facility] MCV 89.3 fL Invalid Interpretation Code 80 - 100 fL [facility] Monocytes 0.67 K/mcL Invalid Interpretation Code 0.30 - 0.90 [facility] Monocytes/100 leukocytes 6.1 % Invalid Interpretation Code [facility] Neutrophils 7.69 K/mcL High 1.70 - 7.00 [facility] Neutrophils/100 leukocytes 70.6 % Invalid Interpretation Code [facility] Nucleated erythrocytes/100 erythrocytes 0.0 % Invalid Interpretation Code [facility] Platelet mean volume (PMV) 11.2 fL Invalid Interpretation Code 9 - 15.5 fL [facility] Platelets 285 K/mcL Invalid Interpretation Code 150 - 400 [facility] RDW-CA 12.8 % Invalid Interpretation Code 11.6 - 14.8 % [facility] WBC (Leukocytes) 10.90 K/mcL Invalid Interpretation Code 4.50 - 11.00 [facility] CBC and Differentialon 06-30 Creatinine The following orders were created for panel order CBC and Differential. Procedure Abnormality Status --------- ------ CBC Auto Differential[[id number]] Abnormal Final result Please view results for these tests on the individual orders. Invalid Interpretation Code [facility] HIV 1/2 Screen (4th Generati on)on 06-30-2017 HIV 1+2 antibody presence Negative Invalid Interpretation Code Negative [facility] Interpretation and review of laboratory results Normal Invalid Interpretation Code [facility] HIV 1/2 Screen (4th Generation) This assay tests for the presence of HIV-1, HIV-2 antibodies and for the presence of HIV-1 antigen. Test performed using Ivana TR immunoassay system Invalid Interpretation Code [facility] Hepatitis B Surface Antigeno n 06-30-2017 Hepatitis B Surface Ag Negative Invalid Interpretation Code Negative [facility] Hepatitis B Surface Antigen Test performed using Ivana TR immunoassay system Invalid Interpretation Code [facility] RPRon 06-30-2017 Reagin antibody presence Non-Reactive Invalid Interpretation Code Non-Reactive [facility] Rubella Antibody, IgGon Rubella IgG Non-Immune Invalid Interpretation Code [facility] Rubella IgG Value 5.87 IU/mL Invalid Interpretation Code [facility] Type and Screenon 06-30-2017 ABO+Rh group Negative Invalid Interpretation Code [facility] Blood group antibody presence Negative Invalid Interpretation Code [facility] Specimen Expires 07/03/2017 23:59 EST Invalid Interpretation Code [facility] Urine Aerobic Cultureon Bacteria aerobode culture Three or more colony types; >10,000 CFU/mL mixture of normal urogenital microbiota. None predominant. Possible contamination. Suggest repeat if clinically indicated. Invalid Interpretation Code [facility] Vital Signs Date Time Vital Sign Value Performing Clinician Facility 07-22-2023 12:33-0400 Body height 167.6 cm Rene Wright MD Work Phone: [facility] 07-22-2023 12:33-0400 Body mass index (BMI) [Ratio] 21.08 kg/m2 Rene Wright MD Work Phone: [facility] 07-22-2023 12:33-0400 Body weight 59.24 kg Rene Wright MD Work Phone: [facility] 07-22-2023 12:33-0400 Diastolic blood pressure 61 mm[Hg] Rene Wright MD Work Phone: [facility] 07-22-2023 12:33-0400 Heart rate 78 /min Rene Wright MD Work Phone: [facility] 07-22-2023 12:33-0400 Systolic blood pressure 104 mm[Hg] Rene Wright MD Work Phone: [facility] 06-08-2023 13:47-0500 Body mass index (BMI) [Ratio] 20.24 kg/m2 Lamin Livier DO Work Phone: [facility] 06-08-2023 13:47-0500 Body weight 56.88 kg Lamin Livier DO Work Phone: [facility] 06-08-2023 13:47-0500 Diastolic blood pressure 60 mm[Hg] Lamin Maier DO Work Phone: [facility] 06-08-2023 13:47-0500 Systolic blood pressure 104 mm[Hg] Lamin Braswello DO Work Phone: [facility] 01-13-2018 09:42-0400 Pulse (Heart Rate) 90 /min [facility] 01-13-2018 09:42-0400 Pulse Oximetry 98 % Delphine [facility] 01-13-2018 09:31-0400 Body Temperature 98.2 [degF] Delphine [facility] 01-13-2018 09:31-0400 BP Diastolic 75 mm[Hg] Delphine [facility] 01-13-2018 09:31-0400 BP Systolic 109 mm[Hg] Delphine [facility] 01-13-2018 09:31-0400 Respiratory Rate 16 /min Delphine [facility] 05-13-2017 11:47-0500 BMI (Body Mass Index) 22.6 kg/m2 Anna Callahan [facility] Work Phone: 05-13-2017 11:47-0500 Body Temperature 98.4 [degF] Anna Callahan [facility] Work Phone: 05-13-2017 11:47-0500 BP Diastolic 78 mm[Hg] Anna Callahan [facility] Work Phone: 05-13-2017 11:47-0500 BP Systolic 112 mm[Hg] Anna Callahan [facility] Work Phone: 05-13-2017 11:47-0500 Height 167.6 cm Anna Callahan [facility] Work Phone: 05-13-2017 11:47-0500 Pulse (Heart Rate) 81 /min Anna Callahan [facility] Work Phone: 05-13-2017 11:47-0500 Pulse Oximetry 98 % Anna Callahan [facility] Work Phone: 05-13-2017 11:47-0500 Weight 63.5 kg Anna Callahan [facility] Work Phone: Encounters Encounter Date Encounter [...] Wright MD Work Phone: Maternal- Medicine at [facility] Comment on above: 20 [...] Encounter for preprocedural laboratory examination TAWANNA CHESTER [facility] Start: 10-19-2021 End: 10-20-2021 ambulatory TAWANNA CHESTER Facility:[facility] Start: 10-19-2021 End: 10-20-2021 Encounter for preprocedural laboratory examination TAWANNA CHESTER Facility:[facility] Start: 01-11-2018 End: 01-13-2018 Evaluation and management of inpatient DELPHINE LOVELACE [facility] Start: 01-10-2018 End: 01-13-2018 Evaluation and management of inpatient Delphine Lovelace Work Phone: [facility] Mother/ Unit 5 Start: 11-11-2017 End: 11-12-2017 Patient encounter Denzel Hoang Work Phone: [facility] Maternal Medicine Start: 11-10-2017 End: 11-10-2017 Patient encounter ORVILLE GÓMEZ [facility] Start: 09-23-2017 End: 09-24-2017 Patient encounter COREY MARTIN [facility] Start: 09-23-2017 End: 09-23-2017 Ambulatory Delphine Islas Lovelace Work Phone: [facility] Maternal Medicine Start: 09-01-2017 End: 09-01-2017 Patient encounter DELPHINE ISLAS [facility] Start: 08-01-2017 End: 08-01-2017 Ambulatory Delphine Lovelace Work Phone: [facility] [employer] [facility] Start: 07-04-2017 End: 07-04-2017 Patient encounter DELPHINE ISLAS [facility] Start: 06-30-2017 End: 06-30-2017 Ambulatory Delphine Lovelace Work Phone: [facility] [employer] [facility] Start: 05-13-2017 End: 05-13-2017 Ambulatory ANNA CALLAHAN [facility] Start: 05-13-2017 Office/outpatient [facility] level 2 Anna Callahan Work Phone: [facility] [place] Start: 04-14-2017 End: 04-19-2017 Patient encounter DELPHINE ISLAS [facility] Procedures Date Procedure Procedure Detail Performing Clinician Start: 07-11-2023 H/O: section Hx of section Rene Wright MD Work Phone: Start: 06-08-2023 Urnls dip stick/tabl et rgnt non-auto w/o micrscp Lamin Livier DO Work Phone: Start: 01-11-2018 End: 01-11-2018 Cul bact xcpt urine blood/stool aerobic isol Anahy Sarha Work Phone: Start: 01-11-2018 End: 01-11-2018 Culture [...] Td Vaccines (8 - Td or Tdap) [facility]: 11-11-2027 Tetanus vaccination TETANUS EVERY 10 YR [facility] Start: 07-21-2024 Adult BMI Screening Adult BMI Screen ing [facility] Start: 07-21-2024 Tobacco Screening Tobacco Screening [facility] Start: 07-21-2024 End: 07-21-2024 US MFM with or without consult US MFM with or without consult Imaging Routine History of placental abruption History of prior with IUGR Expected: 07/21/2024 (Approximate), Expires: 07/21/2024 [employer] Work Phone: Comment on above: Expected: 07/21/2024 (Approximate), Expires: 07/21/2024 Start: 09-08-2023 End: 09-08-2023 Patient encounter procedure 09/08/2023 10:45 AM EDT Office Visit [facility] [address] [place] [address] Sandra Conti MD [address] [facility] [address] [place] [address] [facility] Start: 08-26-2023 End: 08-26-2023 Patient encounter procedure [facility] [place] Start: 07-06-2023 End: 07-06-2023 Patient encounter procedure 07/06/2023 1:40 PM EDT Routine [facility] [address] [place] [place] [address] Lamin Maier, DO [address] [place] [address] [facility] Start: 12-24-2022 COVID-19 Vaccine ( season) COVID-19 Vaccine () [facility] Start: 12-24-2022 Influenza vaccination [facility] Start: 04-14-2020 Screening for malign ant neoplasm of cervix PAP SMEAR [facility] Start: 12-24-2017 Influenza vaccination [facility] Start: 11-24-2017 End: 11-24-2017 Ambulatory 11/24/2017 Routine Obstetrics and Gynecology Delphine Lovelace MD [address] [address] [phone] [facility] [facility] [facility] [place] Start: 11-11-2017 End: 11-11-2017 Ambulatory 11/11/2017 Appointment Maternal and Medicine [facility] Maternal Medicine Start: 09-28-2017 End: 09-28-2017 Ambulatory 09/28/2017 Routine Obstetrics [place] [address] [place] [address] [phone] [facility] [facility] Start: 12-24-2016 Influenza vaccination SEQUENTI AL INFLUENZA VACCINE (#1) [facility] Work Phone: Start: 2014 Screening for malign ant neoplasm of cervix Pap Smear [facility] Start: 2005 Depression Screening Depression Scre ening [facility] Start: 2004 Vaccination for shira n papillomavirus [facility] Work Phone: Start: 1995 Screening for malign ant neoplasm of cervix PAP SMEAR [facility] Work Phone: Start: 1993 Tetanus vaccination TETANUS EVERY 10 YR [facility] Work Phone: Tissue Aerobic Culture Tissue Ae robic Culture Routine 01/11/2018 11:49 PM EDT [facility] Tissue Anaerobic Culture Tissue Anaerobic Culture Routine 01/11/2018 11:49 PM EDT [facility] End: 01-11-2018 Tissue Exam Tissue Exam Routine Once for 1 Occurrences starting 01/11/2018 until 01/11/2018, 1 completed [facility] Comment on above: Once for 1 Occurrenc es starting 01/11/2018 until 01/11/2018, 1 completed Tissue Exam Tissue Exam Rout ine 01/11/2018 9:39 PM EDT [facility] Immunizations Immunization Date Immunization Notes Care Provider Fa wendi 01-12-2018 influenza, injectabl e, quadrivalent, preservative free; Translations: [INFLUENZA IIV4 3YO OR > FLUARIX/FLUZONE/AFLURIA [address]] [facility] 01-12-2018 measles, mumps and rubella virus vaccine; Translations: [MMR] [facility] 01-12-2018 influenza virus vacc ine, unspecified formulation Lamin Livier DO Work Phone: [facility] 11-10-2017 tetanus toxoid, redu luz diphtheria toxoid, and acellular pertussis vaccine, adsorbed; Translations: [TDAP] Denzel Natalya [facility] Payers Date Payer Category Payer Unknown [id number] 2017 Unknown [id number] 2013 Unknown [id number] 1993 Unknown [id number] 2.16.84 [id number] 1993 Unknown [id number] 2.16.84 0.1.878112.3.579.2.593 1993 Unknown [id number] 2.16.84 0.1.092244.3.579.2.1259 1993 Unknown [id number] 2.16.84 0.1.588257.3.579.2.1259 1993 Unknown [id number] 2.16.84 0.1.261370.3.579.2.1258 1993 Unknown [id number] 2.16.84 0.1.421051.3.579.2.1258 1993 Unknown [id number] 2.16.84 0.1.910606.3.579.2.1258 1993 Unknown [id number] 2.16.84 0.1.561701.3.579.2.1258 1993 Unknown [id number] 2.16.84 0.1.001749.3.579.2.1258 1993 Unknown [id number] 2.16.84 0.1.938344.3.579.2.1258 1993 Unknown [id number] 2.16.84 0.1.082726.3.579.2.1258 1993 Unknown [id number] 2.16.84 0.1.117608.3.579.2.1258 1993 Unknown [id number] 2.16.84 0.1.310497.3.579.2.1258 1993 Unknown [id number] 2.16.84 0.1.911061.3.579.2.9 1959 Unknown [id number] Social History Date Type Detail Facility Start: 05-13-2017 End: 07-11-2023 Tobacco smoking status [facility] Never smoker [facility] Start: 1993 Sex Assigned At Not on file [employer] Work Phone: Start: 05-10-2017 [facility] Start: 10-26-2022 End: 07-11-2023 Tobacco use and exposure Smokeless tobacco non-user [facility] Start: 06-08-2023 Alcohol intake Lifetime non-d kenia (finding) [facility] Start: 10-29-2022 End: 07-22-2023 History of Social function [facility] Start: 10-29-2022 End: 07-22-2023 Tobacco use panel [facility] Start: 07-04-2023 Alcohol Comment caffeine: 2-3 cups per day, soda/pop [facility] Start: 07-22-2023 Alcohol intake Ex-drinker (finding) [facility] Within the past 12 months we worried whether our food would run out before we got money to buy more. Never True [facility] History of Present illness Narrative 07-22-2023 Peggy Weldon RN - 07/22/2023 1:00 PM EDTeRne Wright MD - 07/22/2023 1:00 PM EDT [...] no Have you been seen here at [facility] in a previous ? yes Recent ER visits or hospitalizations? no Bring blood sugar log or meter with you today? (Please bring them with you for every visit at [facility]) n/a Traveled outside the country in the [...] rasopathy. She has been followed by a boat carpenter mechanic at [facility] in [facility]. However they has not been [...] gene. She has been followed by a boat carpenter mechanic at [facility] in [facility]. However they has not been [...] recommended that she reaches out to her rolled seat trimmer and follows at [facility] for her daughter and have her [...] Rene Wright MD, FACOG (she/hers) Maternal- Medicine [facility] [address] [place] [address] [facility], the CDC, and other organizations representing maternal and public health professionals recommend that , , and lactating people and those considering receive the COVID-19 vaccination. Vaccination is the best method to reduce maternal and complications of SARS-CoV-2 infection. This document was created with manetch technology. Though I make every effort to review the dictation as it is transcribed, on occasion the spoken word can be misinterpreted by the technology leading to inappropriate words, phrases, or sentences. This note is addressed to the requesting provider as a consultation for clinical guidance. Specific medical abbreviations are occasionally used and those are generally approved by the [place]?Board of?Obstetrics and?Gynecology?as well as?Jenn william abbreviations. The above plan of care was based solely on the diagnoses for which a consultation was requested. ?More frequent testing may be indicated based on her other medical/obstetrical conditions. The management of other or medical conditions is beyond the scope of requested consultation and will continue to be followed by the primary security sergeant or primary care provider. Note to patient: [...] of the practitioner. [facility] History of Present illness Narrative 06-08-2023 [...] includes the following prescription(s): ondansetron odt and [id number]-[id number]. Medical History: Active Ambulatory Problems Diagnosis Date [...] nursing note reviewed. Exam conducted with a forest ecology professor present. Vitals: Estimated body mass index is [...] or undercooked meat, and stay away from [facility]. Patient has been consulted regarding any further do's and don'ts of . Patient voiced understanding and all questions and concerns were answered. Pt to be referred to [facility] for level II ultrasound. Discussed NST/BPP and [...] of other condition documented in this encounter [facility] Instructions Attachments Note Date & Type Note Facility Instructions The following attachments cannot be sent through Care Everywhere.Preeclampsia (Chadian)documented in this encounter [facility] Assessments Diagnosis Suspected abnormality affecting [...] Log into your personal health record on [email or web address] and enter [id number] in the Education box to learn more about [place]: Care Instructions. Current as of: September 19, 2015 Content Version: 11.2 6936-3170 [employer]. Care instructions adapted under license by your healthcare professional. If you have questions about a medical condition or this instruction, always ask your healthcare professional. [employer] disclaims any warranty or liability for your [...] MD [address] [place] [address] [facility] [address] [place] [address] Referral ID Status Reason Start Date Expiration Date V isits Requested Visits Authorized [id number] Pending Review 07/22/2023 07/21/2024 1 1 Additional Source Comments INFORMATION SOURCE (unrecogn ized section and content) DATE CREATED AUTHOR 10/18/2017 [facility] DATE CREATED AUTHOR AUTHOR'S ORGANIZ ATION 02/12/2018 [facility] DATE CREATED AUTHOR AUTHOR'S ORGANIZ ATION 09/06/2022 [facility] DATE CREATED AUTHOR AUTHOR'S ORGANIZ ATION 11/24/2023 [facility] Natalie Rose MD [...] and content) Associated Order(s): IP CONSULT TO AUDIOVISUAL PRODUCTION SPECIALIST Request for consult received, will contact mother [...] widely. Gave mom the plan of low ruzi attempts at the breast when baby cues. [...] baby is currently being transferred to [facility] from NICU, requests consult, informed [...] Problems: Placental abruption SNOMED CT(R): PLACENTAL ABRUPTION eLena Donovan [[id number]] Delivery Anesthesia Method: Epidural Operative Delivery Forceps attempted?: No Vacuum extractor attempted?: No Shoulder Dystocia Shoulder dystocia present: No Presentation Presentation: Vertex Position: Middle _: Occiput _: Anterior Information date/time: 01/11/182113 Gender: Male Delivery type: Vaginal, Spontaneous Delivery Delivery location: OB Unit ?: No Details: Delivery Providers Delivering clinician: Anahy Sarah MD Other personnel: Provider Role Covering Attending Resident [employer] Renowned Chef And Restaurant Owner Leyla Alves RN Delivery Nurse Stephanie Curran [...] 01/11/20182122 Removal: Spontaneous Appearance: Intact Disposition: Discarded [place] [facility] Living status: Living Scoring Ruiz: 0 [...] BE BASED ON THE PRIMARY CLINICAL RECORDS. [facility]. provides no warranty or guarantee of the accuracy or completeness of information in this document.
[2023-11-28] MEDS: 0.9 % SODIUM CHLORIDE 1,000 ML 1000 ML IV ×2 (06:08→06:38)
[2023-11-28 06:17] LABS: Hematocrit 37.3 % (36.0-48.0); Hemoglobin 12.7 g/dL (12.0-16.0); Mean Corpuscular Hemoglobin 32.6 pg (26.7-34.0); Mean Corpuscular Volume 95.9 fL (81.0-99.0); Mean Platelet Volume 12.2 fL (9.5-13.5); Platelet Count 141 10^3/uL (150-450); Red Blood Count 3.89 10^6/uL (4.20-5.40); White Blood Count 11.2 10^3/uL (4.0-11.0)
[2023-11-28] MEDS: FAMOTIDINE/PF 20 MG/2 ML VIAL IV (06:26)
[2023-11-28] MEDS: CITRIC ACID/SODIUM CITRATE 30 ML SOLUTION ORACIT SHOHL'S SOLN PO (06:27)
[2023-11-28] MEDS: METOCLOPRAMIDE HCL 10 MG/2 ML VIAL IVP (06:27)
[2023-11-28 06:28] LABS: Amphetamine Screen Urine NEGATIVE (NEGATIVE); Barbiturates Screen Urine NEGATIVE (NEGATIVE); Benzodiazepines Screen Urine NEGATIVE (NEGATIVE); Buprenorphine Screen Urine NEGATIVE (NEGATIVE); Cannabinoid Screen Urine NEGATIVE (NEGATIVE); Cocaine Screen Urine NEGATIVE (NEGATIVE); Methadone Screen Urine NEGATIVE (NEGATIVE); Methamphetamines Screen Urine NEGATIVE (NEGATIVE); Opiate Screen Urine NEGATIVE (NEGATIVE); Oxycodone Screen Urine NEGATIVE (NEGATIVE); Phencyclidine Screen Urine NEGATIVE (NEGATIVE); Tricyclic Antidepressant Urine NEGATIVE (NEGATIVE)
[2023-11-28] MEDS: CEFAZOLIN SODIUM/DEXTROSE,ISO 2 GM/50 ML PIGGYBACK IV (07:16)
[2023-11-28] MEDS: LACTATED RINGER'S SOLUTION 1,000 ML 50 ML IV (07:45)
--- NOTE | 2023-11-28 08:08 | PM.OBPRCCS ---
Procedure Pre-op/Post-op diagnoses: Pre-Op/Post-Op Diagnoses Operation Date: 11/28/23 07:30 <No data on this case meets the specified criteria> Procedure: Procedures Operation Date: 11/28/23 07:30 Actual Procedure Side Surgeon p Repeat Not Applicable Lamin Maier DO Mechanical Engineer: Dinora Young Estimated blood loss (mL): 575 Disposition: floor Anesthesia type: Spinal
--- NOTE | 2023-11-28 08:08 | PM.ONB ---
Brief Operative Note Date of procedure: 11/28/23 Pre-op diagnosis general: iup at 39wks, previous c/s Post-op diagnosis: same as pre-op Procedure: NAME OF PROCEDURE: [ section ] PROCEDURE: Patient was taken back to the Operating Room where she was given a spinal anesthesia with Duramorph without difficulty. She was prepped and draped in the normal sterile fashion. A Pfannenstiel skin incision was then made 2 cm above the symphysis pubis and carried down to underlying rectus fascia using a Bovie. The fascia was incised in the midline and extended laterally using Meléndez scissors. Two Ned clamps were placed on the superior aspect of the fascia and dissected off the underlying rectus muscles. The same was performed on the inferior aspect as well. The muscles were then in the midline. Peritoneum was identified and entered bluntly. The peritoneum was then extended superiorly and inferiorly with good visualization of the bladder. The bladder blade was inserted. A low transverse incision was made on the patient's uterus and extended laterally digitally. The was then delivered atraumatically after the bladder blade was removed in the cephalic position. The cord was clamped and cut. Cord blood was obtained. The was handed off to awaiting team. The patient's placenta was spontaneously delivered. The uterus was then exteriorized. The uterus was cleared of all clots and debris. The bladder blade was reinserted. The patient's uterine incision was closed using #0 Vicryl in a running lock fashion. Excellent hemostasis was assured. The uterus was then returned to the patient's abdomen. The patient's abdomen was copiously irrigated using warm saline. Peritoneal gutters were cleared of all clots and debris. Again excellent hemostasis was assured. The patient's peritoneum was closed using 3-0 Vicryl in a running fashion. The patient's fascia was closed using #0 Vicryl in a running fashion. The patient's skin was closed using 4-0 Vicryl subcuticularly. The patient tolerated the procedure well. Sponge, lap, and needle counts were correct x2. The patient was taken to the Recovery Room in stable condition. Anesthesia: spinal Surgeon: Lamin Maier Respiratory Therapy Instructor: Dinora Young Estimated blood loss (mL): 575 Pathology: none sent Condition: stable Disposition: floor Urinary Catheter Management Urinary Catheter Management Urethral: Cath placed during this visit: no
[2023-11-28] MEDS: OXYTOCIN/0.9 % SODIUM CHLORIDE 20 UNITS/1,000 ML PLAST..BAG 125 UNIT IV (08:38)
[2023-11-28] MEDS: KETOROLAC TROMETHAMINE 30 MG/ML VIAL IVP ×3 (08:39→23:10)
[2023-11-28] MEDS: ACETAMINOPHEN 500 MG TABLET 1000 MG PO (11:36)
[2023-11-28] MEDS: CEFAZOLIN SODIUM/DEXTROSE,ISO 1 GM/50 ML IV.SOLN IV (12:48)
--- NOTE | 2023-11-28 19:18 | W.PC.ACHO ---
Registration Status: ADM IN Primary Language: Belizean Preferred Language: Belizean Report given on [place] out, IV to SL, Pain meds, Up walking, Drsg & Fundus/bleeding. Active Medications Generic Name Dose Route Start Last Admin Trade Name Janny PRN Reason Stop Dose Admin Acetaminophen 1,000 mg 11/28/23 11:30 11/28/23 11:36 Acetaminophen 500 Mg Tablet PO 11/30/23 11:31 1,000 mg Q8H PRN Administration Pain Al Hydroxide/Mg Hydroxide 2,400 mg 11/28/23 08:09 Magnesium Hydroxide 2,400 Mg/10 Ml Oral.Susp PO Q6H PRN Dyspepsia Carboprost Tromethamine 250 mcg 11/28/23 05:39 Carboprost Tromethamine 250 Mcg/Ml 1 Ml Vial IM 11/30/23 05:39 Q15M PRN Bleeding Diphenhydramine HCl 25 mg 11/28/23 08:09 Diphenhydramine Hcl 50 Mg/Ml Vial IV 11/29/23 08:10 Q6H PRN Itching Diphtheria/Pertussis/Tetanus Vacc 0.5 ml 11/30/23 09:00 Adacel Diph,Pertuss(Acell),Tet Vac/Pf 0.5 Ml Adult Syringe IM 11/30/23 09:01 .ONCE ONE Docusate Sodium 100 mg 11/29/23 09:00 Docusate Sodium 100 Mg Capsule PO BID ALEJANDRO Tranexamic Acid 1,000 mg/ 110 mls @ 440 mls/hr 11/28/23 05:39 Sodium Chloride IV 11/30/23 05:39 ONCE PRN Uterine Bleeding Oxytocin/Sodium Chloride 20 units in 1,000 mls @ 125 mls/hr 11/28/23 05:39 Pitocin 20 Unit/1,000 Ml-Ns IV Q8H PRN POST DELIVERY Lactated Ringer's 1,000 mls @ 50 mls/hr 11/28/23 08:00 11/28/23 07:45 Lactated Ringers IV 50 mls/hr .Q20H ALEJANDRO Administration Lactated Ringer's 1,000 mls @ 125 mls/hr 11/28/23 08:30 Lactated Ringers IV .Q8H ALEJANDRO Promethazine HCl 25 mg/ Sodium 51 mls @ 204 mls/hr 11/28/23 08:09 Chloride IV Q6H PRN Nausea And Vomiting Ibuprofen 800 mg 11/28/23 08:09 Ibuprofen 400 Mg Tablet PO Q8H PRN Pain Ketorolac Tromethamine 30 mg 11/28/23 08:09 11/28/23 17:17 Ketorolac Tromethamine 30 Mg/Ml Vial IVP 11/30/23 08:10 30 mg Q6H PRN Administration Pain Measles/Mumps/Rubella Vaccine Live 0.5 ml 11/30/23 09:00 Measles,Mumps,Rubella Vacc/Pf 0.5 Ml Vial SQ 11/30/23 09:01 .ONCE ONE Methylergonovine Maleate 0.2 mg 11/28/23 05:39 Methylergonovine Maleate 0.2 Mg/Ml Ampule IM 11/30/23 05:39 ONCE PRN Uterine Contractility/Contract Methylergonovine Maleate 0.2 mg 11/28/23 05:39 Methylergonovine Maleate 0.2 Mg Tablet PO 11/30/23 05:39 Q4H PRN Uterine Contractility/Contract Misoprostol 600 mcg 11/28/23 05:39 Misoprostol 100 Mcg Tablet PO 11/30/23 05:39 ONCE PRN Uterine Bleeding Misoprostol 800 mcg 11/28/23 05:39 Misoprostol 100 Mcg Tablet SL 11/30/23 05:39 ONCE PRN Uterine Bleeding Misoprostol 1,000 mcg 11/28/23 05:39 Misoprostol 100 Mcg Tablet UT 11/30/23 05:39 ONCE PRN Uterine Bleeding Ondansetron HCl 4 mg 11/28/23 08:09 Ondansetron Pf 4 Mg/2 Ml Vial IV Q6H PRN Nausea And Vomiting Ondansetron HCl 4 mg 11/28/23 08:09 Ondansetron 4 Mg Rapdis Tablet PO Q6H PRN Nausea And Vomiting Oxycodone/Acetaminophen 2 tab 11/28/23 08:09 Oxycodone Hcl/Acetaminophen 5mg/325mg PO Q4H PRN Pain Scale 7-10 Oxycodone/Acetaminophen 1 tab 11/28/23 08:09 Oxycodone Hcl/Acetaminophen 5mg/325mg PO Q4H PRN Pain Scale 4-6 Oxytocin 10 unit 11/28/23 05:39 Oxytocin 10 Unit/Ml Vial IM 11/30/23 05:39 ONCE PRN Bleeding Senna 17.2 mg 11/28/23 20:00 Sennosides 8.6 Mg Tablet PO QHS PRN Constipation Simethicone 80 mg 11/28/23 08:09 Simethicone 80 Mg Tab.Chew PO QID PRN Abdominal Distention Diet Category Date Time Status Regular Consistency Diet Diet 11/28/23 08:09 Active Consults Category Date Time Status Consult to Anesthesiology Routine Cons 11/28/23 Ordered IV Insertion/Site Date of IV Line Insertion [20g 11/28/23 left Forearm] IV Insertion Time [20g left 06:00 Forearm] IV Catheter Type [Left Forearm Peripheral IV ] IV Catheter Type [Left Forearm Peripheral IV ] IV Catheter Type [Left Forearm Peripheral IV ] Neurology Patient orientation (short person,place,time,situation list) Kendall coma scale total score 15 Kendall coma scale total score 15 Kendall coma scale total score 15 Respiratory Pulse Oximetry 97 Pulse Oximetry 98 Pulse Oximetry 97 Pulse Oximetry 97 Pulse Oximetry 97 Pulse Oximetry 97 Pulse Oximetry 97 Pulse Oximetry 97 Pulse Oximetry 97 Pulse Oximetry 97 Pulse Oximetry 96 Pulse Oximetry 96 Pulse Oximetry 96 Pulse Oximetry 96 Pulse Oximetry 96 Pulse Oximetry 95 Pulse Oximetry 96 Pulse Oximetry 96 Pulse Oximetry 96 Pulse Oximetry 96 Pulse Oximetry 98 Pulse Oximetry 97 Pulse Oximetry 97 Oxygen Delivery Method Room Air Oxygen Delivery Method Room Air Oxygen Delivery Method Room Air Catheter Date Urinary Catheter Removed 11/28/23 [Urethral] Time Urinary Catheter 17:05 Discontinued [Urethral]
[2023-11-29] MEDS: ACETAMINOPHEN 500 MG TABLET 1000 MG PO ×3 (03:14→23:21)
[2023-11-29] MEDS: KETOROLAC TROMETHAMINE 30 MG/ML VIAL IVP ×2 (04:55→11:49)
[2023-11-29 04:59] VITALS: BP 104/51; PULSE 56
[2023-11-29 06:36] LABS: Basophils Absolute Auto 0.1 10^3/uL (0.0-0.1); Basophils Percent Auto 0.3 % (0.2-2.0); Eosinophils Absolute Auto 0.1 10^3/uL (0.0-0.7); Eosinophils Percent Auto 0.7 % (0.9-7.0); Hematocrit 32.2 % (36.0-48.0); Hemoglobin 10.7 g/dL (12.0-16.0); Immature Granulocytes Abs Auto 0.09 10^3/uL (0.00-0.03); Immature Granulocytes Pct Auto 0.5 % (0.0-0.5); Lymphocytes Absolute Auto 3.1 10^3/uL (1.2-3.8); Lymphocytes Percent Auto 18.4 % (20.5-60.0); Mean Corpuscular HGB Conc 33.2 g/dL (29.9-35.2); Mean Corpuscular Hemoglobin 32.1 pg (26.7-34.0); Mean Corpuscular Volume 96.7 fL (81.0-99.0); Mean Platelet Volume 12.3 fL (9.5-13.5); Monocytes Absolute Auto 1.2 10^3/uL (0.3-0.8); Monocytes Percent Auto 6.8 % (1.7-12.0); Neutrophils Absolute Auto 12.5 10^3/uL (1.4-6.5); Neutrophils Percent Auto 73.3 % (43.0-75.0); Platelet Count 121 10^3/uL (150-450); Red Blood Count 3.33 10^6/uL (4.20-5.40)
[2023-11-29 07:45] VITALS: TEMP 36.9
[2023-11-29 07:46] VITALS: BP 118/77; PULSE 65
--- NOTE | 2023-11-29 08:37 | PM.OBPN ---
OB - PN: Subj Subjective Patient comments: no complaints [place] status: doing well [place] feeding status: exclusively Exam Constitutional Vital Signs, click to edit/add: Last Vital Signs Temp 98.3 F 11/28/23 17:05 Pulse 65 11/29/23 07:46 Resp 16 11/28/23 17:05 BP 118/77 11/29/23 07:46 Pulse Ox 97 11/28/23 10:30 O2 Del Method Room Air 11/29/23 05:01 Documenting provider has reviewed patient's vital signs: yes Common normals: no apparent distress HENMT Common normals: normocephalic Eye Common normals: EOMs intact bilaterally General eye: normal appearance of both eyes Neck & C-Spine Common normals: full ROM General: normal visual inspection Lymph Lymphatic: no lymphadenopathy noted Chest Common normals: inspection of chest normal Respiratory Common normals: normal respiratory effort Effort & inspection: able to speak in complete sentences Auscultation: clear to auscultation bilaterally Cardio Common normals: regular rate and regular rhythm Rate: regular rate Rhythm: regular rhythm GI Common normals: Normal to inspection, nondistended, normoactive bowel sounds present Inspection: normal to inspection Auscultation: normoactive bowel sounds Palpation: soft Common normals: no CVA tenderness Back & Pelvis Common normals: no CVA tenderness Thoracic spine/upper back: normal to inspection Lumbar spine/lower back: normal to inspection Extremity Common normals: normal to inspection Neuro Common normals: oriented x3 Psych Common normals: mental status grossly normal Attitude: calm Results Labs Labs: Short CBC 11/29/23 Range/Units 06:09 WBC 17.0 H (4.0-11.0) 10^3/uL Hgb 10.7 L (12.0-16.0) g/dL Hct 32.2 L (36.0-48.0) % Plt Count 121 L (150-450) 10^3/uL Urinary Catheter Management Urinary Catheter Management Urethral: Cath placed during this visit: yes, but has since been removed by the nurse Removal date: 11/28/23 Removal time: 17:05 OB - PN: A/P Plan - day: 1 Plan: routine postop care Time Spent with Patient Time: Total time spent is greater than 50% in coordination of care (as documented) at patient's floor/unit and/or counseling patient: Total time spent with greater than 50% in coordination of care (as documented) at patient's floor/unit and/or counseling patient: less than 15 minutes
--- NOTE | 2023-11-29 09:19 | W.PC.ACHO ---
Registration Status: ADM IN Primary Language: Russian Preferred Language: Russian report received at 0900 from Nena THACKER. Active Medications Generic Name Dose Route Start Last Admin Trade Name Philippq PRN Reason Stop Dose Admin Acetaminophen 1,000 mg 11/28/23 11:30 11/29/23 03:14 Acetaminophen 500 Mg Tablet PO 11/30/23 11:31 1,000 mg Q8H PRN Administration Pain Al Hydroxide/Mg Hydroxide 2,400 mg 11/28/23 08:09 Magnesium Hydroxide 2,400 Mg/10 Ml Oral.Susp PO Q6H PRN Dyspepsia Diphtheria/Pertussis/Tetanus Vacc 0.5 ml 11/30/23 09:00 Adacel Diph,Pertuss(Acell),Tet Vac/Pf 0.5 Ml Adult Syringe IM 11/30/23 09:01 .ONCE ONE Docusate Sodium 100 mg 11/29/23 09:00 Docusate Sodium 100 Mg Capsule PO BID ALEJANDRO Lactated Ringer's 1,000 mls @ 125 mls/hr 11/28/23 08:30 Lactated Ringers IV .Q8H ALEJANDRO Promethazine HCl 25 mg/ Sodium 51 mls @ 204 mls/hr 11/28/23 08:09 Chloride IV Q6H PRN Nausea And Vomiting Ibuprofen 800 mg 11/28/23 08:09 Ibuprofen 400 Mg Tablet PO Q8H PRN Pain Ketorolac Tromethamine 30 mg 11/28/23 08:09 11/29/23 04:55 Ketorolac Tromethamine 30 Mg/Ml Vial IVP 11/30/23 08:10 30 mg Q6H PRN Administration Pain Measles/Mumps/Rubella Vaccine Live 0.5 ml 11/30/23 09:00 Measles,Mumps,Rubella Vacc/Pf 0.5 Ml Vial SQ 11/30/23 09:01 .ONCE ONE Ondansetron HCl 4 mg 11/28/23 08:09 Ondansetron Pf 4 Mg/2 Ml Vial IV Q6H PRN Nausea And Vomiting Ondansetron HCl 4 mg 11/28/23 08:09 Ondansetron 4 Mg Rapdis Tablet PO Q6H PRN Nausea And Vomiting Oxycodone/Acetaminophen 2 tab 11/28/23 08:09 Oxycodone Hcl/Acetaminophen 5mg/325mg PO Q4H PRN Pain Scale 7-10 Oxycodone/Acetaminophen 1 tab 11/28/23 08:09 Oxycodone Hcl/Acetaminophen 5mg/325mg PO Q4H PRN Pain Scale 4-6 Rho Immune Globulin 1,500 unit 11/29/23 09:30 Rho(D) Immune Globulin 1,500 Unit Syringe IV 11/29/23 09:31 ONCE ONE Senna 17.2 mg 11/28/23 20:00 Sennosides 8.6 Mg Tablet PO QHS PRN Constipation Simethicone 80 mg 11/28/23 08:09 Simethicone 80 Mg Tab.Chew PO QID PRN Abdominal Distention Respiratory Pulse Oximetry 97 Pulse Oximetry 98 Pulse Oximetry 97 Pulse Oximetry 97 Pulse Oximetry 97 Pulse Oximetry 97 Pulse Oximetry 97 Pulse Oximetry 97 Pulse Oximetry 97 Pulse Oximetry 97 Oxygen Delivery Method Room Air Oxygen Delivery Method Room Air Oxygen Delivery Method Room Air Cardiology Heart Sounds Strong,Regular Heart Sounds Strong,Regular Heart Sounds Strong,Regular Bowels Bowel Pattern No Bowel Movement Catheter Date Urinary Catheter Removed 11/28/23 [Urethral] Date Urinary Catheter Removed 11/28/23 [Urethral] Time Urinary Catheter 17:05 Discontinued [Urethral] Time Urinary Catheter 17:05 Discontinued [Urethral]
--- NOTE | 2023-11-29 09:20 | PC.NURSE ---
0745 Voices no complaints, binder applied, discussed plan of care
[2023-11-29] MEDS: RHO(D) IMMUNE GLOBULIN 1,500 UNIT SYRINGE 1500 UNIT IV (12:43)
[2023-11-29 17:58] VITALS: BP 108/60; PULSE 80
[2023-11-29 18:00] VITALS: TEMP 36.7
[2023-11-29] MEDS: IBUPROFEN 400 MG TABLET 800 MG PO (19:52)
[2023-11-29] MEDS: DOCUSATE SODIUM 100 MG CAPSULE PO (19:52)
--- NOTE | 2023-11-29 20:12 | W.PC.ACHO ---
Registration Status: ADM IN Primary Language: Kyrgyz Preferred Language: Kyrgyz Report given at 9022. Active Medications Generic Name Dose Route Start Last Admin Trade Name Freq PRN Reason Stop Dose Admin Acetaminophen 1,000 mg 11/28/23 11:30 11/29/23 11:53 Acetaminophen 500 Mg Tablet PO 11/30/23 11:31 1,000 mg Q8H PRN Administration Pain Al Hydroxide/Mg Hydroxide 2,400 mg 11/28/23 08:09 Magnesium Hydroxide 2,400 Mg/10 Ml Oral.Susp PO Q6H PRN Dyspepsia Diphtheria/Pertussis/Tetanus Vacc 0.5 ml 11/30/23 09:00 Adacel Diph,Pertuss(Acell),Tet Vac/Pf 0.5 Ml Adult Syringe IM 11/30/23 09:01 .ONCE ONE Docusate Sodium 100 mg 11/29/23 09:00 11/29/23 19:52 Docusate Sodium 100 Mg Capsule PO 100 mg BID ALEJANDRO Administration Lactated Ringer's 1,000 mls @ 125 mls/hr 11/28/23 08:30 Lactated Ringers IV .Q8H ALEJANDRO Promethazine HCl 25 mg/ Sodium 51 mls @ 204 mls/hr 11/28/23 08:09 Chloride IV Q6H PRN Nausea And Vomiting Ibuprofen 800 mg 11/28/23 08:09 11/29/23 19:52 Ibuprofen 400 Mg Tablet PO 800 mg Q8H PRN Administration Pain Ketorolac Tromethamine 30 mg 11/28/23 08:09 11/29/23 11:49 Ketorolac Tromethamine 30 Mg/Ml Vial IVP 11/30/23 08:10 30 mg Q6H PRN Administration Pain Measles/Mumps/Rubella Vaccine Live 0.5 ml 11/30/23 09:00 Measles,Mumps,Rubella Vacc/Pf 0.5 Ml Vial SQ 11/30/23 09:01 .ONCE ONE Ondansetron HCl 4 mg 11/28/23 08:09 Ondansetron Pf 4 Mg/2 Ml Vial IV Q6H PRN Nausea And Vomiting Ondansetron HCl 4 mg 11/28/23 08:09 Ondansetron 4 Mg Rapdis Tablet PO Q6H PRN Nausea And Vomiting Oxycodone/Acetaminophen 2 tab 11/28/23 08:09 Oxycodone Hcl/Acetaminophen 5mg/325mg PO Q4H PRN Pain Scale 7-10 Oxycodone/Acetaminophen 1 tab 11/28/23 08:09 Oxycodone Hcl/Acetaminophen 5mg/325mg PO Q4H PRN Pain Scale 4-6 Senna 17.2 mg 11/28/23 20:00 Sennosides 8.6 Mg Tablet PO QHS PRN Constipation Simethicone 80 mg 11/28/23 08:09 Simethicone 80 Mg Tab.Chew PO QID PRN Abdominal Distention Respiratory Oxygen Delivery Method Room Air Oxygen Delivery Method Room Air Oxygen Delivery Method Room Air Cardiology Heart Sounds Strong,Regular Heart Sounds Strong,Regular Renal Bladder Pattern Continent Catheter Date Urinary Catheter Removed 11/28/23 [Urethral] Time Urinary Catheter 17:05 Discontinued [Urethral]
[2023-11-29 23:18] VITALS: BP 114/72; PULSE 72; TEMP 36.7
[2023-11-30] MEDS: IBUPROFEN 400 MG TABLET 800 MG PO (06:24)
--- NOTE | 2023-11-30 07:42 | P.OBPN_ITS ---
OB - PN: Subj Subjective Patient comments: no complaints and pain well controlled Cunningham status: doing well Exam Constitutional Vital Signs, click to edit/add: Last Vital Signs Temp 98.0 F 11/29/23 23:18 Pulse 72 11/29/23 23:18 Resp 16 11/29/23 23:18 BP 114/72 11/29/23 23:18 Pulse Ox 97 11/28/23 10:30 O2 Del Method Room Air 11/29/23 18:00 Documenting provider has reviewed patient's vital signs: yes Common normals: no apparent distress Respiratory Common normals: normal respiratory effort and clear to auscultation bilaterally Cardio Common normals: regular rate and regular rhythm GI Common normals: Normal to inspection, nondistended, normoactive bowel sounds present Extremity Common normals: no clubbing, cyanosis or edema and no calf tenderness Urinary Catheter Management Urinary Catheter Management Urethral: Cath placed during this visit: yes, but has since been removed by the nurse Removal date: 11/28/23 Removal time: 17:05 OB - PN: A/P Plan - day: 2 Plan: routine postop care, discharge home and other (fu 1wk) Time Spent with Patient Time: Total time spent is greater than 50% in coordination of care (as documented) at patient's floor/unit and/or counseling patient: Total time spent with greater than 50% in coordination of care (as documented) at patient's floor/unit and/or counseling patient: less than 15 minutes
[2023-11-30 09:35] VITALS: BP 121/73; PULSE 81; TEMP 36.7
[2023-11-30 09:40] VITALS: BP 121/73; PULSE 81
[2023-11-30] MEDS: DOCUSATE SODIUM 100 MG CAPSULE PO (09:40)
[2023-11-30] MEDS: OXYCODONE HCL/ACETAMINOPHEN 5MG/325MG 1 TAB PO (12:55)
== END 2023-11-30 14:50 | disposition home or self-care (01) | DRG 787 ==
PROVIDERS: Admitting Provider Obstetrics & Gynecology; PCP Nurse Practitioner Family; Visit Provider Obstetrics & Gynecology
PROC: 10D00Z1 Extraction of Products of Conception, Low, Open Approach (ICD-10-PCS; CPT 59514; principal; 2023-11-28 07:30)
DX: O34.211 Maternal care for low transverse scar from previous cesarean delivery (principal); O98.32 Other infections with a predominantly sexual mode of transmission complicating childbirth; Z3A.39 39 weeks gestation of pregnancy; Z37.0 Single live birth; O26.893 Other specified pregnancy related conditions, third trimester; Z67.41 Type O blood, Rh negative; A60.00 Herpesviral infection of urogenital system, unspecified
CPT/HCPCS: 36415; 80307; 85025; 85027; 85461; 86850; 86900; 86901; 94667; 94668; 96372; 96374; 96375; 96376; J0690; J1100; J1885; J2274; J2405; J2590; J2765; J2790

== ENCOUNTER 2024-10-16 19:16 | Outpatient (REF) | payer OTHER, SELFPAY ==
--- OUTSIDE RECORDS SUMMARY | 2024-10-16 19:37 | XMS_ITS | CCD ---
Author Organization [facility] Care Team Providers Care Acid Treater Name Role Phone No, Physician Unavailable Unavailable ANNA CALLAHAN Unavailable Unavailab le NO, PHYSICIAN Unavailable Unavailable Delphine Lovelace Unavailable [phone] DELPHINE LOVELACE Unavailable Unavail able DELPHINE LOVELACEINE Unavailable Unavail able LOVELACEDELPHINE DUMONT ISLAS Unavailable Unavail able NO, PHYSICIAN Unavailable Unavailable LOVELACEDELPHINE ISLAS Unavailable Unavail able NO, PHYSICIAN Unavailable Unavailable LOVELACEDELPHINE ISLAS Unavailable Unavail able NO, PHYSICIAN Unavailable Unavailable LOVELACE, DELPHINE ISLAS Unavailable Unavail able NO, PHYSICIAN Unavailable Unavailable COREY MARTIN Unavailable Unavailable LOVELACE, DELPHINE ISLAS Unavailable Unavail able NO, PHYSICIAN Unavailable Unavailable ORVILLE GÓMEZ Unavailable Unavailable NO, PHYSICIAN Unavailable Unavailable DENZEL HOANG Unavailable Unavaila ble LOVELACE, DELPHINE ISLAS Unavailable Unavail able NO, PHYSICIAN Unavailable Unavailable LOVELACE, DELPHINE ISLAS Unavailable Unavail able NO, PHYSICIAN Unavailable Unavailable GANATALIE TRINH Unavailable Unavailable [facility] navailable Unavailable LIVIER ., DR LIMA Admitting Unavailable LIVIER ., DR LIMA Attending Unavailable REQUEST, NONE LISTED Primary Care Unavaila ble LIVIER ., DR [place] Consulting Unavailable TAWANNA CHESTER Admitting Unavailable TAWANNA CHESTER Attending Unavailable REQUEST, NONE LISTED Primary Care Unavaila TAWANNA [place] Consulting Unavailable Unavailable Primary Care Provider Unavailabl e LIVIER, LAMIN Attending Unavailable LIVIER, LAMIN Attending Unavailable ANGY, RACQUEL Attending Unavailable LIVIER, LAMIN Attending Unavailable ANGY, RACQUEL Attending Unavailable LIVIER, LAMIN Attending Unavailable LIVIER, LAMIN Attending Unavailable LIVIER, LAMIN Attending Unavailable ANGY, RACQUEL Attending Unavailable ANGY, RACQUEL Attending Unavailable RACQUEL TRAVIS Attending Unavailable RACQUEL TRAVIS Attending Unavailable RACQUEL TRAVIS Attending Unavailable Unavailable Primary Care Provider Unavailabl e Medications Current Medications Medication Drug Class(es) Dates [...] Active ondansetron 4 mg disintegrating oral tablet (5 sources) Serotonin-3 Receptor Antagonist Start: 05-11-2023 End: [...] hours as needed for nausea or vomiting. Active Eqagvogc-Oku-Bn-FA ( 1 + IRON PO) (2 sources) Multivi t-Min-Fe-FA ( 1 + IRON PO) Take by mouth 0 Active vit 14-iron fum-fol ic 29 mg iron- 1 mg tablet,chewable (2 sources) vit 14- iron fum-folic 29 mg iron- 1 mg tablet,chewable Chew 1 tablet and swallow in the morning. Active vit 14- iron fum-folic 29 mg iron- 1 mg tablet,chewable Chew 1 tablet and swallow in the morning. 0 Active valACYclovir 500 mg oral tablet (2 sources) Herpesvirus Nucleoside Analog DNA Polymerase Inhibitor, Herpes Simplex Virus Nucleoside Analog DNA Polymerase Inhibitor, Herpes Zoster Virus Nucleoside Analog DNA Polymerase Inhibitor Start: 09-28-2023 End: 03-26-2024 take 1 tablet by mouth once daily valACYclovir (Valtrex) 500 MG tablet Indications: HSV (herpes simplex virus) infection Take 1 tablet (500 mg) by mouth Daily 30 tablet 5 09/28/2023 03/26/2024 Active Completed/Discontinued Medications Medication Drug Class(es) Dates [...] mumps virus vaccine live, yogi evans strain 33963 unt/ml / rubella virus vaccine live (wistar [...] damage, unspecified, fetus 1] Onset: 11-11-2017 Episodic Residual codes; unclassified (5 sources) History of placental abruption; Translations: [Personal history of other complications of , childbirth and the puerperium] Onset: 07-11-2023 06-08-2023 Episodic Residual codes; unclassified (3 sources) History of previous intrauterine growth restricted ; Translations: [Personal history of other complications of , childbirth and the puerperium] Onset: 07-11-2023 07-11-2023 Episodic Residual codes; unclassified (1 source) Gestation period, 20 weeks; Translations: [20 weeks gestation of ] 07-22-2023 Episodic Residual codes; unclassified (1 source) Family history of hereditary disease; Translations: [Family history of other specified conditions] 07-22-2023 Episodic Unclassified (1 source) Suspected abnormality affecting management of mother, fetus 1 of multiple gestation NEGATED: Highlighted row has been ruled out!Unclassified (2 sources) No known active problems 10-29-2022 Results Test Name Value Interpretation Reference Range Facility Urinalysis macro (dipstick) panel (U)Ordered By: Olga Navarro on 06-08-2023 Bilirubin, UA Negative Negative - 4(70) +++ mg/dL [facility] Blood, UA Negative Negative - 50 Willam/mcL [facility] Clarity, UA Clear [facility] re Color, UA Yellow [facility] e Glucose, UA Negative Negative - 1999(110) ++++ mg/dL [facility] Interpretation and review of laboratory results Abnormal [facility] Ketones, UA Negative Negative - 160(16) ++++ mg/dL [facility] Leukocytes, UA Negative Negative - 500+++ Sandy/mcL [facility] Nitrite, UA Negative Negative - Positive [facility] pH, UA 7.5 5 - 9 [facility], [facility]A Positive Negative - 1999(20) ++++ mg/dL [facility] Spec Grav, UA 1.025 1 - 1.[address] [facility] Urobilinogen, UA 0.2 0.2 - 12 mg/dL [facility] Covid-19 PCR ([facility])on 09-24 SARS-CoV-2 (COVID-19) RNA SANDRA+probe Ql (Unsp spec) Not detected Normal NOT DETECTED [facility] Comment on above: Result Comment: [...] for this test is supported by the [place] of [employer] and Human Service's declaration that [...] longer be used). Performed By: #### C [facility] #### [facility] [address] [place] [address] Dr. Kaveh Wilks Tissue Aerobic Cultureon Bacteria identified Aer cx Nom (Tiss) Few Growth (4-10 colonies per plate) Coagulase Negative Staphylococcus Abnormal [facility] Interpretation and review of laboratory results Abnormal Invalid Interpretation Code [facility] Microscopic observation Gram stain Nom (Tiss) Many WBC Invalid Interpretation Code [facility] Microscopic observation Gram stain Nom (Tiss) Many RBC Invalid Interpretation Code [facility] Microscopic observation Gram stain Nom (Tiss) No Organisms Seen Invalid Interpretation Code [facility] Antibody Identificationon Blood group antibodies identified Nom Anti-Rhogam Invalid Interpretation Code [facility] The anti-D detected in this patient is presumably caused by a recent Rh Immune Globulin injection.It is unlikely that this represents a clinically significant antibody. Invalid Interpretation Code [facility] RhIG Evaluationon 01-11-2018 Rh immune globulin candidate (yes/no) Ql RhIG Candidacy Invalid Interpretation Code [facility] Baby is Rho(D) negative. Patient is NOT a candidate for Rh Immune Globulin. Invalid Interpretation Code [facility] Syphilis Antibodyon 01-12-20 18 Interpretation and review of laboratory results Normal Invalid Interpretation Code [facility] T. pallidum Ab Ql (S) Negative Invalid Interpretation Code Negative [facility] Type and Screenon 01-11-2018 ABO and Rh group Nom (Bld) Negative Invalid Interpretation Code [facility] Blood group antibody screen Ql Positive Invalid Interpretation Code [facility] Specimen Expires 01/13/2018 23:59 EST Invalid Interpretation Code [facility] APTTon 01-10-2018 aPTT Coag time (Bld) Therapeutic range for APTT's is 68 - 104 seconds Invalid Interpretation Code [facility] aPTT Coag time (Bld) 25 s Invalid Interpretation Code [facility] CBCon 01-10-2018 Erythrocyte distribution width Auto Entitic volume (RBC) 14.0 % Invalid Interpretation Code 11.6 - 14.8 % [facility] Hematocrit Auto Volume Fraction (Bld) 33.9 % Low 36 - 46 % [facility] Hemoglobin mass conc (Bld) 11.8 g/dL Low 12 - 16 g/dL [facility] Interpretation and review of laboratory results Abnormal Invalid Interpretation Code [facility] MCH Auto Entitic mass (RBC) 31.7 pg Invalid Interpretation Code 26 - 34 pg [facility] MCHC Auto mass conc (RBC) 34.8 g/dL Invalid Interpretation Code 31 - 37 g/dL [facility] MCV Auto Entitic volume (RBC) 91.1 fL Invalid Interpretation Code 80 - 100 fL [facility] Nucleated RBC #/vol (Bld) 0.00 10*3/uL Invalid Interpretation Code [facility] Nucleated RBC/100 WBC Ratio (Bld) 0.0 % Invalid Interpretation Code [facility] Platelet mean volume Auto Entitic volume (Bld) 12.1 fL Invalid Interpretation Code 9 - 15.5 fL [facility] Platelets Auto #/vol (Bld) 159 10*3/uL Invalid Interpretation Code [facility] RBC Auto #/vol (Bld) 3.72 10*6/uL Low RI [facility] WBC Auto #/vol (Bld) 16.00 10*3/uL [facility] Fibrinogenon 01-10-2018 Fibrinogen Coag mass conc (PPP) 547 mg/dL High 224 - 483 mg/dL [facility] Interpretation and review of laboratory results Abnormal Invalid Interpretation Code [facility] Otheron 01-10-2018 Interpretation and review of laboratory results Normal Invalid Interpretation Code [facility] PT/INRon 01-10-2018 INR Coag RelTime (Bld) During the induction phase of oral anticoagulation, the INR may not reflect the anticoagulation status of the patient. Therapeutic ranges for INR's are: Most clinical situations: INR 2.0-3.0 Mechanical Prosthetic Valve: INR 2.5-3.5 Critical: INR >5.0 Invalid Interpretation Code [facility] INR Coag RelTime (PPP) 0.9 {INR} Invalid Interpretation Code [facility] Prothrombin time (PT) Coag time (PPP) 12.2 s Invalid Interpretation Code [facility] US OB FOLLOW UP TRANSABDOMIN AL SINGLE FETUSon 11-11-2017 US OB FOLLOW UP TRANSABDOMINAL SINGLE FETUS OBSTETRICS REPORT (Signed Final 11/11/2017 04:43 pm) Patient Info ID #: [id number] : [birth year] (22 yrs) Name: YOVANNY CAMARILLO Visit Date: 11/11/2017 10:50 am Performed By Performed By: Bianca Reynoso Referred By: Delphine Lovelace RDAK Attending: Uziel Hanson, Location: Demi Knapp MD, [facility] Service(s) [place] [address] [place] [address] Indications Zika virus exposure affecting O99.89 28 [...] our ultrasound office is accredited by [employer] [place] [employer] (AI[employer]). If you would like to discuss the results of your patient's tests or would like a Maternal- Medicine Consultation to assist you with her management, please do not hesitate to contact us at [phone]. Uziel Hanson MD, [facility] Electronically Signed Final Report 11/11/2017 04:43 pm Invalid Interpretation Code [facility] US OB FOLLOW UP TRANSABDOMINAL SINGLE FETUS Interface, Rad In Stan Diasq - 11/11/2017 4:44 PM EDT OBSTETRICS REPORT (Signed Final 11/11/2017 04:43 pm) Patient Info ID #: [id number] : [birth year] (22 yrs) Name: YOVANNY Delgado SERG Visit Date: 11/11/2017 10:50 am Performed By Performed By: Bianca Reynoso Referred By: Delphine Lovelace RDAK Attending: Uziel Hanson, Location: Demi Knapp MD, [facility] Service(s) [place] [address] [place] [address] Indications Zika virus exposure affecting O99.89 28 [...] our ultrasound office is accredited by [employer] [place] [employer] (AIUM). If you would like to discuss the results of your patient's tests or would like a Maternal- Medicine Consultation to assist you with her management, please do not hesitate to contact us at [phone]. Uziel Hanson MD, RDMS Electronically Signed Final Report 11/11/2017 04:43 pm Invalid Interpretation Code [facility] US Obstetric Detail An atomy Transabdominal Single Fetuson 09-23-2017 US Obstetric Detail Anatomy Transabdominal Single Fetus OBSTETRICS REPORT (Signed Final 09/23/2017 03:50 pm) Patient Info ID #: [id number] : [birth year] (22 yrs) Name: YOVANNY Delgado CAMARILLO Visit Date: 09/23/2017 01:47 pm Performed By Performed By: Charan Mart Referred By: Delphine Lovelace RDMS, MD Attending: Debbie Recio MD Location: [facility] Service(s) Provided Targeted OB + Transvaginal [id number] Indications 21 weeks gestation of Z3A.21 Zika virus exposure affecting O99.89 Suspected abnormality affecting O35.9XX0 management of mother, Low lying placenta nos or without O44.42 hemorrhage, second trimest Evaluation Num Of Fetuses: 1 Heart 146 Rate(bpm): Cardiac Activity: Observed Presentation: Breech Placenta: Posterior low-lying 1.5 cm from os Amniotic Fluid SOHN FV: Within normal limits -------- Biometry -------- [...] Visualized 4 Chamber View: Normal appearance Cardiac [place]: Normal Cardiac Motion: Visualized Diaphragm: Normal appearance [...] our ultrasound office is accredited by [employer] [place] [employer] (AIUM). If you would like to discuss the results of your patient's tests or would like a Maternal- Medicine Consultation to assist you with her management, please do not hesitate to contact us at [phone]. Debbie Recio MD Electronically Signed Final Report 09/23/2017 03:50 pm Invalid Interpretation Code CHARAN MART [facility] US Obstetric Detail Anatomy Transabdominal Single Fetus Interface, Rad In Fuji Speechq - 09/23/2017 3:51 PM EDT OBSTETRICS REPORT (Signed Final 09/23/2017 03:50 pm) Patient Info ID #: [id number] : [birth year] (22 yrs) Name: YOVANNY CAMARILLO Visit Date: 09/23/2017 01:47 pm Performed By Performed By: Charan Mart Referred By: Delphine Lovelace RDMS, MD Attending: Debbie Recio MD Location: [facility] Service(s) Provided Targeted OB + Transvaginal [id number] Indications 21 weeks gestation of Z3A.21 Zika [...] Visualized 4 Chamber View: Normal appearance Cardiac [place]: Normal Cardiac Motion: Visualized Diaphragm: Normal appearance [...] our ultrasound office is accredited by [employer] [place] [employer] (AIUM). If you would like to discuss the results of your patient's tests or would like a Maternal- Medicine Consultation to assist you with her management, please do not hesitate to contact us at [phone]. Debbie Recio MD Electronically Signed Final Report 09/23/2017 03:50 pm Invalid Interpretation Code CHARAN MART RDMS CBC Auto Differentialon 03-0 Basophils 0.03 K/mcL Invalid Interpretation Code 0.00 - 0.30 [facility] Basophils/100 leukocytes 0.3 % Invalid Interpretation Code [facility] Eosinophils 0.07 K/mcL Invalid Interpretation Code 0.00 - 0.50 [facility] Eosinophils/100 leukocytes 0.6 % Invalid Interpretation Code [facility] Erythrocytes (RBC) 4.12 M/mcL Invalid Interpretation Code 4.00 - 5.20 [facility] Erythrocytes (RBC) 0.00 K/mcL Invalid Interpretation Code 0.00 - 0.00 [facility] Hematocrit (HCT) 36.8 % Invalid Interpretation Code 36 - 46 % [facility] Hemoglobin (HGB) 12.5 g/dL Invalid Interpretation Code 12 - 16 g/dL [facility] IG Absolute 0.02 K/mcL Invalid Interpretation Code 0.00 - 0.30 [facility] IG Percent 0.20 % Invalid Interpretation Code [facility] Interpretation and review of laboratory results Abnormal Invalid Interpretation Code [facility] Lymphocytes 2.42 K/mcL Invalid Interpretation Code 0.90 - 4.00 [facility] Lymphocytes/100 leukocytes 22.2 % Invalid Interpretation Code [facility] MCH 30.3 pg Invalid Interpretation Code 26 - 34 pg [facility] MCHC 34.0 g/dL Invalid Interpretation Code 31 - 37 g/dL [facility] MCV 89.3 fL Invalid Interpretation Code 80 - 100 fL [facility] Monocytes 0.67 K/mcL Invalid Interpretation Code 0.30 - 0.90 [facility] Monocytes/100 leukocytes 6.1 % Invalid Interpretation Code [facility] Neutrophils 7.69 K/mcL High 1.70 - 7.00 [facility] Neutrophils/100 leukocytes 70.6 % Invalid Interpretation Code [facility] Nucleated erythrocytes/100 erythrocytes 0.0 % Invalid Interpretation Code [facility] Platelet mean volume (PMV) 11.2 fL Invalid Interpretation Code 9 - 15.5 fL [facility] Platelets 285 K/mcL Invalid Interpretation Code 150 - 400 [facility] RDW-CA 12.8 % Invalid Interpretation Code 11.6 - 14.8 % [facility] WBC (Leukocytes) 10.90 K/mcL Invalid Interpretation Code 4.50 - 11.00 [facility] CBC and Differentialon 06-30 Creatinine The following orders were created for panel order CBC and Differential. Procedure Abnormality Status --------- ------ CBC Auto Differential[[id number]] Abnormal Final result Please view results for these tests on the individual orders. Invalid Interpretation Code [facility] HIV 1/2 Screen (4th Generati on)on 06-30-2017 HIV 1+2 antibody presence Negative Invalid Interpretation Code Negative [facility] Interpretation and review of laboratory results Normal Invalid Interpretation Code [facility] HIV 1/2 Screen (4th Generation) This assay tests for the presence of HIV-1, HIV-2 antibodies and for the presence of HIV-1 antigen. Test performed using HeartThis TR immunoassay system Invalid Interpretation Code [facility] Hepatitis B Surface Antigeno n 06-30-2017 Hepatitis B Surface Ag Negative Invalid Interpretation Code Negative [facility] Hepatitis B Surface Antigen Test performed using Heart[employer] TR immunoassay system Invalid Interpretation Code [facility] RPRon 06-30-2017 Reagin antibody presence Non-Reactive Invalid Interpretation Code Non-Reactive [facility] Rubella Antibody, IgGon Rubella IgG Non-Immune Invalid Interpretation Code [facility] Rubella IgG Value 5.87 IU/mL Invalid Interpretation Code [facility] Type and Screenon 06-30-2017 ABO+Rh group Negative Invalid Interpretation Code [facility] Blood group antibody presence Negative Invalid Interpretation Code [facility] Specimen Expires 07/03/2017 23:59 EST Invalid Interpretation Code [facility] Urine Aerobic Cultureon Bacteria aerobode culture Three or more colony types; >10,000 CFU/mL mixture of normal urogenital microbiota. None predominant. Possible contamination. Suggest repeat if clinically indicated. Invalid Interpretation Code [facility] Vital Signs Date Time Vital Sign Value Performing Clinician Facility 01-10-2024 08:44-0400 Body height 167.6 cm Racquel QUILES Work Phone: [facility] 01-10-2024 08:44-0400 Body mass index (BMI) [Ratio] 21.79 kg/m2 Racquel QUILES Work Phone: [facility] 01-10-2024 08:44-0400 Body weight 61.24 kg Racquel QUILES Work Phone: [facility] 01-10-2024 08:44-0400 Diastolic blood pressure 76 mm[Hg] Racquel QUILES Work Phone: [facility] 01-10-2024 08:44-0400 Systolic blood pressure 118 mm[Hg] Racquel QUILES Work Phone: [facility] 07-22-2023 12:33-0400 Body height 167.6 cm Rene Wright MD Work Phone: [facility] 07-22-2023 12:33-0400 Body mass index (BMI) [Ratio] 21.08 kg/m2 Rene Wright MD Work Phone: [facility] 07-22-2023 12:33-0400 Body weight 59.24 kg Rene Wright MD Work Phone: [facility] 07-22-2023 12:33-0400 Diastolic blood pressure 61 mm[Hg] Rene Wright MD Work Phone: [facility] 07-22-2023 12:33-0400 Heart rate 78 /min Rene Wright MD Work Phone: [facility] 07-22-2023 12:33-0400 Systolic blood pressure 104 mm[Hg] Rene Wright MD Work Phone: [facility] 06-08-2023 13:47-0500 Body mass index (BMI) [Ratio] 20.24 kg/m2 Lamin Livier DO Work Phone: [facility] 06-08-2023 13:47-0500 Body weight 56.88 kg Lamin Livier DO Work Phone: [facility] 06-08-2023 13:47-0500 Diastolic blood pressure 60 mm[Hg] Lamin Livier DO Work Phone: [facility] 06-08-2023 13:47-0500 Systolic blood pressure 104 mm[Hg] Lamin Livier DO Work Phone: [facility] 01-13-2018 09:42-0400 Pulse (Heart Rate) 90 /min Delphine [facility] 01-13-2018 09:42-0400 Pulse Oximetry 98 % Delphine [facility] 01-13-2018 09:31-0400 Body Temperature 98.2 [degF] [facility] 01-13-2018 09:31-0400 BP Diastolic 75 mm[Hg] [facility] 01-13-2018 09:31-0400 BP Systolic 109 mm[Hg] Delphine Lovelace [facility] 01-13-2018 09:31-0400 Respiratory Rate 16 /min Delphine Lovelace [facility] 05-13-2017 11:47-0500 BMI (Body Mass Index) 22.6 kg/m2 Anna Callahan [facility] Work Phone: 05-13-2017 11:47-0500 Body Temperature 98.4 [degF] Anna Callahan [facility] Work Phone: 05-13-2017 11:47-0500 BP Diastolic 78 mm[Hg] Anna Callahan [facility] Work Phone: 05-13-2017 11:47-0500 BP Systolic 112 mm[Hg] Anna Callahan [facility] Work Phone: 05-13-2017 11:47-0500 Height 167.6 cm Anna Callahan [facility] Work Phone: 05-13-2017 11:47-0500 Pulse (Heart Rate) 81 /min Anna Callahan [facility] Work Phone: 05-13-2017 11:47-0500 Pulse Oximetry 98 % Anna Callahan [facility] Work Phone: 05-13-2017 11:47-0500 Weight 63.5 kg Anna Callahan [facility] Work Phone: Encounters Encounter Date Encounter Type Care Provider Facility Start: 10-16-2024 End: 10-16-2024 Bamboo flowsheet Lamin Livier DO Work Phone: [facility] Start: 10-16-2024 End: 10-16-2024 Bamboo flowsheet Lamin Livier DO Work Phone: [facility] Start: 01-10-2024 End: 01-10-2024 care visit Racquel QUILES Work Phone: [facility] Comment on above: Status post section (Primary Dx) Start: 01-10-2024 End: 01-10-2024 ambulatory RACQUEL ANGY Not Available Start: 12-06-2023 End: 12-06-2023 ambulatory RACQUEL ANGY Not Available Start: 11-22-2023 End: 11-22-2023 ambulatory RACQUEL ANGY Not Available Start: 11-15-2023 End: 11-15-2023 ambulatory RACQUEL ANGY Not Available Start: 11-08-2023 End: 11-08-2023 ambulatory RACQUEL ANGY Not Available Start: 10-25-2023 End: 10-25-2023 ambulatory LAMIN LIVIER Not Available Start: 10-12-2023 End: 10-12-2023 ambulatory LAMIN LIVIER Not Available Start: 09-28-2023 End: 09-28-2023 ambulatory LAMIN LIVIER Not Available Start: 09-14-2023 End: 09-14-2023 ambulatory RACQUEL ANGY Not Available Start: 08-31-2023 End: 08-31-2023 ambulatory LAMIN LIVIER Not Available Start: 08-24-2023 End: 08-24-2023 Telephone encounter [place] [facility] Start: 08-03-2023 End: 08-03-2023 ambulatory RACQUEL TRAVIS Not Available Start: 07-22-2023 End: 07-22-2023 Office consultation new/estab patient 60 min Rene Wright MD Work Phone: Maternal- Medicine at [facility] Comment on above: 20 weeks gestation o f (Primary Dx); History of placental abruption; History of prior with IUGR ; Hx of section; Family history of genetic disease Start: 07-06-2023 End: 07-06-2023 ambulatory LAMIN LIVIER Not Available Start: 06-08-2023 End: 06-08-2023 ambulatory LAMIN LIVIER Not Available Start: 06-08-2023 End: 06-08-2023 flow sheet Lamin Livier DO Work Phone: [facility] Comment on above: Second trimester pre gnancy; History of placental abruption Start: 05-06-2023 End: 05-06-2023 ambulatory LAMIN LIVIER Not Available Start: 09-02-2022 End: 09-02-[address] LAMIN MAIER . Facility:H1 Start: 10-22-2021 Encounter for preprocedural laboratory examination TAWANNA LOVEMER [facility] Start: 10-19-2021 End: 10-20-2021 ambulatory TAWANNA CHESTER Facility:H1 Start: 10-19-2021 End: 10-20-2021 Encounter for preprocedural laboratory examination TAWANNA CHESTER Facility:H1 Start: 01-11-2018 End: 01-13-2018 Evaluation and management of inpatient DELPHINE LOVELACE [facility] Start: 01-10-2018 End: 01-13-2018 Evaluation and management of inpatient Delphine Islas Lovelace Work Phone: [facility] Mother/ Unit 5 Start: 11-11-2017 End: 11-12-2017 Patient encounter Denzel Rodrigeslydiaaaliyah Work Phone: [facility] Maternal Medicine Start: 11-10-2017 End: 11-10-2017 Patient encounter ORVILLE GÓMEZ [facility] Start: 09-23-2017 End: 09-24-2017 Patient encounter COREY MARTIN [facility] Start: 09-23-2017 End: 09-23-2017 Ambulatory Delphine Lovelace Work Phone: [facility] Maternal Medicine Start: 09-01-2017 End: 09-01-2017 Patient encounter DELPHINE ISLAS [facility] Start: 08-01-2017 End: 08-01-2017 Ambulatory Delphine Fabio Lovelcae Work Phone: [facility] [employer] [facility] Start: 07-04-2017 End: 07-04-2017 Patient encounter DELPHINE ISLAS [facility] Start: 06-30-2017 End: 06-30-2017 Ambulatory Deplhine Fabio Lovelace Work Phone: [facility] [facility] [employer] Start: 05-13-2017 End: 05-13-2017 Ambulatory ANNA CALLAHAN [facility] Start: 05-13-2017 Office/outpatient [place], level 2 Anna Callahan Work Phone: [facility] Start: 04-14-2017 End: 04-19-2017 [facility] Procedures Date Procedure Procedure Detail Performing Clinician Start: 07-11-2023 H/O: section Hx of section Rene Wright MD Work Phone: Start: 06-08-2023 Urnls dip stick/tabl et rgnt non-auto w/o micrscp Lamin Livier DO Work Phone: Start: 09-02-2022 Microscopic observat ion [Identifier] in Cervix by Cyto stain Racquel QUILES Work Phone: Start: 01-11-2018 End: 01-11-2018 Cul [...] Start: 01-10-2018 End: 01-10-2018 Prothrombin time Dinora Belinda Meyer Work Phone: H/O: section Status pos t section Racquel QUILES Work Phone: H/O: section Hx of sect kevin Wright MD Work Phone: Plan of Treatment Date Care Activity Detail Author Start: 11-11-2027 DTaP,Tdap and Td Vac cines (8 - Td or Tdap) DTaP,Tdap and Td Vaccines (8 - Td or Tdap) [facility] Start: 11-11-2027 Tetanus vaccination TETANUS EVERY 10 YR [facility] Start: 09-02-2025 Screening for malign ant neoplasm of cervix [facility] Start: 12-24-2024 Influenza vaccination Influenz a Vaccine (Season Ended) [facility] Start: 10-16-2024 End: 10-16-2024 Patient encounter procedure 10/16/2024 1:00 PM EDT Office Visit [facility] [address] [place] [address] Lamin Maier, DO [address], [place] [address] Arrived [facility] Comment on above: Arrived Start: 09-13-2024 End: 09-13-2024 Patient encounter procedure 09/13/2024 9:00 AM EDT Office Visit [facility] [address] [place] [place] [address] Lamin Maier, DO [address] [place] [address] [facility] Start: 07-21-2024 Adult BMI Screening Adult BMI Screen ing [facility] Start: 07-21-2024 Tobacco Screening Tobacco Screening [facility] Start: 07-21-2024 End: 07-21-2024 US MFM with or without consult US MFM with or without consult Imaging Routine History of placental abruption History of prior with IUGR Expected: 07/21/2024 (Approximate), Expires: 07/21/2024 [facility] Work Phone: Comment on above: Expected: 07/21/2024 (Approximate), Expires: 07/21/2024 Start: 12-25-2023 Influenza vaccination [facility] Start: 09-08-2023 End: 09-08-2023 Patient encounter procedure 09/08/2023 10:45 AM EDT Office Visit [facility] [address] [place] [id number] Sandra Conti MD [address] [place] [address] [facility] Start: 09-04-2023 Screening for malign ant neoplasm of cervix HPV/Cotest [facility] Start: 08-26-2023 End: 08-26-2023 Patient encounter procedure [facility] [place] Start: 07-06-2023 End: 07-06-2023 Patient encounter procedure 07/06/2023 1:40 PM EDT Routine [facility] [address] [place] [address] Lamin Maier DO [address] [place] [address] [facility] Start: 12-24-2022 COVID-19 Vaccine ( season) COVID-19 Vaccine () [facility] Start: 12-24-2022 Influenza vaccination [facility] Start: 04-14-2020 Screening for malign ant neoplasm of cervix PAP SMEAR [facility] Start: 12-24-2017 Influenza vaccination [facility] Start: 11-24-2017 End: 11-24-2017 Ambulatory 11/24/2017 Routine Obstetrics and Gynecology Delphine Lovelace MD [address] [facility] [address] [place] [address] [phone] [facility] Start: 11-11-2017 End: 11-11-2017 Ambulatory 11/11/2017 Appointment Maternal and Medicine [facility] Start: 09-28-2017 End: 09-28-2017 Ambulatory 09/28/2017 Routine Obstetrics and Gynecology Delphine Lovelace MD [address] [facility] [address] [place] [address] [phone] [facility] Start: 12-24-2016 Influenza vaccination SEQUENTI AL INFLUENZA VACCINE (#1) [facility] Work Phone: Start: 2014 Screening for malign ant neoplasm of cervix Pap Smear [facility] Start: 2005 Depression Screening [facility] Start: 2004 Vaccination for shira n papillomavirus [facility] Work Phone: Start: 1993 Screening for malign ant neoplasm of cervix PAP SMEAR [facility] Work Phone: Start: 1993 Tetanus vaccination TETANUS EVERY 10 YR [facility] Work Phone: Tissue Aerobic Culture Tissue Ae robic Culture Routine 01/11/2018 11:49 PM EDT [facility] Tissue Anaerobic Culture Tissue Anaerobic Culture Routine 01/11/2018 11:49 PM EDT [facility] End: 01-11-2018 Tissue Exam Tissue Exam Routine Once for 1 Occurrences starting 01/11/2018 until 01/11/2018, 1 completed [facility] Comment on above: Once for 1 Occurrenc es starting 01/11/2018 until 01/11/2018, 1 completed Tissue Exam Tissue Exam Rout ine 01/11/2018 9:39 PM EDT [facility] Immunizations Immunization Date Immunization Notes Care Provider Brittani adame 01-12-2018 influenza, injectabl e, quadrivalent, preservative free; Translations: [INFLUENZA IIV4 3YO OR > FLUARIX/FLUZONE/AFLURIA 68090] [facility] 01-12-2018 measles, mumps and rubella virus vaccine; Translations: [MMR] Delphine [facility] 01-12-2018 influenza virus vacc ine, unspecified formulation Lamin Maier DO Work Phone: [facility] 11-10-2017 tetanus toxoid, redu luz diphtheria toxoid, and acellular pertussis vaccine, adsorbed; Translations: [TDAP] Denzel Hoang [facility] Payers Date Payer Category Payer Private Health Insurance [employer] [id number] 2022 Unknown [id number] 2017 Unknown [id number] 2013 Unknown [id number] [id number] .13 1993 Unknown [id number] 2.16.840.1.458092.3.579 .2.593 1993 Unknown [id number] 2.16.840.1.865436.3.579 .2.593 1993 Unknown [id number] 2.16.840.1.672741.3.579 .2.1259 1993 Unknown [id number] 2.16.840.1.623548.3.579 .2.1258 1993 Unknown [id number] 2.16.840.1.449870.3.579 .2.1258 1993 Unknown [id number] 2.16.840.1.955413.3.579 .2.1258 1993 Unknown [id number] 2.16.840.1.931749.3.579 .2.1258 1993 Unknown [id number] 2.16.840.1.880330.3.579 .2.1258 1993 Unknown [id number] 2.16.840.1.850877.3.579 .2.1258 1993 Unknown [id number] 2.16.840.1.639396.3.579 .2.1258 1993 Unknown [id number] 2.16.840.1.367091.3.579 .2.1258 1993 Unknown [id number] 2.16.840.1.008663.3.579 .2.1258 1993 Unknown [id number] 2.16.840.1.581869.3.579 .2.1258 1993 Unknown [id number] 2.16.840.1.756297.3.579 .2.1258 1993 Unknown [id number] 2.16.840.1.261566.3.579 .2.1258 1993 Unknown [id number] 2.16.840.1.555845.3.579 .2.9 1959 Unknown [id number] Social History Date Type Detail Facility Start: 05-13-2017 End: 10-26-2022 Tobacco smoking status [facility] Never smoker [facility] Start: 1993 Sex Assigned At Not on file O Pinger Work Phone: Start: 05-10-2017 [facility] Start: 10-26-2022 End: 07-11-2023 Tobacco use and exposure Smokeless tobacco non-user [facility] Start: 06-08-2023 End: 01-10-2024 Alcohol intake Lifetime non-drinker (finding) [facility] Start: 10-29-2022 End: 05-06-2023 History of Social function [facility] Start: 10-29-2022 End: 05-06-2023 Tobacco use panel [facility] Start: 10-26-2022 Alcohol Comment caffeine: 2-3 cups per day, soda/pop [facility] Start: 07-22-2023 Alcoholic beverage intake Ex-drinker (finding) [facility] Within the past 12 months we worried whether our food would run out before we got money to buy more. Never True [facility] History of Present illness Narrative 01-10-2024 ETTA Duarte - 01/10/2024 8:30 AM EDT Note Date & Type Note Facility 01-10-2024 History of Presen t illness Narrative Reason for Appointment: Patient ID: Yovanny Donovan is a 28 y.o. female who presents for Care Patient presents today for Post Follow Up appointment. MEDICATIONS Current Outpatient Medications Medication Instructions valACYclovir (VALTREX) 500 mg, Oral, Daily ALLERGIES No Known Allergies PROBLEMS Active Ambulatory Problems Diagnosis Date Noted No Active Ambulatory Problems Resolved Ambulatory Problems Diagnosis Date Noted No Resolved Ambulatory Problems Past Medical History: Diagnosis Date Herpes simplex HISTORY PAST MEDICAL HISTORY SOCIAL HISTORY Past Medical History: Diagnosis Date Herpes simplex Social History Tobacco Use Smoking status: Never Smokeless tobacco: Never Vaping Use Vaping status: Never Used Substance Use Topics Alcohol use: Never Comment: caffeine: 2-3 cups per day, soda/pop Drug use: Never FAMILY HISTORY Family History Problem Relation Name Age of Onset Uterine cancer Maternal Grandmother SURGICAL HISTORY Past Surgical History: Procedure Laterality Date SECTION, CLASSIC SECTION, CLASSIC 11/28/2023 REVIEW OF SYSTEMS Review of Systems: Review of Systems Constitutional: Negative. HENT: Negative. Eyes: Negative. Respiratory: Negative. Cardiovascular: Negative. Gastrointestinal: Negative. Genitourinary: Negative. Musculoskeletal: Negative. Skin: Negative. Neurological: Negative. All other systems reviewed and are negative. Hematological: Negative. Endocrine: Negative. Allergic/Immunologic: Negative. OBJECTIVE Objective: Physical Exam Constitutional: Appearance: Normal appearance. She is normal weight. HENT: Head: Normocephalic. Cardiovascular: Rate and Rhythm: Normal rate. Pulses: Normal pulses. Pulmonary: Effort: Pulmonary effort is normal. Breath sounds: Normal breath sounds. Abdominal: Palpations: Abdomen is soft. Musculoskeletal: General: Normal range of motion. Neurological: General: No focal deficit present. Mental Status: She is alert and oriented to person, place, and time. Psychiatric: Mood and Affect: Mood normal. Behavior: Behavior normal. Thought Content: Thought content normal. Judgment: Judgment normal. Vitals and nursing note reviewed. Vitals: Estimated body mass index is 21.79 kg/m as calculated from the following: Height as of this encounter: 5' 6 . Weight as of this encounter: 135 lb. BP: 118/76 No LMP recorded. ASSESSMENT & PLAN No diagnosis found. Post Follow Up: Patient is doing well. Patient presents today for 6 week visit. Patient is s/p delivery. Patient states depression but denies suicidal and homicidal ideations. All options were discussed with the patient regarding control and patient desires none at this time. Follow Up: Patient is to return for annual unless needed otherwise. Documented by ETTA Duarte on behalf of: ETTA Duarte documented in this encounter [facility] Note 08-24-2023 Telephone Encounter - [place] - 08/24/2023 8:34 AM EDT Note Date & Type Note Facility 08-24-2023 Miscellaneous Notes Formattin g of this note might be different from the original. PT CALLED AND CANCELED HER APT WITH MFM ON 08/25 SHE STATED SHE WILL DO ALL HER APT WITH HER PRIMARY OB. documented in this encounter [facility] Telephone encounter Note 08-24-2023 Telephone Encounter - [place] - 08/24/2023 8:34 AM EDT Note Date & Type Note Facility 08-24-2023 Telephone encount er Note PT CALLED AND CANCELED HER APT WITH MFM ON 08/25 SHE STATED SHE WILL DO ALL HER APT WITH HER PRIMARY OB. [facility] History of Present illness Narrative 07-22-2023 Peggy [...] no Have you been seen here at [facility] in a previous ? yes Recent ER visits or hospitalizations? no Bring blood sugar log or meter with you today? (Please bring them with you for every visit at [facility]) n/a Traveled outside the country in the past 6 month no Any concerns that you would like me to mention to the provider today? no [facility] Maternal- Medicine Consult Note Reason For Consult: [...] rasopathy. She has been followed by a beauty operator at [facility] in [facility]. However they has [...] gene. She has been followed by a beauty operator at [facility] in [facility]. However they has [...] recommended that she reaches out to her surg physician asst and follows at [facility] for her daughter and have [...] echocardiogram to be completed at a follow-up [facility] visit. Reviewed aneuploidy testing that could [...] Rene Wright MD, FACOG (she/hers) Maternal- Medicine [facility] [address] [place] [address] [facility], the CDC, and other organizations representing maternal and public health professionals recommend that , , and lactating people and those considering receive the COVID-19 vaccination. Vaccination is the best method to reduce maternal and complications of SARS-CoV-2 infection. This document was created with [employer] technology. Though I make every effort to review the dictation as it is transcribed, on occasion the spoken word can be misinterpreted by the technology leading to inappropriate words, phrases, or sentences. This note is addressed to the requesting provider as a consultation for clinical guidance. Specific medical abbreviations are occasionally used and those are generally approved by the [place]?Board of?Obstetrics and?Gynecology?as well as?Jenn william abbreviations. The above plan of care was based solely on the diagnoses for which a consultation was requested. ?More frequent testing may be indicated based on her other medical/obstetrical conditions. The management of other or medical conditions is beyond the scope of requested consultation and will continue to be followed by the primary industry analyst or primary care provider. Note to patient: [...] practitioner. documented in this encounter [facility] History of Present illness Narrative 06-08-2023 [...] includes the following prescription(s): ondansetron odt and mxwbevuj-acw-dr-fa. Medical History: Active Ambulatory Problems Diagnosis Date [...] nursing note reviewed. Exam conducted with a pharmacy technician assistant present. Vitals: Estimated body mass index is [...] were answered. Pt to be referred to [facility] for level II ultrasound. Discussed NST/BPP and growth ultrasound d/t h/o placenta abruption and IUGR. Pt to have repeat section. Follow Up: Patient is to return in 4 weeks for routine OB appointment. Documented by Monika Oh LPN on behalf of: Lamin Maier DO documented in this encounter [facility] Evaluation note Note Date & Type Note Facility Evaluation note Diagnosis Second trimester state, incidental History of placental abruption documented in this encounter [facility] Evaluation note Note Date & Type Note Facility Evaluation note Diagnosis Status post section- Primary Other postprocedural status documented in this encounter [facility] Evaluation note Note Date & Type Note Facility Evaluation note Diagnosis 20 weeks gestation of - Primary History of placental abruption History of prior with IUGR Hx of section Family history of genetic disease Family history of other condition documented in this encounter [facility] Instructions Note Date & Type Note Facility Instructions Not on filedocumented in this en counter [facility] Instructions Attachments Note Date & Type Note Facility Instructions The following attachments cannot be sent through Care Everywhere.Preeclampsia (Ukrainian)documented in this encounter [facility] Assessments [...] Log into your personal health record on [email or web address] and enter Y392 in the Education box to learn more about [place]: Care Instructions. Current as of: September 19, 2015 Content Version: 11.2 3179-2834 [employer]. Care instructions adapted under license by your healthcare professional. If you have questions about a medical condition or this instruction, always ask your healthcare professional. [employer] disclaims any warranty or liability for your [...] MD [address] [place] [address] [facility] [address] [place] [address] Referral ID Status Reason Start Date Expiration Date V isits Requested Visits Authorized [id number] Pending Review 07/22/2023 07/21/2024 1 1 Additional Source Comments INFORMATION SOURCE (unrecogn ized section and content) DATE CREATED AUTHOR 10/18/2017 [facility] DATE CREATED AUTHOR AUTHOR'S ORGANIZ ATION 02/12/[address] [facility] DATE CREATED AUTHOR AUTHOR'S ORGANIZ ATION 09/06/2022 [facility] DATE CREATED AUTHOR AUTHOR'S ORGANIZ ATION 01/11/2024 [facility] Natalie Rose MD [...] signs in last 24 hours: Temp: [98.8 F (37.1 C )] 98.8 F (37.1 C ) Heart Rate: [93] 93 Resp: [14] 14 [...] and content) Associated Order(s): IP CONSULT TO SUPERVISOR COVERING AND LINING Request for consult received, will contact mother [...] that baby is currently being transferred to [facility] from NICU, requests consult, informed her that [...] abruption SNOMED CT(R): PLACENTAL ABRUPTION Leena Donovan [[id number]] Delivery Anesthesia Method: Epidural Operative Delivery Forceps attempted?: No Vacuum extractor attempted?: No Shoulder Dystocia Shoulder dystocia present: No Presentation Presentation: Vertex Position: Middle _: Occiput _: Anterior Information date/time: 01/11/182113 Gender: Male Delivery type: Vaginal, Spontaneous Delivery Delivery location: OB Unit ?: No Details: Delivery Providers Delivering clinician: Anahy Sarah MD Other personnel: Provider Role Covering Attending Resident Director Of Career Resources Leyla Alves, store team member Nurse Stephanie Curran RN Registered Nurse Karlie Shah, store team member Assist Nurse Practitioner Cord Vessels: 3 vessels Complications: Nuchal Nuchal intervention: clamped and cut Nuchal cord description: tight nuchal cord Number of loops: 1 Delayed cord clamping?: No Cord clamped date/time: 01/11/20182113 Cord blood obtained?: Lab Cord segment obtained?: Yes Gases sent?: Yes Stem cell collection (by Provider)?: No Placenta Date/time: 01/11/2018 2123 Removal: Spontaneous Appearance: Intact Disposition: Discarded Apgars [...] content) Reason Comments Routine Visit Reason Comments Care Reason Comments hx placental abruption hx IUGR [...] BE BASED ON THE PRIMARY CLINICAL RECORDS. [facility]. provides no warranty or guarantee of the accuracy or completeness of information in this document.
[2024-10-19 11:09] LABS: Age Gdln ACOG Testing Note (.); HPV Aptima Negative (Negative); IGP, Aptima HPV, rfx 16/18,45 Note (.)
== END 2024-10-16 19:17 | disposition home or self-care (01) ==
LOC: LAB 19:16
PROVIDERS: PCP Nurse Practitioner Family; Visit Provider Obstetrics & Gynecology
DX: Z01.419 Encounter for gynecological examination (general) (routine) without abnormal findings (principal)
CPT/HCPCS: 87624; 88175

== ENCOUNTER 2025-04-09 12:57 | Outpatient (OUT) | payer OTHER, SELFPAY ==
--- OUTSIDE RECORDS SUMMARY | 2025-04-05 10:00 | XMS_ITS | Encounter Summary ---
Author Organization [facility] Address [address] [place] [address] Care Team Providers Care Inspector Floor Sub Assembly Name Role Phone Unavailable Primary Care Provider Unavailabl e Encounter Details DateTypeDepartmentCare Team (Latest Contact Info)Yhjlumuidco44/12/2025 10:00 AM ESTAncillary Procedure [facility] Cristhian RAMIRE[facility] [address] [place] [address] Missed menses; Positive urine test ([facility]) Social History Tobacco UseTypesPacks/DayYears UsedDateSmoking Tobacco: NeverSmokeless Tobacco: NeverAlcohol UseStandard Drinks/WeekCommentsNever0 (1 standard drink = 0.6 oz pure alcohol)caffeine: 2-3 cups per day, soda/popEstimated Date of QzvrjzqaKiswcuupSzu53/21/2026ased on last menstrual period of 02/05/2025Sex and Gender InformationValueDate RecordedSex Assigned at BirthNot on fileLegal Sex Tbsurt1407/07/2022 9:44 PM EDTGender IdentityNot on fileSexual OrientationNot on filedocumented as of this encounter Plan of Treatment DateTypeDepartmentCare Team (Latest Contact Info)Wzydqhscqxy14/15/2026 8:50 AM ESTRoutine NOMTessa RAMIREZ [address] [place] [address] Lamin Maeir DO [address] [place], [place] [phone] NameTypePriorityAssociated DiagnosesDate/TimeUS OB transvaginalImagingRoutine Missed menses Positive urine test ([facility]) 04/05/2025 10:20 AM ESTdocumented as of this encounter Visit Diagnoses Diagnosis Missed menses Positive urine test ([facility]) documented in this encounter
--- OUTSIDE RECORDS SUMMARY | 2025-04-05 10:30 | XMS_ITS | Encounter Summary ---
Author Organization [facility] Address [address] [place] [address] Care Team Providers Care Blood Bank Worker Name Role Phone Unavailable Primary Care Provider Unavailabl e Reason for Visit * ReasonCommentsAmenorrhea Encounter Details DateTypeDepartmentCare Team (Latest Contact Info)Iwdhgbxbset91/12/2025 10:30 AM ESTInitial [facility] [address] [place] [address] [place] [address] [place]: 8w3d Social History Tobacco UseTypesPacks/DayYears UsedDateSmoking Tobacco: NeverSmokeless Tobacco: NeverAlcohol UseStandard Drinks/WeekCommentsNever0 (1 standard drink = 0.6 oz pure alcohol)caffeine: 2-3 cups per day, soda/popEstimated Date of KvytblnaQecoqwimAkn13/21/2026ased on last menstrual period of 02/05/2025Sex and Gender InformationValueDate RecordedSex Assigned at BirthNot on fileLegal Sex Lhvuft2407/07/2022 9:44 PM EDTGender IdentityNot on fileSexual OrientationNot on filedocumented as of this encounter Last Filed Vital Signs Vital SignReadingTime TakenCommentsBlood Fxovlukp365/7004/05/2025 10:41 AM EST Pulse--Temperature--Respiratory Rate--Oxygen Saturation--Inhaled Oxygen Concentration--Torehr28.2 kg (126 lb 1.9 oz)04/05/2025 10:41 AM ESTHeight--Body Mass Index20.36001/10/2024 8:44 AM EDTdocumented in this encounter Progress Notes * Rylee Celeste LPN - 04/05/2025 10:30 AM EST Reason for Appointment: Patient ID: Yovanny Donovan is a 29 y.o. female who presents for Amenorrhea Patient presents today for a Nurse OB Intake appointment. Patient is 8w3d with a Estimated Date of Delivery: 11/12/25 OB History Para Term AB Living 4 3 3 3 SAB IAB Ectopic Multiple Live Births 3 # Outcome Date GA Lbr Jl/2nd Weight Sex Type Anes PTL Lv 4 Current 3 Term 11/28/23 39w0d 8 lb 4 oz M TOYA 2 Term 02/21/20 6 lb 12 oz F CS-LTranv TOYA Complications: Breech ([facility]), Breech presentation ([facility]) 1 Term 01/11/18 37w1d 06:10 / 02:44 6 lb 14 oz M Vag-Spont EPI N TOYA Current Medications: has a current medication list which includes the following prescription(s): ondansetron odt and mv-min-fe fum-fa-dha. Medical History: Active Ambulatory Problems Diagnosis Date [...] cups per day, soda/pop Drug use: Never Past Surgical History: Procedure Laterality Date SECTION, CLASSIC 02/21/2020 SECTION, CLASSIC 11/28/2023 No Known Allergies Vitals: Estimated body mass index is 20.36 kg/m?? as calculated from the following: Height as of 01/10/24: 5' 6 . Weight as of this encounter: 126 lb 1.9 oz. BP: 120/70 Patient's last menstrual period was 02/05/2025. Assessment/Plan Diagnoses and all orders for this visit: Missed menses - US OB transvaginal; Future - Type and screen; Future - ABO/Rh; Future - CBC and differential - Hemoglobin A1c - RPR - Rubella antibody, IgG - Hepatitis B surface antigen - Hepatitis C antibody - HIV-1 and HIV-2 antibodies - Urine culture - POCT , urine manually resulted - POCT urinalysis dipstick manually resulted Positive urine test ([facility]) - OB transvaginal; Future , unspecified gestational age ([facility]) - Type and screen; Future - ABO/Rh; Future - CBC and differential - Hemoglobin A1c - RPR - Rubella antibody, IgG - Hepatitis B surface antigen - Hepatitis C antibody - HIV-1 and HIV-2 antibodies - Rapid drug screen, urine; Future Encounter for supervision of normal first in first trimester ([facility]) - Rapid drug screen, urine; Future Nurse Note: OB Intake: Patient presents today for first OB visit. Patients history has been reviewed in great detail including any potential risks. Patient signed consent forms and patient desires testing in both trimesters. Patient currently has no complaints and has been advised to drink 6-8 glasses of water a day, eatno raw or undercooked meat, and stay away from [facility]. Patient has also been advised to not change litter boxes and eat 6 small meals a day. Patient has been consulted regarding the do's and don'ts ofpregnancy. Patient was given labs and all questions and concerns were answered. Patient given [place] labs to have completed. Follow Up: Patient is to return in 4 weeks for routine OB appointment. Follow Up: Patient is to have labs drawn at directed and return to office for initial OB appointment with provider. Patient may call office as needed with any concerns or questions. Nurse Visit Completed by: Rylee Celeste LPN documented in this encounter Plan of Treatment DateTypeDepartmentCare Team (Latest Contact Info)Huogaprczhc54/15/2026 8:50 AM ESTRoutine [facility] [address] [place] [phone] Lamin Maier, DO [address] [place], [place] [id number] NameTypePriorityAssociated DiagnosesDate/TimeUS OB transvaginalImagingRoutine Missed menses Positive urine test ([facility]) 04/05/2025 10:20 AM ESTNameTypePriorityAssociated DiagnosesOrder ScheduleUS OB transvaginalImagingRoutine Missed menses Positive urine test ([facility]) Expected: 03/28/2025, Expires: 06/26/2025Type and screenLabRoutine Missed menses , unspecified gestational age ([facility]) Expected: 04/05/2025 (Approximate), Expires: 6ABO/RhLabRoutine Missed menses , unspecified gestational age ([facility]) Expected: 04/05/2025 (Approximate), Expires: 6CBC and differentialLab Routine Missed menses , unspecified gestational age ([facility]) Ordered: 04/05/2025Hemoglobin T7oXvrJqrykdb Missed menses , unspecified gestational age ([facility]) Ordered: 04/05/2025RPRLabRoutine Missed menses , unspecified gestational age ([facility]) Ordered: 04/05/2025Rubella antibody, IgGLabRoutine Missed menses , unspecified gestational age ([facility]) Ordered: 04/05/2025Hepatitis B surface antigenLabRoutine Missed menses , unspecified gestational age ([facility]) Ordered: 04/05/2025Hepatitis C antibodyLabRoutine Missed menses , unspecified gestational age ([facility]) Ordered: 04/05/2025HIV-1 and HIV-2 antibodiesLabRoutine Missed menses , unspecified gestational age ([facility]) Ordered: 04/05/2025Urine cultureMicrobiologyRoutine Missed menses Ordered: 04/05/2025Rapid drug screen, urineLabRoutine , unspecified gestational age ([facility]) Encounter for supervision of normal first in first trimester ([facility]) Expected: 04/05/2025 (Approximate), Expires: 04/05/2026documented as of this encounter Procedures Procedure NamePriorityDate/TimeAssociated DiagnosisCommentsPOCT , URINE Ruyagwx1604/05/2025 10:43 AM EST Missed menses POCT URINALYSIS AMMEAWZSDxsmvgy25/12/2025 10:43 AM EST Missed menses documented in this encounter Results * POCT urinalysis dipstick manually resulted (04/05/2025 10:43 AM EST)Component ValueRef RangeTest MethodAnalysis TimePerformed AtPathologist SignatureColor, UAYellowClarity, UAClearGlucose, UANegativeNegative - 2000(110) ++++ mg/dL Bilirubin, UANegativeNegative - 4(70) +++ mg/dLKetones, UANegativeNegative - 160(16) ++++ mg/dLSpec Grav, UA1.0251 - 1.03Blood, UANegativeNegative - 50 Willam/mcLpH, UA6.05 - 9Protein, UANegativeNegative - 2000(20) ++++ mg/dL Urobilinogen, UA1.00.2 - 12 mg/dLLeukocytes, UANegativeNegative - 500+++ Sandy/mcLNitrite, UANegativeNegative - PositiveSpecimen (Source)Anatomical Location / LateralityCollection Method / VolumeCollection TimeReceived Time Urine04/05/2025 10:43 AM EST Narrative Authorizing ProviderResult TypeResult StatusCorey Livier DOPOINT OF CARE TEST ENTER/EDIT ORDERABLESFinal Result * (ABNORMAL) POCT , urine manually resulted (04/05/2025 10:43 AM EST) ComponentValueRef RangeTest MethodAnalysis TimePerformed AtPathologist SignaturePreg Test, UrPositiveNegativeSpecimen (Source)Anatomical Location / LateralityCollection Method / VolumeCollection TimeReceived TimeUrine 04/05/2025 10:43 AM EST Narrative Authorizing ProviderResult TypeResult StatusCorey Livier DOPOINT OF CARE TEST ENTER/EDIT ORDERABLESFinal Result documented in this encounter Visit Diagnoses Diagnosis Missed menses Positive urine test ([facility]) , unspecified gestational age ([facility]) Encounter for supervision of normal first in first trimester ([facility]) documented in this encounter
--- OUTSIDE RECORDS SUMMARY | 2025-04-09 13:04 | XMS_ITS | Clinical Summary ---
Author Organization [facility] Address [address] [place] [address] Care Team Providers Care Automotive Porter Name Role Phone No, Physician Primary Care Provider Ebonie Arreola MD Unavailable [phone] Allergies No known active allergies Medications MedicationSigDispense QuantityRefillsLast FilledStart DateEnd DateStatus vitamin with Ca-Iron-FA 27-1 mg Tab Take 1 tablet by mouth daily.Active levonorgestrel (MIRENA) 20 mcg/24 hr (5 years) IUD 1 each by Intrauterine route once .Active Active Problems ProblemNoted DateDiagnosed DatePlacental rtdhjpeek29/18/2018 Immunizations ImmunizationAdministration DatesNext DueHPV Quadrivalent (Gardasil)04/14/2017 INFLUENZA IIV4 6MO OR > FLUARIX/FLUZONE/AFLURIA [id number]/12/2018Tdap 11/10/2017 Family History Medical HistoryRelationCommentsNo Known ProblemsFatherNo Known ProblemsMother RelationStatusCommentsFatherAliveMaternal GrandfatherAliveMaternal Grandmother DeceasedMotherAlivePaternal GrandfatherDeceasedPaternal GrandmotherAlive Social History Tobacco UseTypesPacks/DayYears UsedDateSmoking Tobacco: NeverSmokeless Tobacco: NeverAlcohol UseStandard Drinks/WeekCommentsNo0 (1 standard drink = 0.6 oz pure alcohol)rarelyCommentsNoSex and Gender InformationValueDate RecordedSex Assigned at BirthNot on fileLegal ByjYawzyq19/21/2017 2:46 PM ESTGender Identity Iiwepw0511/11/2017 10:01 AM EDTSexual BrpqtvrdsyvQtmksefc18/20/2018 10:01 AM EDT 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 on fileNot on fileNot on file Last Filed Vital Signs Vital SignReadingTime TakenCommentsBlood Wpifidlv354/7002 11:47 AM EST Pdwdd933101/13/2018 9:42 AM ZCNRjylzeootrx78.8 ??C (98.2 ??F)01/13/2018 9:31 AM EDTRespiratory Dqtw929401/13/2018 9:31 AM EDTOxygen Dspallrqbx78%01/13/2018 9:42 AM EDTInhaled Oxygen Concentration--Zicdcv44.2 kg (135 lb)06/06/2018 11:47 AM YBUMtthhk472.6 cm (5' 6 )06/06/2018 11:47 AM ESTBody Mass Index21.7906/06/2018 11:47 AM EST Plan of Treatment Health MaintenanceDue DateLast DoneCommentsIPV Vaccines (4 of 4 - 4-dose series) , 1993, 1993Depression Screening/Follow-Up (PHQ-2/9)2005Hepatitis C Pmnwplsvf83/12/2012HPV Vaccines (3 - 3-dose series), 05/06/2011Varicella Vaccines (1 of 2 - 13+ 2-dose series)02/09/2018Wellness Visit05/01/Pap Smear05/01/2021 05/01/2018, 04/14/2017Cervical Cancer Gudvjczpz83/12/2024HPV/Qpovfd2009/04/2023 COVID-19 Vaccine ( - season)2024Influenza Vaccine (#1)2024 01/12/2018Tetanus/Diphtheria/Pertussis (8 - Td or Tdap)8011/10/2017, 05/06/2011, 12/17/1998, Additional history existsZoster Vaccines (1 of 2) 4RSV Vaccines (1 - 1-dose 75+ series)2068HIB VaccinesCompleted 06/22/1995, 03/29/1994, 1993, Additional history existsMeningococcal ACWY IloyzksQdmryighk41/12/2012Hepatitis B RowrbonzGgbdvtemm34/27/2015, 12/12/2013, 12/17/1998HIV LnhasyyweVdhyzkwvu66/08/2018Hepatitis A VaccinesAged OutNo longer eligible based on patient's age to complete this topicMeningococcal B Vaccine Aged OutNo longer eligible based on patient's age to complete this topic Pneumococcal VaccineAged OutNo longer eligible based on patient's age to complete this topicRotavirus VaccinesAged OutNo longer eligible based on patient's age to complete this topic Procedures Procedure NamePriorityDate/TimeAssociated DiagnosisCommentsTHINPREP PAP SMEAR Tcyyiqt3305/01/2018 Screening for malignant neoplasm of cervix HIV 1/2 SCREEN (4TH GENERATION)Xtgyylz5306/30/2017 1:30 PM EST Supervision of normal first from Last 3 Months or Most Recently Relevant to Health Maintenance Results * Thinprep Pap Smear (05/01/2018)ComponentValueRef RangeTest MethodAnalysis Time Performed AtPathologist SignatureCase ReportGynecologic Cytology Report ? Case: [id number] ? Authorizing Provider: ??Ebonie Lovelace, ?? Collected: ? 05/01/2018 ? MD ? Ordering Location: ? [facility] Received: ?05/01/2018 05:28 PM ? - [place] ? First Screen: ?Litzy Cardoza ? Rescreen: ?Gina Leonard ? Specimen: ?THINPREP PAP SMEAR, Cervix / Endocervix ? 05/04/2018 2:50 PM [facility] XWQKTXgwmoav30/10/2019 2:50 PM [facility] LABInterpretationNegative for intraepithelial lesion or amaorqmssz81/10/2019 2:50 PM [facility] at 1450 ESTSpecimen AdequacySatisfactory for evaluation; transformation zone/endocervical component glxiymd2105/04/2018 2:50 PM [facility] LABEducational NoteThe Pap smear is a screening test for the detection of cervical cancer and its precursor lesions. False positive and false negative results can occur. The test should be performed at regular intervals, and positive results should be confirmed before definitive therapy. Additional testing methods may be helpful in detecting abnormalities or in clinical management.05/04/2018 2:50 PM EST [facility] LABPrevious Abnormal KnhAei5805/04/2018 2:50 PM EST [facility] LABSpecimen (Source)Anatomical Location / LateralityCollection Method / VolumeCollection TimeReceived TimePap, Liquid BasedENDOCERVICAL STRUCTURE / Qlgitnd35 5:28 PM EST Narrative Authorizing ProviderResult TypeResult StatusEbonie Lovelace MD PATHOLOGY/CYTOLOGY ORDERABLESFinal ResultPerforming OrganizationAddress City/State/ZIP CodePhone Number [facility] [place] [address] * HIV 1/2 Screen (4th Generation) (06/30/2017 1:30 PM EST)ComponentValueRef RangeTest MethodAnalysis TimePerformed AtPathologist SignatureHIV 1-2 Screen WibcnstkTelqawdc88/09/2018 11:23 AM [facility] Specimen (Source)Anatomical Location / LateralityCollection Method / Volume Collection TimeReceived TimeBloodBLOOD SPECIMEN / UnknownVenipuncture / Zpachsk9906/30/2017 1:30 PM EST06/30/2017 1:30 PM EST Narrative [facility] - 07/01/2017 11:23 AM EST This assay tests for the presence of HIV-1, HIV-2 antibodies and for the presence of HIV-1 antigen. Test performed using Ivana TR immunoassay system Authorizing ProviderResult TypeResult StatusEbonie Lovelace MDLAB BLOOD ORDERABLESFinal ResultPerforming OrganizationAddressCity/State/ZIP CodePhone Number [facility] [address] [place] [phone] from Last 3 Months or Most Recently Relevant to Health Maintenance Insurance Advance Directives For more information, please contact: [phone] * Full Code (Latest Code Status on File) Date ActivatedDate InactivatedComments01/11/2018 11:44 PM * Full Code Date ActivatedDate InactivatedComments01/10/2018 11:44 PM01/11/2018 11:44 PM * Full Code Date ActivatedDate InactivatedComments01/10/2018 7:57 PM01/10/2018 11:44 PM Care Teams Team MemberRelationshipSpecialtyStart DateEnd Date No, Physician [facility] PCP - General09/21/17 Ebonie Lovelace MD [address] [facility] [address] [place] [address] ObstetricianObstetrics/Gynecology10/27/17
--- OUTSIDE RECORDS SUMMARY | 2025-04-09 13:04 | XMS_ITS | Encounter Summary ---
Author Organization [facility] Address [address] [facility] [place] [address] Care Team Providers Care Stockroom Associate Name Role Phone Unavailable Primary Care Provider Unavailabl e Encounter Details DateTypeDepartmentCare Team (Latest Contact Info)Jwopbbdqisa11/04/2025Telephone [facility] [address] [place] [address] [place] [address] Karyn Lopez LPN Social History Tobacco UseTypesPacks/DayYears UsedDateSmoking Tobacco: NeverSmokeless Tobacco: NeverAlcohol UseStandard Drinks/WeekCommentsNever0 (1 standard drink = 0.6 oz pure alcohol)caffeine: 2-3 cups per day, soda/popCommentsNoSex and Gender InformationValueDate RecordedSex Assigned at BirthNot on fileLegal Sex Zmwugf3907/07/2022 9:44 PM EDTGender IdentityNot on fileSexual OrientationNot on filedocumented as of this encounter Miscellaneous Notes * Telephone Encounter - Karyn Lopez LPN - 03/28/2025 2:49 PM EST 10:01am Patient called and LMOM stating that she is about 7 weeks , but wanted to know if she is able to get Zofran sent to pharmacy. 2:40pm Called patient and informed her that Zofran will be sent to [facility] with 2 refills. PVU--Karyn Gonzalez LPN documented in this encounter Plan of Treatment DateTypeDepartmentCare Team (Latest Contact Info)Osjwxbfyruv47/15/2026 8:50 AM ESTRoutine [facility] [address] [place] [address] Lamin Maier DO [address] [place] [address] documented as of this encounter Visit Diagnoses Diagnosis Nausea Nausea alone documented in this encounter
--- OUTSIDE RECORDS SUMMARY | 2025-04-09 13:04 | XMS_ITS | Clinical Summary ---
Author Organization [facility] Address [id number] [address] [place] [address] Care Team Providers Care Offset Proof Press Operator Name Role Phone Unavailable Primary Care Provider Unavailabl e Allergies No known active allergies Medications MedicationSigDispense QuantityRefillsLast FilledStart DateEnd DateStatus ondansetron ODT (ZOFRAN ODT) 4 mg disintegrating tablet Dissolve 1 tablet (4 mg total) on tongue every 8 (eight) hours as needed for nausea or vomiting.Active vit 14-iron fum-folic 29 mg iron- 1 mg tablet,chewable Chew 1 tablet and swallow in the morning.Active Active Problems ProblemNoted DateDiagnosed DateHx of jzzpwcc8807/11/2023History of placental iezhzlqov69/18/2024History of prior with IUGR 07/11/2023 Family History Medical HistoryRelationNameCommentsCancerMaternal GrandmotherRelationNameStatus CommentsMaternal Grandmother Social History Tobacco UseTypesPacks/DayYears UsedDateSmoking Tobacco: NeverSmokeless Tobacco: Never Tobacco Cessation:Counseling Given: Not Answered Alcohol UseStandard Drinks/WeekCommentsNot Currently0 (1 standard drink = 0.6 oz pure alcohol)Hunger ScreeningAnswerDate RecordedWithin the past 12 months we worried whether our food would run out before we got money to buy more.Never True07/22/2023Within the past 12 months the food we bought just didn't last and we didn't have money to get more.Never True07/22/2023CommentsNoSex and Gender InformationValueDate RecordedSex Assigned at BirthNot on fileLegal Sex Lhckqr9907/11/2023 10:59 AM EDTGender IdentityNot on fileSexual OrientationNot on file Last Filed Vital Signs Vital SignReadingTime TakenCommentsBlood Gblvoufs473/61007/22/2023 12:33 PM EDT Ageky602007/22/2023 12:33 PM EDTTemperature--Respiratory Rate--Oxygen Saturation-- Inhaled Oxygen Concentration--Llkcqm40.2 kg (130 lb 9.6 oz)07/22/2023 12:33 PM OCPSlgoge272.6 cm (5' 6 )07/22/2023 12:33 PM EDTBody Mass Index21.0807/22/2023 12:33 PM EDT Plan of Treatment Health MaintenanceDue DateLast DoneCommentsDepression Exwpnvxyr90/12/2006Pap Smear2014dult BMI Vxdcqrbub21Tobacco Screening OVID-19 Vaccine ( season)502/02/2022, 05/12/2021Influenza Ojqigkh86/DTaP,Tdap and Td Vaccines (8 - Td or Tdap), 05/06/2011, 12/17/1998, Additional history exists [employer] Devices Not on file Insurance MemberSubscriberPlan / Payer (Effective 2023-Present)Name:Yovanny Donovan Relation to Subscriber:SelfName:Yovanny Donovan Payer ID:[id number] (NAIC) Type:Not on file Address: [address] [place] [phone]
--- OUTSIDE RECORDS SUMMARY | 2025-04-09 13:04 | XMS_ITS | Clinical Summary ---
Author Organization [facility] Address [address] [place] [address] Care Team Providers Care Manager Managed Backup Services Name Role Phone Unknown, Provider Primary Care Provider Unavaila ble Social History Tobacco UseTypesPacks/DayYears UsedDateSmoking Tobacco: Never Assessed CommentsUnknownSex and Gender InformationValueDate RecordedSex Assigned at Not on fileLegal UumNjfeqc74/05/2022 3:36 PM EDTGender IdentityNot on fileSexual OrientationNot on file Plan of Treatment Health MaintenanceDue DateLast DoneCommentsMMR Vaccine (1 of 1 - Standard series)1994DTaP/Tdap/Td Vaccine (1 - Tdap)2000Varicella Vaccine (1 of 2 - 13+ 2-dose series)2006Hepatitis B Vaccine (1 of 3 - 19+ 3-dose series)2012HPV Vaccine (1 - 3-dose SCDM series)1COVID-19 Vaccine (1 - 2024- season)2024Influenza Vaccine (#1)2024HIB VaccineAged OutNo longer eligible based on patient's age to complete this topicHepatitis A VaccineAged OutNo longer eligible based on patient's age to complete this topic IPV VaccineAged OutNo longer eligible based on patient's age to complete this topicMeningococcal ACWY VaccineAged OutNo longer eligible based on patient's age to complete this topicMeningococcal B VaccineAged OutNo longer eligible based on patient's age to complete this topicPneumococcal VaccineAged OutNo longer eligible based on patient's age to complete this topicRSV AntibodiesAged OutNo longer eligible based on patient's age to complete this topicRotavirus Vaccine Aged OutNo longer eligible based on patient's age to complete this topic Care Teams Team MemberRelationshipSpecialtyStart DateEnd Date Unknown, Provider PCP - General08/22/21
--- OUTSIDE RECORDS SUMMARY | 2025-04-09 13:04 | XMS_ITS | Clinical Summary ---
Author Organization [facility] Healthcare Address [address] [place] [address] Care Team Providers Care Relationship Manager Name Role Phone Unavailable Primary Care Provider Unavailabl e Allergies No known active allergies Medications MedicationSigDispense QuantityRefillsLast FilledStart DateEnd DateStatus ondansetron ODT (Zofran-ODT) 4 MG disintegrating tablet Indications:NauseaTake 1 tablet (4 mg) by mouth every 6 (six) hours if needed for nausea or vomiting 30 tablet 5004/27/2025ctive MV-Min-Fe Fum-FA-DHA ( 1 PO) Take 1 tablet by mouth DailyActive Active Problems Estimated Date of IkozfynfHnqlavyeGvm98/21/2026ased on last menstrual period of 02/05/2025 No known active problems Encounters DateTypeDepartmentCare KdlmPsocmhdqpxr79/12/2025 10:30 AM ESTInitial NOMS Crist[facility] [place] [address] [place]: 8w3d04/05/2025 10:00 AM ESTAncillary Procedure NOMTessa RAMIREZ [address] [place] [address] Missed menses; Positive urine test ([facility])03/28/2025Telephone BROWN RAMIREZ [address] [place] [address] Karyn Lopez LPN from Last 3 Months Family History Medical HistoryRelationNameCommentsUterine cancerMaternal GrandmotherRelation NameStatusCommentsFatherAliveMaternal GrandmotherMotherAlive Social History Tobacco UseTypesPacks/DayYears UsedDateSmoking Tobacco: NeverSmokeless Tobacco: Never Tobacco Cessation:Counseling Given: Not Answered Alcohol UseStandard Drinks/WeekCommentsNever0 (1 standard drink = 0.6 oz pure alcohol)caffeine: 2-3 cups per day, soda/popEstimated Date of Delivery HrekopipVje37/21/2026ased on last menstrual period of 02/05/2025Sex and Gender InformationValueDate RecordedSex Assigned at BirthNot on fileLegal SexFemale 07/07/2022 9:44 PM EDTGender IdentityNot on fileSexual OrientationNot on file Last Filed Vital Signs Vital SignReadingTime TakenCommentsBlood Hnqrqght982/7004/05/2025 10:41 AM EST Pulse--Temperature--Respiratory Rate--Oxygen Saturation--Inhaled Oxygen Concentration--Juiemy76.2 kg (126 lb 1.9 oz)04/05/2025 10:41 AM RWXZxwaqt050.6 cm (5' 6 )01/10/2024 8:44 AM EDTBody Mass Index20.36001/10/2024 8:44 AM EDT Plan of Treatment DateTypeDepartmentCare Team (Latest Contact Info)Lyjjuzkjiow55/15/2026 8:50 AM ESTRoutine NOMS Crist[facility]ian [facility] [address] [place] [id number] Lamin Maier, [address] [place], [place] [id number] Health MaintenanceDue DateLast DoneCommentsHPV/Dfuzyi084COVID-19 Vaccine (2024- season)5006/05/2021, 05/12/2021Influenza Vaccine (#1) Cervical Cancer Mvsqcbafq96/24/2028Pap Smear10/17/2027 10/16/2024, 09/02/2022, 05/01/2018, Additional history existsPneumococcal Vaccine: Pediatrics (0 to 5 Years) and At-Risk Patients (6 to 64 Years)Aged Out No longer eligible based on patient's age to complete this topic Procedures Procedure NamePriorityDate/TimeAssociated DiagnosisCommentsPOCT URINALYSIS YQPPIBLDJohbfkb79/12/2025 10:43 AM EST Missed menses POCT , TOEVUOkechpf65/12/2025 10:43 AM EST Missed menses PAP TZYBLQauaokj28/24/2025 12:00 AM EDTfrom Last 3 Months or Most Recently Relevant to Health Maintenance Results * (ABNORMAL) POCT , urine manually resulted (04/05/2025 10:43 AM EST) ComponentValueRef RangeTest MethodAnalysis TimePerformed AtPathologist SignaturePreg Test, UrPositiveNegativeSpecimen (Source)Anatomical Location / LateralityCollection Method / VolumeCollection TimeReceived TimeUrine 04/05/2025 10:43 AM EST Narrative Authorizing ProviderResult TypeResult StatusCorey [facility] DOPOINT OF CARE TEST ENTER/EDIT ORDERABLESFinal Result * POCT urinalysis dipstick manually resulted (04/05/2025 [...] OF CARE TEST ENTER/EDIT ORDERABLESFinal Result * Pap Smear (10/16/2024 12:00 AM EDT)Specimen (Source)Anatomical Location / LateralityCollection Method / VolumeCollection TimeReceived TimeSwabCervical swab / Unknown Narrative Authorizing ProviderResult TypeResult StatusCorey [place] DOLAB CYTOLOGY ORDERABLESFinal ResultPerforming OrganizationAddressCity/State/ZIP CodePhone Number EXTERNAL LAB from Last 3 Months or Most Recently Relevant to Health Maintenance Insurance
[2025-04-09 13:44] LABS: Hematocrit 36.8 % (36.0-48.0); Hemoglobin 12.6 g/dL (12.0-16.0); Immature Granulocytes Abs Auto 0.02 10^3/uL (0.00-0.03); Immature Granulocytes Pct Auto 0.2 % (0.0-0.5); Lymphocytes Absolute Auto 1.9 10^3/uL (1.2-3.8); Mean Corpuscular HGB Conc 34.2 g/dL (29.9-35.2); Mean Corpuscular Hemoglobin 31.0 pg (26.7-34.0); Mean Corpuscular Volume 90.6 fL (81.0-99.0); Platelet Count 245 10^3/uL (150-450); Red Blood Count 4.06 10^6/uL (4.20-5.40); White Blood Count 8.1 10^3/uL (4.0-11.0)
[2025-04-09 15:25] LABS: Cannabinoid Screen Urine NEGATIVE (NEGATIVE); Methamphetamines Screen Urine NEGATIVE (NEGATIVE); Tricyclic Antidepressant Urine NEGATIVE (NEGATIVE)
[2025-04-10 06:08] LABS: Rubella Antibodies, IgG 3.38 index (Immune >0.99)
[2025-04-10 13:11] LABS: Rapid Plasma Reagin, Quant Non Reactive titer (NonRea<1:1)
== END 2025-04-09 12:58 | disposition home or self-care (01) ==
LOC: LAB 12:59
PROVIDERS: PCP Nurse Practitioner Family; Visit Provider Obstetrics & Gynecology
DX: Z34.01 Encounter for supervision of normal first pregnancy, first trimester (principal); N92.6 Irregular menstruation, unspecified
CPT/HCPCS: 36415; 80307; 83036; 85025; 86592; 86762; 86803; 86850; 86900; 86901; 87086; 87340; 87389